=== PATIENT | female | born 1945 | race Caucasian/White ===

== ENCOUNTER 2017-09-22 10:27 | Emergency (ER) | payer OTHER, MEDICARE, SELFPAY ==
[2017-09-22 10:28] VITALS: BP 179/78; PULSE 103; RESP 15; TEMP 36.6; O2SAT 98; BMI 23.6
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
[2017-09-22 12:14] VITALS: PULSE 82; RESP 15; O2SAT 98
== END 2017-09-22 12:14 | disposition home or self-care (01) ==
PROVIDERS: Emergency Provider Emergency Medicine
DX: S00.83XA Contusion of other part of head, initial encounter (principal); S60.812A Abrasion of left wrist, initial encounter; S60.811A Abrasion of right wrist, initial encounter; R07.89 Other chest pain; Z72.0 Tobacco use; V47.0XXA Car driver injured in collision with fixed or stationary object in nontraffic accident, initial encounter; W22.11XA Striking against or struck by driver side automobile airbag, initial encounter; Y93.I9 Activity, other involving external motion; Y92.410 Unspecified street and highway as the place of occurrence of the external cause; Y99.8 Other external cause status
CPT/HCPCS: 70450; 71046; 99284

== ENCOUNTER 2019-12-03 12:56 | Emergency (ER) | payer MEDICARE, OTHER, SELFPAY ==
[2019-12-03 12:56] VITALS: BP 143/76; PULSE 114; RESP 18; TEMP 36.4; O2SAT 98; BMI 22.2
--- NOTE | 2019-12-03 14:10 | RAD_ITS ---
STUDY: X-RAY CHEST REASON FOR EXAM: Female, 73 years old. Cough/sob TECHNIQUE: AP COMPARISON: 09/22/2017 FINDINGS: The lungs are clear and expanded. There is no demonstrated pleural abnormality. Normal size heart. Normal mediastinum and leslie. Normal visualized pulmonary arteries. There is atherosclerotic tortuosity of the aortic arch and descending thoracic aorta. There is demineralization of the osseous structures. Normal visualized ribs, clavicles, and shoulders. There is no demonstrated abnormality of the visualized soft tissue structures of the upper abdomen. RAD/Chest 1 View (Portable) IMPRESSION: Stable, nonacute portable x-ray examination of the chest. Electronically Signed: Jose Miguel Alcantara MD ([place]) at 14:27 EDT , Service support ,
--- NOTE | 2019-12-03 15:01 | ED.DCSUM_ITS ---
History of Present Illness Chief Complaint: Cough Informant: Patient Onset: Days Context: Gradual Onset Timing: Intermittent Associated Symptoms: Nasal Congestion, Headache, Sinus Pressure, Productive Cough Narrative: Patient is a 73-year-old female with history of tobacco use and seasonal allergies presenting with sinus headache, sinus drainage and cough. Her symptoms been present for the past 2 days. She has no change in her taste or smell, myalgias, chest pain or shortness of breath. She states her cough is been productive of clear sputum and her nasal drainage has been clear as well. Patient denies any sick contacts. Her family was concerned she might have coronavirus and insisted she come to the ER to be tested however patient states she does not think she does. She denies any sick contacts. She has no other complaints at this time. Past Medical History - Allergies and Home Meds Allergies/Adverse Reactions: Allergies Sulfa (Sulfonamide Antibiotics) Allergy (Verified 12/03/19 12:59) Hives Past Medical History: - - Seasonal allergies, COPD Surgical History: noncontributory Smoking Status: Current every day smoker Review of Systems General: Denies: Chills, Fever, Sweats Eyes: Denies: Visual changes - bilaterally, Diplopia ENT: Reports: Rhinorrhea, - - Sinus congestion. Denies: Sore throat Cardiovascular: Denies: Chest pain, Palpitations Respiratory: Reports: Cough, Sputum. Denies: Dyspnea, Dyspnea on exertion Gastrointestinal: Denies: Abdominal pain, Nausea, Vomiting, Diarrhea Genitourinary: Denies: Dysuria, Hematuria, Frequency Musculoskeletal: Denies: Back pain, Extremity Pain Skin: Denies: Rash, Wounds Neurological: Reports: Headache. Denies: Weakness, Numbness Physical Exam Vital Signs/Narrative: Vital Signs Temp Pulse Resp BP Pulse Ox 12/03/19 12:56 97.6 F L 114 H 18 143/76 H 98 Inital Vital Signs reviewed: Yes General: Well nourished, Well developed Head: Normocephalic, Atraumatic Eyes: Perrl, EOMI Ears: Normal external canal, TM's clear Nose: Normal Inspection, No Rhinorrhea. Negative for: Swollen Turbinates Mouth/Throat: Normal Inspection, No Posterior Erythema Neck: Supple, Nontender Cardiovascular: Regular rate, Regular rhythm, No murmurs Respiratory: No distress, CTA bilaterally, Chest nontender. Negative for: Wheezing, Diminished, Decreased Air Movement Abdomen: Soft, Nontender, Nondistended, Normal bowel sounds Back: Nontender, Normal Inspection Extremities: Nontender, No edema Skin: Normal color, No rash Neurological: Alert, Oriented x3, Cranial nerves II-XII grossly intact, Normal Strength, Normal Sensation Psychological: Normal affect Diagnostic/Tx/Re-eval Clinical Impression(s) from Imaging Studies Chest X-Ray 12/03/19 14:10 IMPRESSION: Stable, nonacute portable x-ray examination of the chest. Electronically Signed: Jose Miguel Alcantara MD ([place]) at 14:27 EDT , Service support , - Medical Decision Making Patient is evaluated for cough and allergy-like symptoms. Friend/no member at the bedside is concerned patient might have coronavirus however patient thinks she just has her seasonal allergies. Patient denies any contacts that have been sick. She does continue to smoke cigarettes. She states she is not interested in quitting. Given she has had a cough with sputum production as well as sinus congestion I did obtain a Covid test as well as a chest x-ray. Chest x-ray does not show any acute process. Covid test is pending. Patient is tachycardic however she states that she is anxious about being in the ER and also is often tachycardic. She does not want to be evaluated further at this time. States she feels well. Patient is counseled on return precautions as well as to quarantine until her results return or she is resolution of her symptoms. Patient is counseled on signs and symptoms requiring return to the emergency room. Patient verbalizes agreement and understand this plan. Patient discharged home in stable and improved condition. ED Disposition - Plan for ED Patient: Disposition: Home or Assisted Living Diagnosis: Cough, URI (upper respiratory infection), Person under investigation for COVID- 19 Instructions: ED PNEUMONITIS Adult, ED URI Viral Additional Instructions: Your chest x-ray does not show any acute pneumonia. The exact cause of your symptoms is not clear. It could be viral such as from coronavirus versus allergies. Please quarantine at home until your symptoms resolved or your coronavirus test has come back negative. Please follow-up with your primary care doctor as needed. Return the emergency room if you develop signs of dehydration or you start to have difficulty breathing.
[2019-12-03 15:17] VITALS: BP 169/86; PULSE 105; RESP 16; O2SAT 95
== END 2019-12-03 15:18 | disposition home or self-care (01) ==
PROVIDERS: Emergency Provider Emergency Medicine
DX: R05 Cough (principal); J06.9 Acute upper respiratory infection, unspecified; F17.200 Nicotine dependence, unspecified, uncomplicated
CPT/HCPCS: 71045; 87635; 99282; U0003

== ENCOUNTER 2020-05-12 15:13 | Emergency (ER) | payer MEDICARE, OTHER, SELFPAY ==
[2020-05-12 15:15] VITALS: BP 152/64; PULSE 110; RESP 20; TEMP 36.7; O2SAT 98; BMI 22.6
--- NOTE | 2020-05-12 15:50 | ED.VIS.GEN ---
History of Present Illness Chief Complaint: Lower Extremity Injury Informant: Patient Narrative: Patient is a 74-year-old female with a past medical history of CAD currently being worked up for potential bypass who presents to the emergency department for acute onset left leg pain, difficulty moving and loss of sensation. Her foot has been feeling cold. She is never had this happen before. She is complaining of some left buttock cheek pain that she relates to starting at the same time. This is nontraumatic. She has never had this happen before. She is not on any blood thinning medications. She denies any abdominal pain. No chest pain or shortness of breath. No fevers or chills. Past Medical History - Allergies and Home Meds Allergies/Adverse Reactions: Allergies Sulfa (Sulfonamide Antibiotics) Allergy (Verified 05/12/20 15:14) Hives Primary Care Physician: Care Physician,No Primary [NON-STAFF] - Prior records reviewed: Yes Surgical History: noncontributory Smoking Status: Current every day smoker Review of Systems All systems negative except as indicated General: Denies: Chills, Fever, Sweats Eyes: Denies: Visual changes - bilaterally, Diplopia ENT: Denies: Rhinorrhea, Sore throat Cardiovascular: Denies: Chest pain, Palpitations Respiratory: Denies: Dyspnea, Cough, Dyspnea on exertion Gastrointestinal: Denies: Abdominal pain, Nausea, Vomiting, Diarrhea Genitourinary: Denies: Dysuria, Hematuria, Frequency Musculoskeletal: Denies: Back pain, Extremity Pain Skin: Reports: - - Left leg is pale and mottled. Denies: Rash, Wounds Neurological: Reports: Weakness, Numbness. Denies: Headache Physical Exam Vital Signs/Narrative: Vital Signs Temp Pulse Resp BP Pulse Ox 05/12/20 15:15 98.1 F 110 H 20 H 152/64 H 98 Inital Vital Signs reviewed: Yes General: Well nourished, Well developed, No Acute Distress Head: Normocephalic, Atraumatic Eyes: Perrl, EOMI ENT: Moist mucous membranes, No rhinorrhea Neck: Supple, Nontender Cardiovascular: Regular rate, Regular rhythm, Murmur Respiratory: No distress, CTA bilaterally, Chest nontender Abdomen: Soft, Nontender, Nondistended, Normal bowel sounds Back: Nontender, Normal Inspection Extremities: Nontender, No edema, - - Patient has minimal range of motion and significant weakness of the left leg. Skin: Normal color, No rash, - - Skin is pale on the foot. It is partially mottled. Her DP and PT pulses are not able to be palpated or heard by Doppler. Neurological: Alert, Oriented x3, Cranial nerves II-XII grossly intact, Normal Strength, Normal Sensation Psychological: Normal affect, Normal Mood Diagnostic/Tx/Re-eval - Medical Decision Making Patient presents to the ED for cold pale left leg. I was unable to appreciate pulses on physical exam. She is able to appreciate mild sensation but has a significant decrease in sensation as well as muscle strength. Unfortunately did not have vascular surgery present to assist with care of the patient. She would like to go to [facility]. I did contact the vascular surgeon immediately and start to arrange transfer. Lab work is currently pending. Patient is accepted by the ED doc and vascular surgeon, Dr. Cee and Dr. Rivera. While awaiting for transfer basic lab work and CT imaging was able to be obtained without delaying transfer. She was started on a heparin drip. The CT scan did show an acute occlusion of the iliac artery. The rest of her lab work did not reveal any significant acute abnormality. Patient will be transferred at this time. She is agreeable with this plan. - Critical Care Time Critical care time (excluding procedures): 30-74 minutes, Discussing w/Patient &/or Family/Clutch Mechanic, Discussing w/Consultants, Arranging Admission or Transfer, Performing Direct Patient Care at Bedside ED Disposition - Plan for ED Patient: Disposition: [facility] Diagnosis: Arterial occlusion, lower extremity Referrals: Care Physician,No Primary [NON-STAFF] -
[2020-05-12 16:14] LABS: Absolute Lymphocyte Count 1.44 X10^3/uL (0.83-4.51); Absolute Neutrophil Count 7.2 X10^3/uL (2.0-7.7); Basophil# 0.06 X10^3/uL; Basophil% 0.6 % (0-1); Eosinophil# 0.05 X10^3/uL; Eosinophils% 0.5 % (0-5); Hematocrit 38.5 % (37-47); Hemoglobin 12.4 g/dL (12.0-15.0); Lymphocyte # 1.44 X10^3/ul (4.0); Lymphocyte % 15.4 % (19-41); Mean Corp Hgb Conc 32.2 g/dL (32-36); Mean Corpuscular Hgb 30.2 pg (27.0-32.0); Mean Corpuscular Volume 93.7 fL (81-99); Mean Platelet Vol. 9.3 fl (6.2-12.0); Monocyte# 0.59 X10^3/uL; Monocyte% 6.3 % (0-10); NRBC Flagged by Analyzer 0 % (0-5); Neutrophil % 76.8 % (47-70); Platelet Count 336 K/mm3 (150-450); RBC Distribution Width CV 12.9 % (11.6-14.6); RBC Distribution Width SD 43.9 fl (35.1-43.9); Red Blood Count 4.11 M/mm3 (4.2-5.4); White Blood Count 9.4 K/mm3 (4.4-11.0)
[2020-05-12 16:20] LABS: International Normalized Ratio 1.1; Partial Thromboplast Time 28.6 Seconds (24.1-36.2); Prothrombin Time (Protime)PT. 13.3 SECONDS (11.7-14.9)
[2020-05-12 16:28] LABS: AST(SGOT) 14 U/L (15-37); Alanine Aminotransfer ALT/SGPT 20 U/L (13-56); Alkaline Phosphatase 90 U/L (45-117); Anion Gap 6 (5-15); BUN 10 mg/dL (7-18); BUN/Creat Ratio 12.8 RATIO (10-20); Bilirubin, Direct 0.09 mg/dL (0.00-0.30); Calcium,Total 9.2 mg/dL (8.5-10.1); Chloride 104 mmol/L (98-107); Creatinine, Serum 0.78 mg/dL (0.55-1.02); EST Glomerular Filtration Rate 76 mL/min (>60); Est Glom Filt Rate - Afr Amer 92 mL/min (>60); Estimated Creatinine Clearance 38.53 ml/min; Globulin 3.4 g/dL (2.2-4.2); Glucose 197 mg/dL (74-106); Potassium 3.7 mmol/L (3.5-5.1); Protein, Total 7.4 g/dL (6.4-8.2); Sodium Level 139 mmol/L (136-145)
[2020-05-12] MEDS: Heparin Injection (Vial) 5,000 UNIT/ML VIAL 4000 UNIT IV (16:29)
--- NOTE | 2020-05-12 16:29 | CT_ITS ---
STUDY: CTA OF THE ABDOMINAL AORTA AND BILATERAL LOWER EXTREMITIES REASON FOR EXAM: Female, 74 years old. Acute arterial occlusion left leg RADIATION DOSAGE (If Supplied By Facility): CTDIvol = ( 4.99 ) mGy, DLP = ( 660.29 ) mGycm TECHNIQUE: Axial CT angiography multi-detector data acquisition was obtained from the diaphragm to the left foot following intravenous administration of IV 100ML ISOVUE 370. Axial images and MIP images were reconstructed from the axial data set. Post-processing of the angiographic images was performed, with multiplanar reformation and 3D reconstruction. Individualized dose optimization techniques were used for this CT. TECHNICAL QUALITY: Good COMPARISON: None. Descriptors of Narrowing: None (0%) Mild (< 50%) Moderate (50-70%) Severe (70-90%) Subtotal/Total Occlusion (90-100%) Non-Evaluable (technically non-diagnostic FINDINGS: Abdominal aorta: Moderate atherosclerotic plaque of the abdominal aorta without aneurysm or dissection. Celiac and superior mesenteric arteries: No narrowing of the superior mesenteric artery. High-grade stenosis of the celiac artery. Inferior mesenteric artery: No demonstrated narrowing. Right renal artery(arteries): No demonstrated narrowing. Left renal artery(arteries): No demonstrated narrowing. Right common iliac artery: Moderate diffuse plaque of the right common iliac artery without occlusion or high-grade stenosis. Right external iliac artery: Moderate plaque without occlusion. Right internal iliac artery: Moderate plaque without occlusion. Left common iliac artery: The distal left common iliac artery is occluded. Left external iliac artery: Occlusion of the proximal left external iliac artery with distal reconstitution which is sporadic. Left internal iliac artery: Trickle flow into the left external carotid artery with filling beyond the origin with moderate plaque without other occlusion. RIGHT LOWER EXTREMITY Right common femoral artery: Moderate plaque without occlusion. Right profundus femoris: No demonstrated narrowing. Right superficial femoral: Moderate proximal plaque without occlusion. Right popliteal artery: No demonstrated narrowing. Right tibioperoneal trunk: No demonstrated narrowing. Right anterior tibial artery: No demonstrated narrowing. Right posterior tibial artery: No demonstrated narrowing. Right peroneal artery: No demonstrated narrowing. LEFT LOWER EXTREMITY Left common femoral artery: Reconstitution with moderate plaque, less than 50% narrowing. Left profundus femoris: No demonstrated narrowing. Left superficial femoral: Mild sporadic plaque without occlusion. Left popliteal artery: No demonstrated narrowing. Left tibioperoneal trunk: No demonstrated narrowing. Anterior tibial, posterior tibial and peroneal arteries are faintly visualized to calf level. Generalized hypertrophy of the adrenal glands. Diverticulosis of the colon. Right groin hernia containing colon. Small fatty left groin hernia. Status post hysterectomy.. 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 There is calcified plaque at the level of the occlusion but the occlusion appears to be primarily an intraluminal soft tissue filling defect/thrombus. There is trickle flow into the left internal iliac artery which is otherwise patent with moderate atheromatous plaque. Despite reduced flow there is patency of the profunda artery, superficial femoral artery, popliteal artery and three-vessel runoff to the mid calf with no peripheral plaque. 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 Other nonocclusive atherosclerotic changes as described above. Incidental findings include generalized hypertrophy of the adrenal glands, diverticulosis and a colon-containing right groin hernia. Small fatty left groin hernia. Status post hysterectomy. Electronically Signed: Lynette Garcia MD at 18:05 EDT , Service support ,
[2020-05-12] MEDS: HEPARIN/D5w 25,000 UNITS 25,000 UNITS/250 ML IV.SOLN. 8 UNITS IV (16:30)
[2020-05-12 16:36] LABS: CPK Total, Creatine Kinase 65 U/L (26-192)
[2020-05-12 16:42] VITALS: BP 141/55; PULSE 101; RESP 14
[2020-05-12 17:19] VITALS: PULSE 107; O2SAT 96
[2020-05-12 18:21] VITALS: BP 141/60; PULSE 106; RESP 14; O2SAT 96
--- NOTE | 2020-05-12 20:05 | ED.RN ---
CHART OPENED TO PRINT A REPORT FOR [facility] TO GIVE THEM MISSING LAB RESULTS.
== END 2020-05-12 18:38 | disposition short-term general hospital (02) ==
LOC: ED 16:04
PROVIDERS: Emergency Provider Emergency Medicine
DX: I77.1 Stricture of artery (principal); I25.10 Atherosclerotic heart disease of native coronary artery without angina pectoris; F17.200 Nicotine dependence, unspecified, uncomplicated
CPT/HCPCS: 73706; 80048; 80076; 82550; 85025; 85610; 85730; 96374; 99285; Q9967; A4216

== ENCOUNTER → 2020-07-05 12:50 | Outpatient (CLI) | payer MEDICARE, OTHER, SELFPAY ==
[2020-07-02 09:38] VITALS: BMI 21.8
--- NOTE | 2020-07-05 13:00 | RAD_ITS ---
EXAM: XR BONE SURVEY, COMPLETE CLINICAL INDICATION: abnormal immunological findings, elevated serum immunoglobulin findings in serum TECHNIQUE: Multiple views of the bones of the axial and appendicular skeleton. This report was created using [employer] report generation technology. COMPARISON: None. FINDINGS: BONES/JOINTS: Degenerative changes of the cervical, thoracic and lumbar spine. Diffuse osteopenia. Degenerative retrolisthesis of T12-L1 and L1-L2. Multilevel facet arthropathy. Severe degenerative changes of the right hip with subchondral sclerosis and cyst formation with remodeling of the femoral head. SOFT TISSUES: Unremarkable. VASCULATURE: Atherosclerosis of the abdominal aorta and thoracic aortic arch. Atherosclerosis of the bilateral femoral arteries. OTHER FINDINGS: Mitral valve calcifications. RAD/Bone Survey Comp(Axial&Append) IMPRESSION: No lytic or sclerotic bone lesions. Electronically Signed: Jose Miguel Alcantara MD ([place]) at 18:05 EDT , Service support ,
== END ==
PROVIDERS: PCP Nurse Practitioner Family; Referring Provider Internal Medicine Medical Oncology; Visit Provider Internal Medicine Medical Oncology
DX: R76.8 Other specified abnormal immunological findings in serum (principal)
CPT/HCPCS: 77075

== ENCOUNTER 2023-06-28 19:54 | Inpatient (IN) | payer MEDICARE, OTHER, SELFPAY ==
[2023-06-28] VITALS (35 sets, daily range): BP systolic 86–152; BP diastolic 56–121; PULSE 78–178; RESP 18–38; TEMP 36.5; O2SAT 95–100; BMI 26.0
--- NOTE | 2023-06-28 20:10 | EX.ED.DYSGE1 ---
HPI History of Present Illness Chief Complaint: Shortness of Breath Informant: patient and family Onset/Context/Timing Onset: Days Narrative Narrative: Patient presents secondary to shortness of breath with weakness and inability to walk. Patient states symptoms been ongoing for a week or more. She does admit to intermittent palpitations. She is prescribed Xarelto but admits that she has been out of it for a while. She is also been out of her metoprolol. She is a history of atrial fibrillation. [facility] Medical History Amyloidosis Aortic stenosis Atrial fibrillation Cardiomyopathy Edema Heart murmur Hyperlipidemia Hypertension Iliac artery occlusion Mitral annular calcification Sinus tachycardia Smoking history Ventricular hypertrophy Vitamin D deficiency Home Medications cholecalciferol (vitamin D3) 50 mcg (2,000 unit) chewable tablet 50 mcg PO DAILY 06/28/20 [History Last Taken Unknown] metoprolol succinate 25 mg tablet,extended release 24 hr 25 mg PO DAILY 06/28/20 [History Last Taken Unknown] multivitamin 1 tab PO DAILY 06/28/20 [History Last Taken Unknown] rivaroxaban 15 mg tablet 15 mg PO DAILY 06/28/20 [History Last Taken Unknown] atorvastatin 10 mg tablet (Lipitor) 10 mg PO DAILY 07/11/20 [History Last Taken Unknown] cholecalciferol (vitamin D3) 1,250 mcg (50,000 unit) capsule 1,250 mcg PO QMONTH 07/11/20 [History Last Taken Unknown] polysaccharide iron complex 150 mg iron capsule (Ferrex) 150 mg PO BID #60 caps 07/12/20 [Rx Last Taken Unknown] Allergy/AdvReac Type Severity Reaction Status Date / Time Sulfa (Sulfonamide Allergy Hives Verified 06/28/23 19:55 Antibiotics) Family History Sister Aortic valve replaced Status post aortic valve replacement and aortoplasty Brother Hx of CABG CHF (congestive heart failure) Sister Cancer Sister Heart failure Sister CVA (cerebral vascular accident) Father Hepatitis CHF (congestive heart failure) Mother CHF (congestive heart failure) Sudden Surgical History History of hysterectomy Social History Smoking Status: Current every day smoker tobacco type: cigarettes second hand exposure: No quit status: considering quitting alcohol intake: current alcohol intake frequency: a few times a month Alcohol type: beer substance use type: does not use jair/yazdanism: Jain ROS ROS ED Constitutional Constitutional ED: Denies chills or fever(s) Eyes Eyes: Denies discharge from eye(s) ENT ENT ED: Denies discharge from eye(s), rhinorrhea or sore throat Cardiovascular Cardiovascular: Reports palpitations and racing heartbeat; Denies chest pain Respiratory/Chest Respiratory/Chest: Reports dyspnea; Denies cough Gastrointestinal Gastrointestinal: Denies abdominal pain, nausea or vomiting Genitourinary Genitourinary ED: Denies dysuria Musculoskeletal Musculoskeletal: Denies back pain or extremity pain Integumentary Denies Abrasions or rash Neurologic Neurologic: Reports weakness; Denies headache(s) Allergic/Immunologic Allergic/Immunologic ED: Denies lip swelling or urticaria EXAM Physical Exam Const Vital Signs: 06/28/23 19:55 06/28/23 20:23 06/28/23 21:51 Temperature 97.7 F L Temperature Source Temporal Pulse Rate 78 178 H Respiratory Rate 18 32 H Respiratory Effort Normal Short of Breath Respiratory Depth Normal Respiratory Pattern Normal Blood Pressure 152/74 H 105/86 H Blood Pressure Mean 100 92 Pulse Ox 95 99 Oxygen Delivery Method Room Air Room Air 06/28/23 20:33 06/28/23 20:35 06/28/23 20:40 Temperature Temperature Source Pulse Rate 125 H 133 H 113 H Respiratory Rate 38 H 33 H 31 H Respiratory Effort Respiratory Depth Respiratory Pattern Blood Pressure 100/60 117/64 Blood Pressure Mean 72 81 Pulse Ox 99 100 99 Oxygen Delivery Method 06/28/23 20:45 06/28/23 20:50 06/28/23 20:55 Temperature Temperature Source Pulse Rate 113 H 110 H 105 H Respiratory Rate 34 H 27 H 30 H Respiratory Effort Respiratory Depth Respiratory Pattern Blood Pressure 101/59 L 119/91 H 105/56 L Blood Pressure Mean 73 102 71 Pulse Ox 100 100 100 Oxygen Delivery Method 06/28/23 21:00 06/28/23 21:05 06/28/23 21:10 Temperature Temperature Source Pulse Rate 114 H 116 H 111 H Respiratory Rate 20 H 26 H 31 H Respiratory Effort Respiratory Depth Respiratory Pattern Blood Pressure 98/71 111/76 108/59 L Blood Pressure Mean 81 88 74 Pulse Ox 100 99 99 Oxygen Delivery Method 06/28/23 21:15 06/28/23 21:20 06/28/23 21:25 Temperature Temperature Source Pulse Rate 112 H 119 H 115 H Respiratory Rate 32 H 23 H 30 H Respiratory Effort Respiratory Depth Respiratory Pattern Blood Pressure 111/74 134/121 H 107/69 Blood Pressure Mean 85 126 81 Pulse Ox 100 100 99 Oxygen Delivery Method 06/28/23 21:30 06/28/23 21:35 06/28/23 21:45 Temperature Temperature Source Pulse Rate 121 H 120 H Respiratory Rate 29 H 27 H Respiratory Effort Respiratory Depth Respiratory Pattern Blood Pressure 101/69 86/61 L 102/76 Blood Pressure Mean 81 68 85 Pulse Ox 100 99 100 Oxygen Delivery Method 06/28/23 21:50 06/28/23 21:55 06/28/23 22:15 Temperature Temperature Source Pulse Rate 111 H 122 H 121 H Respiratory Rate 27 H 29 H 26 H Respiratory Effort Respiratory Depth Respiratory Pattern Blood Pressure 93/59 L 91/62 Blood Pressure Mean 70 73 Pulse Ox 100 99 99 Oxygen Delivery Method 06/28/23 22:30 06/28/23 22:45 06/28/23 23:00 Temperature Temperature Source Pulse Rate 123 H 112 H 118 H Respiratory Rate 28 H 31 H 22 H Respiratory Effort Respiratory Depth Respiratory Pattern Blood Pressure Blood Pressure Mean Pulse Ox 99 100 99 Oxygen Delivery Method 06/28/23 23:01 06/28/23 23:05 06/28/23 23:15 Temperature Temperature Source Pulse Rate 115 H 123 H 115 H Respiratory Rate 27 H 27 H 29 H Respiratory Effort Respiratory Depth Respiratory Pattern Blood Pressure 106/83 H 116/83 H 124/85 H Blood Pressure Mean 92 94 96 Pulse Ox 100 100 99 Oxygen Delivery Method Positive cachectic General Appearance ED: cachectic Nutritional Appearance: cachectic HEENT Reports moist mucous membranes Eyes EOMs intact bilaterally Chest Wall inspection of chest normal and palpation of chest normal Resp normal respiratory effort Resp Narrative: Diminished breath sounds bilateral bases. Cardio Rate: tachycardic Rhythm: abnormal rhythm irregularly irregular GI non-tender Palpation: soft Extremity Extremity Narrative: 3-4+ bilateral lower extremity edema, symmetric. Neuro oriented x3 Psych mental status grossly normal Skin no rashes or lesions noted MDM MDM MDM Narrative Medical decision making narrative: Patient placed on monitor by myself. Heart rate is between 150s and 180s. IV line initiated. Patient ordered 10 mg of IV Cardizem for rate control. Labwork obtained to evaluate for leukocytosis, anemia, and electrolyte derangement. EKG obtained to evaluate for cardiac arrhythmia/ischemia. Chest x-ray obtained to evaluate for acute lung pathology, cardiac size, or mediastinal abnormality. History & Record Review Discussion w/independent historian: Patient and Family Additional record(s) reviewed:: Prior labs Lab Data Attestation: I reviewed the patient's lab results. Labs: Laboratory Results - last 24 hr 06/28/23 06/28/23 20:18 22:38 WBC 17.5 H RBC 3.89 L Hgb 11.2 L Hct 35.6 L MCV 91.5 MCH 28.8 MCHC 31.5 L RDW Std Deviation 46.5 H RDW Coeff of Lobo 14.0 Plt Count 155 MPV 11.0 Immature Gran % (Auto) 1.100 H Neut % (Auto) 81.3 H Lymph % (Auto) 6.2 L Overton % (Auto) 11.2 H Eos % (Auto) 0.0 Baso % (Auto) 0.2 Absolute Neuts (auto) 14.3 H Absolute Lymphs (auto) 1.08 Nucleated RBC % 1.0 Differential Comment SCANNED Diff Path Review May foll Sodium 121 L Potassium 5.6 H Chloride 88 L Carbon Dioxide 18.0 L Anion Gap 15 BUN 79 H Creatinine 2.28 H Est GFR (MDRD) Af Amer 27 L Est GFR (MDRD) Non-Af 22 L BUN/Creatinine Ratio 34.6 H Glucose 202 H Calcium 8.5 Total Bilirubin 2.70 H Direct Bilirubin 2.04 H AST 832 H ALT 869 H Alkaline Phosphatase 398 H Troponin I High Sens 214 H* 198 H* B-Natriuretic Peptide 1126.8 H Total Protein 6.3 L Albumin 3.3 Globulin 3.0 Radiography Chest X-Ray - ED: 1 View, Read by ED Physician, Chronic Changes and Left Effusion Diagnostic Testing: Clinical Impression(s) from Imaging Studies Chest X-Ray 06/28/23 20:25 IMPRESSION: Left pleural effusion. Cardiac enlargement. Electronically Signed: Lorenzo Agustin MD at 21:07 EDT , Abdomen Ultrasound 06/28/23 21:37 IMPRESSION: Gallbladder wall thickening and pericholecystic fluid. No gallstones or biliary dilatation. Small pleural effusion. Electronically Signed: Lorenzo Agustin MD at 23:07 EDT , EKG Initial EKG: Attestation: I personally reviewed and interpreted this EKG as follows: Interpretation: Atrial Fibrillation (A-fib RVR with ventricular rate of 182. ST depression noted in V3, V4, V5, and high lateral leads.) Follow-up EKG: Attestation: I personally reviewed and interpreted this EKG as follows: Interpretation: Atrial Fibrillation (A-fib with ventricular rate of 126. Patient does have continued [address] depression in V3 through V6 as well as high lateral leads, but is improved when compared to prior study.) Treatment and Re-Evaluation :: CBC was a white count of 17.5 with 81% neutrophils. Hemoglobin is 11.2. Chemistry studies significant for a sodium of 121 a potassium of 5.6. Chloride is 88. Bicarb is low at 18. BUN is 79 and creatinine is 2.28. Last labs I have to compare to are from 2020 and she had normal renal function at that time. LFTs significant for total bili of 2.7, direct bili 2.04, AST of 832, ALT of 869, alk phos of 398. Initial troponin is elevated at 214 with a 2-hour repeat troponin of 198. BNP is 1126. On repeat evaluation, after initial 10 mg of IV Cardizem, patient's heart rate is gone from the 180s to 120s. Repeat EKG shows some continued ST depression. Patient continues to deny any chest or abdominal pain. Given her abnormal LFTs a right upper quadrant ultrasound is obtained. This reveals a gallbladder wall 4 mm with pericholecystic fluid but no sonographic Hairston sign. There are no gallstones. Biliary duct is normal. Liver and pancreas echogenicity are normal. No obvious masses or cysts. I spoke with Dr. Villafana as well as . Eulalio. Acute hepatitis panel will be sent. They will both follow along and consult. At this time patient's heart rate is between 115 and 130. I will start her on a Cardizem drip for rate control. I will speak with hospitalist regarding admission. Discharge Plan Triage Chief Complaint: Shortness of Breath ED Provider: Guadalupe Barrios Dx/Rx/DC Orders Clinical Impression: Acute kidney injury, Abnormal LFTs, CHF (congestive heart failure), Hyponatremia, Elevated troponin, Atrial fibrillation with rapid ventricular response, Hyperkalemia Prescriptions: No Action cholecalciferol (vitamin D3) 50 mcg (2,000 unit) tablet,chewable 50 mcg PO DAILY metoprolol succinate 25 mg tablet extended release 24 hr 25 mg PO DAILY multivitamin Tablet 1 tab PO DAILY rivaroxaban 15 mg tablet 15 mg PO DAILY Rx Instructions: must administer with evening meal cholecalciferol (vitamin D3) 1,250 mcg (50,000 unit) capsule 1,250 mcg PO QMONTH atorvastatin [Lipitor] 10 mg tablet 10 mg PO DAILY polysaccharide iron complex [Ferrex 150] 150 mg iron capsule 150 mg PO BID Qty: 60 3RF Primary Care Provider: Care Physician,No Primary Referrals: Eben Nieto PROFESSIONAL ORGANIZER, PROFESSIONAL ORGANIZER-C [Non-Staff] - Disposition Disposition: Acute Care Hospital [facility]
[2023-06-28] MEDS: dilTIAZem 25 MG/5 ML Vial 10 MG IV BOLUS (20:22)
--- NOTE | 2023-06-28 20:25 | RAD_ITS ---
STUDY: X-RAY CHEST REASON FOR EXAM: Female, 77 years old. SOB TECHNIQUE: Single AP portable view of the chest. COMPARISON: None. FINDINGS: The lungs are clear and expanded. There is small left pleural effusion. There is moderate cardiac enlargement. There are mitral annular calcifications Normal mediastinum and leslie. Normal visualized pulmonary arteries. There is atherosclerotic calcification of the aortic arch with tortuosity. There is demineralization of the osseous structures. Scoliosis and degenerative change of the spine. Normal visualized ribs, clavicles, and shoulders. There is no demonstrated abnormality of the visualized soft tissue structures of the upper abdomen. RAD/Chest 1 View (Portable) IMPRESSION: Left pleural effusion. Cardiac enlargement. Electronically Signed: Lorenzo Agustin MD at 21:07 EDT ,
[2023-06-28 20:42] LABS: Absolute Lymphocyte Count 1.08 X10^3/uL (0.83-4.51); Absolute Neutrophil Count 14.3 X10^3/uL (2.0-7.7); Basophil# 0.03 X10^3/uL; Basophil% 0.2 % (0-1); Hematocrit 35.6 % (37-47); Hemoglobin 11.2 g/dL (12.0-15.0); Lymphocyte # 1.08 X10^3/ul (0.83-4.51); Lymphocyte % 6.2 % (19-41); Mean Corp Hgb Conc 31.5 g/dL (32-36); Mean Corpuscular Hgb 28.8 pg (27.0-32.0); Mean Corpuscular Volume 91.5 fL (81-99); Monocyte# 1.97 X10^3/uL; Monocyte% 11.2 % (0-10); Neutrophil # 14.26 X10^3/uL (2.7-7.7); Neutrophil % 81.3 % (47-70); POSITIVE DIFFERENTIAL YES; Platelet Count 155 K/mm3 (150-450); RBC Distribution Width SD 46.5 fl (35.1-43.9); Red Blood Count 3.89 M/mm3 (4.2-5.4); White Blood Count 17.5 K/mm3 (4.4-11.0)
[2023-06-28 20:46] LABS: Differential Indicated SCAN CRITERIA MET
[2023-06-28 21:04] LABS: Differential Comment SCANNED
[2023-06-28 21:10] LABS: BNP,B-Type NATRIURETIC PEPTIDE 1126.8 pg/mL (0-100)
[2023-06-28 21:34] LABS: AST(SGOT) 832 U/L (15-37); Alanine Aminotransfer ALT/SGPT 869 U/L (13-56); Albumin, Serum 3.3 g/dL (3.2-5.0); Alkaline Phosphatase 398 U/L (45-117); Anion Gap 15 (5-15); BUN 79 mg/dL (7-18); BUN/Creat Ratio 34.6 RATIO (10-20); Bilirubin, Direct 2.04 mg/dL (0.00-0.30); Calcium,Total 8.5 mg/dL (8.5-10.1); Chloride 88 mmol/L (98-107); Creatinine, Serum 2.28 mg/dL (0.55-1.02); EST Glomerular Filtration Rate 22 mL/min (>60); Est Glom Filt Rate - Afr Amer 27 mL/min (>60); Glucose 202 mg/dL (74-106); Potassium 5.6 mmol/L (3.5-5.1); Protein, Total 6.3 g/dL (6.4-8.2); Sodium Level 121 mmol/L (136-145); Troponin-I HS (w/2H Reflex) 214 pg/mL (3.0-54.0)
--- NOTE | 2023-06-28 21:37 | US_ITS ---
STUDY: ABDOMINAL ULTRASOUND - RIGHT UPPER QUADRANT REASON FOR VISIT: Female, 77 years old Abn labs, jaundice TECHNIQUE: Ultrasound evaluation of the right upper quadrant was performed with real-time and static bergman-scale imaging. TECHNICAL QUALITY: Adequate. COMPARISON: None. FINDINGS: Liver: The liver measures 15.8 cm. There is normal echogenicity of the liver. The bile ducts are within normal limits. There is hepatic color flow. The direction of portal flow is hepatopetal. There is no demonstrated mass lesion. There is small pleural effusion. Gallbladder: Normal distended gallbladder. The gallbladder wall measures 4 mm. There is a negative sonographic Hairston''s sign. There is pericholecystic fluid. There are no gallstones. Common Bile Duct (C.B.D.): The common bile duct measures 4 mm. Pancreas: Normal size of the head, body and tail of the pancreas. There is normal echogenicity of the pancreas. There is no demonstrated pancreatic mass or cyst. Right Kidney: Normal size of the right kidney. The right kidney measures 10.9 cm. Normal renal cortex. The right cortex measures 1.5 cm. There is no demonstrated renal mass or cyst. There is no right hydronephrosis. US/Abdomen Limited IMPRESSION: Gallbladder wall thickening and pericholecystic fluid. No gallstones or biliary dilatation. Small pleural effusion. Electronically Signed: Lorenzo Agustin MD at 23:07 EDT ,
[2023-06-28] MEDS: dilTIAZem 25 MG/5 ML Vial 5 MG IV BOLUS (21:45)
[2023-06-28 22:29] LABS: Reflex Troponin-HS? (from REC) Y
[2023-06-28 23:13] LABS: Troponin-I HS 198 pg/mL (3.0-54.0)
[2023-06-28] MEDS: 0.9% Normal Saline (1000mL) 1,000 ML 100 ML IV (23:33)
[2023-06-29] VITALS (62 sets, daily range): BP systolic 83–133; BP diastolic 42–95; PULSE 31–145; RESP 16–35; TEMP 36.1–37; O2SAT 97–100; BMI 20.2
[2023-06-29] MEDS: Diltiazem 125 MG in Dextrose 5%-Water (100mL Bag) 100 ML CONT INF (00:12)
--- NOTE | 2023-06-29 01:04 | PCM.HP.STD ---
[facility] - General General Date of Admission: 06/29/23 Date of Service: 06/29/23 Chief Complaint: Dyspnea on Exertion, Heart Racing, Bilateral Lower Extremity Edema and Jaundice. HPI Narrative ELYSE RUANO, is a 77 F with a past medical history of essential hypertension, hyperlipidemia, tobacco abuse, overweight; BMI 26 this admission, chronic atrial fibrillation; previously on rivaroxaban, history of aortic stenosis, history of ventricular hypertrophy, history of cardiomyopathy, amyloidosis, PAD; status post iliac artery occlusion, history of hysterectomy, osteoarthritis, medical noncompliance; with patient not taking any of her medications for the past few weeks who presents and DNR-CC CODE STATUS to [facility] ER complaining of dyspnea on exertion, heart racing, lower extremity edema and jaundice. Ms. Ruano reports her symptoms began more than 1 week prior to admission with a gradual onset of dyspnea on exertion that progressed to shortness of breath at rest. She also admits to weakness so severe she is now unable to walk along with intermittent palpitations. She informed the ER physician that she is prescribed Xarelto but she has been out of it for a while with her family indicating that it has been likely weeks since she has taken. She also admits to being out of her metoprolol. She does admit to drinking excessive amounts of water daily with significant bilateral lower extremity pitting edema but denies associated fever, chills, nausea, vomiting, chest pain, back pain or headache. In the ER the patient was initially noted to be in atrial fibrillation with rapid ventricular response requiring several doses of IV Cardizem followed by a Cardizem drip along with obvious jaundice appearance with total bilirubin of 2.7 mg/dL (direct bilirubin 2.04 mg/dL) AST of 832 units/L, ALT of 869 units/L and alkaline phosphatase of 398 units/L and leukocytosis of 17.5 K present on admission worrisome for acute hepatitis with Right upper quadrant ultrasound done in the ER showing gallbladder wall thickening and pericholecystic fluid but no gallstones or biliary dilatation with concern for possible viral hepatitis. She also had a chest x-ray that revealed a left pleural effusion with cardiomegaly and an elevated BNP of 1,126.8 pg/mL present on admission consistent with acute exacerbation of CHF compounded by GREGORY; with elevated serum creatinine of 2.28 mg/dL with a BUN of 79 mg/dL and hyperkalemia of 5.6 mmol/L present on admission worrisome for possible obstruction and/or GI bleed with CT of the abdomen and pelvis now ordered STAT to further assess her anatomy and ascertain why she is in multiorgan failure. In addition to all this the patient was also noted to be hyponatremic at 121 mmol/L suspected to be due to water intoxication. I spoke with the ER physician about consideration regarding transferring this patient to a tertiary care center due to this patient's medical complexity and advanced age. She was then admitted to the ICU for ongoing care for a stay that is expected to be greater than 2 midnights. [facility] Medical History Amyloidosis Aortic stenosis Atrial fibrillation Cardiomyopathy Edema Heart murmur Hyperlipidemia Hypertension Iliac artery occlusion Mitral annular calcification Sinus tachycardia Smoking history Ventricular hypertrophy Vitamin D deficiency Home Medications cholecalciferol (vitamin D3) 50 mcg (2,000 unit) chewable tablet 50 mcg PO DAILY 06/28/20 [History Last Taken Unknown] metoprolol succinate 25 mg tablet,extended release 24 hr 25 mg PO DAILY 06/28/20 [History Last Taken Unknown] multivitamin 1 tab PO DAILY 06/28/20 [History Last Taken Unknown] rivaroxaban 15 mg tablet 15 mg PO DAILY 06/28/20 [History Last Taken Unknown] atorvastatin 10 mg tablet (Lipitor) 10 mg PO DAILY 07/11/20 [History Last Taken Unknown] cholecalciferol (vitamin D3) 1,250 mcg (50,000 unit) capsule 1,250 mcg PO QMONTH 07/11/20 [History Last Taken Unknown] polysaccharide iron complex 150 mg iron capsule (Ferrex) 150 mg PO BID #60 caps 07/12/20 [Rx Last Taken Unknown] Allergy/AdvReac Type Severity Reaction Status Date / Time Sulfa (Sulfonamide Allergy Hives Verified 06/28/23 19:55 Antibiotics) Family History Sister Aortic valve replaced Status post aortic valve replacement and aortoplasty Brother Hx of CABG CHF (congestive heart failure) Sister Cancer Sister Heart failure Sister CVA (cerebral vascular accident) Father Hepatitis CHF (congestive heart failure) Mother CHF (congestive heart failure) Sudden Surgical History History of hysterectomy Social History Smoking Status: Current every day smoker tobacco type: cigarettes second hand exposure: No quit status: considering quitting alcohol intake: current alcohol intake frequency: a few times a month Alcohol type: beer substance use type: does not use jair/voodoo: Hindu ROS ROS Narrative Review of systems: General: Patient denies fever or chills. HENT: Denies headache, denies stuffy nose, denies sore throat EYES: Denies changes in vision or discharge from eyes. Resp: Patient admits to dyspnea on exertion that progressed to shortness of breath at rest as per HPI. Cardiac: Patient admits to palpitations and heart racing but denies chest pain. GI: Patient admits to jaundice but she denies abdominal pain, denies changes in bowel, denies nausea or vomiting. : Denies changes in urination Extremity: Patient admits to 3-4+ bilateral lower extremity edema. Musculoskeletal: Feels somewhat generally weak and unwell but denies arthralgias or myalgias. Neuro: Patient denies headache, paresthesias or focal neurologic weakness. Heme: Denies any bleeding or bruising Skin: Denies rashes Psychiatric: No complaints voiced related to uncontrolled depression or anxiety. Endocrine: Patient admits to excessive free water intake but denies polyphagia or history of diabetes or SIADH. The rest of the 14 point ROS was negative except for positives in HPI. Vital Signs Vital Signs Vital Signs: 06/28/23 19:55 06/28/23 20:23 06/28/23 21:51 Temperature 97.7 F L Temperature Source Temporal Pulse Rate 78 178 H Respiratory Rate 18 32 H Respiratory Effort Normal Short of Breath Respiratory Depth Normal Respiratory Pattern Normal Blood Pressure 152/74 H 105/86 H Blood Pressure Mean 100 92 Blood Pressure Source Blood Pressure Position Blood Pressure Location Pulse Ox 95 99 Oxygen Delivery Method Room Air Room Air 06/28/23 20:33 06/28/23 20:35 06/28/23 20:40 Temperature Temperature Source Pulse Rate 125 H 133 H 113 H Respiratory Rate 38 H 33 H 31 H Respiratory Effort Respiratory Depth Respiratory Pattern Blood Pressure 100/60 117/64 Blood Pressure Mean 72 81 Blood Pressure Source Blood Pressure Position Blood Pressure Location Pulse Ox 99 100 99 Oxygen Delivery Method 06/28/23 20:45 06/28/23 20:50 06/28/23 20:55 Temperature Temperature Source Pulse Rate 113 H 110 H 105 H Respiratory Rate 34 H 27 H 30 H Respiratory Effort Respiratory Depth Respiratory Pattern Blood Pressure 101/59 L 119/91 H 105/56 L Blood Pressure Mean 73 102 71 Blood Pressure Source Blood Pressure Position Blood Pressure Location Pulse Ox 100 100 100 Oxygen Delivery Method 06/28/23 21:00 06/28/23 21:05 06/28/23 21:10 Temperature Temperature Source Pulse Rate 114 H 116 H 111 H Respiratory Rate 20 H 26 H 31 H Respiratory Effort Respiratory Depth Respiratory Pattern Blood Pressure 98/71 111/76 108/59 L Blood Pressure Mean 81 88 74 Blood Pressure Source Blood Pressure Position Blood Pressure Location Pulse Ox 100 99 99 Oxygen Delivery Method 06/28/23 21:15 06/28/23 21:20 06/28/23 21:25 Temperature Temperature Source Pulse Rate 112 H 119 H 115 H Respiratory Rate 32 H 23 H 30 H Respiratory Effort Respiratory Depth Respiratory Pattern Blood Pressure 111/74 134/121 H 107/69 Blood Pressure Mean 85 126 81 Blood Pressure Source Blood Pressure Position Blood Pressure Location Pulse Ox 100 100 99 Oxygen Delivery Method 06/28/23 21:30 06/28/23 21:35 06/28/23 21:45 Temperature Temperature Source Pulse Rate 121 H 120 H Respiratory Rate 29 H 27 H Respiratory Effort Respiratory Depth Respiratory Pattern Blood Pressure 101/69 86/61 L 102/76 Blood Pressure Mean 81 68 85 Blood Pressure Source Blood Pressure Position Blood Pressure Location Pulse Ox 100 99 100 Oxygen Delivery Method 06/28/23 21:50 06/28/23 21:55 06/28/23 22:15 Temperature Temperature Source Pulse Rate 111 H 122 H 121 H Respiratory Rate 27 H 29 H 26 H Respiratory Effort Respiratory Depth Respiratory Pattern Blood Pressure 93/59 L 91/62 Blood Pressure Mean 70 73 Blood Pressure Source Blood Pressure Position Blood Pressure Location Pulse Ox 100 99 99 Oxygen Delivery Method 06/28/23 22:30 06/28/23 22:45 06/28/23 23:00 Temperature Temperature Source Pulse Rate 123 H 112 H 118 H Respiratory Rate 28 H 31 H 22 H Respiratory Effort Respiratory Depth Respiratory Pattern Blood Pressure Blood Pressure Mean Blood Pressure Source Blood Pressure Position Blood Pressure Location Pulse Ox 99 100 99 Oxygen Delivery Method 06/28/23 23:01 06/28/23 23:05 06/28/23 23:15 Temperature Temperature Source Pulse Rate 115 H 123 H 115 H Respiratory Rate 27 H 27 H 29 H Respiratory Effort Respiratory Depth Respiratory Pattern Blood Pressure 106/83 H 116/83 H 124/85 H Blood Pressure Mean 92 94 96 Blood Pressure Source Blood Pressure Position Blood Pressure Location Pulse Ox 100 100 99 Oxygen Delivery Method 06/29/23 00:00 06/29/23 00:12 06/29/23 00:14 Temperature 97.4 F L Temperature Source Pulse Rate 130 H 130 H 130 H Respiratory Rate 24 H 24 H 25 H Respiratory Effort Respiratory Depth Respiratory Pattern Blood Pressure 113/72 133/65 H 115/72 Blood Pressure Mean 85 87 86 Blood Pressure Source Monitor Blood Pressure Position Semi-Fowlers Blood Pressure Location Right Arm Pulse Ox 100 100 100 Oxygen Delivery Method Room Air Room Air 06/29/23 00:42 06/28/23 23:20 06/28/23 23:25 Temperature Temperature Source Pulse Rate 134 H 114 H 128 H Respiratory Rate 22 H 26 H 32 H Respiratory Effort Respiratory Depth Respiratory Pattern Blood Pressure 98/59 L 118/65 96/72 Blood Pressure Mean 72 81 78 Blood Pressure Source Monitor Blood Pressure Position Semi-Fowlers Blood Pressure Location Right Arm Pulse Ox 100 100 99 Oxygen Delivery Method Room Air 06/28/23 23:30 06/28/23 23:35 06/28/23 23:40 Temperature Temperature Source Pulse Rate 119 H 116 H 113 H Respiratory Rate 29 H 26 H 24 H Respiratory Effort Respiratory Depth Respiratory Pattern Blood Pressure 103/56 L 120/99 H 113/80 Blood Pressure Mean 67 107 91 Blood Pressure Source Blood Pressure Position Blood Pressure Location Pulse Ox 100 100 100 Oxygen Delivery Method 06/28/23 23:45 06/28/23 23:50 06/28/23 23:55 Temperature Temperature Source Pulse Rate 132 H 130 H Respiratory Rate 26 H 33 H Respiratory Effort Respiratory Depth Respiratory Pattern Blood Pressure 117/68 116/73 119/75 Blood Pressure Mean 83 85 90 Blood Pressure Source Blood Pressure Position Blood Pressure Location Pulse Ox 100 99 Oxygen Delivery Method 06/29/23 00:00 06/29/23 00:05 06/29/23 00:11 Temperature Temperature Source Pulse Rate 120 H 115 H 132 H Respiratory Rate 31 H 25 H 24 H Respiratory Effort Respiratory Depth Respiratory Pattern Blood Pressure 123/81 H 113/72 133/65 H Blood Pressure Mean 93 85 79 Blood Pressure Source Blood Pressure Position Blood Pressure Location Pulse Ox 100 100 100 Oxygen Delivery Method 06/29/23 00:15 06/29/23 00:20 06/29/23 00:25 Temperature Temperature Source Pulse Rate 130 H 140 H 121 H Respiratory Rate 28 H 32 H 27 H Respiratory Effort Respiratory Depth Respiratory Pattern Blood Pressure 115/72 125/80 H 120/63 Blood Pressure Mean 86 94 81 Blood Pressure Source Blood Pressure Position Blood Pressure Location Pulse Ox 100 100 100 Oxygen Delivery Method 06/29/23 00:30 06/29/23 00:31 06/29/23 00:35 Temperature Temperature Source Pulse Rate 129 H 129 H 136 H Respiratory Rate 31 H 35 H 31 H Respiratory Effort Respiratory Depth Respiratory Pattern Blood Pressure 99/76 122/86 H Blood Pressure Mean 85 97 Blood Pressure Source Blood Pressure Position Blood Pressure Location Pulse Ox 100 100 Oxygen Delivery Method 06/29/23 00:40 06/29/23 00:45 06/29/23 00:46 Temperature Temperature Source Pulse Rate 121 H 145 H 135 H Respiratory Rate 25 H 29 H 28 H Respiratory Effort Respiratory Depth Respiratory Pattern Blood Pressure 98/59 L 117/71 Blood Pressure Mean 71 86 Blood Pressure Source Blood Pressure Position Blood Pressure Location Pulse Ox 99 100 100 Oxygen Delivery Method Weight Weight: 104 lb 0.931 oz Body Mass Index (BMI) 26.0 Physical Exam Const alert, oriented x3 and average body habitus Constitutional Narrative: Mild distress noted. General Appearance: cooperative HEENT normocephalic, head/scalp atraumatic, hearing grossly normal bilaterally and moist oral mucous membranes Eyes PERRL and EOMs intact bilaterally Neck no lymphadenopathy and supple Resp Resp Narrative: Diminished breath sounds at left base greater than right. Cardio Cardio Narrative: Irregularly irregular at approximately 120 bpm on Cardizem drip. GI normal to inspection, nondistended, normoactive bowel sounds, soft to palpation, non-tender and non-distended Extremity Extremity Narrative: 3-4+ bilateral lower extremity pitting edema. Skin Skin Narrative: Patient has evidence of severe jaundice. Neuro oriented x3, CN's II-XII intact bilaterally, moves all extremities and no focal motor deficits Sensorium / Orientation: awake, alert, oriented to person, oriented to place and oriented to time Speech: speech normal Psych affect normal Results Medical Records Data Attestation: I reviewed the patient's medical records Lab / Micro Data Attestation: I reviewed the patient's lab results. 06/29/23 02:47 06/29/23 02:47 Labs: Laboratory Results - last 24 hr 06/28/23 20:18: WBC 17.5 H, RBC 3.89 L, Hgb 11.2 L, Hct 35.6 L, MCV 91.5, MCH 28.8, MCHC 31.5 L, RDW Std Deviation 46.5 H, RDW Coeff of Lobo 14.0, Plt Count 155, MPV 11.0, Immature Gran % (Auto) 1.100 H, Neut % (Auto) 81.3 H, Lymph % (Auto) 6.2 L, [place] % (Auto) 11.2 H, Eos % (Auto) 0.0, Baso % (Auto) 0.2, Absolute Neuts (auto) 14.3 H, Absolute Lymphs (auto) 1.08, Nucleated RBC % 1.0, Differential Comment SCANNED, Diff Path Review June, Sodium 121 L, Potassium 5.6 H, Chloride 88 L, Carbon Dioxide 18.0 L, Anion Gap 15, BUN 79 H, Creatinine 2.28 H, Est GFR (MDRD) Af Amer 27 L, Est GFR (MDRD) Non-Af 22 L, BUN/Creatinine Ratio 34.6 H, Glucose 202 H, Calcium 8.5, Total Bilirubin 2.70 H, Direct Bilirubin 2.04 H, AST 832 H, ALT 869 H, Alkaline Phosphatase 398 H, Troponin I High Sens 214 H*, B-Natriuretic Peptide 1126.8 H, Total Protein 6.3 L, Albumin 3.3, Globulin 3.0 06/28/23 22:38: Troponin I High Sens 198 H* Imaging Radiology Impression Chest X-Ray 06/28/23 20:25 IMPRESSION: Left pleural effusion. Cardiac enlargement. Electronically Signed: Lorenzo Agustin MD at 21:07 EDT , Abdomen Ultrasound 06/28/23 21:37 IMPRESSION: Gallbladder wall thickening and pericholecystic fluid. No gallstones or biliary dilatation. Small pleural effusion. Electronically Signed: Lorenzo Agustin MD at 23:07 EDT , Assessment & Plan Assessment/Plan (1) Acute liver failure due to hepatitis virus: (2) Abnormal LFTs: (3) Atrial fibrillation with rapid ventricular response: (4) Acute kidney injury: (5) Hyponatremia: (6) CHF (congestive heart failure): QUALIFIERS: Heart failure chronicity: unspecified Heart failure type: unspecified Qualified Code(s): I50.9 - Heart failure, unspecified (7) Amyloidosis: QUALIFIERS: Amyloidosis type: unspecified amyloidosis Qualified Code(s): E85.9 - Amyloidosis, unspecified PLAN: Plan 1. Acute liver failure with obvious jaundice appearance with total bilirubin of 2.7 mg/dL (direct bilirubin 2.04 mg/dL) AST of 832 units/L, ALT of 869 units/L and alkaline phosphatase of 398 units/L and leukocytosis of 17.5 K present on admission worrisome for acute hepatitis with Right upper quadrant ultrasound done in the ER showing gallbladder wall thickening and pericholecystic fluid but no gallstones or biliary dilatation with concern for possible viral hepatitis with DNR-CC CODE STATUS - Admit to ICU. Keep NPO and start IV Protonix BID. Give Zofran IV prn. Finally, we will consult GI and general surgery to see this patient on-rounds in the AM for further recommendations with help appreciated in advance. 2. Atrial fibrillation with rapid ventricular response requiring several doses of IV Cardizem followed by a Cardizem drip complicating #1 - Wean Cardizem drip as tolerated. 3. GREGORY; with elevated serum creatinine of 2.28 mg/dL with a BUN of 79 mg/dL and hyperkalemia of 5.6 mmol/L present on admission worrisome for possible obstruction and/or GI bleed with CT of the abdomen and pelvis now ordered STAT to further assess her anatomy and ascertain why she is in multiorgan failure compounding #1 & #2 - CT pending to evaluate for evidence of possible mass or obstruction. 4. AE CHF; evidenced by chest x-ray that revealed a left pleural effusion with cardiomegaly and an elevated BNP of 1,126.8 pg/mL present on admission adding to the pathology of #1 - #3 - Give Lasix 40 mg IV daily plus supplemental magnesium. Check echocardiogram to evaluate LVEF. 5. Severe hyponatremia of 121 mmol/L present on admission likely due to water intoxication - Give NS IVF and then recheck BMP q. 6 hours to ensure correction of no more than 8-10 mmol/L per 24 hours. Check serum and urine osmolality. 6. Chronic atrial fibrillation medical noncompliance with antihypertensives and anticoagulants further complicating #1 - #5 - Patient was encouraged to take her medications as prescribed. 7. Tobacco abuse - Tobacco cessation will be strongly encouraged with nicotine patch offered to control cravings. 8. Essential hypertension - Restart home regimen plus give IV hydralazine as needed for systolic blood pressure greater than 160 mmHg. 9. History aortic stenosis, ventricular hypertrophy and cardiomyopathy - Echocardioram pending this admission. 10. Hyperlipidemia - No statin with transaminitis but we will check Lipid Profile. 11. Overweight; BMI 26 this admission - Weight loss will be recommended. 12. Amyloidosis - Noted. Awaiting CT results. 13. PAD; status post iliac artery occlusion - Stable. 14. History of hysterectomy - Noted. 15. Osteoarthritis - Stable. 16. DVT prophylaxis - SCD's only for now until bleeding as cause of elevated BUN of 79 mg/dL present on admission ruled out. Total time: Approximately 75 minutes. Charges/Coding Visit Charges Inpatient E&M: 91164 Init Hosp L3
--- NOTE | 2023-06-29 01:19 | CT_ITS ---
STUDY: CT CHEST, ABDOMEN T PELVIS WITHOUT CONTRAST REASON FOR EXAM: Female, 77 years old. ACUTE LIVER FAILURE RADIATION DOSAGE (If Supplied By Facility): CTDIvol = ( 6.58 ) mGy, DLP = ( 509.79 ) mGycm TECHNIQUE: Transaxial imaging was performed without the administration of intravenous contrast material. Multiplanar coronal and sagittal images were reformatted. Individualized dose optimization techniques were used for this CT. COMPARISON: Prior study dated: Radiograph and ultrasound from 06/28/2023. FINDINGS: CHEST The central airways are patent. Moderate left and small right pleural effusions with dependent atelectasis. No separate consolidation. No pneumothorax. Prominent heart. No pericardial effusion. Coronary artery calcifications are present. Mitral annular calcification. There is an enlarged precarinal mediastinal lymph node measuring 1.8 cm. No additional lymphadenopathy. Normal hilar regions. Normal unenhanced pulmonary arteries. Normal caliber aorta arch and descending thoracic aorta. Moderate atherosclerotic calcifications are noted. Thoracic kyphosis. DISH. Multilevel degenerative changes of the spine. No acute rib abnormality. ABDOMEN Normal liver. Normal gallbladder and extrahepatic biliary system. Normal spleen. Normal pancreas. Normal bilateral adrenal glands. Normal right kidney. Normal left kidney. Small hiatal hernia. The stomach is otherwise decompressed. Normal small intestine. Colonic diverticulosis without diverticulitis. No focal wall thickening. The appendix is visualized and appears normal. Normal caliber aorta with moderate to severe atherosclerotic calcification. Normal inferior vena cava. Normal retroperitoneum. Normal abdominal wall. PELVIS Normal urinary bladder. Small volume of free fluid in the pelvis. There is no pelvic lymphadenopathy or mass lesion. Normal caliber vasculature with moderate atherosclerotic calcification. Inflammatory stranding overlies the left hip and upper thigh. No acute osseous abnormality. Moderate degenerative changes of the lumbar spine with disc space narrowing and vacuum disc phenomenon. Multilevel facet arthropathy. Severe degenerative changes at the right hip with flattening of the femoral head and superior joint space narrowing. CT/CT Chest, Abd, Pelvis WO Cont IMPRESSION: Small volume ascites. Moderate left and small right pleural effusions with associated atelectasis. Enlarged precarinal mediastinal lymph node of uncertain etiology. Electronically Signed: Max Castillo MD at 2:14 EDT ,
--- NOTE | 2023-06-29 02:05 | ECHOD_ITS ---
Reason For Study: CHF Procedure This was a 2D Doppler, Color Flow transthoracic echocardiogram. The study was technically difficult. Due to AFIB Unable to utilize pedoff probe due to body habitus.. Exam performed portable in ICU/CCU. Left Ventricle Moderate assymetric septal hypertrophy. Small LV cavity. Left ventricular systolic function is hyperdynamic. LVEF more than 70%. At least stage 2 diastolic dysfunction. Right Ventricle Normal RV size. Normal systolic function. Atria The left atrium is severely enlarged. The right atrium is moderately enlarged. Mitral Valve Severe mitral annular calcification. The mitral valve chordae are thickened and/or calcified. Moderately severe mitral stenosis. Mean transmitral valve gradient 10.5 mmHg. Mild-Moderate (1-2+) mitral valve insufficiency. Tricuspid Valve Normal tricuspid valve. Moderately severe (3+) tricuspid valve insufficiency. Pulmonary artery systolic pressure is 50 mmHg. Aortic Valve Trisinus/trileaflet aortic valve. Moderate to severe aortic stenosis. Peak aortic valve gradient 64 mmHg. Mean aortic valve gradient 38 mmHg. Mild (1+) aortic valve insufficiency. Pulmonic Valve Normal pulmonic valve. Trivial pulmonic valve insufficiency. Great Vessels Not well visualized. Pericardium/Pleural No pericardial effusion. Large left pleural effusion. MMode/2D Measurements & Calculations LVIDd: 3.3 cm IVSd: 1.5 cm LVOT diam: 1.7 cm LVIDs: 2.5 cm LVPWd: 1.0 cm LVOT area: 2.2 cm2 RVDd: 2.6 cm FS: 23.0 % LAV(MOD-bp): 157.1 ml LVAd ap4: 15.5 cm2 SV(MOD-sp4): 14.2 ml LAV(MOD-bp) Indexed: 122.1 ml/m2 LVLd ap4: 6.3 cm LAV(MOD-sp2): 148.1 ml EDV(MOD-sp4): 31.4 ml LAV(MOD-sp4): 149.4 ml EDV(sp4-el): 32.7 ml LVAs ap4: 10.4 cm2 LVLs ap4: 5.8 cm ESV(MOD-sp4): 17.2 ml ESV(sp4-el): 16.0 ml EF(MOD-sp4): 45.2 % EF(sp4-el): 51.1 % SV(sp4-el): 16.7 ml TAPSE: 1.3 cm Doppler Measurements & Calculations MV E max oh: 213.3 cm/sec Lat Peak E' Oh: 5.8 cm/sec Med Peak E' Oh: 3.2 cm/sec E/E' lat: 36.8 E/E' med: 66.5 MV V2 max: 232.9 cm/sec Ao V2 max: 400.0 cm/sec AI max oh: 421.5 cm/sec MV max P.8 mmHg Ao max P.2 mmHg AI max P.1 mmHg MV V2 mean: 149.1 cm/sec Ao V2 mean: 292.0 cm/sec AI dec slope: 438.5 cm/sec2 MV mean P.5 mmHg Ao mean P.5 mmHg AI P1/2t: 281.6 msec MV V2 VTI: 35.3 cm Ao V2 VTI: 82.1 cm MVA(VTI): 0.69 cm2 AV (velocity ratio): 0.13 SONIA(I,D): 0.30 cm2 SONIA(V,D): 0.35 cm2 LV V1 max: 63.5 cm/sec MR max oh: 563.2 cm/sec SV(LVOT): 24.5 ml LV V1 max P.6 mmHg MR max P.0 mmHg LV V1 mean P.89 mmHg MR mean oh: 438.3 cm/sec LV V1 mean: 44.8 cm/sec MR mean P.3 mmHg LV V1 VTI: 11.0 cm MR VTI: 142.9 cm PA V2 max: 80.0 cm/sec TR max oh: 323.2 cm/sec PA V2 mean: 57.1 cm/sec TR max P.8 mmHg ECHO/Echo Complete Interpretation Summary The estimated ejection fraction is more than 70 %. Moderate assymetric septal h ypertrophy. Small LV cavity. The left atrium is severely enlarged. The right atrium is moderately enlarged. Moderately severe mitral stenosis. Mild-Moderate (1-2+) mitral valve insufficiency. Moderate to severe aortic stenosis. Moderately severe tricuspid valve regurgitation. Pulmonary artery systolic pres sure estimated at 50 mmHg. Ordering Physician: Ludwin James Referring Physician: SULEIMAN PCP Performed By: Ewa Pastrana, HERMANN, RVT
[2023-06-29] MEDS: 0.9% Normal Saline (1000mL) 1,000 ML 60 ML IV ×2 (02:23→18:37)
[2023-06-29 05:18] LABS: Lactic Acid 2.2 mmol/L (0.4-1.9)
[2023-06-29 05:21] LABS: Absolute Lymphocyte Count 1.46 X10^3/uL (0.83-4.51); Absolute Neutrophil Count 12.6 X10^3/uL (2.0-7.7); Basophil# 0.02 X10^3/uL; Basophil% 0.1 % (0-1); Eosinophil# 0.01 X10^3/uL; Eosinophils% 0.1 % (0-5); Hematocrit 31.3 % (37-47); Hemoglobin 10.3 g/dL (12.0-15.0); Lymphocyte # 1.46 X10^3/ul (0.83-4.51); Lymphocyte % 8.9 % (19-41); Mean Corp Hgb Conc 32.9 g/dL (32-36); Mean Corpuscular Hgb 29.5 pg (27.0-32.0); Mean Corpuscular Volume 89.7 fL (81-99); Mean Platelet Vol. 10.8 fl (6.2-12.0); Monocyte# 2.06 X10^3/uL; Monocyte% 12.6 % (0-10); NRBC Flagged by Analyzer 0.7 % (0-5); Neutrophil # 12.63 X10^3/uL (2.7-7.7); Neutrophil % 77.4 % (47-70); POSITIVE DIFFERENTIAL YES; Platelet Count 122 K/mm3 (150-450); RBC Distribution Width CV 13.9 % (11.6-14.6); Red Blood Count 3.49 M/mm3 (4.2-5.4); White Blood Count 16.3 K/mm3 (4.4-11.0)
[2023-06-29 05:22] LABS: ALB/GLOB Ratio 1.1 RATIO (0.9-2.4); AST(SGOT) 791 U/L (15-37); Alanine Aminotransfer ALT/SGPT 892 U/L (13-56); Albumin, Serum 3.2 g/dL (3.2-5.0); Alkaline Phosphatase 366 U/L (45-117); Anion Gap 13 (5-15); BUN 74 mg/dL (7-18); BUN/Creat Ratio 43.5 RATIO (10-20); Calcium,Total 8.3 mg/dL (8.5-10.1); Chloride 90 mmol/L (98-107); EST Glomerular Filtration Rate 31 mL/min (>60); Est Glom Filt Rate - Afr Amer 37 mL/min (>60); Estimated Creatinine Clearance 19.27 ml/min; Globulin 2.8 g/dL (2.2-4.2); Glucose 103 mg/dL (74-106); Magnesium 2.7 mg/dL (1.6-2.6); Potassium 5.3 mmol/L (3.5-5.1); Sodium Level 122 mmol/L (136-145); Thyroid Stim Hormone (TSH) 1.52 uIU/mL (0.358-3.74)
[2023-06-29 05:23] LABS: Differential Indicated SCAN CRITERIA MET
[2023-06-29 05:31] LABS: Osmolality, Serum 284 mOsm/KG (280-301)
[2023-06-29 05:35] LABS: Prothrombin Time (Protime)PT. 22.9 SECONDS (11.7-14.9)
[2023-06-29 05:57] LABS: BNP,B-Type NATRIURETIC PEPTIDE 793.7 pg/mL (0-100)
[2023-06-29] MEDS: 0.9% Saline Lock 10 ML Syringe IV (06:45)
[2023-06-29] MEDS: Digoxin 250 MCG/ML Ampul 125 MCG IV (06:45)
--- NOTE | 2023-06-29 08:11 | PCM.PN.HOSP ---
Reason for Visit Reason for Visit: Diagnoses Unspecified viral hepatitis without hepatic coma (06/29/23) Amyloidosis, unspecified (06/29/23) Hypo-osmolality and hyponatremia (06/29/23) Unspecified atrial fibrillation (06/29/23) Heart failure, unspecified (06/29/23) Acute and subacute hepatic failure without coma (06/29/23) Acute kidney failure, unspecified (06/29/23) Other specified abnormal findings of blood chemistry (06/29/23) Objective Data Objective Data Vital Signs: Vital Signs Temp Pulse Resp BP Pulse Ox O2 Del Method 97.0 F L 111 H 21 H 105/89 H 99 Room Air 06/29/23 02:30 06/29/23 07:00 06/29/23 07:00 06/29/23 07:00 06/29/23 07:00 06/29/23 07:00 Oxygen Delivery Method Room Air Weight: 103 lb 9.876 oz Body Mass Index (BMI) 20.2 Intake & Output: Intake and Output for Last 24 Hours 06/27/23 06/28/23 06/29/23 23:59 23:59 23:59 Intake Total 370.50 / 370.50 Output Total 0 / 0 Balance 370.50 / 370.50 Lab / Micro Data 06/29/23 02:47 06/29/23 02:47 Labs: Laboratory Results - last 24 hr 06/28/23 20:18: WBC 17.5 H, RBC 3.89 L, Hgb 11.2 L, Hct 35.6 L, MCV 91.5, MCH 28.8, MCHC 31.5 L, RDW Std Deviation 46.5 H, RDW Coeff of Lobo 14.0, Plt Count 155, MPV 11.0, Immature Gran % (Auto) 1.100 H, Neut % (Auto) 81.3 H, Lymph % (Auto) 6.2 L, [place] % (Auto) 11.2 H, Eos % (Auto) 0.0, Baso % (Auto) 0.2, Absolute Neuts (auto) 14.3 H, Absolute Lymphs (auto) 1.08, Nucleated RBC % 1.0, Differential Comment SCANNED, Diff Path Review June, Sodium 121 L, Potassium 5.6 H, Chloride 88 L, Carbon Dioxide 18.0 L, Anion Gap 15, BUN 79 H, Creatinine 2.28 H, Est GFR (MDRD) Af Amer 27 L, Est GFR (MDRD) Non-Af 22 L, BUN/Creatinine Ratio 34.6 H, Glucose 202 H, Calcium 8.5, Total Bilirubin 2.70 H, Direct Bilirubin 2.04 H, AST 832 H, ALT 869 H, Alkaline Phosphatase 398 H, Troponin I High Sens 214 H*, B-Natriuretic Peptide 1126.8 H, Total Protein 6.3 L, Albumin 3.3, Globulin 3.0 06/28/23 22:38: Troponin I High Sens 198 H* 06/29/23 02:47: WBC 16.3 H, RBC 3.49 L, Hgb 10.3 L, Hct 31.3 L, MCV 89.7, MCH 29.5, MCHC 32.9, RDW Std Deviation 45.0 H, RDW Coeff of Lobo 13.9, Plt Count 122 L, MPV 10.8, Immature Gran % (Auto) 0.900, Neut % (Auto) 77.4 H, Lymph % (Auto) 8.9 L, [place] % (Auto) 12.6 H, Eos % (Auto) 0.1, Baso % (Auto) 0.1, Absolute Neuts (auto) 12.6 H, Absolute Lymphs (auto) 1.46, Nucleated RBC % 0.7, Diff Path Review June, PT 22.9 H, INR 2.0, Sodium 122 L, Potassium 5.3 H, Chloride 90 L, Carbon Dioxide 19.0 L, Anion Gap 13, BUN 74 H, Creatinine 1.70 H, Estim Creat Clear Calc 19.27, Est GFR (MDRD) Af Amer 37 L, Est GFR (MDRD) Non-Af 31 L, BUN/Creatinine Ratio 43.5 H, Glucose 103, Serum Osmolality 284, Lactic Acid 2.2 H*, Calcium 8.3 L, Phosphorus 4.0, Magnesium 2.7 H, Total Bilirubin 2.20 H, AST 791 H, ALT 892 H, Alkaline Phosphatase 366 H, B-Natriuretic Peptide 793.7 H, Total Protein 6.0 L, Albumin 3.2, Globulin 2.8, Albumin/Globulin Ratio 1.1, TSH 1.52 Radiography Diagnostic Testing: Radiology Impression Chest X-Ray 06/28/23 20:25 IMPRESSION: Left pleural effusion. Cardiac enlargement. Electronically Signed: Lorenzo Agustin MD at 21:07 EDT , Abdomen Ultrasound 06/28/23 21:37 IMPRESSION: Gallbladder wall thickening and pericholecystic fluid. No gallstones or biliary dilatation. Small pleural effusion. Electronically Signed: Lorenzo Agustin MD at 23:07 EDT , Chest/Abdomen/Pelvis CT 06/29/23 01:19 IMPRESSION: Small volume ascites. Moderate left and small right pleural effusions with associated atelectasis. Enlarged precarinal mediastinal lymph node of uncertain etiology. Electronically Signed: Max Castillo MD at 2:14 EDT , Physical Exam Narrative Seen and examined. Patient admitted with generalized weakness. Does not have abdominal pain. No chest pain. Not taking metoprolol and Xarelto for more than 1 week. Was found to have jaundice noticed in ED. No nausea vomiting. Physical exam General: Alert, Oriented x3, Cooperative HEENT: Icterus present atraumatic, PERRLA, EOMI, Normocephalic Oral: No Gingival or Mucosal Lesions/ Ulcerations Neck: Supple, No JVD, Negative Carotid Bruits Chest wall/Lungs: Air entry diminished in bilateral lung bases. No crepitation/rhonchi Cardiovascular: Irregular, A-fib with RVR. Holosystolic murmur cardiac apex and LLSB. Abdomen: Bowel Sounds Present, Soft, Non Tender, Non-Distended : No dysuria. No renal angle tenderness. No suprapubic tenderness. Extremities: bilateral below-knee 3+ edema, Capillary Refill Less than 3 Seconds Skin: No rashes, No breakdown Musculoskeletal: No Tenderness to Palpation of Joints or Extremities Neurological: Cranial nerves II-XII grossly intact, DTR 2+/4. No acute focal neurological deficit. Psych/Mental Status: Normal Affect, Appropriate. Assessment & Plan Assessment/Plan (1) Acute liver failure due to hepatitis virus: (2) Abnormal LFTs: (3) Atrial fibrillation with rapid ventricular response: (4) Acute kidney injury: (5) Hyponatremia: (6) CHF (congestive heart failure): QUALIFIERS: Heart failure chronicity: unspecified Heart failure type: unspecified Qualified Code(s): I50.9 - Heart failure, unspecified (7) Amyloidosis: QUALIFIERS: Amyloidosis type: unspecified amyloidosis Qualified Code(s): E85.9 - Amyloidosis, unspecified PLAN: Plan 77-year-old female came to ED with shortness of breath, weakness and inability to walk, symptom complex ongoing for more than 1 week. He was noticed jaundiced, variable heart rate with intermittent palpitation. Patient was prescribed Xarelto but has been out for a while. History of A-fib 1. Acute liver injury, exact etiology unclear: Patient is admitted in ICU. Labs shows total bilirubin of 2.7 mg/dL (direct bilirubin 2.04 mg/dL) AST of 832 units/L, ALT of 869 units/L and alkaline phosphatase of 398 units/L and leukocytosis of 17.5 K with right upper quadrant sonogram showing GB wall thickening with pericholecystic fluid but no abdominal pain or gallstones therefore possible acalculous cholecystitis. INR high 2.0 but patient was on Xarelto more than a week ago therefore probably from acute liver injury. Blood cultures x 2 ordered. Empirically started on IV Zosyn after blood cultures. Discussed with ICU nursing staff. Give Zofran IV prn. Patient evaluated by surgeon and GI consulted. 2. Atrial fibrillation with RVR, nonadherent to metoprolol and Xarelto: Tachycardia did not respond to multiple doses of Cardizem bolus therefore started on Cardizem drip currently at 15 mg/h. Also added digoxin 125 mg IV. Metoprolol succinate changed to metoprolol tartrate 25 mg every 8 hourly. 2D echo is ordered. Sustainability Consultant is consulted 3. Possible GREGORY unclear about CKD: Patient had normal creatinine back in June 2020 after that unclear about his renal status. Admitted with creatinine 2.28 currently 1.7.Hyperkalemia, hyponatremia with high anion gap metabolic acidosis. CT reported normal right and left kidney and normal urinary bladder. Nephrology is consulted. 4. AE CHF; evidenced by chest x-ray that revealed a left pleural effusion with cardiomegaly and an elevated BNP of 1,126.8 pg/mL present on admission- Give Lasix 40 mg IV daily plus supplemental magnesium. Check echocardiogram to evaluate LVEF. 5. Severe hyponatremia of 121 mmol/L present on admission likely due to water intoxication - Give NS IVF and then recheck BMP q. 6 hours to ensure correction of no more than 8-10 mmol/L per 24 hours. Check serum and urine osmolality. 6 tobacco abuse - Tobacco cessation will be strongly encouraged with nicotine patch offered to control cravings. 8. Essential hypertension - Restart home regimen plus give IV hydralazine as needed for systolic blood pressure greater than 160 mmHg. 9. History aortic stenosis, ventricular hypertrophy and cardiomyopathy - Echocardioram pending this admission. 10. Hyperlipidemia - No statin with transaminitis but we will check Lipid Profile. 11. Overweight; BMI 26 this admission - Weight loss will be recommended. 12. Amyloidosis - Noted. Awaiting CT results. 13. PAD; status post iliac artery occlusion - Stable. 14. History of hysterectomy - Noted. 15. Osteoarthritis - Stable. 16. DVT prophylaxis - SCD's only for now until bleeding as cause of elevated BUN of 79 mg/dL present on admission ruled out. Total time of the visit including total time spent in counseling or coordination of care, (more than 50% of the total time, spent in obtaining medical information from nurses and other ancillary care providers,explaining to the patient about labs, imaging, diagnosis and management of active complex medical conditions), multiple organ dysfunction, review of labs and imaging is 40 minutes. Charges/Coding Visit Charges Inpatient E&M: 32981 Subs Hosp L3
--- NOTE | 2023-06-29 08:29 | EX.PCM.CON.S ---
Assessment & Plan Assessment/Plan (1) Acute liver failure due to hepatitis virus: PLAN: I was consulted for elevated liver enzymes. The patient's gallbladder ultrasound shows some thickening of the gallbladder wall but no stones. Her white count is slightly elevated and she does have hyponatremia and hyperkalemia. She is not having any abdominal pain but does have jaundice. GI is consulted as well. If cholecystectomy will be necessary then I will be available but I think this is unlikely. I do not think she has acute cholecystitis. Kyle Villafana MD Pager: [facility] [address] [place] [address], [address] [place] [address] Office: HPI Consult Data Date of Consult: 06/29/23 HPI Narrative HPI Narrative: ELYSE RUANO, is a 77 F who is admitted to the ICU with several issues. The patient is not having any abdominal pain but was found to have jaundice. Patient reports no nausea or vomiting. Her biggest complaint was the earache that she had last week. [facility] Medical History Amyloidosis Aortic stenosis Atrial fibrillation Cardiomyopathy Edema Heart murmur Hyperlipidemia Hypertension Iliac artery occlusion Mitral annular calcification Sinus tachycardia Smoking history Ventricular hypertrophy Vitamin D deficiency Home Medications ?Medication ?Instructions ?Recorded ?Last Taken ?Type cholecalciferol (vitamin D3) 50 50 mcg PO DAILY 06/28/20 Unknown History mcg (2,000 unit) chewable tablet metoprolol succinate 25 mg 25 mg PO DAILY 06/28/20 Unknown History tablet,extended release 24 hr multivitamin 1 tab PO DAILY 06/28/20 Unknown History rivaroxaban 15 mg tablet 15 mg PO DAILY 06/28/20 Unknown History atorvastatin 10 mg tablet (Lipitor) 10 mg PO DAILY 07/11/20 Unknown History cholecalciferol (vitamin D3) 1,250 1,250 mcg PO QMONTH 07/11/20 Unknown History mcg (50,000 unit) capsule polysaccharide iron complex 150 mg 150 mg PO BID #60 caps 07/12/20 Unknown Rx iron capsule (Ferrex) Allergy/AdvReac Type Severity Reaction Status Date / Time Sulfa (Sulfonamide Allergy Hives Verified 06/28/23 19:55 Antibiotics) Family History Sister Aortic valve replaced Status post aortic valve replacement and aortoplasty Brother Hx of CABG CHF (congestive heart failure) Sister Cancer Sister Heart failure Sister CVA (cerebral vascular accident) Father Hepatitis CHF (congestive heart failure) Mother CHF (congestive heart failure) Sudden Surgical History History of hysterectomy Social History Smoking Status: Current every day smoker tobacco type: cigarettes second hand exposure: No quit status: considering quitting alcohol intake: current alcohol intake frequency: a few times a month Alcohol type: beer substance use type: does not use jair/pentecostal: Spiritism ROS Constitutional Constitutional: Denies anorexia, chills or fatigue ENT HEENT: Denies abnormal hearing Cardiovascular Cardiovascular: Denies chest pain Respiratory/Chest Respiratory/Chest: Denies dyspnea Gastrointestinal Gastrointestinal: Denies abdominal pain, nausea or vomiting Integumentary Integumentary: Reports jaundice; Denies new lesions Neurologic Neurologic: Denies abnormal gait Psychiatric Psychiatric: Denies anxiety Physical Exam Const alert and oriented x3 HEENT normocephalic Eyes PERRL Resp normal respiratory effort Cardio Rate: regular rate Rhythm: regular rhythm GI soft to palpation and non-tender Lab / Micro Data 06/29/23 02:47 06/29/23 02:47 Labs: Laboratory Results - last 24 hr 06/28/23 20:18: WBC 17.5 H, RBC 3.89 L, Hgb 11.2 L, Hct 35.6 L, MCV 91.5, MCH 28.8, MCHC 31.5 L, RDW Std Deviation 46.5 H, RDW Coeff of Lobo 14.0, Plt Count 155, MPV 11.0, Immature Gran % (Auto) 1.100 H, Neut % (Auto) 81.3 H, Lymph % (Auto) 6.2 L, [place] % (Auto) 11.2 H, Eos % (Auto) 0.0, Baso % (Auto) 0.2, Absolute Neuts (auto) 14.3 H, Absolute Lymphs (auto) 1.08, Nucleated RBC % 1.0, Differential Comment SCANNED, Diff Path Review June foll, Sodium 121 L, Potassium 5.6 H, Chloride 88 L, Carbon Dioxide 18.0 L, Anion Gap 15, BUN 79 H, Creatinine 2.28 H, Est GFR (MDRD) Af Amer 27 L, Est GFR (MDRD) Non-Af 22 L, BUN/Creatinine Ratio 34.6 H, Glucose 202 H, Calcium 8.5, Total Bilirubin 2.70 H, Direct Bilirubin 2.04 H, AST 832 H, ALT 869 H, Alkaline Phosphatase 398 H, Troponin I High Sens 214 H*, B-Natriuretic Peptide 1126.8 H, Total Protein 6.3 L, Albumin 3.3, Globulin 3.0 06/28/23 22:38: Troponin I High Sens 198 H* 06/29/23 02:47: WBC 16.3 H, RBC 3.49 L, Hgb 10.3 L, Hct 31.3 L, MCV 89.7, MCH 29.5, MCHC 32.9, RDW Std Deviation 45.0 H, RDW Coeff of Lobo 13.9, Plt Count 122 L, MPV 10.8, Immature Gran % (Auto) 0.900, Neut % (Auto) 77.4 H, Lymph % (Auto) 8.9 L, [place] % (Auto) 12.6 H, Eos % (Auto) 0.1, Baso % (Auto) 0.1, Absolute Neuts (auto) 12.6 H, Absolute Lymphs (auto) 1.46, Nucleated RBC % 0.7, Diff Path Review June, PT 22.9 H, INR 2.0, Sodium 122 L, Potassium 5.3 H, Chloride 90 L, Carbon Dioxide 19.0 L, Anion Gap 13, BUN 74 H, Creatinine 1.70 H, Estim Creat Clear Calc 19.27, Est GFR (MDRD) Af Amer 37 L, Est GFR (MDRD) Non-Af 31 L, BUN/Creatinine Ratio 43.5 H, Glucose 103, Serum Osmolality 284, Lactic Acid 2.2 H*, Calcium 8.3 L, Phosphorus 4.0, Magnesium 2.7 H, Total Bilirubin 2.20 H, AST 791 H, ALT 892 H, Alkaline Phosphatase 366 H, B-Natriuretic Peptide 793.7 H, Total Protein 6.0 L, Albumin 3.2, Globulin 2.8, Albumin/Globulin Ratio 1.1, TSH 1.52 Imaging Radiology Impression Chest X-Ray 06/28/23 20:25 IMPRESSION: Left pleural effusion. Cardiac enlargement. Electronically Signed: Lorenzo Agustin MD at 21:07 EDT , Abdomen Ultrasound 06/28/23 21:37 IMPRESSION: Gallbladder wall thickening and pericholecystic fluid. No gallstones or biliary dilatation. Small pleural effusion. Electronically Signed: Lorenzo Agustin MD at 23:07 EDT , Chest/Abdomen/Pelvis CT 06/29/23 01:19 IMPRESSION: Small volume ascites. Moderate left and small right pleural effusions with associated atelectasis. Enlarged precarinal mediastinal lymph node of uncertain etiology. Electronically Signed: Max Castillo MD at 2:14 EDT ,
[2023-06-29 09:05] LABS: Osmolality, Urine 609 mOsm/KG
[2023-06-29 09:16] LABS: Reflex Lactate? Y
[2023-06-29] MEDS: Magnesium Chloride 64 MG Delay Rel.Tablet 128 MG PO (09:19)
[2023-06-29] MEDS: Iron Polysaccharide Complex 150 MG CAPSULE PO ×2 (09:20→20:54)
[2023-06-29] MEDS: Multivitamins,Therapeutic Tablet 1 TABLET PO (09:20)
[2023-06-29] MEDS: Metoprolol Tartrate 25 MG Tablet PO ×2 (09:20→20:53)
[2023-06-29] MEDS: Diltiazem 125 MG in Dextrose 5%-Water (100mL Bag) 100 ML 15 MG CONT INF (09:40)
[2023-06-29 09:43] LABS: Bilirubin, Direct 1.24 mg/dL (0.00-0.30); GGTP 569 U/L (5-55)
--- NOTE | 2023-06-29 10:18 | CASEMGMT ---
BILL SMITH Assessment Face to Face with patient for initial transition planning/care coordination assessment. BILL SMITH introduced self and role at [facility], pt voices understanding. Pt is A&Ox4 and is resting comfortably in bed and is calm. Care providers, pharmacy, and demographics verified. Admitting dx: Acute Liver Failure with Jaundice, A-FIB with RVR LACE Strata: 1 PCP: No PCP. Provider list given Specialists: Pt states that she used to see a audit manager but does not anymore. Pt provided with information regarding [facility]. [facility]: [facility] Insurance: [facility] A/B, [facility] Prescription Benefit: Yes LNOK: Brooklynn Love (JUAN JOSE), Ananya Anderson (GD) Living Arrangements: Pt lives alone in a split level home with 1 step to enter and a lift chair inside the home ADLs/IADLs: States independent until recently Transportation: Pt states that her GS drives her DME: Lift chair. Cane, FWW, Walk in shower with GB and chair. HHC/SNF: Denies history Pt?s goal: Home with HHC Plan: PT eval is pending. Pt denies SNF at this time. Pt states that she would be interested in HHC for a short time. Pt states that she would like to talk to her daughter first before moving forward with this. CM to follow, provide list, and make referral once appropriate. Bruno Rivera RN, CM
[2023-06-29] MEDS: Digoxin 250 MCG/ML Ampul IV (10:20)
[2023-06-29] MEDS: Piperacil/Tazobactam 3.375 GM in 0.9% Normal Saline (50mL MB+) 50 ML IV ×2 (10:20→20:54)
--- NOTE | 2023-06-29 10:27 | PCM.CONS.R ---
Assessment & Plan Assessment/Plan (1) Acute kidney injury: (2) Hyperkalemia: (3) Hyponatremia: PLAN: Plan This is a 77-year-old female with past medical history significant for hypertension, hyperlipidemia, chronic A-fib, history of aortic stenosis, history of amyloidosis, history of elevated serum immunoglobulin free light chains, followed by Dr. High (skeletal survey no lytic or sclerotic bone lesions May 2020), cardiomyopathy, peripheral artery disease status post iliac artery occlusion who presented to emergency room yesterday with complaints of feeling unwell, poor oral intake, dyspnea on exertion, jaundice appearing. Admitted due to elevated LFTs, GREGORY. Nephrology consulted in view of elevated serum creatinine, elevated potassium and hyponatremia. Patient reports she has not been seen by [facility] in past. On admission serum creatinine 2.28, patient was started on gentle IV fluids, today her creatinine is 1.70. Also to note potassium was 5.6 on admission and today potassium is 5.3. Possibly mild hyperkalemia from GREGORY and dietary indiscretion (patient reports when she was able to drink she was drinking orange juice and Powerade and eating tomato sauce). Patient has normal baseline creatinine and potassium per labs from 2020. Gap in lab work from 2020 to present. GREGORY likely in setting of poor oral intake and hypotension, with volume expansion and improvement of hemodynamics serum creatinine has also improved. Patient is nonoliguric. Reviewing patient's medication list, she is not on any ILENE, ARB's or diuretics. No recent NSAIDs. Noncontrast CT showed normal right and left kidney. Will obtain UA. Patient has normal baseline sodium. On admission sodium was 121, this morning sodium is 122. Patient is asymptomatic from hyponatremia. She is on NS at 60ml/hr. Urine Osmo 609, serum Osmo 284. TSH normal. Patient is not on any antidepressants nor diuretics. Can continue with gentle IVF, patient is currently NPO and surgery consulted. Sodium ordered for this afternoon and labs ordered for the morning. Further orders will be forthcoming as hospitalization evolves, thank you for allowing us to participate in the care of Ms. Ruano. HPI Consult Data Date of Consult: 06/29/23 HPI Narrative HPI Narrative: ELYSE RUANO, is a 77 F who presented to the emergency room last evening with complaints of feeling unwell, dyspnea on exertion, and jaundice appearing. Workup in the emergency room showed elevated LFTs, creatinine 2.28, potassium 5.6, noncontrast CT of abdomen and pelvis normal liver, normal gallbladder, normal right and left kidney, moderate left and small right pleural effusion. Chest x-ray left pleural effusion. Abdominal ultrasound gallbladder wall thickening, no gallstones or biliary dilatation. Patient was admitted for further evaluation and treatment. Nephrology consulted in view of elevated serum creatinine and potassium. Patient reports for about a week she had been feeling unwell with decreased appetite. She denies any nausea or vomiting. No diarrhea. No fevers. No new medications. No NSAIDs. FORMERLY [facility], [facility] Medical History Amyloidosis Aortic stenosis Atrial fibrillation Cardiomyopathy Edema Heart murmur Hyperlipidemia Hypertension Iliac artery occlusion Mitral annular calcification Sinus tachycardia Smoking history Ventricular hypertrophy Vitamin D deficiency Home Medications ?Medication ?Instructions ?Recorded ?Last Taken ?Type cholecalciferol (vitamin D3) 50 50 mcg PO DAILY 06/28/20 Unknown History mcg (2,000 unit) chewable tablet metoprolol succinate 25 mg 25 mg PO DAILY 06/28/20 Unknown History tablet,extended release 24 hr multivitamin 1 tab PO DAILY 06/28/20 Unknown History rivaroxaban 15 mg tablet 15 mg PO DAILY 06/28/20 Unknown History atorvastatin 10 mg tablet (Lipitor) 10 mg PO DAILY 07/11/20 Unknown History cholecalciferol (vitamin D3) 1,250 1,250 mcg PO QMONTH 07/11/20 Unknown History mcg (50,000 unit) capsule polysaccharide iron complex 150 mg 150 mg PO BID #60 caps 07/12/20 Unknown Rx iron capsule (Ferrex) Allergy/AdvReac Type Severity Reaction Status Date / Time Sulfa (Sulfonamide Allergy Hives Verified 06/28/23 19:55 Antibiotics) Family History Sister Aortic valve replaced Status post aortic valve replacement and aortoplasty Brother Hx of CABG CHF (congestive heart failure) Sister Cancer Sister Heart failure Sister CVA (cerebral vascular accident) Father Hepatitis CHF (congestive heart failure) Mother CHF (congestive heart failure) Sudden Surgical History History of hysterectomy Social History Smoking Status: Current every day smoker tobacco type: cigarettes second hand exposure: No quit status: considering quitting alcohol intake: current alcohol intake frequency: a few times a month Alcohol type: beer substance use type: does not use jair/muslim: Hinduism ROS ROS Narrative As per HPI and past medical history Physical Exam Narrative Alert and oriented x 3, no apparent distress. Hard of hearing S1, S2, rate controlled Lung sounds diminished posterior bases. No rales Abdomen soft Trace edema right lower leg Lab / Micro Data 06/29/23 02:47 06/29/23 02:47 Labs: Laboratory Results - last 24 hr 06/28/23 20:18: WBC 17.5 H, RBC 3.89 L, Hgb 11.2 L, Hct 35.6 L, MCV 91.5, MCH 28.8, MCHC 31.5 L, RDW Std Deviation 46.5 H, RDW Coeff of Lobo 14.0, Plt Count 155, MPV 11.0, Immature Gran % (Auto) 1.100 H, Neut % (Auto) 81.3 H, Lymph % (Auto) 6.2 L, Cowley % (Auto) 11.2 H, Eos % (Auto) 0.0, Baso % (Auto) 0.2, Absolute Neuts (auto) 14.3 H, Absolute Lymphs (auto) 1.08, Nucleated RBC % 1.0, Differential Comment SCANNED, Diff Path Review June, Sodium 121 L, Potassium 5.6 H, Chloride 88 L, Carbon Dioxide 18.0 L, Anion Gap 15, BUN 79 H, Creatinine 2.28 H, Est GFR (MDRD) Af Amer 27 L, Est GFR (MDRD) Non-Af 22 L, BUN/Creatinine Ratio 34.6 H, Glucose 202 H, Calcium 8.5, Total Bilirubin 2.70 H, Direct Bilirubin 2.04 H, AST 832 H, ALT 869 H, Alkaline Phosphatase 398 H, Troponin I High Sens 214 H*, B-Natriuretic Peptide 1126.8 H, Total Protein 6.3 L, Albumin 3.3, Globulin 3.0 06/28/23 22:38: Troponin I High Sens 198 H* 06/29/23 02:47: WBC 16.3 H, RBC 3.49 L, Hgb 10.3 L, Hct 31.3 L, MCV 89.7, MCH 29.5, MCHC 32.9, RDW Std Deviation 45.0 H, RDW Coeff of Lobo 13.9, Plt Count 122 L, MPV 10.8, Immature Gran % (Auto) 0.900, Neut % (Auto) 77.4 H, Lymph % (Auto) 8.9 L, Cowley % (Auto) 12.6 H, Eos % (Auto) 0.1, Baso % (Auto) 0.1, Absolute Neuts (auto) 12.6 H, Absolute Lymphs (auto) 1.46, Nucleated RBC % 0.7, Diff Path Review June, PT 22.9 H, INR 2.0, Sodium 122 L, Potassium 5.3 H, Chloride 90 L, Carbon Dioxide 19.0 L, Anion Gap 13, BUN 74 H, Creatinine 1.70 H, Estim Creat Clear Calc 19.27, Est GFR (MDRD) Af Amer 37 L, Est GFR (MDRD) Non-Af 31 L, BUN/Creatinine Ratio 43.5 H, Glucose 103, Serum Osmolality 284, Lactic Acid 2.2 H*, Calcium 8.3 L, Phosphorus 4.0, Magnesium 2.7 H, Total Bilirubin 2.20 H, AST 791 H, ALT 892 H, Alkaline Phosphatase 366 H, B-Natriuretic Peptide 793.7 H, Total Protein 6.0 L, Albumin 3.2, Globulin 2.8, Albumin/Globulin Ratio 1.1, TSH 1.52 06/29/23 08:20: Urine Osmolality 609 06/29/23 09:15: Direct Bilirubin 1.24 H, GGT 569 H Imaging Radiology Impression Chest X-Ray 06/28/23 20:25 IMPRESSION: Left pleural effusion. Cardiac enlargement. Electronically Signed: Lorenzo Agustin MD at 21:07 EDT , Abdomen Ultrasound 06/28/23 21:37 IMPRESSION: Gallbladder wall thickening and pericholecystic fluid. No gallstones or biliary dilatation. Small pleural effusion. Electronically Signed: Lorenzo Agustin MD at 23:07 EDT , Chest/Abdomen/Pelvis CT 06/29/23 01:19 IMPRESSION: Small volume ascites. Moderate left and small right pleural effusions with associated atelectasis. Enlarged precarinal mediastinal lymph node of uncertain etiology. Electronically Signed: Max Castillo MD at 2:14 EDT ,
[2023-06-29 10:42] LABS: Lactic Acid 1.4 mmol/L (0.4-1.9)
[2023-06-29 11:00] LABS: Mucous, Urine 0 SEEN /hpf (<or=2+); Red Blood Cells-Urine 0 SEEN /hpf (0-5)
[2023-06-29 11:05] LABS: Color, Urine Yellow (Yellow); Glucose, Dipstick 50 mg/dl (Normal); Ketone-Dipstick Negative (Negative); Leukocyte Esterase-Dipstick 100 /ul (Negative); Nitrite-Dipstick Negative (Negative); Occult Blood-Urine Negative /ul (Negative); Protein-Dipstick 30 mg/dl (Negative); Urine Bilirubin Dipstick Negative (Negative); Urine Clarity Cloudy (Clear); Urine Urobilinogen Normal (Normal)
[2023-06-29 11:14] LABS: Amorphous Sediment 2+; Bacteria 2+ /hpf (None Seen); Squamous Epithelial Cells - UA 0-5 SEEN /hpf (5-10); White Blood Cells 0-5 SEEN /hpf (0-5)
[2023-06-29 13:21] LABS: Pathologist Review Reviewed
[2023-06-29 13:23] LABS: Pathologist Review Reviewed
--- NOTE | 2023-06-29 16:14 | EKG12_ITS ---
Test Reason : Blood Pressure : / mmHG Vent. Rate : 048 BPM Atrial Rate : 048 BPM P-R Int : 136 ms QRS Dur : 088 ms QT Int : 450 ms P-R-T Axes : 042 011 187 degrees QTc Int : [address] & T wave abnormality, consider inferior ischemia ST & T wave abnormality, consider anterolateral ischemia Abnormal ECG When compared with ECG of 28-JUN-2023 21:40, MANUAL COMPARISON REQUIRED, DATA IS UNCONFIRMED Confirmed by João Ray ([id number]), communications editor CEDRICK ARMENTA ([id number]) on 07/05/2023 1:01:27 PM Referred By: Oneal Confirmed By:João Ray
--- NOTE | 2023-06-29 18:08 | CON.PCM.GI_ITS ---
HPI Consult Data Date of Consult: 06/29/23 HPI Narrative HPI Narrative: ELYSE RUANO, is a 77 F who presents with shortness of breath and jaundice. She has a past medical history of essential hypertension, hyperlipidemia, tobacco abuse, overweight; BMI 26 this admission, chronic atrial fibrillation; she also has a history of aortic stenosis, history of ventricular hypertrophy, history of cardiomyopathy, amyloidosis, PAD; status post iliac artery occlusion, history of hysterectomy, osteoarthritis, medical noncompliance; with patient not taking any of her medications for the past few weeks. Ms. Ruano reports her symptoms began more than 1 week prior to admission with a gradual onset of dyspnea on exertion that progressed to shortness of breath at rest. She also admits to weakness so severe she is now unable to walk along with intermittent palpitations. She informed the ER physician that she is prescribed Xarelto but she has been out of it for a while with her family indicating that it has been likely weeks since she has taken. She also admits to being out of her metoprolol. She does admit to drinking excessive amounts of water daily with significant bilateral lower extremity pitting edema but denies associated fever, chills, nausea, vomiting, chest pain, back pain or headache. In the ER the patient was initially noted to be in atrial fibrillation with rapid ventricular response requiring several doses of IV Cardizem followed by a Cardizem drip along with obvious jaundice appearance with total bilirubin of 2.7 mg/dL (direct bilirubin 2.04 mg/dL) AST of 832 units/L, ALT of 869 units/L and alkaline phosphatase of 398 units/L and leukocytosis of 17.5 K present on admission worrisome for acute hepatitis with Right upper quadrant ultrasound done in the ER showing gallbladder wall thickening and pericholecystic fluid but no gallstones or biliary dilatation with concern for possible viral hepatitis. She also had a chest x-ray that revealed a left pleural effusion with cardiomegaly and an elevated BNP of 1,126.8 pg/mL present on admission consistent with acute exacerbation of CHF compounded by GREGORY; with elevated serum creatinine of 2.28 mg/dL with a BUN of 79 mg/dL and hyperkalemia of 5.6 mmol/L present on admission worrisome for possible obstruction and/or GI bleed with CT of the abdomen and pelvis. In addition to all this the patient was also noted to be hyponatremic at 121 mmol/L, it was suspected to be due to water intoxication. It was brought up to the patient to transfer to a tertiary care center. However the patient said that she was not getting transferred. She had a transthoracic echocardiogram today: The estimated ejection fraction is more than 70 %. Moderate assymetric septal hypertrophy. Small LV cavity. The left atrium is severely enlarged. The right atrium is moderately enlarged. Moderately severe mitral stenosis. Mild-Moderate (1-2+) mitral valve insufficiency. Moderate to severe aortic stenosis. Moderately severe tricuspid valve regurgitation. Pulmonary artery systolic pressure estimated at 50 mmHg. [facility] Medical History Amyloidosis Aortic stenosis Atrial fibrillation Cardiomyopathy Edema Heart murmur Hyperlipidemia Hypertension Iliac artery occlusion Mitral annular calcification Sinus tachycardia Smoking history Ventricular hypertrophy Vitamin D deficiency Home Medications ?Medication ?Instructions ?Recorded ?Last Taken ?Type cholecalciferol (vitamin D3) 50 50 mcg PO DAILY 06/28/20 Unknown History mcg (2,000 unit) chewable tablet metoprolol succinate 25 mg 25 mg PO DAILY 06/28/20 Unknown History tablet,extended release 24 hr multivitamin 1 tab PO DAILY 06/28/20 Unknown History rivaroxaban 15 mg tablet 15 mg PO DAILY 06/28/20 Unknown History atorvastatin 10 mg tablet (Lipitor) 10 mg PO DAILY 07/11/20 Unknown History cholecalciferol (vitamin D3) 1,250 1,250 mcg PO QMONTH 07/11/20 Unknown History mcg (50,000 unit) capsule polysaccharide iron complex 150 mg 150 mg PO BID #60 caps 07/12/20 Unknown Rx iron capsule (Ferrex) Allergy/AdvReac Type Severity Reaction Status Date / Time Sulfa (Sulfonamide Allergy Hives Verified 06/28/23 19:55 Antibiotics) Family History Sister Aortic valve replaced Status post aortic valve replacement and aortoplasty Brother Hx of CABG CHF (congestive heart failure) Sister Cancer Sister Heart failure Sister CVA (cerebral vascular accident) Father Hepatitis CHF (congestive heart failure) Mother CHF (congestive heart failure) Sudden Surgical History History of hysterectomy Social History Smoking Status: Current every day smoker tobacco type: cigarettes second hand exposure: No quit status: considering quitting alcohol intake: current alcohol intake frequency: a few times a month Alcohol type: beer substance use type: does not use jair/hindu: Restoration ROS ROS Narrative Review of systems: General: Patient denies fever or chills. HENT: Denies headache, denies stuffy nose, denies sore throat EYES: Denies changes in vision or discharge from eyes. Resp: Patient admits to dyspnea on exertion that progressed to shortness of breath at rest as per HPI. Cardiac: Patient admits to palpitations and heart racing but denies chest pain. GI: Patient admits to jaundice but she denies abdominal pain, denies changes in bowel, denies nausea or vomiting. : Denies changes in urination Extremity: Patient admits to 3-4+ bilateral lower extremity edema. Musculoskeletal: Feels somewhat generally weak and unwell but denies arthralgias or myalgias. Neuro: Patient denies headache, paresthesias or focal neurologic weakness. Heme: Denies any bleeding or bruising Skin: Denies rashes Psychiatric: No complaints voiced related to uncontrolled depression or anxiety. Endocrine: Patient admits to excessive free water intake but denies polyphagia or history of diabetes or SIADH. The rest of the 14 point ROS was negative except for positives in HPI. Physical Exam Narrative Alert and oriented x 3, no apparent distress. Hard of hearing S1, S2, rate controlled Lung sounds diminished posterior bases. No rales Abdomen soft Trace edema right lower leg Medical Records Data Medical Nutrition Assessment Dietitian: Malnutrition Criteria Met Start: 06/29/23 11:35 Freq: Status: Active Protocol: Document 06/29/23 11:35 (Rec: 06/29/23 11:35 [id number]) Nutrition Malnutrition Evidence of Malnutrition Exists Yes Malnutrition (severe): Acute Illness/Injury Evidenced By Suboptimal Energy Intake ( Severe),Weight Loss (Severe) Clinical Problem Acute Disease or Injury Related Malnutrition Etiology severe acute malnutrition related to inadequate energy intake Signs/Symptoms as evidenced by unintentional 4% wt loss, estimated PO intake meeting <50% of estimated energy needs > 1 week Status Active Problem Recommendation Dietitian Recommendations/Changes recommend regular/no added salt diet as tolerated; Ensure w/ medpass when PO diet is advanced. Consider RADAR SIGNAL PROCESSING ENGINEER eval if issues chewing/swallowing. Lab / Micro Data 06/29/23 02:47 06/29/23 02:47 Labs: Laboratory Results - last 24 hr 06/28/23 20:18: WBC 17.5 H, RBC 3.89 L, Hgb 11.2 L, Hct 35.6 L, MCV 91.5, MCH 28.8, MCHC 31.5 L, RDW Std Deviation 46.5 H, RDW Coeff of Lobo 14.0, Plt Count 155, MPV 11.0, Immature Gran % (Auto) 1.100 H, Neut % (Auto) 81.3 H, Lymph % (Auto) 6.2 L, [place] % (Auto) 11.2 H, Eos % (Auto) 0.0, Baso % (Auto) 0.2, A bsolute Neuts (auto) 14.3 H, Absolute Lymphs (auto) 1.08, Nucleated RBC % 1.0, Differential Comment SCANNED, Diff Path Review Reviewed, Sodium 121 L, Potassium 5.6 H, Chloride 88 L, Carbon Dioxide 18.0 L, Anion Gap 15, BUN 79 H, Creatinine 2.28 H, Est GFR (MDRD) Af Amer 27 L, Est GFR (MDRD) Non-Af 22 L, BUN/Creatinine Ratio 34.6 H, Glucose 202 H, Calcium 8.5, Total Bilirubin 2.70 H, Direct Bilirubin 2.04 H, AST 832 H, ALT 869 H, Alkaline Phosphatase 398 H, Troponin I High Sens 214 H*, B-Natriuretic Peptide 1126.8 H, Total Protein 6.3 L, Albumin 3.3, Globulin 3.0 06/28/23 22:38: Troponin I High Sens 198 H* 06/29/23 02:47: WBC 16.3 H, RBC 3.49 L, Hgb 10.3 L, Hct 31.3 L, MCV 89.7, MCH 29.5, MCHC 32.9, RDW Std Deviation 45.0 H, RDW Coeff of Lobo 13.9, Plt Count 122 L, MPV 10.8, Immature Gran % (Auto) 0.900, Neut % (Auto) 77.4 H, Lymph % (Auto) 8.9 L, [place] % (Auto) 12.6 H, Eos % (Auto) 0.1, Baso % (Auto) 0.1, Absolute Neuts (auto) 12.6 H, Absolute Lymphs (auto) 1.46, Nucleated RBC % 0.7, Diff Path Review Reviewed, PT 22.9 H, INR 2.0, Sodium 122 L, Potassium 5.3 H, Chloride 90 L, Carbon Dioxide 19.0 L, Anion Gap 13, BUN 74 H, Creatinine 1.70 H, Estim Creat Clear Calc 19.27, Est GFR (MDRD) Af Amer 37 L, Est GFR (MDRD) Non-Af 31 L, B UN/Creatinine Ratio 43.5 H, Glucose 103, Serum Osmolality 284, Lactic Acid 2.2 H*, Calcium 8.3 L, Phosphorus 4.0, Magnesium 2.7 H, Total Bilirubin 2.20 H, AST 791 H, ALT 892 H, Alkaline Phosphatase 366 H, B-Natriuretic Peptide 793.7 H, T otal Protein 6.0 L, Albumin 3.2, Globulin 2.8, Albumin/Globulin Ratio 1.1, TSH 1.52 06/29/23 08:20: Urine Osmolality 609 06/29/23 09:15: Direct Bilirubin 1.24 H, GGT 569 H 06/29/23 10:00: Lactic Acid 1.4 06/29/23 10:45: Urine Color Yellow, Urine Clarity Cloudy, Urine pH 5.0, Ur Specific [place] 1.020, Urine Protein 30 H, Urine Glucose (UA) 50 H, Urine Ketones Negative, Urine Occult Blood Negative, Urine Nitrite Negative, Urine Bilirubin Negative, Urine Urobilinogen Normal, Ur Leukocyte Esterase 100 H, Urine RBC 0 SEEN, Urine WBC 0-5 SEEN, Ur Squamous Epith Cells 0-5 SEEN, Amorphous Sediment 2+, Urine Bacteria 2+, Urine Mucus 0 SEEN Imaging Radiology Impression Chest X-Ray 06/28/23 20:25 IMPRESSION: Left pleural effusion. Cardiac enlargement. Electronically Signed: Lorenzo Agustin MD at 21:07 EDT , Abdomen Ultrasound 06/28/23 21:37 IMPRESSION: Gallbladder wall thickening and pericholecystic fluid. No gallstones or biliary dilatation. Small pleural effusion. Electronically Signed: Lorenzo Agustin MD at 23:07 EDT , Chest/Abdomen/Pelvis CT 06/29/23 01:19 IMPRESSION: Small volume ascites. Moderate left and small right pleural effusions with associated atelectasis. Enlarged precarinal mediastinal lymph node of uncertain etiology. Electronically Signed: Max Castillo MD at 2:14 EDT , Echocardiogram 06/29/23 02:05 Interpretation Summary The estimated ejection fraction is more than 70 %. Moderate assymetric septal hypertrophy. Small LV cavity. The left atrium is severely enlarged. The right atrium is moderately enlarged. Moderately severe mitral stenosis. Mild-Moderate (1-2+) mitral valve insufficiency. Moderate to severe aortic stenosis. Moderately severe tricuspid valve regurgitation. Pulmonary artery systolic pressure estimated at 50 mmHg. Ordering Physician: Ludwin James Referring Physician: NO PCP Performed By: Ewa Pastrana, HERMANN, RVT Assessment & Plan Assessment/Plan (1) Abnormal LFTs: PLAN: CHEST The central airways are patent. Moderate left and small right pleural effusions with dependent atelectasis. No separate consolidation. No pneumothorax. Prominent heart. No pericardial effusion. Coronary artery calcifications are present. Mitral annular calcification. There is an enlarged precarinal mediastinal lymph node measuring 1.8 cm. No additional lymphadenopathy. Normal hilar regions. Normal unenhanced pulmonary arteries. Normal caliber aorta arch and descending thoracic aorta. Moderate atherosclerotic calcifications are noted. Thoracic kyphosis. DISH. Multilevel degenerative changes of the spine. No acute rib abnormality. ABDOMEN Normal liver. Normal gallbladder and extrahepatic biliary system. Normal spleen. Normal pancreas. Normal bilateral adrenal glands. Normal right kidney. Normal left kidney. Small hiatal hernia. The stomach is otherwise decompressed. Normal small intestine. Colonic diverticulosis without diverticulitis. No focal wall thickening. The appendix is visualized and appears normal. Normal caliber aorta with moderate to severe atherosclerotic calcification. Normal inferior vena cava. Normal retroperitoneum. Normal abdominal wall. PELVIS Normal urinary bladder. Small volume of free fluid in the pelvis. There is no pelvic lymphadenopathy or mass lesion. Normal caliber vasculature with moderate atherosclerotic calcification. Inflammatory stranding overlies the left hip and upper thigh. No acute osseous abnormality. Moderate degenerative changes of the lumbar spine with disc space narrowing and vacuum disc phenomenon. Multilevel facet arthropathy. Severe degenerative changes at the right hip with flattening of the femoral head and superior joint space narrowing. CT/CT Chest, Abd, Pelvis WO Cont IMPRESSION: Small volume ascites. Moderate left and small right pleural effusions with associated atelectasis. Enlarged precarinal mediastinal lymph node of uncertain etiology. (2) Acute liver failure due to hepatitis virus: (3) Atrial fibrillation with rapid ventricular response: (4) Acute kidney injury: (5) Hyponatremia: (6) CHF (congestive heart failure): QUALIFIERS: Heart failure type: unspecified Heart failure chronicity: unspecified Qualified Code(s): I50.9 - Heart failure, unspecified (7) Amyloidosis: QUALIFIERS: Amyloidosis type: unspecified amyloidosis Qualified Code(s): E85.9 - Amyloidosis, unspecified PLAN: Plan Frequent causes for elevated liver function tests in the intensive care unit (ICU) are?acute hepatic dysfunction due to acute hepatitis, acute liver failure (DIPTI), and drug-induced liver injury . ?Furthermore, exacerbations of pre- existing liver diseases (acute on chronic) and secondary liver injury during critical diseases such as sepsis, right heart failure, or cardiogenic shock, resulting in ischemic or hypoxic hepatitis, need to be considered. Elevated liver enzymes may also reflect a complication of ICU treatment measures like drug-related hepatotoxicity, secondary sclerosing cholangitis in critically ill patients. Acute liver failure with obvious jaundice appearance with total bilirubin of 2.7 mg/dL (direct bilirubin 2.04 mg/dL) AST of 832 units/L, ALT of 869 units/L and alkaline phosphatase of 398 units/L and leukocytosis of 17.5 K present on admission worrisome for acute hepatitis with Right upper quadrant ultrasound done in the ER showing gallbladder wall thickening and pericholecystic fluid but no gallstones or biliary dilatation with concern for possible viral hepatitis. Her INR is at 200 makes it very difficult to determine if her synthetic function is okay. I think top etiology on her differential diagnosis will be right heart failure due to the fact that she has bilateral pleural effusions, critical aortic stenosis and small volume ascites. She also has risk factors of infiltrative diseases affecting the liver including amyloidosis, secondary hemochromatosis secondary to amyloidosis, shock liver or drug-related toxicity. ICU and is associated with poor short term outcome. Elderly patients, patients with, dyspnea, altered mentation and need for inotropes or mechanical ventilation have higher short term mortality. Simple laboratory parameters like AST, ALT, INR and MELD score on admission can predict outcome in the short term. Recommend to start Mucomyst, check ANUEL comprehensive, anti-smooth muscle antibodies, antimitochondrial antibodies, protein electrophoresis, celiac profile, ammonia level. Depending on course she may need a liver biopsy as I explained to the family at the bedside. I would like to get an MRI to look for signs of secondary sclerosing cholangitis. However in the setting of ascites and with her renal failure it is not the best study. Patient may need to keep his systolic blood pressure greater than 100 with the use of midodrine 5 mg p.o. 3 times daily as to not cause worsening liver enzymes and liver function test. Charges/Coding Visit Charges Inpatient E&M: 18020 Init Hosp L3
[2023-06-29] MEDS: ACETYLCYSTEINE IV ×2 (19:01→20:08)
[2023-06-29] MEDS: DEXTROSE 5% IV ×2 (19:01→20:08)
[2023-06-29] MEDS: WATER IV ×2 (19:01→20:08)
[2023-06-30] VITALS (18 sets, daily range): BP systolic 98–130; BP diastolic 49–81; PULSE 53–98; RESP 15–23; TEMP 36.1–37; O2SAT 93–100; BMI 21.4
[2023-06-30 03:57] LABS: AST(SGOT) 367 U/L (15-37); Alanine Aminotransfer ALT/SGPT 678 U/L (13-56); Albumin, Serum 2.5 g/dL (3.2-5.0); Alkaline Phosphatase 358 U/L (45-117); Anion Gap 9 (5-15); BUN 47 mg/dL (7-18); BUN/Creat Ratio 48.2 RATIO (10-20); Calcium,Total 7.3 mg/dL (8.5-10.1); Chloride 95 mmol/L (98-107); Creatinine, Serum 0.98 mg/dL (0.55-1.02); EST Glomerular Filtration Rate 58 mL/min (>60); Est Glom Filt Rate - Afr Amer 71 mL/min (>60); Estimated Creatinine Clearance 33.44 ml/min; Globulin 2.6 g/dL (2.2-4.2); Glucose 105 mg/dL (74-106); Potassium 3.8 mmol/L (3.5-5.1); Protein, Total 5.1 g/dL (6.4-8.2); Sodium Level 127 mmol/L (136-145)
[2023-06-30 05:08] LABS: HEPATITIS B SURFACE AG Negative (Negative); Hep C Antibodies Non Reactive (Non Reactive); Hepatitis A IgM Antibody Negative (Negative); Hepatitis B Core AB IgM Negative (Negative)
[2023-06-30] MEDS: Metoprolol Tartrate 25 MG Tablet PO ×2 (05:09→21:11)
[2023-06-30] MEDS: 0.9% Saline Lock 10 ML Syringe IV (05:09)
[2023-06-30] MEDS: Piperacil/Tazobactam 3.375 GM in 0.9% Normal Saline (50mL MB+) 50 ML IV ×3 (08:33→21:12)
--- NOTE | 2023-06-30 09:30 | PCM.PN.HOSP ---
Reason for Visit Reason for Visit: Diagnoses Unspecified viral hepatitis without hepatic coma (06/29/23) Amyloidosis, unspecified (06/29/23) Hypo-osmolality and hyponatremia (06/29/23) Unspecified atrial fibrillation (06/29/23) Heart failure, unspecified (06/29/23) Acute and subacute hepatic failure without coma (06/29/23) Acute kidney failure, unspecified (06/29/23) Other specified abnormal findings of blood chemistry (06/29/23) Objective Data Objective Data Vital Signs: Vital Signs Temp Pulse Resp BP Pulse Ox O2 Del Method 98.5 F 64 15 128/51 H 96 Room Air 06/30/23 04:00 06/30/23 07:00 06/30/23 07:00 06/30/23 07:00 06/30/23 07:00 06/30/23 07:00 Oxygen Delivery Method Room Air Weight: 109 lb 2.061 oz Body Mass Index (BMI) 21.4 Intake & Output: Intake and Output for Last 24 Hours 06/28/23 06/29/23 06/30/23 23:59 23:59 23:59 Intake Total 2082.17 / 2082.17 50 / 50 Output Total 700 / 700 300 / 300 Balance 1382.17 / 1382.17 -250 / -250 Medical Nutrition Assessment Dietitian: Malnutrition Criteria Met Start: 06/29/23 11:35 Freq: Status: Active Protocol: Document 06/29/23 11:35 AG (Rec: 06/29/23 11:35 AG [id number]) Nutrition Malnutrition Evidence of Malnutrition Exists Yes Malnutrition (severe): Acute Illness/Injury Evidenced By Suboptimal Energy Intake ( Severe),Weight Loss (Severe) Clinical Problem Acute Disease or Injury Related Malnutrition Etiology severe acute malnutrition related to inadequate energy intake Signs/Symptoms as evidenced by unintentional 4% wt loss, estimated PO intake meeting <50% of estimated energy needs > 1 week Status Active Problem Recommendation Dietitian Recommendations/Changes recommend regular/no added salt diet as tolerated; Ensure w/ medpass when PO diet is advanced. Consider VEHICLE TECHNICIAN eval if issues chewing/swallowing. Lab / Micro Data 06/29/23 02:47 06/30/23 03:10 Labs: Laboratory Results - last 24 hr 06/28/23 20:18: Diff Path Review Reviewed 06/29/23 00:14: Hepatitis A IgM Ab Negative, Hep Bs Antigen Negative, Hep B Core IgM Ab Negative, Hepatitis C Ab (EIA) Non Reactive, Hep C Ab Comment Comment 06/29/23 02:47: Diff Path Review Reviewed 06/29/23 09:15: Direct Bilirubin 1.24 H, GGT 569 H 06/29/23 10:00: Lactic Acid 1.4 06/29/23 10:45: Urine Color Yellow, Urine Clarity Cloudy, Urine pH 5.0, Ur Specific [place] 1.020, Urine Protein 30 H, Urine Glucose (UA) 50 H, Urine Ketones Negative, Urine Occult Blood Negative, Urine Nitrite Negative, Urine Bilirubin Negative, Urine Urobilinogen Normal, Ur Leukocyte Esterase 100 H, Urine RBC 0 SEEN, Urine WBC 0-5 SEEN, Ur Squamous Epith Cells 0-5 SEEN, Amorphous Sediment 2+, Urine Bacteria 2+, Urine Mucus 0 SEEN 06/30/23 03:10: Sodium 127 L, Potassium 3.8, Chloride 95 L, Carbon Dioxide 23.0, Anion Gap 9, BUN 47 H, Creatinine 0.98, Estim Creat Clear Calc 33.44, Est GFR (MDRD) Af Amer 71, Est GFR (MDRD) Non-Af 58 L, BUN/Creatinine Ratio 48.2 H, Glucose 105, Calcium 7.3 L, Total Bilirubin 1.00, AST 367 H, ALT 678 H, Alkaline Phosphatase 358 H, Total Protein 5.1 L, Albumin 2.5 L, Globulin 2.6, Albumin/Globulin Ratio 1.0 Radiography Diagnostic Testing: Radiology Impression Echocardiogram 06/29/23 02:05 Interpretation Summary The estimated ejection fraction is more than 70 %. Moderate assymetric septal hypertrophy. Small LV cavity. The left atrium is severely enlarged. The right atrium is moderately enlarged. Moderately severe mitral stenosis. Mild-Moderate (1-2+) mitral valve insufficiency. Moderate to severe aortic stenosis. Moderately severe tricuspid valve regurgitation. Pulmonary artery systolic pressure estimated at 50 mmHg. Ordering Physician: Ludwin James Referring Physician: NO PCP Performed By: Ewa Pastrana, RDCS, RVT Physical Exam Narrative Seen and examined. Jaundice and liver chemistry improving. Had bowel movement. Patient admitted with generalized weakness. Does not have abdominal pain. No chest pain. Not taking metoprolol and Xarelto for more than 1 week. Physical exam General: Alert, Oriented x3, Cooperative HEENT: Icterus present atraumatic, PERRLA, EOMI, Normocephalic Oral: No Gingival or Mucosal Lesions/ Ulcerations Neck: Supple, No JVD, Negative Carotid Bruits Chest wall/Lungs: Air entry diminished in bilateral lung bases. No crepitation/rhonchi Cardiovascular: Irregular, A-fib heart rate controlled 64 /min. holosystolic murmur cardiac apex and LLSB. Abdomen: Bowel Sounds Present, Soft, Non Tender, Non-Distended : No dysuria. No renal angle tenderness. No suprapubic tenderness. Extremities: bilateral below-knee 3+ edema, Capillary Refill Less than 3 Seconds Skin: No rashes, No breakdown Musculoskeletal: No Tenderness to Palpation of Joints or Extremities Neurological: Cranial nerves II-XII grossly intact, DTR 2+/4. No acute focal neurological deficit. Psych/Mental Status: Normal Affect, Appropriate. Assessment & Plan Assessment/Plan (1) Acute liver failure due to hepatitis virus: (2) Abnormal LFTs: (3) Atrial fibrillation with rapid ventricular response: (4) Acute kidney injury: (5) Hyponatremia: (6) CHF (congestive heart failure): QUALIFIERS: Heart failure type: unspecified Heart failure chronicity: unspecified Qualified Code(s): I50.9 - Heart failure, unspecified (7) Amyloidosis: QUALIFIERS: Amyloidosis type: unspecified amyloidosis Qualified Code(s): E85.9 - Amyloidosis, unspecified PLAN: Plan 77-year-old female came to ED with shortness of breath, weakness and inability to walk, symptom complex ongoing for more than 1 week. He was noticed jaundiced, variable heart rate with intermittent palpitation. Patient was prescribed Xarelto but has been out for a while. History of A-fib 1. Acute liver injury, exact etiology unclear: Patient is admitted in ICU. Labs shows total bilirubin of 2.7 mg/dL (direct bilirubin 2.04 mg/dL) AST of 832 units/L, ALT of 869 units/L and alkaline phosphatase of 398 units/L and leukocytosis of 17.5 K with right upper quadrant sonogram showing GB wall thickening with pericholecystic fluid but no abdominal pain or gallstones therefore possible acalculous cholecystitis. INR high 2.0 but patient was on Xarelto more than a week ago therefore probably from acute liver injury. Blood cultures x 2 ordered. Empirically started on IV Zosyn after blood cultures. Discussed with ICU nursing staff. Give Zofran IV prn. Patient evaluated by surgeon and GI consulted. 06/29:Improvement in liver chemistry. Total bilirubin normal. It was mainly obstructive. Transaminases also improving. Alkaline phosphatase similar. GGT elevated. Autoimmune markers ordered. Patient stated she never had any liver, biliary or pancreatic disease in the life. Patient was started on acetylcysteine drip. 2. Atrial fibrillation with RVR, nonadherent to metoprolol and Xarelto: Tachycardia did not respond to multiple doses of Cardizem bolus therefore started on Cardizem drip currently at 15 mg/h. Also added digoxin 125 mg IV. Metoprolol succinate changed to metoprolol tartrate 25 mg every 8 hourly. 2D echo is ordered. Medical Lab Assistant is consulted 06/29: Heart rate is controlled. Echo on 06/28 shows EF 70% moderate asymmetric septal hypertrophy, small LV cavity. LA severely enlarged. 1-2+ MR, moderate to severe aortic stenosis. Moderately severe TR, PASP 50 mmHg 3. GREGORY: Patient had normal creatinine back in June 2020 after that unclear about his renal status. Admitted with creatinine 2.28 currently 1.7.Hyperkalemia, hyponatremia with high anion gap metabolic acidosis. CT reported normal right and left kidney and normal urinary bladder. Nephrology is consulted. 06/29: BUNs/creatinine 47/0.98. GREGORY resolved. Hyponatremia 4. AE CHF; evidenced by chest x-ray that revealed a left pleural effusion with cardiomegaly and an elevated BNP of 1,126.8 pg/mL present on admission- Give Lasix 40 mg IV daily plus supplemental magnesium. 5. Severe hyponatremia of 121 mmol/L present on admission likely due to water intoxication - Give NS IVF and then recheck BMP q. 6 hours to ensure correction of no more than 8-10 mmol/L per 24 hours. Check serum and urine osmolality. 06/29: Sodium improved from 121-127 in over 2 days. 6 tobacco abuse - Tobacco cessation will be strongly encouraged with nicotine patch offered to control cravings. 8. Essential hypertension - Restart home regimen plus give IV hydralazine as needed for systolic blood pressure greater than 160 mmHg. 9. History aortic stenosis, ventricular hypertrophy and cardiomyopathy - Echocardioram pending this admission. 10. Hyperlipidemia - No statin with transaminitis but we will check Lipid Profile. 11. Overweight; BMI 26 this admission - Weight loss will be recommended. 12. Amyloidosis - Noted. Awaiting CT results. 13. PAD; status post iliac artery occlusion - Stable. 14. History of hysterectomy - Noted. 15. Osteoarthritis - Stable. 16. DVT prophylaxis - SCD's only for now until bleeding as cause of elevated BUN of 79 mg/dL present on admission ruled out. Total time of the visit including total time spent in counseling or coordination of care, (more than 50% of the total time, spent in obtaining medical information from nurses and other ancillary care providers,explaining to the patient about labs, imaging, diagnosis and management of active complex medical conditions), multiple organ dysfunction, review of labs and imaging is 40 minutes. 2D echo 06/29/2023 The estimated ejection fraction is more than 70 %. Moderate assymetric septal hypertrophy. Small LV cavity. The left atrium is severely enlarged. The right atrium is moderately enlarged. Moderately severe mitral stenosis. Mild-Moderate (1-2+) mitral valve insufficiency. Moderate to severe aortic stenosis. Moderately severe tricuspid valve regurgitation. Pulmonary artery systolic pressure estimated at 50 mmHg. Charges/Coding Visit Charges Inpatient E&M: 71964 Subs Hosp L3
[2023-06-30] MEDS: Iron Polysaccharide Complex 150 MG CAPSULE PO (10:09)
[2023-06-30] MEDS: Magnesium Chloride 64 MG Delay Rel.Tablet 128 MG PO (10:09)
[2023-06-30] MEDS: Multivitamins,Therapeutic Tablet 1 TABLET PO (10:10)
[2023-06-30] MEDS: Furosemide 40 MG/4 ML Vial IV (10:12)
[2023-06-30] MEDS: 0.9% Normal Saline (1000mL) 1,000 ML 60 ML IV (10:21)
--- NOTE | 2023-06-30 10:27 | CASEMGMT ---
BILL CM to pt room regarding pt DC needs. Pt states that she is still unsure if she would like [facility] or not at this time. PT juaquin is also pending still. Pt also states that she may be interested in Drier Operator Helper services. Pt states that she would like to talk to her daughter about this first. CM to follow.
[2023-06-30 11:10] LABS: Absolute Lymphocyte Count 0.79 X10^3/uL (0.83-4.51); Absolute Neutrophil Count 11.7 X10^3/uL (2.0-7.7); Basophil# 0.01 X10^3/uL; Basophil% 0.1 % (0-1); Eosinophil# 0.02 X10^3/uL; Eosinophils% 0.1 % (0-5); Hematocrit 33.3 % (37-47); Hemoglobin 10.9 g/dL (12.0-15.0); Lymphocyte # 0.79 X10^3/ul (0.83-4.51); Lymphocyte % 5.6 % (19-41); Mean Corp Hgb Conc 32.7 g/dL (32-36); Mean Corpuscular Hgb 29.4 pg (27.0-32.0); Mean Corpuscular Volume 89.8 fL (81-99); Mean Platelet Vol. 10.7 fl (6.2-12.0); Monocyte# 1.54 X10^3/uL; Monocyte% 10.9 % (0-10); NRBC Flagged by Analyzer 0.4 % (0-5); Neutrophil # 11.69 X10^3/uL (2.7-7.7); Neutrophil % 82.7 % (47-70); POSITIVE DIFFERENTIAL YES; Platelet Count 161 K/mm3 (150-450); RBC Distribution Width CV 13.9 % (11.6-14.6); Red Blood Count 3.71 M/mm3 (4.2-5.4); White Blood Count 14.1 K/mm3 (4.4-11.0)
[2023-06-30 11:11] LABS: Differential Indicated SCAN CRITERIA MET
[2023-06-30 11:18] LABS: International Normalized Ratio 1.7; Prothrombin Time (Protime)PT. 19.8 SECONDS (11.7-14.9)
--- NOTE | 2023-06-30 12:51 | PCM.PN.SRG ---
Subjective Subjective Patient comfortable with no issues overnight Objective Data Objective Data Vital Signs: Vital Signs Temp Pulse Resp BP Pulse Ox O2 Del Method 97.2 F L 69 22 H 102/50 L 100 Room Air 06/30/23 11:00 06/30/23 11:00 06/30/23 11:00 06/30/23 11:00 06/30/23 11:00 06/30/23 11:00 Oxygen Delivery Method Room Air Weight: 109 lb 2.061 oz Body Mass Index (BMI) 21.4 Intake & Output: Intake and Output for Last 24 Hours 06/28/23 06/29/23 06/30/23 23:59 23:59 23:59 Intake Total 2082.17 / 2082.17 1044 / 1044 Output Total 700 / 700 1200 / 1200 Balance 1382.17 / 1382.17 -156 / -156 Medical Nutrition Assessment Dietitian: Malnutrition Criteria Met Start: 06/29/23 11:35 Freq: Status: Active Protocol: Document 06/29/23 11:35 AG (Rec: 06/29/23 11:35 [id number]) Nutrition Malnutrition Evidence of Malnutrition Exists Yes Malnutrition (severe): Acute Illness/Injury Evidenced By Suboptimal Energy Intake ( Severe),Weight Loss (Severe) Clinical Problem Acute Disease or Injury Related Malnutrition Etiology severe acute malnutrition related to inadequate energy intake Signs/Symptoms as evidenced by unintentional 4% wt loss, estimated PO intake meeting <50% of estimated energy needs > 1 week Status Active Problem Recommendation Dietitian Recommendations/Changes recommend regular/no added salt diet as tolerated; Ensure w/ medpass when PO diet is advanced. Consider SEWER LINE REPAIRER eval if issues chewing/swallowing. Lab / Micro Data 06/30/23 10:50 06/30/23 03:10 Labs: Laboratory Results - last 24 hr 06/28/23 20:18: Diff Path Review Reviewed 06/29/23 00:14: Hepatitis A IgM Ab Negative, Hep Bs Antigen Negative, Hep B Core IgM Ab Negative, Hepatitis C Ab (EIA) Non Reactive, Hep C Ab Comment Comment 06/29/23 02:47: Diff Path Review Reviewed 06/30/23 03:10: Sodium 127 L, Potassium 3.8, Chloride 95 L, Carbon Dioxide 23.0, Anion Gap 9, BUN 47 H, Creatinine 0.98, Estim Creat Clear Calc 33.44, Est GFR (MDRD) Af Amer 71, Est GFR (MDRD) Non-Af 58 L, BUN/Creatinine Ratio 48.2 H, Glucose 105, Calcium 7.3 L, Total Bilirubin 1.00, AST 367 H, ALT 678 H, Alkaline Phosphatase 358 H, Total Protein 5.1 L, Albumin 2.5 L, Globulin 2.6, Albumin/Globulin Ratio 1.0 06/30/23 10:50: WBC 14.1 H, RBC 3.71 L, Hgb 10.9 L, Hct 33.3 L, MCV 89.8, MCH 29.4, MCHC 32.7, RDW Std Deviation 45.0 H, RDW Coeff of [place] 13.9, Plt Count 161, MPV 10.7, Immature Gran % (Auto) 0.600, Neut % (Auto) 82.7 H, Lymph % (Auto) 5.6 L, [place] % (Auto) 10.9 H, Eos % (Auto) 0.1, Baso % (Auto) 0.1, Absolute Neuts (auto) 11.7 H, Absolute Lymphs (auto) 0.79 L, Nucleated RBC % 0.4, Differential Comment COMMENT, Diff Path Review June foll, PT 19.8 H, INR 1.7 Radiography Diagnostic Testing: Radiology Impression Echocardiogram 06/29/23 02:05 Interpretation Summary The estimated ejection fraction is more than 70 %. Moderate assymetric septal hypertrophy. Small LV cavity. The left atrium is severely enlarged. The right atrium is moderately enlarged. Moderately severe mitral stenosis. Mild-Moderate (1-2+) mitral valve insufficiency. Moderate to severe aortic stenosis. Moderately severe tricuspid valve regurgitation. Pulmonary artery systolic pressure estimated at 50 mmHg. Ordering Physician: Ludwin James Referring Physician: NO PCP Performed By: Ewa Pastrana, HERMANN, RVT Physical Exam Const oriented x3 and no apparent distress GI soft to palpation and non-tender Assessment & Plan Assessment/Plan (1) Abnormal LFTs: PLAN: The patient's not having any symptoms from her abdomen. Her LFTs are improving. Antibody tests are pending. No need for cholecystectomy at this time. Kyle Villafana MD Pager: [facility] [address] [place] [address] [address] [place] [address] Office:
--- NOTE | 2023-06-30 13:46 | PCM.PN.REN ---
Subjective Subjective No new events Objective Data Objective Data Vital Signs: Vital Signs Temp Pulse Resp BP Pulse Ox O2 Del Method 97.2 F L 69 22 H 102/50 L 100 Room Air 06/30/23 11:00 06/30/23 11:00 06/30/23 11:00 06/30/23 11:00 06/30/23 11:00 06/30/23 11:00 Oxygen Delivery Method Room Air Weight: 49.5 kg Body Mass Index (BMI) 21.4 Intake & Output: Intake and Output for Last 24 Hours 06/28/23 06/29/23 06/30/23 23:59 23:59 23:59 Intake Total 2082.17 / 2082.17 1044 / 1044 Output Total 700 / 700 1200 / 1200 Balance 1382.17 / 1382.17 -156 / -156 Medical Nutrition Assessment Dietitian: Malnutrition Criteria Met Start: 06/29/23 11:35 Freq: Status: Active Protocol: Document 06/29/23 11:35 AG (Rec: 06/29/23 11:35 [id number]) Nutrition Malnutrition Evidence of Malnutrition Exists Yes Malnutrition (severe): Acute Illness/Injury Evidenced By Suboptimal Energy Intake ( Severe),Weight Loss (Severe) Clinical Problem Acute Disease or Injury Related Malnutrition Etiology severe acute malnutrition related to inadequate energy intake Signs/Symptoms as evidenced by unintentional 4% wt loss, estimated PO intake meeting <50% of estimated energy needs > 1 week Status Active Problem Recommendation Dietitian Recommendations/Changes recommend regular/no added salt diet as tolerated; Ensure w/ medpass when PO diet is advanced. Consider OFFICE PROFESSIONAL eval if issues chewing/swallowing. Lab / Micro Data 06/30/23 10:50 06/30/23 03:10 Labs: Laboratory Results - last 24 hr 06/29/23 00:14: Hepatitis A IgM Ab Negative, Hep Bs Antigen Negative, Hep B Core IgM Ab Negative, Hepatitis C Ab (EIA) Non Reactive, Hep C Ab Comment Comment 06/30/23 03:10: Sodium 127 L, Potassium 3.8, Chloride 95 L, Carbon Dioxide 23.0, Anion Gap 9, BUN 47 H, Creatinine 0.98, Estim Creat Clear Calc 33.44, Est GFR (MDRD) Af Amer 71, Est GFR (MDRD) Non-Af 58 L, BUN/Creatinine Ratio 48.2 H, Glucose 105, Calcium 7.3 L, Total Bilirubin 1.00, AST 367 H, ALT 678 H, Alkaline Phosphatase 358 H, Total Protein 5.1 L, Albumin 2.5 L, Globulin 2.6, Albumin/Globulin Ratio 1.0 06/30/23 10:50: WBC 14.1 H, RBC 3.71 L, Hgb 10.9 L, Hct 33.3 L, MCV 89.8, MCH 29.4, MCHC 32.7, RDW Std Deviation 45.0 H, RDW Coeff of [place] 13.9, Plt Count 161, MPV 10.7, Immature Gran % (Auto) 0.600, Neut % (Auto) 82.7 H, Lymph % (Auto) 5.6 L, [place] % (Auto) 10.9 H, Eos % (Auto) 0.1, Baso % (Auto) 0.1, Absolute Neuts (auto) 11.7 H, Absolute Lymphs (auto) 0.79 L, Nucleated RBC % 0.4, Differential Comment COMMENT, Diff Path Review June, PT 19.8 H, INR 1.7 Micro: Microbiology 06/29/23 08:19 Blood Culture (Wb) - Anticubital Left Blood Culture - Preliminary Physical Exam Narrative Alert and oriented x 3, no apparent distress. Hard of hearing S1, S2, rate controlled Lung sounds diminished posterior bases. No rales Abdomen soft Trace edema right lower leg Assessment & Plan Assessment/Plan (1) Acute kidney injury: (2) Hyperkalemia: (3) Hyponatremia: PLAN: Plan This is a 77-year-old female with past medical history significant for hypertension, hyperlipidemia, chronic A-fib, history of aortic stenosis, history of amyloidosis, history of elevated serum immunoglobulin free light chains, followed by Dr. High (skeletal survey no lytic or sclerotic bone lesions May 2020), cardiomyopathy, peripheral artery disease status post iliac artery occlusion who presented to emergency room yesterday with complaints of feeling unwell, poor oral intake, dyspnea on exertion, jaundice appearing. Admitted due to elevated LFTs, GREGORY. Nephrology consulted in view of elevated serum creatinine, elevated potassium and hyponatremia. Acute kidney injury. On admission serum creatinine 2.28, patient was started on gentle IV fluids, today her creatinine is normal. GREGORY likely in setting of poor oral intake and hypotension, with volume expansion and improvement of hemodynamics serum creatinine has also improved. Patient is nonoliguric. Noncontrast CT showed normal right and left kidney. Will obtain UA. Patient has normal baseline sodium. Hyponatremia. Possibly hypovolemic. Better today.
--- NOTE | 2023-06-30 18:15 | EX.PCM.PN.GI ---
Subjective Subjective Patient states that she feels about the same. She denies any abdominal pain. Her blood pressure remains low throughout the day. Objective Data Objective Data Vital Signs: Vital Signs Temp Pulse Resp BP Pulse Ox O2 Del Method 97.9 F 83 23 H 98/81 H 100 Room Air 06/30/23 17:00 06/30/23 17:00 06/30/23 17:00 06/30/23 17:00 06/30/23 17:00 06/30/23 17:00 Oxygen Delivery Method Room Air Weight: 109 lb 2.061 oz Body Mass Index (BMI) 21.4 Intake & Output: Intake and Output for Last 24 Hours 06/28/23 06/29/23 06/30/23 23:59 23:59 23:59 Intake Total 2082.17 / 2082.17 1044 / 1044 Output Total 700 / 700 2049 / 2049 Balance 1382.17 / 1382.17 -1006 / -1006 Medical Nutrition Assessment Dietitian: Malnutrition Criteria Met Start: 06/29/23 11:35 Freq: Status: Active Protocol: Document 06/29/23 11:35 AG (Rec: 06/29/23 11:35 [id number]) Nutrition Malnutrition Evidence of Malnutrition Exists Yes Malnutrition (severe): Acute Illness/Injury Evidenced By Suboptimal Energy Intake ( Severe),Weight Loss (Severe) Clinical Problem Acute Disease or Injury Related Malnutrition Etiology severe acute malnutrition related to inadequate energy intake Signs/Symptoms as evidenced by unintentional 4% wt loss, estimated PO intake meeting <50% of estimated energy needs > 1 week Status Active Problem Recommendation Dietitian Recommendations/Changes recommend regular/no added salt diet as tolerated; Ensure w/ medpass when PO diet is advanced. Consider TESTING MACHINE OPERATOR eval if issues chewing/swallowing. Lab / Micro Data 06/30/23 10:50 06/30/23 03:10 Labs: Laboratory Results - last 24 hr 06/29/23 00:14: Hepatitis A IgM Ab Negative, Hep Bs Antigen Negative, Hep B Core IgM Ab Negative, Hepatitis C Ab (EIA) Non Reactive, Hep C Ab Comment Comment 06/30/23 03:10: Sodium 127 L, Potassium 3.8, Chloride 95 L, Carbon Dioxide 23.0, Anion Gap 9, BUN 47 H, Creatinine 0.98, Estim Creat Clear Calc 33.44, Est GFR (MDRD) Af Amer 71, Est GFR (MDRD) Non-Af 58 L, BUN/Creatinine Ratio 48.2 H, Glucose 105, Calcium 7.3 L, Total Bilirubin 1.00, AST 367 H, ALT 678 H, Alkaline Phosphatase 358 H, Total Protein 5.1 L, Albumin 2.5 L, Globulin 2.6, Albumin/Globulin Ratio 1.0 06/30/23 10:50: WBC 14.1 H, RBC 3.71 L, Hgb 10.9 L, Hct 33.3 L, MCV 89.8, MCH 29.4, MCHC 32.7, RDW Std Deviation 45.0 H, RDW Coeff of Lobo 13.9, Plt Count 161, MPV 10.7, Immature Gran % (Auto) 0.600, Neut % (Auto) 82.7 H, Lymph % (Auto) 5.6 L, [place] % (Auto) 10.9 H, Eos % (Auto) 0.1, Baso % (Auto) 0.1, Absolute Neuts (auto) 11.7 H, Absolute Lymphs (auto) 0.79 L, Nucleated RBC % 0.4, Differential Comment COMMENT, Diff Path Review June foll, PT 19.8 H, INR 1.7 Micro: Microbiology 06/29/23 08:19 Blood Culture (Wb) - Anticubital Left Blood Culture - Preliminary Physical Exam Narrative Seen and examined. Jaundice and liver chemistry improving. Had bowel movement. Patient admitted with generalized weakness. Physical exam General: Alert, Oriented x3, Cooperative HEENT: Icterus present atraumatic, PERRLA, EOMI, Normocephalic Oral: No Gingival or Mucosal Lesions/ Ulcerations Neck: Supple, No JVD, Negative Carotid Bruits Chest wall/Lungs: Air entry diminished in bilateral lung bases. No crepitation/rhonchi Cardiovascular: Irregular, A-fib heart rate controlled 64 /min. holosystolic murmur cardiac apex and LLSB. Abdomen: Bowel Sounds Present, Soft, Non Tender, Non-Distended : No dysuria. No renal angle tenderness. No suprapubic tenderness. Extremities: bilateral below-knee 3+ edema, Capillary Refill Less than 3 Seconds Skin: No rashes, No breakdown Musculoskeletal: No Tenderness to Palpation of Joints or Extremities Neurological: Cranial nerves II-XII grossly intact, DTR 2+/4. No acute focal neurological deficit. Psych/Mental Status: Normal Affect, Appropriate. Assessment & Plan Assessment/Plan (1) Abnormal LFTs: PLAN: CHEST The central airways are patent. Moderate left and small right pleural effusions with dependent atelectasis. No separate consolidation. No pneumothorax. Prominent heart. No pericardial effusion. Coronary artery calcifications are present. Mitral annular calcification. There is an enlarged precarinal mediastinal lymph node measuring 1.8 cm. No additional lymphadenopathy. Normal hilar regions. Normal unenhanced pulmonary arteries. Normal caliber aorta arch and descending thoracic aorta. Moderate atherosclerotic calcifications are noted. Thoracic kyphosis. DISH. Multilevel degenerative changes of the spine. No acute rib abnormality. ABDOMEN Normal liver. Normal gallbladder and extrahepatic biliary system. Normal spleen. Normal pancreas. Normal bilateral adrenal glands. Normal right kidney. Normal left kidney. Small hiatal hernia. The stomach is otherwise decompressed. Normal small intestine. Colonic diverticulosis without diverticulitis. No focal wall thickening. The appendix is visualized and appears normal. Normal caliber aorta with moderate to severe atherosclerotic calcification. Normal inferior vena cava. Normal retroperitoneum. Normal abdominal wall. PELVIS Normal urinary bladder. Small volume of free fluid in the pelvis. There is no pelvic lymphadenopathy or mass lesion. Normal caliber vasculature with moderate atherosclerotic calcification. Inflammatory stranding overlies the left hip and upper thigh. No acute osseous abnormality. Moderate degenerative changes of the lumbar spine with disc space narrowing and vacuum disc phenomenon. Multilevel facet arthropathy. Severe degenerative changes at the right hip with flattening of the femoral head and superior joint space narrowing. CT/CT Chest, Abd, Pelvis WO Cont IMPRESSION: Small volume ascites. Moderate left and small right pleural effusions with associated atelectasis. Enlarged precarinal mediastinal lymph node of uncertain etiology. (2) Acute liver failure due to hepatitis virus: (3) Atrial fibrillation with rapid ventricular response: (4) Acute kidney injury: (5) Hyponatremia: (6) CHF (congestive heart failure): QUALIFIERS: Heart failure type: unspecified Heart failure chronicity: unspecified Qualified Code(s): I50.9 - Heart failure, unspecified (7) Amyloidosis: QUALIFIERS: Amyloidosis type: unspecified amyloidosis Qualified Code(s): E85.9 - Amyloidosis, unspecified PLAN: Plan Frequent causes for elevated liver function tests in the intensive care unit (ICU) are?acute hepatic dysfunction due to acute hepatitis, acute liver failure (RESIDENTIAL), and drug-induced liver injury . ?Furthermore, exacerbations of pre-existing liver diseases (acute on chronic) and secondary liver injury during critical diseases such as sepsis, right heart failure, or cardiogenic shock, resulting in ischemic or hypoxic hepatitis, need to be considered. Elevated liver enzymes may also reflect a complication of ICU treatment measures like drug-related hepatotoxicity, secondary sclerosing cholangitis in critically ill patients. Acute liver failure with obvious jaundice appearance with total bilirubin of 2.7 mg/dL (direct bilirubin 2.04 mg/dL) AST of 832 units/L, ALT of 869 units/L and alkaline phosphatase of 398 units/L and leukocytosis of 17.5 K present on admission worrisome for acute hepatitis with Right upper quadrant ultrasound done in the ER showing gallbladder wall thickening and pericholecystic fluid but no gallstones or biliary dilatation with concern for possible viral hepatitis. Her INR is at 200 makes it very difficult to determine if her synthetic function is okay. I think top etiology on her differential diagnosis will be right heart failure due to the fact that she has bilateral pleural effusions, critical aortic stenosis and small volume ascites. She also has risk factors of infiltrative diseases affecting the liver including amyloidosis, secondary hemochromatosis secondary to amyloidosis, shock liver or drug-related toxicity. ICU and is associated with poor short term outcome. Elderly patients, patients with, dyspnea, altered mentation and need for inotropes or mechanical ventilation have higher short term mortality. Simple laboratory parameters like AST, ALT, INR and MELD score on admission can predict outcome in the short term. Recommend to start Mucomyst, check ANUEL comprehensive, anti-smooth muscle antibodies, antimitochondrial antibodies, protein electrophoresis, celiac profile, ammonia level. Depending on course she may need a liver biopsy as I explained to the family at the bedside. I would like to get an MRI to look for signs of secondary sclerosing cholangitis. However in the setting of ascites and with her renal failure it is not the best study. Patient may need to keep his systolic blood pressure greater than 100 with the use of midodrine 5 mg p.o. 3 times daily as to not cause worsening liver enzymes and liver function test. 06/30/23- Jaundice with cholestatic hepatitis-patient received loading dose and maintenance Mucomyst for non-acetaminophen induced liver failure. Her INR was 2.0 along with cholestatic jaundice with hepatitis. Labs are improving. INR is down to 1.7. Infiltrative diseases still in the differential diagnosis but passive congestion secondary to cardiac injuries to the liver is primary on the differential diagnosis. Also could be mild ischemic hepatitis however with ischemic hepatitis you typically see increase in AST and ALT in the thousands or high 100s and within 72 hours you will see a increase in the bilirubin where hers is decreased. She was responding very well to increase glutathione from Mucomyst. Continue to wait autoimmune labs and other labs for acute on chronic liver disease. Patient is doing better from a liver standpoint. Charges/Coding Visit Charges Inpatient E&M: 17467 Subs Hosp L3
[2023-07-01] VITALS (11 sets, daily range): BP systolic 86–104; BP diastolic 56–70; PULSE 78–778; RESP 16–20; TEMP 35.8–37.7; O2SAT 94–100; BMI 22.0
[2023-07-01] MEDS: 0.9% Normal Saline (1000mL) 1,000 ML 60 ML IV (03:20)
[2023-07-01] MEDS: Digoxin 250 MCG Tablet PO (05:27)
[2023-07-01] MEDS: Piperacil/Tazobactam 3.375 GM in 0.9% Normal Saline (50mL MB+) 50 ML IV ×2 (05:30→15:38)
[2023-07-01 06:47] LABS: Absolute Lymphocyte Count 1.01 X10^3/uL (0.83-4.51); Absolute Neutrophil Count 13.8 X10^3/uL (2.0-7.7); Basophil# 0.03 X10^3/uL; Basophil% 0.2 % (0-1); Eosinophil# 0.07 X10^3/uL; Eosinophils% 0.4 % (0-5); Hematocrit 32.7 % (37-47); Hemoglobin 10.5 g/dL (12.0-15.0); Lymphocyte # 1.01 X10^3/ul (0.83-4.51); Lymphocyte % 5.9 % (19-41); Mean Corp Hgb Conc 32.1 g/dL (32-36); Mean Corpuscular Volume 90.3 fL (81-99); Mean Platelet Vol. 10.1 fl (6.2-12.0); Monocyte% 12.2 % (0-10); NRBC Flagged by Analyzer 0.7 % (0-5); Neutrophil # 13.75 X10^3/uL (2.7-7.7); Neutrophil % 80.2 % (47-70); POSITIVE DIFFERENTIAL YES; Platelet Count 192 K/mm3 (150-450); RBC Distribution Width CV 13.8 % (11.6-14.6); RBC Distribution Width SD 45.1 fl (35.1-43.9); Red Blood Count 3.62 M/mm3 (4.2-5.4); White Blood Count 17.2 K/mm3 (4.4-11.0)
[2023-07-01 06:54] LABS: Differential Indicated SCAN CRITERIA MET
[2023-07-01 06:56] LABS: International Normalized Ratio 1.4; Prothrombin Time (Protime)PT. 17.2 SECONDS (11.7-14.9)
[2023-07-01 07:14] LABS: Anion Gap 8 (5-15); BUN 27 mg/dL (7-18); BUN/Creat Ratio 31.6 RATIO (10-20); Calcium,Total 7.3 mg/dL (8.5-10.1); Chloride 96 mmol/L (98-107); Creatinine, Serum 0.86 mg/dL (0.55-1.02); EST Glomerular Filtration Rate 68 mL/min (>60); Est Glom Filt Rate - Afr Amer 82 mL/min (>60); Glucose 102 mg/dL (74-106); Sodium Level 129 mmol/L (136-145)
--- NOTE | 2023-07-01 09:08 | CASEMGMT ---
SW was informed patient's family would like patient to go somewhere for rehab. Family also does not like patient's Healthcare POA and they want to change it. SW reviewed therapy notes and noted patient was a min assist of 1 and lives alone. Therapy is recommending patient go somewhere for rehab. SW met with patient. Introduced self and role at [facility]. SW spoke with patient about d/c plan. Patient is agreeable to go somewhere short term for rehab. SW told patient FLORIAN will bring her a list of facilities that take her insurance. SW asked patient to choose her top 5 preferences and SW will take care of contacting the facilities. SW then asked patient if she has a Healthcare Power of Remote Sensing Advisor and she does not. SW asked patient who she would want as her Healthcare Power of Remote Sensing Advisor (HCPOA). Patient stated she would like her granddaughter Ananya. SW asked patient how many children she has. Patient has a daughter who had an aneurism, a son who just had brain surgery, and another daughter who is an airhead. FLORIAN told patient FLORIAN will try and do POA papers for her so her granddaughter Ananya will be the decision maker should she not be able to make medical decisions. Pam Killian PROGRAM MANAGER ENVIRONMENTAL PLANNING [employer]VON
--- NOTE | 2023-07-01 09:24 | CASEMGMT ---
Discharge Planning A list of SNF providers including quality and resource use data and consistent with the patient's preferred geographic region, medical needs, and insurance network was created in [facility] Guide.? This list was provided to the SW. Belen Medrano Discharge Planning Asst.
--- NOTE | 2023-07-01 09:45 | PN.HOSP_ITS ---
Reason for Visit Reason for Visit: Diagnoses Unspecified viral hepatitis without hepatic coma (06/29/23) Amyloidosis, unspecified (06/29/23) Hypo-osmolality and hyponatremia (06/29/23) Hyperkalemia (06/29/23) Unspecified atrial fibrillation (06/29/23) Heart failure, unspecified (06/29/23) Acute and subacute hepatic failure without coma (06/29/23) Acute kidney failure, unspecified (06/29/23) Other specified abnormal findings of blood chemistry (06/29/23) Objective Data Objective Data Vital Signs: Vital Signs Temp Pulse Resp BP Pulse Ox O2 Del Method 98.1 F 95 18 92/60 100 Room Air 07/01/23 03:22 07/01/23 03:22 07/01/23 03:22 07/01/23 03:22 07/01/23 03:22 07/01/23 03:30 Oxygen Delivery Method Room Air Weight: 112 lb 3.445 oz Body Mass Index (BMI) 22.0 Intake & Output: Intake and Output for Last 24 Hours 06/29/23 06/30/23 07/01/23 23:59 23:59 23:59 Intake Total 2082.17 / 2082.17 1606 / 1606 1050 / 1050 Output Total 700 / 700 2900 / 2900 150 / 150 Balance 1382.17 / 1382.17 -1294 / -1294 900 / 900 Medical Nutrition Assessment Dietitian: Malnutrition Criteria Met Start: 06/29/23 11:35 Freq: Status: Active Protocol: Document 06/29/23 11:35 AG (Rec: 06/29/23 11:35 [id number]) Nutrition Malnutrition Evidence of Malnutrition Exists Yes Malnutrition (severe): Acute Illness/Injury Evidenced By Suboptimal Energy Intake ( Severe),Weight Loss (Severe) Clinical Problem Acute Disease or Injury Related Malnutrition Etiology severe acute malnutrition related to inadequate energy intake Signs/Symptoms as evidenced by unintentional 4% wt loss, estimated PO intake meeting <50% of estimated energy needs > 1 week Status Active Problem Recommendation Dietitian Recommendations/Changes recommend regular/no added salt diet as tolerated; Ensure w/ medpass when PO diet is advanced. Consider ITALIAN TUTOR eval if issues chewing/swallowing. Lab / Micro Data 07/01/23 06:10 07/01/23 06:10 Labs: Laboratory Results - last 24 hr 06/30/23 10:50: WBC 14.1 H, RBC 3.71 L, Hgb 10.9 L, Hct 33.3 L, MCV 89.8, MCH 29.4, MCHC 32.7, RDW Std Deviation 45.0 H, RDW Coeff of Lobo 13.9, Plt Count 161, MPV 10.7, Immature Gran % (Auto) 0.600, Neut % (Auto) 82.7 H, Lymph % (Auto) 5.6 L, [place] % (Auto) 10.9 H, Eos % (Auto) 0.1, Baso % (Auto) 0.1, Absolute Neuts (auto) 11.7 H, Absolute Lymphs (auto) 0.79 L, Nucleated RBC % 0.4, Differential Comment COMMENT, Diff Path Review June brenna, PT 19.8 H, INR 1.7 07/01/23 06:10: WBC 17.2 H, RBC 3.62 L, Hgb 10.5 L, Hct 32.7 L, MCV 90.3, MCH 29.0, MCHC 32.1, RDW Std Deviation 45.1 H, RDW Coeff of Lobo 13.8, Plt Count 192, MPV 10.1, Immature Gran % (Auto) 1.100 H, Neut % (Auto) 80.2 H, Lymph % (Auto) 5.9 L, [place] % (Auto) 12.2 H, Eos % (Auto) 0.4, Baso % (Auto) 0.2, Absolute Neuts (auto) 13.8 H, Absolute Lymphs (auto) 1.01, Nucleated RBC % 0.7, Differential Comment COMMENT, Diff Path Review June brenna, PT 17.2 H, INR 1.4, Sodium 129 L, P otassium 3.0 L, Chloride 96 L, Carbon Dioxide 25.0, Anion Gap 8, BUN 27 H, Creatinine 0.86, Estim Creat Clear Calc 38.10, Est GFR (MDRD) Af Amer 82, Est GFR (MDRD) Non-Af 68, BUN/Creatinine Ratio 31.6 H, Glucose 102, Calcium 7.3 L Micro: Microbiology 06/29/23 08:19 Blood Culture (Wb) - Anticubital Left Bacteria Detection (PCR) - Final Staphylococcus epidermidis 06/29/23 08:19 Blood Culture (Wb) - Anticubital Left Blood Culture - Preliminary Coag Negative Staph Physical Exam Narrative Seen and examined. Jaundice and liver chemistry improving. Had bowel movement. Heart rate is still up although it was controlled yesterday. If you 120/m Patient admitted with generalized weakness. Does not have abdominal pain. No chest pain. Not taking metoprolol and Xarelto for more than 1 week. Physical exam General: Alert, Oriented x3, Cooperative HEENT: Icterus present atraumatic, PERRLA, EOMI, Normocephalic Oral: No Gingival or Mucosal Lesions/ Ulcerations Neck: Supple, No JVD, Negative Carotid Bruits Chest wall/Lungs: Air entry diminished in bilateral lung bases. No crepitation/rhonchi Cardiovascular: Irregular, A-fib heart rate with RVR. holosystolic murmur cardiac apex and LLSB. Abdomen: Bowel Sounds Present, Soft, Non Tender, Non-Distended : No dysuria. No renal angle tenderness. No suprapubic tenderness. Extremities: bilateral below-knee 3+ edema, Capillary Refill Less than 3 Seconds Skin: No rashes, No breakdown Musculoskeletal: No Tenderness to Palpation of Joints or Extremities Neurological: Cranial nerves II-XII grossly intact, DTR 2+/4. No acute focal neurological deficit. Psych/Mental Status: Normal Affect, Appropriate. Assessment & Plan Assessment/Plan (1) Acute liver failure due to hepatitis virus: (2) Abnormal LFTs: (3) Atrial fibrillation with rapid ventricular response: (4) Acute kidney injury: (5) Hyponatremia: (6) CHF (congestive heart failure): QUALIFIERS: Heart failure chronicity: unspecified Heart failure type: unspecified Qualified Code(s): I50.9 - Heart failure, unspecified (7) Amyloidosis: QUALIFIERS: Amyloidosis type: unspecified amyloidosis Qualified Code(s): E85.9 - Amyloidosis, unspecified PLAN: Plan 77-year-old female came to ED with shortness of breath, weakness and inability to walk, symptom complex ongoing for more than 1 week. He was noticed jaundiced, variable heart rate with intermittent palpitation. Patient was prescribed Xarelto but has been out for a while. History of A-fib 1. Acute liver injury, exact etiology unclear: Patient is admitted in ICU. Labs shows total bilirubin of 2.7 mg/dL (direct bilirubin 2.04 mg/dL) AST of 832 units/L, ALT of 869 units/L and alkaline phosphatase of 398 units/L and leukocytosis of 17.5 K with right upper quadrant sonogram showing GB wall thickening with pericholecystic fluid but no abdominal pain or gallstones therefore possible acalculous cholecystitis. INR high 2.0 but patient was on Xarelto more than a week ago therefore probably from acute liver injury. Blood cultures x 2 ordered. Empirically started on IV Zosyn after blood cultures. Discussed with ICU nursing staff. Give Zofran IV prn. Patient evaluated by surgeon and GI consulted. 06/29:Improvement in liver chemistry. Total bilirubin normal. It was mainly obstructive. Transaminases also improving. Alkaline phosphatase similar. GGT elevated. Autoimmune markers ordered. Patient stated she never had any liver, biliary or pancreatic disease in the life. Patient was started on acetylcysteine drip. 06/30: Liver chemistry shows elevated AST ALT GGT improving trend, total bili and direct normal. Blood culture shows coagulase-negative staph, Staph epidermidis skin contaminated therefore no indication for treatment. 2. Atrial fibrillation with RVR, nonadherent to metoprolol and Xarelto: Tachycardia did not respond to multiple doses of Cardizem bolus therefore started on Cardizem drip currently at 15 mg/h. Also added digoxin 125 mg IV. Metoprolol succinate changed to metoprolol tartrate 25 mg every 8 hourly. 2D echo is ordered. Licensed Social Worker is consulted 06/29: Heart rate is controlled. Echo on 06/28 shows EF 70% moderate asymmetric septal hypertrophy, small LV cavity. LA severely enlarged. 1-2+ MR, moderate to severe aortic stenosis. Moderately severe TR, PASP 50 mmHg 06/30: Patient is still A-fib RVR 120 permanent. core feeder he got Biaxin 250 mg IV. Patient has hypocalcemia 7.3, corrected calcium 8.6 therefore low normal. IV calcium gluconate 2 g ordered. Keep potassium more than 4.0, magnesium 2.0 and calcium around 9.0 to avoid arrhythmia from digoxin . 3. GREGORY: Patient had normal creatinine back in June 2020 after that unclear about his renal status. Admitted with creatinine 2.28 currently 1.7.Hyperkalemia, hyponatremia with high anion gap metabolic acidosis. CT reported normal right and left kidney and normal urinary bladder. Nephrology is consulted. 06/29: BUNs/creatinine 47/0.98. GREGORY resolved. Hyponatremia 4. AE CHF; evidenced by chest x-ray that revealed a left pleural effusion with cardiomegaly and an elevated BNP of 1,126.8 pg/mL present on admission- Give Lasix 40 mg IV daily plus supplemental magnesium. 5. Severe hyponatremia of 121 mmol/L present on admission likely due to water intoxication - Give NS IVF and then recheck BMP q. 6 hours to ensure correction of no more than 8-10 mmol/L per 24 hours. Check serum and urine osmolality. 06/29: Sodium improved from 121-127 in over 2 days. 06/30: Serum sodium 129. 6 tobacco abuse - Tobacco cessation will be strongly encouraged with nicotine patch offered to control cravings. 8. Essential hypertension - Restart home regimen plus give IV hydralazine as needed for systolic blood pressure greater than 160 mmHg. 9. History aortic stenosis, ventricular hypertrophy and cardiomyopathy - Echocardioram pending this admission. 10. Hyperlipidemia - No statin with transaminitis but we will check Lipid Profile. 11. Overweight; BMI 26 this admission - Weight loss will be recommended. 12. Amyloidosis - Noted. Awaiting CT results. 13. PAD; status post iliac artery occlusion - Stable. 14. History of hysterectomy - Noted. 15. Osteoarthritis - Stable. 16. DVT prophylaxis - SCD's only for now until bleeding as cause of elevated BUN of 79 mg/dL present on admission ruled out. Total time of the visit including total time spent in counseling or coordination of care, (more than 50% of the total time, spent in obtaining medical information from nurses and other ancillary care providers,explaining to the patient about labs, imaging, diagnosis and management of active complex medical conditions), multiple organ dysfunction, review of labs and imaging is 40 minutes. 2D echo 06/29/2023 The estimated ejection fraction is more than 70 %. Moderate assymetric septal hypertrophy. Small LV cavity. The left atrium is severely enlarged. The right atrium is moderately enlarged. Moderately severe mitral stenosis. Mild-Moderate (1-2+) mitral valve insufficiency. Moderate to severe aortic stenosis. Moderately severe tricuspid valve regurgitation. Pulmonary artery systolic pressure estimated at 50 mmHg. 06/29/23 08:19 Blood Culture (Wb) - Anticubital Left Bacteria Detection (PCR) - Final Staphylococcus epidermidis 06/29/23 08:19 Blood Culture (Wb) - Anticubital Left Blood Culture - Preliminary Coag Negative Staph Laboratory Results 06/30/23 10:50: Differential Comment COMMENT, Diff Path Review June brenna 07/01/23 06:10: WBC 17.2 H, RBC 3.62 L, Hgb 10.5 L, Hct 32.7 L, MCV 90.3, MCH 29.0, MCHC 32.1, RDW Std Deviation 45.1 H, RDW Coeff of Lobo 13.8, Plt Count 192, MPV 10.1, Immature Gran % (Auto) 1.100 H, Neut % (Auto) 80.2 H, Lymph % (Auto) 5.9 L, [place] % (Auto) 12.2 H, Eos % (Auto) 0.4, Baso % (Auto) 0.2, Absolute Neuts (auto) 13.8 H, Absolute Lymphs (auto) 1.01, Nucleated RBC % 0.7, Differential Comment COMMENT, Diff Path Review June, PT 17.2 H, INR 1.4, Sodium 129 L, P otassium 3.0 L, Chloride 96 L, Carbon Dioxide 25.0, Anion Gap 8, BUN 27 H, Creatinine 0.86, Estim Creat Clear Calc 38.10, Est GFR (MDRD) Af Amer 82, Est GFR (MDRD) Non-Af 68, BUN/Creatinine Ratio 31.6 H, Glucose 102, Calcium 7.3 L, Total Bilirubin 0.90, Direct Bilirubin 0.51 H, GGT 427 H, AST 195 H, ALT 501 H, Alkaline Phosphatase 285 H, Total Protein 4.9 L, Albumin 2.4 L, Globulin 2.5 Charges/Coding Visit Charges Inpatient E&M: 16813 Subs Hosp L2
[2023-07-01] MEDS: Digoxin 125 MCG Tablet PO ×2 (10:13→14:21)
[2023-07-01] MEDS: Metoprolol Tartrate 50 MG Tablet PO (10:13)
[2023-07-01] MEDS: Multivitamins,Therapeutic Tablet 1 TABLET PO (10:13)
[2023-07-01] MEDS: Polyethylene Glycol 3350 17 GM PACKET PO ×2 (10:13→22:26)
[2023-07-01] MEDS: Senna/Docusate Sodium 1 Tablet 2 TABLET PO ×2 (10:13→22:26)
[2023-07-01] MEDS: Magnesium Chloride 64 MG Delay Rel.Tablet 128 MG PO ×2 (10:13→22:26)
[2023-07-01] MEDS: Furosemide 40 MG/4 ML Vial IV (10:14)
[2023-07-01 10:19] LABS: AST(SGOT) 195 U/L (15-37); Alanine Aminotransfer ALT/SGPT 501 U/L (13-56); Albumin, Serum 2.4 g/dL (3.2-5.0); Alkaline Phosphatase 285 U/L (45-117); Bilirubin, Direct 0.51 mg/dL (0.00-0.30); GGTP 427 U/L (5-55); Globulin 2.5 g/dL (2.2-4.2); Protein, Total 4.9 g/dL (6.4-8.2)
[2023-07-01 11:44] LABS: Magnesium 1.8 mg/dL (1.6-2.6); Phosphorus 1.9 mg/dL (2.5-4.9)
[2023-07-01] MEDS: Iron Polysaccharide Complex 150 MG CAPSULE PO (12:42)
[2023-07-01] MEDS: Calcium Gluconate IV 2 GM in 0.9% Normal Saline (100mL Bag) 100 ML IV (12:42)
--- NOTE | 2023-07-01 14:01 | PCM.CONS.C ---
Assessment & Plan Assessment/Plan (1) Atrial fibrillation with rapid ventricular response: PLAN: Recent echo revealed preserved EF, moderate to severe aortic stenosis. Recommendations: Discontinue metoprolol. Will try Cardizem cautiously at a low dose due to liver failure. Will start it at 30 mg p.o. every 6 hours. Digoxin can also be considered if patient is not able to tolerate Cardizem. Atenolol is another option as well. HPI Consult Data Date of Consult: 07/01/23 HPI Narrative Reason for Consultation: Atrial fibrillation HPI Narrative: ELYSE RUANO, is a 77 F who presents with shortness of breath, lower extremity edema, palpitations, jaundice. Patient is being treated for acute liver failure. She has history of atrial fibrillation but has been noncompliant with her medications. Patient is currently in A-fib with RVR. [facility] Medical History Amyloidosis Aortic stenosis Atrial fibrillation Cardiomyopathy Edema Heart murmur Hyperlipidemia Hypertension Iliac artery occlusion Mitral annular calcification Sinus tachycardia Smoking history Ventricular hypertrophy Vitamin D deficiency Home Medications ?Medication ?Instructions ?Recorded ?Last Taken ?Type cholecalciferol (vitamin D3) 50 50 mcg PO DAILY 06/28/20 Unknown History mcg (2,000 unit) chewable tablet metoprolol succinate 25 mg 25 mg PO DAILY 06/28/20 Unknown History tablet,extended release 24 hr multivitamin 1 tab PO DAILY 06/28/20 Unknown History rivaroxaban 15 mg tablet 15 mg PO DAILY 06/28/20 Unknown History atorvastatin 10 mg tablet (Lipitor) 10 mg PO DAILY 07/11/20 Unknown History cholecalciferol (vitamin D3) 1,250 1,250 mcg PO QMONTH 07/11/20 Unknown History mcg (50,000 unit) capsule polysaccharide iron complex 150 mg 150 mg PO BID #60 caps 07/12/20 Unknown Rx iron capsule (Ferrex) Allergy/AdvReac Type Severity Reaction Status Date / Time Sulfa (Sulfonamide Allergy Hives Verified 06/28/23 19:55 Antibiotics) Family History Sister Aortic valve replaced Status post aortic valve replacement and aortoplasty Brother Hx of CABG CHF (congestive heart failure) Sister Cancer Sister Heart failure Sister CVA (cerebral vascular accident) Father Hepatitis CHF (congestive heart failure) Mother CHF (congestive heart failure) Sudden Surgical History History of hysterectomy Social History Smoking Status: Current every day smoker tobacco type: cigarettes second hand exposure: No quit status: considering quitting alcohol intake: current alcohol intake frequency: a few times a month Alcohol type: beer substance use type: does not use jair/scientologist: Yarsanism Physical Exam Const alert and oriented x3 HEENT normocephalic Resp normal respiratory effort Cardio Cardio Narrative: Irregular rhythm Psych mental status grossly normal Risk Stratification Risk Stratification Applicable: No Charges/Coding Visit Charges Inpatient E&M: 31014 Init Hosp L2 Objective Data Vital Signs: Vital Signs Temp Pulse Resp BP Pulse Ox O2 Del Method 97.2 F L 122 H 18 86/66 L 94 Room Air 07/01/23 12:49 07/01/23 12:49 07/01/23 12:49 07/01/23 12:49 07/01/23 13:01 07/01/23 12:49 Oxygen Delivery Method Room Air Weight: 112 lb 3.445 oz Body Mass Index (BMI) 22.0 Intake & Output: Intake and Output for Last 24 Hours 06/29/23 06/30/23 07/01/23 23:59 23:59 23:59 Intake Total 2082.17 / 2082.17 1606 / 1606 1100 / 1100 Output Total 700 / 700 2900 / 2900 350 / 350 Balance 1382.17 / 1382.17 -1294 / -1294 750 / 750 Lab / Micro Data 07/01/23 06:10 07/01/23 06:10 Labs: Laboratory Results - last 24 hr 07/01/23 06:10: WBC 17.2 H, RBC 3.62 L, Hgb 10.5 L, Hct 32.7 L, MCV 90.3, MCH 29.0, MCHC 32.1, RDW Std Deviation 45.1 H, RDW Coeff of Lobo 13.8, Plt Count 192, MPV 10.1, Immature Gran % (Auto) 1.100 H, Neut % (Auto) 80.2 H, Lymph % (Auto) 5.9 L, [place] % (Auto) 12.2 H, Eos % (Auto) 0.4, Baso % (Auto) 0.2, Absolute Neuts (auto) 13.8 H, Absolute Lymphs (auto) 1.01, Nucleated RBC % 0.7, Differential Comment COMMENT, Diff Path Review June, PT 17.2 H, INR 1.4, Sodium 129 L, Potassium 3.0 L, Chloride 96 L, Carbon Dioxide 25.0, Anion Gap 8, BUN 27 H, Creatinine 0.86, Estim Creat Clear Calc 38.10, Est GFR (MDRD) Af Amer 82, Est GFR (MDRD) Non-Af 68, BUN/Creatinine Ratio 31.6 H, Glucose 102, Calcium 7.3 L, Phosphorus 1.9 L, Magnesium 1.8, Total Bilirubin 0.90, Direct Bilirubin 0.51 H, GGT 427 H, AST 195 H, ALT 501 H, Alkaline Phosphatase 285 H, Total Protein 4.9 L, Albumin 2.4 L, Globulin 2.5 Micro: Microbiology 06/29/23 10:00 Blood Culture (Wb) - Left Forearm Blood Culture - Preliminary No growth in 48 hours. 06/29/23 08:19 Blood Culture (Wb) - Anticubital Left Bacteria Detection (PCR) - Final Staphylococcus epidermidis 06/29/23 08:19 Blood Culture (Wb) - Anticubital Left Blood Culture - Preliminary Coag Negative Staph Cardiology Labs/Tests 07/01/23 06:10: WBC 17.2 H, RBC 3.62 L, Hgb 10.5 L, Hct 32.7 L, MCV 90.3, MCH 29.0, MCHC 32.1, Plt Count 192, MPV 10.1, Immature Gran % (Auto) 1.100 H, Neut % (Auto) 80.2 H, Lymph % (Auto) 5.9 L, [place] % (Auto) 12.2 H, Eos % (Auto) 0.4, Baso % (Auto) 0.2, Absolute Neuts (auto) 13.8 H, Nucleated RBC % 0.7, PT 17.2 H, INR 1.4, Sodium 129 L, Potassium 3.0 L, Chloride 96 L, Carbon Dioxide 25.0, Anion Gap 8, BUN 27 H, Creatinine 0.86, Est GFR (MDRD) Af Amer 82, Est GFR (MDRD) Non-Af 68, BUN/Creatinine Ratio 31.6 H, Glucose 102, Calcium 7.3 L, Phosphorus 1.9 L, Magnesium 1.8, Total Bilirubin 0.90, Direct Bilirubin 0.51 H Rhythm: EKG: ECHO: Stress Test: Cardiac Cath: PCI: CT Surgery: Holter monitor: EPS: PPM: CXR: Chest CT Scan:
[2023-07-01] MEDS: Na Biphos/Potassium Phosphate PACKET 1 PACKET PO ×2 (14:21→22:26)
--- NOTE | 2023-07-01 14:40 | CASEMGMT ---
FLORIAN checked back with patient. She is waiting on her granddaughters to help her pick a facility. Pam COOL
--- NOTE | 2023-07-01 16:03 | NURSING ---
2grams calcium gluconate ordered, however only 1/3 of the bag (about 40ml) infused. The IV tubing was disconnected and 2/3 of bag dripped on the floor. Dr. No notified and another 1 gram calcium gluconate was ordered.
[2023-07-01 16:10] LABS: ANTINUCLEAR ANTIBODIES DIRECT Negative (Negative); Alpha-1-Globulins 0.3 g/dL (0.0-0.4); Alpha-2-Globulins 0.6 g/dL (0.4-1.0); Anti-Mitochondrial AB <20.0 Units (0.0-20.0); Anti-Smooth Muscle ABS 3 Units (0-19); Gamma Globulin 0.4 g/dL (0.4-1.8); Immunoglobulin A 308 mg/dL (64-422); Immunoglobulin G 501 mg/dL (586-1602); Immunoglobulin M 21 mg/dL (26-217); PROEL- TOTAL PROTEIN 5.1 g/dL (6.0-8.5)
--- NOTE | 2023-07-01 16:56 | PN.GI_ITS ---
Subjective Subjective Patient denies any abdominal pain. She was seen by cardiology today. She says her urine is back to normal color. Objective Data Objective Data Vital Signs: Vital Signs Temp Pulse Resp BP Pulse Ox O2 Del Method 97.0 F L 146 H 16 86/64 L 97 Room Air 07/01/23 14:13 07/01/23 14:21 07/01/23 14:13 07/01/23 14:13 07/01/23 14:13 07/01/23 14:13 Oxygen Delivery Method Room Air Weight: 112 lb 3.445 oz Body Mass Index (BMI) 22.0 Intake & Output: Intake and Output for Last 24 Hours 06/29/23 06/30/23 07/01/23 23:59 23:59 23:59 Intake Total 2082.17 / 2082.17 1606 / 1606 1140 / 1140 Output Total 700 / 700 2900 / 2900 350 / 350 Balance 1382.17 / 1382.17 -1294 / -1294 790 / 790 Medical Nutrition Assessment Dietitian: Malnutrition Criteria Met Start: 06/29/23 11:35 Freq: Status: Active Protocol: Document 06/29/23 11:35 AG (Rec: 06/29/23 11:35 [id number]) Nutrition Malnutrition Evidence of Malnutrition Exists Yes Malnutrition (severe): Acute Illness/Injury Evidenced By Suboptimal Energy Intake ( Severe),Weight Loss (Severe) Clinical Problem Acute Disease or Injury Related Malnutrition Etiology severe acute malnutrition related to inadequate energy intake Signs/Symptoms as evidenced by unintentional 4% wt loss, estimated PO intake meeting <50% of estimated energy needs > 1 week Status Active Problem Recommendation Dietitian Recommendations/Changes recommend regular/no added salt diet as tolerated; Ensure w/ medpass when PO diet is advanced. Consider COMPUGRAPH OPERATOR eval if issues chewing/swallowing. Lab / Micro Data 07/01/23 06:10 07/01/23 06:10 Labs: Laboratory Results - last 24 hr 06/30/23 10:50: Total Protein (PEP) 5.1 L, Globulin 2.1 L, IgG 501 L, IgA 308, I gM 21 L, Immunofixation Screen Comment, Albumin (EMANUEL) 3.0, Albumin/Globulin (EMANUEL) 1.5, [id number] EMANUEL 0.3, Dvmio-6-Kielbrefc EMANUEL 0.6, Beta-Globulins (EMANUEL) 0.8, Gamma Globulins (EMANUEL) 0.4, EMANUEL M-Álvaro Not Observed, EMANUEL Comments Comment, ANUEL Screen Negative, Anti-Mitochondrial Ab <20.0, Anti-Smooth Muscle Ab 3 07/01/23 06:10: WBC 17.2 H, RBC 3.62 L, Hgb 10.5 L, Hct 32.7 L, MCV 90.3, MCH 29.0, MCHC 32.1, RDW Std Deviation 45.1 H, RDW Coeff of Lobo 13.8, Plt Count 192, MPV 10.1, Immature Gran % (Auto) 1.100 H, Neut % (Auto) 80.2 H, Lymph % (Auto) 5.9 L, [place] % (Auto) 12.2 H, Eos % (Auto) 0.4, Baso % (Auto) 0.2, Absolute Neuts (auto) 13.8 H, Absolute Lymphs (auto) 1.01, Nucleated RBC % 0.7, Differential Comment COMMENT, Diff Path Review June, PT 17.2 H, INR 1.4, Sodium 129 L, P otassium 3.0 L, Chloride 96 L, Carbon Dioxide 25.0, Anion Gap 8, BUN 27 H, Creatinine 0.86, Estim Creat Clear Calc 38.10, Est GFR (MDRD) Af Amer 82, Est GFR (MDRD) Non-Af 68, BUN/Creatinine Ratio 31.6 H, Glucose 102, Calcium 7.3 L, P hosphorus 1.9 L, Magnesium 1.8, Total Bilirubin 0.90, Direct Bilirubin 0.51 H, G GT 427 H, AST 195 H, ALT 501 H, Alkaline Phosphatase 285 H, Total Protein 4.9 L, Albumin 2.4 L, Globulin 2.5 Micro: Microbiology 06/29/23 10:00 Blood Culture (Wb) - Left Forearm Blood Culture - Preliminary No growth in 48 hours. 06/29/23 08:19 Blood Culture (Wb) - Anticubital Left Bacteria Detection (PCR) - Final Staphylococcus epidermidis 06/29/23 08:19 Blood Culture (Wb) - Anticubital Left Blood Culture - Preliminary Coag Negative Staph Physical Exam Const alert and oriented x3 HEENT normocephalic Resp normal respiratory effort Cardio Cardio Narrative: Irregular rhythm Psych mental status grossly normal Assessment & Plan Assessment/Plan (1) Abnormal LFTs: PLAN: CHEST The central airways are patent. Moderate left and small right pleural effusions with dependent atelectasis. No separate consolidation. No pneumothorax. Prominent heart. No pericardial effusion. Coronary artery calcifications are present. Mitral annular calcification. There is an enlarged precarinal mediastinal lymph node measuring 1.8 cm. No additional lymphadenopathy. Normal hilar regions. Normal unenhanced pulmonary arteries. Normal caliber aorta arch and descending thoracic aorta. Moderate atherosclerotic calcifications are noted. Thoracic kyphosis. DISH. Multilevel degenerative changes of the spine. No acute rib abnormality. ABDOMEN Normal liver. Normal gallbladder and extrahepatic biliary system. Normal spleen. Normal pancreas. Normal bilateral adrenal glands. Normal right kidney. Normal left kidney. Small hiatal hernia. The stomach is otherwise decompressed. Normal small intestine. Colonic diverticulosis without diverticulitis. No focal wall thickening. The appendix is visualized and appears normal. Normal caliber aorta with moderate to severe atherosclerotic calcification. Normal inferior vena cava. Normal retroperitoneum. Normal abdominal wall. PELVIS Normal urinary bladder. Small volume of free fluid in the pelvis. There is no pelvic lymphadenopathy or mass lesion. Normal caliber vasculature with moderate atherosclerotic calcification. Inflammatory stranding overlies the left hip and upper thigh. No acute osseous abnormality. Moderate degenerative changes of the lumbar spine with disc space narrowing and vacuum disc phenomenon. Multilevel facet arthropathy. Severe degenerative changes at the right hip with flattening of the femoral head and superior joint space narrowing. CT/CT Chest, Abd, Pelvis WO Cont IMPRESSION: Small volume ascites. Moderate left and small right pleural effusions with associated atelectasis. Enlarged precarinal mediastinal lymph node of uncertain etiology. (2) Acute liver failure due to hepatitis virus: (3) Atrial fibrillation with rapid ventricular response: (4) Acute kidney injury: (5) Hyponatremia: (6) CHF (congestive heart failure): QUALIFIERS: Heart failure type: unspecified Heart failure chronicity: unspecified Qualified Code(s): I50.9 - Heart failure, unspecified (7) Amyloidosis: QUALIFIERS: Amyloidosis type: unspecified amyloidosis Qualified Code(s): E85.9 - Amyloidosis, unspecified PLAN: Plan Frequent causes for elevated liver function tests in the intensive care unit (ICU) are?acute hepatic dysfunction due to acute hepatitis, acute liver failure (DETENTION), and drug-induced liver injury . ?Furthermore, exacerbations of pre- existing liver diseases (acute on chronic) and secondary liver injury during critical diseases such as sepsis, right heart failure, or cardiogenic shock, resulting in ischemic or hypoxic hepatitis, need to be considered. Elevated liver enzymes may also reflect a complication of ICU treatment measures like drug-related hepatotoxicity, secondary sclerosing cholangitis in critically ill patients. Acute liver failure with obvious jaundice appearance with total bilirubin of 2.7 mg/dL (direct bilirubin 2.04 mg/dL) AST of 832 units/L, ALT of 869 units/L and alkaline phosphatase of 398 units/L and leukocytosis of 17.5 K present on admission worrisome for acute hepatitis with Right upper quadrant ultrasound done in the ER showing gallbladder wall thickening and pericholecystic fluid but no gallstones or biliary dilatation with concern for possible viral hepatitis. Her INR is at 200 makes it very difficult to determine if her synthetic function is okay. I think top etiology on her differential diagnosis will be right heart failure due to the fact that she has bilateral pleural effusions, critical aortic stenosis and small volume ascites. She also has risk factors of infiltrative diseases affecting the liver including amyloidosis, secondary hemochromatosis secondary to amyloidosis, shock liver or drug-related toxicity. ICU and is associated with poor short term outcome. Elderly patients, patients with, dyspnea, altered mentation and need for inotropes or mechanical ventilation have higher short term mortality. Simple laboratory parameters like AST, ALT, INR and MELD score on admission can predict outcome in the short term. Recommend to start Mucomyst, check ANUEL comprehensive, anti-smooth muscle antibodies, antimitochondrial antibodies, protein electrophoresis, celiac profile, ammonia level. Depending on course she may need a liver biopsy as I explained to the family at the bedside. I would like to get an MRI to look for signs of secondary sclerosing cholangitis. However in the setting of ascites and with her renal failure it is not the best study. Patient may need to keep his systolic blood pressure greater than 100 with the use of midodrine 5 mg p.o. 3 times daily as to not cause worsening liver enzymes and liver function test. 06/30/23- Jaundice with cholestatic hepatitis-patient received loading dose and maintenance Mucomyst for non-acetaminophen induced liver failure. Her INR was 2.0 along with cholestatic jaundice with hepatitis. Labs are improving. INR is down to 1.7. Infiltrative diseases still in the differential diagnosis but passive congestion secondary to cardiac injuries to the liver is primary on the differential diagnosis. Also could be mild ischemic hepatitis however with ischemic hepatitis you typically see increase in AST and ALT in the thousands or high 100s and within 72 hours you will see a increase in the bilirubin where hers is decreased. She was responding very well to increase glutathione from Mucomyst. Continue to wait autoimmune labs and other labs for acute on chronic liver disease. Patient is doing better from a liver standpoint. 07/01/23-severe aortic stenosis as per cardiology. They started her on low-dose calcium channel blockers. She denies any dizziness or weakness. Her LFTs and liver enzymes continue to improve. I still suspect this is more cardiac induced injury versus ischemic hepatopathy and not secondary to cholestasis. Also her anti-smooth muscle antibody is normal as is her antimitochondrial antibody. There was no abnormal proteins seen which is abnormal in a patient that has amyloidosis. Therefore I do not suspect that this is amyloidosis induced liver injury because that is more of a infiltrative disease rather than acute disease that causes decompensated liver disease in the form of acute liver failure. She would benefit from MRCP to make sure there is no signs of primary sclerosing cholangitis and this was a decompensation of that that improved with medical therapy. I will order an MRI. I am not sure patient can lay flat for an MRI for long period of time if she cannot tolerate it then we may have to do it as an outpatient. Charges/Coding Visit Charges Inpatient E&M: 67498 Subs Hosp L3
--- NOTE | 2023-07-01 17:00 | MRI_ITS ---
Abdominal MRI and MRCP without contrast 07/01/2023 6:02 PM COMPARISON: CT 06/29/2023 CLINICAL HISTORY: cholestatic jaundice, elevated LFt''s, compare to CT TECHNIQUE: Multiplanar and multisequence MR images of the abdomen were obtained with MRCP sequence. Three-dimensional post-processing reconstructions were performed. FINDINGS: Liver: Unremarkable Gallbladder: Unremarkable Bile Ducts: Small amount of T2 dark debris within the common bile duct. No obvious stone or stricture. No intra or extrahepatic biliary ductal dilatation. Pancreas: Unremarkable Spleen: Unremarkable Adrenal Glands: Unremarkable Kidneys: Simple bilateral renal cysts. GI Tract: Unremarkable Lymphadenopathy: Absent Ascites: Absent Bones: No suspicious lesions MRI/MRCP Abdomen without Contrast IMPRESSION: Small amount of T2 dark debris within a nondilated CBD. No obvious stones. No intra or extra-hepatic ductal dilatation. Electronically Signed: Pineda Rosa MD at 20:18 EDT ,
--- NOTE | 2023-07-01 17:47 | NURSING ---
Patient off unit for MRI
[2023-07-01] MEDS: dilTIAZem 30 MG Tablet PO (18:51)
[2023-07-01] MEDS: Calcium Gluconate IV 1 GM in 0.9% Normal Saline (100mL Bag) 100 ML IV (18:51)
[2023-07-02] VITALS (16 sets, daily range): BP systolic 73–119; BP diastolic 58–81; PULSE 44–155; RESP 16–22; TEMP 36.1–36.7; O2SAT 93–99; BMI 21.9
[2023-07-02] MEDS: 0.9% Normal Saline (1000mL) 1,000 ML 60 ML IV (00:09)
[2023-07-02] MEDS: Piperacil/Tazobactam 3.375 GM in 0.9% Normal Saline (50mL MB+) 50 ML IV ×4 (00:18→21:24)
[2023-07-02] MEDS: dilTIAZem 30 MG Tablet PO ×2 (01:11→12:51)
[2023-07-02] MEDS: Na Biphos/Potassium Phosphate PACKET 1 PACKET PO (05:51)
[2023-07-02 06:33] LABS: Absolute Lymphocyte Count 1.14 X10^3/uL (0.83-4.51); Absolute Neutrophil Count 12.7 X10^3/uL (2.0-7.7); Basophil# 0.01 X10^3/uL; Basophil% 0.1 % (0-1); Eosinophils% 0.6 % (0-5); Hemoglobin 10.5 g/dL (12.0-15.0); Lymphocyte # 1.14 X10^3/ul (0.83-4.51); Lymphocyte % 7.1 % (19-41); Mean Corp Hgb Conc 31.8 g/dL (32-36); Mean Corpuscular Hgb 28.6 pg (27.0-32.0); Mean Corpuscular Volume 89.9 fL (81-99); Mean Platelet Vol. 9.6 fl (6.2-12.0); Monocyte# 2.07 X10^3/uL; Monocyte% 12.8 % (0-10); NRBC Flagged by Analyzer 0.2 % (0-5); Neutrophil # 12.67 X10^3/uL (2.7-7.7); Neutrophil % 78.3 % (47-70); POSITIVE DIFFERENTIAL YES; Platelet Count 230 K/mm3 (150-450); RBC Distribution Width SD 45.8 fl (35.1-43.9); Red Blood Count 3.67 M/mm3 (4.2-5.4); White Blood Count 16.2 K/mm3 (4.4-11.0)
[2023-07-02 06:47] LABS: International Normalized Ratio 1.1; Prothrombin Time (Protime)PT. 14.1 SECONDS (11.7-14.9)
[2023-07-02 07:06] LABS: Differential Indicated SCAN CRITERIA MET
[2023-07-02 07:15] LABS: AST(SGOT) 115 U/L (15-37); Alanine Aminotransfer ALT/SGPT 378 U/L (13-56); Albumin, Serum 2.3 g/dL (3.2-5.0); Alkaline Phosphatase 224 U/L (45-117); Anion Gap 9 (5-15); BUN 18 mg/dL (7-18); BUN/Creat Ratio 25.4 RATIO (10-20); Bilirubin, Direct 0.46 mg/dL (0.00-0.30); Calcium,Total 7.7 mg/dL (8.5-10.1); Chloride 97 mmol/L (98-107); Creatinine, Serum 0.71 mg/dL (0.55-1.02); EST Glomerular Filtration Rate 85 mL/min (>60); Est Glom Filt Rate - Afr Amer 102 mL/min (>60); Estimated Creatinine Clearance 40.96 ml/min; Globulin 2.7 g/dL (2.2-4.2); Glucose 113 mg/dL (74-106); Potassium 2.5 mmol/L (3.5-5.1); Sodium Level 132 mmol/L (136-145)
--- NOTE | 2023-07-02 07:37 | PN.HOSP_ITS ---
Reason for Visit Reason for Visit: Diagnoses Unspecified viral hepatitis without hepatic coma (06/29/23) Amyloidosis, unspecified (06/29/23) Hypo-osmolality and hyponatremia (06/29/23) Hyperkalemia (06/29/23) Unspecified atrial fibrillation (06/29/23) Heart failure, unspecified (06/29/23) Acute and subacute hepatic failure without coma (06/29/23) Acute kidney failure, unspecified (06/29/23) Other specified abnormal findings of blood chemistry (06/29/23) Objective Data Objective Data Vital Signs: Vital Signs Temp Pulse Resp BP Pulse Ox O2 Del Method 97.3 F L 150 H 18 74/60 L 96 Room Air 07/02/23 03:16 07/02/23 04:48 07/02/23 03:16 07/02/23 04:48 07/02/23 03:16 07/02/23 03:16 Oxygen Delivery Method Room Air Weight: 111 lb 15.917 oz Body Mass Index (BMI) 21.9 Intake & Output: Intake and Output for Last 24 Hours 06/30/23 07/01/23 07/02/23 23:59 23:59 23:59 Intake Total 1606 / 1606 2190 / 2250 280 / 280 Output Total 2900 / 2900 350 / 350 0 / 0 Balance -1294 / -1294 1840 / 1900 280 / 280 Medical Nutrition Assessment Dietitian: Malnutrition Criteria Met Start: 06/29/23 11:35 Freq: Status: Active Protocol: Document 06/29/23 11:35 AG (Rec: 06/29/23 11:35 [id number]) Nutrition Malnutrition Evidence of Malnutrition Exists Yes Malnutrition (severe): Acute Illness/Injury Evidenced By Suboptimal Energy Intake ( Severe),Weight Loss (Severe) Clinical Problem Acute Disease or Injury Related Malnutrition Etiology severe acute malnutrition related to inadequate energy intake Signs/Symptoms as evidenced by unintentional 4% wt loss, estimated PO intake meeting <50% of estimated energy needs > 1 week Status Active Problem Recommendation Dietitian Recommendations/Changes recommend regular/no added salt diet as tolerated; Ensure w/ medpass when PO diet is advanced. Consider VACUUM SPINDLE SANDER eval if issues chewing/swallowing. Lab / Micro Data 07/02/23 05:47 07/02/23 05:47 Labs: Laboratory Results - last 24 hr 06/30/23 10:50: Total Protein (PEP) 5.1 L, Globulin 2.1 L, IgG 501 L, IgA 308, I gM 21 L, Immunofixation Screen Comment, Albumin (EMANUEL) 3.0, Albumin/Globulin (EMANUEL) 1.5, Ofvqh-6-Tykiscvdj EMANUEL 0.3, Ahesk-4-Smomgrvjg EMANUEL 0.6, Beta-Globulins (EMANUEL) 0.8, Gamma Globulins (EMANUEL) 0.4, EMANUEL M-Álvaro Not Observed, EMANUEL Comments Comment, ANUEL Screen Negative, OUSMANE-1 Antibody Not Reportable, SS-A/Ro IgG Antibody Not Reportable, SS-B/La IgG Antibody Not Reportable, Sm (Slade) Antibody Not Reportable, LOG TRUCK DRIVER Antibody Not Reportable, Scl-70 Scleroderma Ab Not Reportable, Double Strand DNA Ab Not Reportable, Centromere B Antibody Not Reportable, Anti- Mitochondrial Ab <20.0, Anti-Smooth Muscle Ab 3 07/01/23 06:10: Phosphorus 1.9 L, Magnesium 1.8, Total Bilirubin 0.90, Direct Bilirubin 0.51 H, GGT 427 H, AST 195 H, ALT 501 H, Alkaline Phosphatase 285 H, T otal Protein 4.9 L, Albumin 2.4 L, Globulin 2.5 07/02/23 05:47: WBC 16.2 H, RBC 3.67 L, Hgb 10.5 L, Hct 33.0 L, MCV 89.9, MCH 28.6, MCHC 31.8 L, RDW Std Deviation 45.8 H, RDW Coeff of Lobo 14.0, Plt Count 230, MPV 9.6, Immature Gran % (Auto) 1.100 H, Neut % (Auto) 78.3 H, Lymph % (Auto) 7.1 L, Bent % (Auto) 12.8 H, Eos % (Auto) 0.6, Baso % (Auto) 0.1, A bsolute Neuts (auto) 12.7 H, Absolute Lymphs (auto) 1.14, Nucleated RBC % 0.2, PT 14.1, INR 1.1, Sodium 132 L, Potassium 2.5 L*, Chloride 97 L, Carbon Dioxide 26.0, Anion Gap 9, BUN 18, Creatinine 0.71, Estim Creat Clear Calc 40.96, Est GFR (MDRD) Af Amer 102, Est GFR (MDRD) Non-Af 85, BUN/Creatinine Ratio 25.4 H, G lucose 113 H, Calcium 7.7 L, Total Bilirubin 0.80, Direct Bilirubin 0.46 H, AST 115 H, ALT 378 H, Alkaline Phosphatase 224 H, Total Protein 5.0 L, Albumin 2.3 L , Globulin 2.7 Micro: Microbiology 06/29/23 10:00 Blood Culture (Wb) - Left Forearm Blood Culture - Preliminary No growth in 48 hours. 06/29/23 08:19 Blood Culture (Wb) - Anticubital Left Bacteria Detection (PCR) - Final Staphylococcus epidermidis 06/29/23 08:19 Blood Culture (Wb) - Anticubital Left Blood Culture - Preliminary Coag Negative Staph Radiography Diagnostic Testing: Radiology Impression MRCP 07/01/23 17:00 IMPRESSION: Small amount of T2 dark debris within a nondilated CBD. No obvious stones. No intra or extra-hepatic ductal dilatation. Electronically Signed: Pineda Rosa MD at 20:18 EDT , Physical Exam Narrative Seen and examined. In the morning about 4:48 AM blood pressure charted low 74/60 heart rate 150/min. On the monitor heart rate is A-fib RVR 122 140.9. Patient not feeling dizzy lightheaded chest pain or shortness of breath. Normal baseline. Patient admitted with generalized weakness. Does not have abdominal pain. Physical exam General: Alert, Oriented x3, Cooperative HEENT: Icterus present atraumatic, PERRLA, EOMI, Normocephalic Oral: No Gingival or Mucosal Lesions/ Ulcerations Neck: Supple, No JVD, Negative Carotid Bruits Chest wall/Lungs: Air entry diminished in bilateral lung bases. No crepitation/rhonchi Cardiovascular: Irregular, A-fib heart rate with RVR. holosystolic murmur cardiac apex and LLSB. Abdomen: Bowel Sounds Present, Soft, Non Tender, Non-Distended : No dysuria. No renal angle tenderness. No suprapubic tenderness. Extremities: bilateral below-knee 3+ edema, Capillary Refill Less than 3 Seconds Skin: No rashes, No breakdown Musculoskeletal: No Tenderness to Palpation of Joints or Extremities Neurological: Cranial nerves II-XII grossly intact, DTR 2+/4. No acute focal neurological deficit. Psych/Mental Status: Normal Affect, Appropriate. Assessment & Plan Assessment/Plan (1) Acute liver failure due to hepatitis virus: (2) Abnormal LFTs: (3) Atrial fibrillation with rapid ventricular response: (4) Acute kidney injury: (5) Hyponatremia: (6) CHF (congestive heart failure): QUALIFIERS: Heart failure chronicity: unspecified Heart failure type: unspecified Qualified Code(s): I50.9 - Heart failure, unspecified (7) Amyloidosis: QUALIFIERS: Amyloidosis type: unspecified amyloidosis Qualified Code(s): E85.9 - Amyloidosis, unspecified PLAN: Plan 77-year-old female came to ED with shortness of breath, weakness and inability to walk, symptom complex ongoing for more than 1 week. He was noticed jaundiced, variable heart rate with intermittent palpitation. Patient was prescribed Xarelto but has been out for a while. History of A-fib 1. Acute liver injury, exact etiology unclear: Patient is admitted in ICU. Labs shows total bilirubin of 2.7 mg/dL (direct bilirubin 2.04 mg/dL) AST of 832 units/L, ALT of 869 units/L and alkaline phosphatase of 398 units/L and leukocytosis of 17.5 K with right upper quadrant sonogram showing GB wall thickening with pericholecystic fluid but no abdominal pain or gallstones therefore possible acalculous cholecystitis. INR high 2.0 but patient was on Xarelto more than a week ago therefore probably from acute liver injury. Blood cultures x 2 ordered. Empirically started on IV Zosyn after blood cultures. Discussed with ICU nursing staff. Give Zofran IV prn. Patient evaluated by surgeon and GI consulted. 06/29:Improvement in liver chemistry. Total bilirubin normal. It was mainly obstructive. Transaminases also improving. Alkaline phosphatase similar. GGT elevated. Autoimmune markers ordered. Patient stated she never had any liver, biliary or pancreatic disease in the life. Patient was started on acetylcysteine drip. 06/30: Liver chemistry shows elevated AST ALT GGT improving trend, total bili and direct normal. Blood culture shows coagulase-negative staph, Staph epidermidis skin contaminated therefore no indication for treatment. 07/01:Liver chemistry ALT AST alkaline phosphatase improving. Total bilirubin normal. 2. Atrial fibrillation with RVR, nonadherent to metoprolol and Xarelto: Tachycardia did not respond to multiple doses of Cardizem bolus therefore started on Cardizem drip currently at 15 mg/h. Also added digoxin 125 mg IV. Metoprolol succinate changed to metoprolol tartrate 25 mg every 8 hourly. 2D echo is ordered. Receiving Teller is consulted 06/29: Heart rate is controlled. Echo on 06/28 shows EF 70% moderate asymmetric septal hypertrophy, small LV cavity. LA severely enlarged. 1-2+ MR, moderate to severe aortic stenosis. Moderately severe TR, PASP 50 mmHg 06/30: Patient is still A-fib RVR 120 permanent. sugar laboratory assistant he got Biaxin 250 mg IV. Patient has hypocalcemia 7.3, corrected calcium 8.6 therefore low normal. IV calcium gluconate 2 g ordered. Keep potassium more than 4.0, magnesium 2.0 and calcium around 9.0 to avoid arrhythmia from digoxin 07/01: A-fib with RVR with hypotension: Patient on Lasix, discontinued. IV fluid normal saline 1 L bolus ordered. Patient also has critically low hypokalemia, 2.5 therefore oral KDUR and IV potassium r potassium phosphate ordered. Recheck BMP in 4 hours. When potassium is optimized, we can resume digoxin to 50 mg IV. Discussed with the hemodialysis technician Around 11:00 her blood pressure in systolic 80s heart rate 120. Had 80 mEq of potassium supplement and IV potassium phosphate infusion. After the replacement, IV digoxin 500 mcg 1 dose ordered. Patient is DNR CC and will send about the hospice care but want her granddaughter to be also in agreement. I called granddaAnanya saucedo left voice message to call back discussed with the hemodialysis technician also. Metoprolol changed to atenolol as it Laun has renal clearance and is not metabolized by the liver. 3. GREGORY: Patient had normal creatinine back in June 2020 after that unclear about his renal status. Admitted with creatinine 2.28 currently 1.7.Hyperkalemia, hyponatremia with high anion gap metabolic acidosis. CT reported normal right and left kidney and normal urinary bladder. Nephrology is consulted. 06/29: BUNs/creatinine 47/0.98. GREGORY resolved. Hyponatremia 4. AE CHF; evidenced by chest x-ray that revealed a left pleural effusion with cardiomegaly and an elevated BNP of 1,126.8 pg/mL present on admission- Give Lasix 40 mg IV daily plus supplemental magnesium. 07/01: Lungs air entry diminished but no crepitation. Lasix discontinued because of hypotension. 5. Severe hyponatremia of 121 mmol/L present on admission likely due to water intoxication - Give NS IVF and then recheck BMP q. 6 hours to ensure correction of no more than 8-10 mmol/L per 24 hours. Check serum and urine osmolality. 06/29: Sodium improved from 121-127 in over 2 days. 06/30: Serum sodium 129. 07/01: Sodium 132. 6 tobacco abuse - Tobacco cessation will be strongly encouraged with nicotine patch offered to control cravings. 8. Essential hypertension - Restart home regimen plus give IV hydralazine as needed for systolic blood pressure greater than 160 mmHg. 9. History aortic stenosis, ventricular hypertrophy and cardiomyopathy - Echocardioram pending this admission. 10. Hyperlipidemia - No statin with transaminitis but we will check Lipid Profile. 11. Overweight; BMI 26 this admission - Weight loss will be recommended. 12. Amyloidosis - Noted. Awaiting CT results. 13. PAD; status post iliac artery occlusion - Stable. 14. History of hysterectomy - Noted. 15. Osteoarthritis - Stable. 16. DVT prophylaxis - SCD's only for now until bleeding as cause of elevated BUN of 79 mg/dL present on admission ruled out. Total time of the visit including total time spent in counseling or coordination of care, (more than 50% of the total time, spent in obtaining medical information from nurses and other ancillary care providers,explaining to the patient about labs, imaging, diagnosis and management of active complex medical conditions), multiple organ dysfunction, review of labs and imaging is 40 minutes. 2D echo 06/29/2023 The estimated ejection fraction is more than 70 %. Moderate assymetric septal hypertrophy. Small LV cavity. The left atrium is severely enlarged. The right atrium is moderately enlarged. Moderately severe mitral stenosis. Mild-Moderate (1-2+) mitral valve insufficiency. Moderate to severe aortic stenosis. Moderately severe tricuspid valve regurgitation. Pulmonary artery systolic pressure estimated at 50 mmHg. 06/29/23 08:19 Blood Culture (Wb) - Anticubital Left Bacteria Detection (PCR) - Final Staphylococcus epidermidis 06/29/23 08:19 Blood Culture (Wb) - Anticubital Left Blood Culture - Preliminary Coag Negative Staph Clinical Impression(s) from Imaging Studies Chest X-Ray 06/28/23 20:25 IMPRESSION: Left pleural effusion. Cardiac enlargement. Abdomen Ultrasound 06/28/23 21:37 IMPRESSION: Gallbladder wall thickening and pericholecystic fluid. No gallstones or biliary dilatation. Small pleural effusion. Chest/Abdomen/Pelvis CT 06/29/23 01:19 IMPRESSION: Small volume ascites. Moderate left and small right pleural effusions with associated atelectasis. Enlarged precarinal mediastinal lymph node of uncertain etiology. Echocardiogram 06/29/23 02:05 Interpretation Summary The estimated ejection fraction is more than 70 %. Moderate assymetric septal hypertrophy. Small LV cavity. The left atrium is severely enlarged. The right atrium is moderately enlarged. Moderately severe mitral stenosis. Mild-Moderate (1-2+) mitral valve insufficiency. Moderate to severe aortic stenosis. Moderately severe tricuspid valve regurgitation. Pulmonary artery systolic pressure estimated at 50 mmHg. MRCP 07/01/23 17:00 IMPRESSION: Small amount of T2 dark debris within a nondilated CBD. No obvious stones. No intra or extra-hepatic ductal dilatation. Electronically Signed: Pineda Rosa MD at 20:18 EDT , Charges/Coding Addendum Addendum: Total time of the visit including total time spent in counseling or coordination of care, (more than 50% of the total time, spent in obtaining medical information from nurses and other ancillary care providers,explaining to the patient about labs, imaging, diagnosis and management of active complex medical conditions), discussion with hemodialysis technician, patient regarding palliative/hospice care and her granddaughter, review of labs and imaging is 40 minutes. Visit Charges Inpatient E&M: 03732 [facility] L3
[2023-07-02] MEDS: 0.9% Normal Saline (1000mL) 1,000 ML 999 ML IV ×2 (07:46→09:07)
--- NOTE | 2023-07-02 07:50 | RAD_ITS ---
STUDY: X-RAY CHEST REASON FOR EXAM: Female, 77 years old. HYPOTENSION TECHNIQUE: Single AP portable view of the chest. COMPARISON: Comparison is made with prior study dated June 28, 2023. FINDINGS: EKG electrodes are seen. Persistent small left pleural effusion with left basilar infiltrate and/or atelectasis. There is borderline cardiomegaly. Normal mediastinum and leslie. Normal visualized pulmonary arteries. There is atherosclerotic calcification of the aortic arch with tortuosity. There are diffuse degenerative changes of the visualized thoracic spine. Normal visualized ribs, clavicles, and shoulders. There is no demonstrated abnormality of the visualized soft tissue structures of the upper abdomen. RAD/Chest 1 View (Portable) IMPRESSION: Stable small left pleural effusion with left basilar infiltration and/or atelectasis. Electronically Signed: Johnny Escalona MD at 13:57 EDT ,
[2023-07-02] MEDS: Potassium Chloride Oral Tablet 20 MEQ 40 MEQ PO ×3 (08:05→12:50)
[2023-07-02] MEDS: Iron Polysaccharide Complex 150 MG CAPSULE PO (08:06)
[2023-07-02] MEDS: Magnesium Chloride 64 MG Delay Rel.Tablet 128 MG PO ×2 (08:06→21:24)
[2023-07-02] MEDS: Metoprolol Tartrate 25 MG Tablet PO (08:07)
[2023-07-02] MEDS: Potassium Phosphate 21 MM in 0.9% Normal Saline (250mL Bag) 250 ML 84 MM IV (08:07)
[2023-07-02] MEDS: Multivitamins,Therapeutic Tablet 1 TABLET PO (08:08)
--- NOTE | 2023-07-02 08:45 | CASEMGMT ---
FLORIAN met with patient to see if she picked her preferences for SNF. Patient stated she would like to stay at [facility]. SW asked patient if she meant she wants [facility] TCU. Patient confirmed that is where she wants to go at discharge. FLORIAN told patient SW will make a referral and let her know. FLORIAN asked [facility] to review referral. [facility] won't have a bed until Wednesday or Wednesday. FLORIAN asked Dr No if patient is medically ready and patient is not. Patient will likely be ready Wednesday. Await response from TCU. Pam COOL
[2023-07-02 09:25] LABS: Differential Comment SCANNED
--- NOTE | 2023-07-02 09:39 | PN_ITS ---
Progress Note Patient had MRCP does not show any gallstones. I do believe there is indication for cholecystectomy. I will plan to sign off please reconsult if needed. Kyle Villafana MD Pager: [facility] [address] [place] [address], [address] [place] [address] Office:
--- NOTE | 2023-07-02 09:39 | PCM.PN.BLA ---
Progress Note Patient had MRCP does not show any gallstones. I do believe there is indication for cholecystectomy. I will plan to sign off please reconsult if needed. Kyle Villafana MD Pager: [facility] [address] [place] [address], [address] [place] [address] Office:
--- NOTE | 2023-07-02 10:40 | PN.RENAL_ITS ---
Subjective Subjective Sitting up in bed eating breakfast. Receiving fluid bolus due to hypotension. Patient is alert and oriented. She denies any complaints. Objective Data Objective Data Vital Signs: Vital Signs Temp Pulse Resp BP Pulse Ox O2 Del Method 97.5 F L 44 L 22 H 73/61 L 93 Room Air 07/02/23 10:34 07/02/23 10:34 07/02/23 10:34 07/02/23 10:34 07/02/23 10:34 07/02/23 10:34 Oxygen Delivery Method Room Air Weight: 50.8 kg Body Mass Index (BMI) 21.9 Intake & Output: Intake and Output for Last 24 Hours 06/30/23 07/01/23 07/02/23 23:59 23:59 23:59 Intake Total 1606 / 1606 2190 / 2250 2924 / 2924 Output Total 2900 / 2900 350 / 350 0 / 0 Balance -1294 / -1294 1840 / 1900 2924 / 2924 Medical Nutrition Assessment Dietitian: Malnutrition Criteria Met Start: 06/29/23 11:35 Freq: Status: Active Protocol: Document 06/29/23 11:35 AG (Rec: 06/29/23 11:35 AG [id number]) Nutrition Malnutrition Evidence of Malnutrition Exists Yes Malnutrition (severe): Acute Illness/Injury Evidenced By Suboptimal Energy Intake ( Severe),Weight Loss (Severe) Clinical Problem Acute Disease or Injury Related Malnutrition Etiology severe acute malnutrition related to inadequate energy intake Signs/Symptoms as evidenced by unintentional 4% wt loss, estimated PO intake meeting <50% of estimated energy needs > 1 week Status Active Problem Recommendation Dietitian Recommendations/Changes recommend regular/no added salt diet as tolerated; Ensure w/ medpass when PO diet is advanced. Consider CONSULTING SERVICES PROJECT MANAGER eval if issues chewing/swallowing. Lab / Micro Data 07/02/23 05:47 07/02/23 05:47 Labs: Laboratory Results - last 24 hr 06/30/23 10:50: Total Protein (PEP) 5.1 L, Globulin 2.1 L, IgG 501 L, IgA 308, I gM 21 L, Immunofixation Screen Comment, Albumin (EMANUEL) 3.0, Albumin/Globulin (EMANUEL) 1.5, Tlvpd-6-Gvsdayxhi EMANUEL 0.3, Qtmfi-9-Gbkmqnmfj EMANUEL 0.6, Beta-Globulins (EMANUEL) 0.8, Gamma Globulins (EMANUEL) 0.4, EMANUEL M-Álvaro Not Observed, EMANUEL Comments Comment, ANUEL Screen Negative, OUSMANE-1 Antibody Not Reportable, SS-A/Ro IgG Antibody Not Reportable, SS-B/La IgG Antibody Not Reportable, Sm (Slade) Antibody Not Reportable, IMPLEMENTATION ENGINEER Antibody Not Reportable, Scl-70 Scleroderma Ab Not Reportable, Double Strand DNA Ab Not Reportable, Centromere B Antibody Not Reportable, Anti- Mitochondrial Ab <20.0, Anti-Smooth Muscle Ab 3 07/01/23 06:10: Phosphorus 1.9 L, Magnesium 1.8 07/02/23 05:47: WBC 16.2 H, RBC 3.67 L, Hgb 10.5 L, Hct 33.0 L, MCV 89.9, MCH 28.6, MCHC 31.8 L, RDW Std Deviation 45.8 H, RDW Coeff of Lobo 14.0, Plt Count 230, MPV 9.6, Immature Gran % (Auto) 1.100 H, Neut % (Auto) 78.3 H, Lymph % (Auto) 7.1 L, [place] % (Auto) 12.8 H, Eos % (Auto) 0.6, Baso % (Auto) 0.1, A bsolute Neuts (auto) 12.7 H, Absolute Lymphs (auto) 1.14, Nucleated RBC % 0.2, Differential Comment SCANNED, Diff Path Review June foll, PT 14.1, INR 1.1, S odium 132 L, Potassium 2.5 L*, Chloride 97 L, Carbon Dioxide 26.0, Anion Gap 9, BUN 18, Creatinine 0.71, Estim Creat Clear Calc 40.96, Est GFR (MDRD) Af Amer 102, Est GFR (MDRD) Non-Af 85, BUN/Creatinine Ratio 25.4 H, Glucose 113 H, C alcium 7.7 L, Total Bilirubin 0.80, Direct Bilirubin 0.46 H, AST 115 H, ALT 378 H, Alkaline Phosphatase 224 H, Total Protein 5.0 L, Albumin 2.3 L, Globulin 2.7 Micro: Microbiology 06/29/23 10:00 Blood Culture (Wb) - Left Forearm Blood Culture - Preliminary No growth in 48 hours. 06/29/23 08:19 Blood Culture (Wb) - Anticubital Left Bacteria Detection (PCR) - Final Staphylococcus epidermidis 06/29/23 08:19 Blood Culture (Wb) - Anticubital Left Blood Culture - Preliminary Coag Negative Staph Radiography Diagnostic Testing: Radiology Impression MRCP 07/01/23 17:00 IMPRESSION: Small amount of T2 dark debris within a nondilated CBD. No obvious stones. No intra or extra-hepatic ductal dilatation. Electronically Signed: Pineda Rosa MD at 20:18 EDT , Physical Exam Narrative Alert and oriented x 3, no apparent distress. Hard of hearing S1, S2, rate controlled Lung sounds diminished, no wheezes, rhonchi or rales noted Abdomen soft, nontender Trace edema b/l LE Assessment & Plan Assessment/Plan (1) Acute kidney injury: (2) Hyperkalemia: (3) Hyponatremia: PLAN: Plan This is a 77-year-old female with past medical history significant for hypertension, hyperlipidemia, chronic A-fib, history of aortic stenosis, history of amyloidosis, history of elevated serum immunoglobulin free light chains, followed by Dr. High (skeletal survey no lytic or sclerotic bone lesions May 2020), cardiomyopathy, peripheral artery disease status post iliac artery occlusion who presented to emergency room yesterday with complaints of feeling unwell, poor oral intake, dyspnea on exertion, jaundice appearing. Admitted due to elevated LFTs, GREGORY. Nephrology consulted in view of elevated serum creatinine, elevated potassium and hyponatremia. - Acute kidney injury. On admission serum creatinine 2.28, patient was started on gentle IV fluids, today her creatinine is 0.71. GREGORY likely in setting of poor oral intake and hypotension, with volume expansion and improvement of hemodynamics serum creatinine has improved and GREGORY resolved. Patient is nonoliguric. Noncontrast CT showed normal right and left kidney. UA negative for blood, 30 protein. Patient has normal baseline creatinine -Hypokalemia; K+ 2.5 today, receiving K+ and phos replacement. On regular diet. -Hyponatremia. Possibly hypovolemic. Patient has normal baseline sodium levels. Sodium was 121 on admission. Today her sodium is 132. She is receiving IV fluids and fluid bolus. Patient is also tolerating oral intake.
[2023-07-02] MEDS: 0.9% Normal Saline (1000mL) 1,000 ML 150 ML IV (11:18)
[2023-07-02] MEDS: Digoxin 250 MCG/ML Ampul 500 MCG IV (11:18)
[2023-07-02 11:56] LABS: Pathologist Review Reviewed
[2023-07-02 12:05] LABS: Pathologist Review Reviewed
[2023-07-02 12:50] LABS: Anion Gap 7 (5-15); BUN 15 mg/dL (7-18); Calcium,Total 7.3 mg/dL (8.5-10.1); Chloride 104 mmol/L (98-107); Creatinine, Serum 0.62 mg/dL (0.55-1.02); EST Glomerular Filtration Rate 98 mL/min (>60); Est Glom Filt Rate - Afr Amer 118 mL/min (>60); Estimated Creatinine Clearance 40.96 ml/min; Glucose 102 mg/dL (74-106); Phosphorus 3.8 mg/dL (2.5-4.9); Potassium 3.8 mmol/L (3.5-5.1); Sodium Level 129 mmol/L (136-145)
[2023-07-02] MEDS: Menthol/Lanolin/Calamine/Znox 113 GM Tube 1 APPLIC TOPICAL ×2 (12:51→21:25)
[2023-07-02] MEDS: Ensure Plus High Protein 120 ML LIQUID PO ×2 (12:52→17:41)
--- NOTE | 2023-07-02 12:55 | CASEMGMT ---
Physician spoke with patient about Hospice and patient was agreeable to talking with Hospice. Physician has left a message for patient's granddaughter Ananya per the patient's request. SW met with patient and she confirmed she is agreeable to talking with Hospice, but she wants Ananya involved. SW did explain to patient that she would either go Hospice or go somewhere for rehab, but she could not do both. Patient verbalized understanding. SW told patient that once physician is able to talk with Ananya SW will contact Ananya and Hospice. SW had also been working on Healthcare POA papers with patient. RN Was in the room so SW had patient sign document. SW still needs to obtain patient's agent's addresses. SW will then copy document and provide patient with original and copies. TCU is unable to take patient. Pam Killian SONG WRITER TRAVON
[2023-07-02 14:39] LABS: Pathologist Review Reviewed
--- NOTE | 2023-07-02 16:48 | CASEMGMT ---
SW called patient's granddaughter Brooklynn. Brooklynn confirmed they would like patient to get therapy. SW explained that patient mentioned [facility], however they are unable to take patient. SW explained that patient is sleeping and SW does not want to wake her up. SW explained there is a list in patient's room of facilities. SW asked that they pick their top 5 preferences. SW also mentioned that Patient wanted to complete Healthcare Power of Weight Reduction Specialist (HCPOA) papers so SW completed them with patient. However, SW needs Brooklynn's address and Ananya's address. Brooklynn got Ananya on the call as well. SW obtained their addresses and added them to the HCPOA paper. SW explained patient made Ananya the primary POA and Brooklynn is the first alternate. SW told them SW will leave papers in patient's room. They asked when patient is going to be discharged. SW explained she is not medically ready yet. Also, we do not have an accepting facility yet so she will have to be here through the weekend. Plan: SNF pending patient and family choices and accepting facility. Pam Killian MICROFILM MOUNTER TRAVON
[2023-07-02] MEDS: Digoxin 250 MCG/ML Ampul IV (18:27)
[2023-07-02] MEDS: Atenolol 25 MG Tablet PO (18:27)
[2023-07-02] MEDS: 0.9% Saline Lock 10 ML Syringe IV (18:28)
[2023-07-02] MEDS: Senna/Docusate Sodium 1 Tablet 2 TABLET PO (21:24)
[2023-07-03] MEDS: dilTIAZem 30 MG Tablet PO ×4 (01:01→17:42)
[2023-07-03 03:00] VITALS: BP 120/52; PULSE 97; RESP 18; TEMP 36.3; O2SAT 95
[2023-07-03 03:58] VITALS: BMI 22.6
[2023-07-03] MEDS: Piperacil/Tazobactam 3.375 GM in 0.9% Normal Saline (50mL MB+) 50 ML IV ×3 (05:53→21:45)
[2023-07-03 08:03] LABS: AST(SGOT) 92 U/L (15-37); Alanine Aminotransfer ALT/SGPT 327 U/L (13-56); Albumin, Serum 2.5 g/dL (3.2-5.0); Alkaline Phosphatase 204 U/L (45-117); Anion Gap 6 (5-15); BUN 12 mg/dL (7-18); BUN/Creat Ratio 22.1 RATIO (10-20); Bilirubin, Direct 0.41 mg/dL (0.00-0.30); Chloride 107 mmol/L (98-107); Creatinine, Serum 0.54 mg/dL (0.55-1.02); EST Glomerular Filtration Rate 115 mL/min (>60); Est Glom Filt Rate - Afr Amer 139 mL/min (>60); Estimated Creatinine Clearance 40.96 ml/min; Glucose 102 mg/dL (74-106); Potassium 4.7 mmol/L (3.5-5.1); Protein, Total 5.5 g/dL (6.4-8.2); Sodium Level 136 mmol/L (136-145)
[2023-07-03 08:22] VITALS: BP 113/62; PULSE 87; RESP 12; TEMP 36.4; O2SAT 98
[2023-07-03] MEDS: Multivitamins,Therapeutic Tablet 1 TABLET PO (08:27)
[2023-07-03] MEDS: Magnesium Chloride 64 MG Delay Rel.Tablet 128 MG PO ×2 (08:27→21:44)
[2023-07-03] MEDS: Ensure Plus High Protein 120 ML LIQUID PO (08:27)
[2023-07-03 08:28] LABS: International Normalized Ratio 1.2; Prothrombin Time (Protime)PT. 15.3 SECONDS (11.7-14.9)
[2023-07-03] MEDS: Senna/Docusate Sodium 1 Tablet 2 TABLET PO (08:28)
[2023-07-03] MEDS: Atenolol 25 MG Tablet PO (08:28)
[2023-07-03] MEDS: Iron Polysaccharide Complex 150 MG CAPSULE PO (08:29)
--- NOTE | 2023-07-03 09:13 | CASEMGMT ---
Addendum entered by Glo Del Cid 07/03/23 13:18: Social Work SW called granddaughter Ananya, message left regarding SNF choices. SW will continue to follow. GIOVANNY Lange Original Note: Social Work SW spoke w/pt to ask if her granddaughters had been in yet, as they were to review the long term lists left by SW yesterday for choices. They have not been in yet. SW asked pt to have them ask for the SW if they come in, so we can discuss [facility] facility options. SW will continue to follow. GIOVANNY Lange
--- NOTE | 2023-07-03 09:48 | CASEMGMT ---
BILL SMITH NOTE: Order received from Dr No for Palliative referral. Referral sent to [facility] via e-mail. Gui ADAMS RN CM
[2023-07-03 10:33] LABS: Absolute Lymphocyte Count 1.09 X10^3/uL (0.83-4.51); Absolute Neutrophil Count 14.7 X10^3/uL (2.0-7.7); Basophil# 0.02 X10^3/uL; Basophil% 0.1 % (0-1); Eosinophil# 0.03 X10^3/uL; Eosinophils% 0.2 % (0-5); Hematocrit 36.6 % (37-47); Hemoglobin 11.3 g/dL (12.0-15.0); Lymphocyte # 1.09 X10^3/ul (0.83-4.51); Lymphocyte % 6.1 % (19-41); Mean Corp Hgb Conc 30.9 g/dL (32-36); Mean Corpuscular Hgb 28.7 pg (27.0-32.0); Mean Corpuscular Volume 92.9 fL (81-99); Mean Platelet Vol. 9.3 fl (6.2-12.0); Monocyte# 1.88 X10^3/uL; Monocyte% 10.5 % (0-10); NRBC Flagged by Analyzer 0 % (0-5); Neutrophil # 14.66 X10^3/uL (2.7-7.7); POSITIVE DIFFERENTIAL YES; Platelet Count 273 K/mm3 (150-450); RBC Distribution Width CV 14.6 % (11.6-14.6); Red Blood Count 3.94 M/mm3 (4.2-5.4); White Blood Count 17.9 K/mm3 (4.4-11.0)
[2023-07-03 10:38] LABS: Differential Indicated SCAN CRITERIA MET
[2023-07-03 10:40] VITALS: BP 134/64; PULSE 81
[2023-07-03] MEDS: Digoxin 250 MCG Tablet PO (10:46)
[2023-07-03 14:22] VITALS: BP 92/46; PULSE 72; RESP 12; TEMP 36.5; O2SAT 96
--- NOTE | 2023-07-03 14:58 | PCM.PN.HOSP ---
Reason for Visit Reason for Visit: Diagnoses Unspecified viral hepatitis without hepatic coma (06/29/23) Amyloidosis, unspecified (06/29/23) Hypo-osmolality and hyponatremia (06/29/23) Hyperkalemia (06/29/23) Unspecified atrial fibrillation (06/29/23) Heart failure, unspecified (06/29/23) Acute and subacute hepatic failure without coma (06/29/23) Acute kidney failure, unspecified (06/29/23) Other specified abnormal findings of blood chemistry (06/29/23) Objective Data Objective Data Vital Signs: Vital Signs Temp Pulse Resp BP Pulse Ox O2 Del Method 97.7 F L 72 12 92/46 L 96 Room Air 07/03/23 14:22 07/03/23 14:22 07/03/23 14:22 07/03/23 14:22 07/03/23 14:22 07/03/23 14:22 Oxygen Delivery Method Room Air Weight: 115 lb 11.883 oz Body Mass Index (BMI) 22.6 Intake & Output: Intake and Output for Last 24 Hours 07/01/23 07/02/23 07/03/23 23:59 23:59 23:59 Intake Total 2190 / 2250 4375.17 / 4495.17 460 / 460 Output Total 350 / 350 125 / 425 300 / 300 Balance 1840 / 1900 4250.17 / 4070.17 160 / 160 Medical Nutrition Assessment Dietitian: Malnutrition Criteria Met Start: 06/29/23 11:35 Freq: Status: Active Protocol: Document 06/29/23 11:35 (Rec: 06/29/23 11:35 [id number]) Nutrition Malnutrition Evidence of Malnutrition Exists Yes Malnutrition (severe): Acute Illness/Injury Evidenced By Suboptimal Energy Intake ( Severe),Weight Loss (Severe) Clinical Problem Acute Disease or Injury Related Malnutrition Etiology severe acute malnutrition related to inadequate energy intake Signs/Symptoms as evidenced by unintentional 4% wt loss, estimated PO intake meeting <50% of estimated energy needs > 1 week Status Active Problem Recommendation Dietitian Recommendations/Changes recommend regular/no added salt diet as tolerated; Ensure w/ medpass when PO diet is advanced. Consider SLD EDUCATIONAL AIDE eval if issues chewing/swallowing. Lab / Micro Data 07/03/23 10:00 07/03/23 07:00 Labs: Laboratory Results - last 24 hr 07/03/23 07:00: PT 15.3 H, INR 1.2, Sodium 136, Potassium 4.7, Chloride 107, Carbon Dioxide 23.0, Anion Gap 6, BUN 12, Creatinine 0.54 L, Estim Creat Clear Calc 40.96, Est GFR (MDRD) Af Amer 139, Est GFR (MDRD) Non-Af 115, BUN/Creatinine Ratio 22.1 H, Glucose 102, Calcium 8.0 L, Total Bilirubin 0.90, Direct Bilirubin 0.41 H, AST 92 H, ALT 327 H, Alkaline Phosphatase 204 H, Total Protein 5.5 L, Albumin 2.5 L, Globulin 3.0 07/03/23 10:00: WBC 17.9 H, RBC 3.94 L, Hgb 11.3 L, Hct 36.6 L, MCV 92.9, MCH 28.7, MCHC 30.9 L, RDW Std Deviation 49.0 H, RDW Coeff of Lobo 14.6, Plt Count 273, MPV 9.3, Immature Gran % (Auto) 1.100 H, Neut % (Auto) 82.0 H, Lymph % (Auto) 6.1 L, [place] % (Auto) 10.5 H, Eos % (Auto) 0.2, Baso % (Auto) 0.1, Absolute Neuts (auto) 14.7 H, Absolute Lymphs (auto) 1.09, Nucleated RBC % 0 Micro: Microbiology 06/29/23 10:00 Blood Culture (Wb) - Left Forearm Blood Culture - Preliminary No growth in 48 hours. 06/29/23 08:19 Blood Culture (Wb) - Anticubital Left Bacteria Detection (PCR) - Final Staphylococcus epidermidis 06/29/23 08:19 Blood Culture (Wb) - Anticubital Left Blood Culture - Preliminary Coag Negative Staph Physical Exam Narrative Seen and examined. Patient blood pressure and heart rate was in acceptable limit yesterday. Currently heart rate 72/min. A-fib but blood pressure 92/46. Patient denies feeling dizzy lightheaded chest pain or shortness of breath. Normal baseline. Patient admitted with generalized weakness. Does not have abdominal pain. Physical exam General: Alert, Oriented x3, Cooperative HEENT: Icterus present atraumatic, PERRLA, EOMI, Normocephalic Oral: No Gingival or Mucosal Lesions/ Ulcerations Neck: Supple, No JVD, Negative Carotid Bruits Chest wall/Lungs: Air entry diminished in bilateral lung bases. No crepitation/rhonchi Cardiovascular: Irregular, A-fib heart rate with RVR. holosystolic murmur cardiac apex and LLSB. Abdomen: Bowel Sounds Present, Soft, Non Tender, Non-Distended : No dysuria. No renal angle tenderness. No suprapubic tenderness. Extremities: bilateral below-knee 3+ edema, Capillary Refill Less than 3 Seconds Skin: No rashes, No breakdown Musculoskeletal: No Tenderness to Palpation of Joints or Extremities Neurological: Cranial nerves II-XII grossly intact, DTR 2+/4. No acute focal neurological deficit. Psych/Mental Status: Normal Affect, Appropriate. Assessment & Plan Assessment/Plan (1) Acute liver failure due to hepatitis virus: (2) Abnormal LFTs: (3) Atrial fibrillation with rapid ventricular response: (4) Acute kidney injury: (5) Hyponatremia: (6) CHF (congestive heart failure): QUALIFIERS: Heart failure type: unspecified Heart failure chronicity: unspecified Qualified Code(s): I50.9 - Heart failure, unspecified (7) Amyloidosis: QUALIFIERS: Amyloidosis type: unspecified amyloidosis Qualified Code(s): E85.9 - Amyloidosis, unspecified PLAN: Plan 77-year-old female came to ED with shortness of breath, weakness and inability to walk, symptom complex ongoing for more than 1 week. He was noticed jaundiced, variable heart rate with intermittent palpitation. Patient was prescribed Xarelto but has been out for a while. History of A-fib 1. Acute liver injury, exact etiology unclear: Patient is admitted in ICU. Labs shows total bilirubin of 2.7 mg/dL (direct bilirubin 2.04 mg/dL) AST of 832 units/L, ALT of 869 units/L and alkaline phosphatase of 398 units/L and leukocytosis of 17.5 K with right upper quadrant sonogram showing GB wall thickening with pericholecystic fluid but no abdominal pain or gallstones therefore possible acalculous cholecystitis. INR high 2.0 but patient was on Xarelto more than a week ago therefore probably from acute liver injury. Blood cultures x 2 ordered. Empirically started on IV Zosyn after blood cultures. Discussed with ICU nursing staff. Give Zofran IV prn. Patient evaluated by surgeon and GI consulted. 06/29:Improvement in liver chemistry. Total bilirubin normal. It was mainly obstructive. Transaminases also improving. Alkaline phosphatase similar. GGT elevated. Autoimmune markers ordered. Patient stated she never had any liver, biliary or pancreatic disease in the life. Patient was started on acetylcysteine drip. 06/30: Liver chemistry shows elevated AST ALT GGT improving trend, total bili and direct normal. Blood culture shows coagulase-negative staph, Staph epidermidis skin contaminated therefore no indication for treatment. 07/01:Liver chemistry ALT AST alkaline phosphatase improving. Total bilirubin normal. 07/02: ALT AST and total bilirubin improving. Total bilirubin normal for last 3 days. 2. Atrial fibrillation with RVR, nonadherent to metoprolol and Xarelto: Tachycardia did not respond to multiple doses of Cardizem bolus therefore started on Cardizem drip currently at 15 mg/h. Also added digoxin 125 mg IV. Metoprolol succinate changed to metoprolol tartrate 25 mg every 8 hourly. 2D echo is ordered. Machine Presser is consulted 06/29: Heart rate is controlled. Echo on 06/28 shows EF 70% moderate asymmetric septal hypertrophy, small LV cavity. LA severely enlarged. 1-2+ MR, moderate to severe aortic stenosis. Moderately severe TR, PASP 50 mmHg 06/30: Patient is still A-fib RVR 120 permanent. ophthalmic photographer he got Biaxin 250 mg IV. Patient has hypocalcemia 7.3, corrected calcium 8.6 therefore low normal. IV calcium gluconate 2 g ordered. Keep potassium more than 4.0, magnesium 2.0 and calcium around 9.0 to avoid arrhythmia from digoxin 07/01: A-fib with RVR with hypotension: Patient on Lasix, discontinued. IV fluid normal saline 1 L bolus ordered. Patient also has critically low hypokalemia, 2.5 therefore oral KDUR and IV potassium r potassium phosphate ordered. Recheck BMP in 4 hours. When potassium is optimized, we can resume digoxin to 50 mg IV. Discussed with the offset printing operator Around 11:00 her blood pressure in systolic 80s heart rate 120. Had 80 mEq of potassium supplement and IV potassium phosphate infusion. After the replacement, IV digoxin 500 mcg 1 dose ordered. Patient is DNR CC and will send about the hospice care but want her granddaughter to be also in agreement. I called granddaughter, Ananya left voice message to call back discussed with the offset printing operator also. Metoprolol changed to atenolol as it Laun has renal clearance and is not metabolized by the liver. 07/02: Heart rate controlled in 70s, A-fib. Blood pressure yesterday was 110 but today upper 90s probably due to rate control medications. On atenolol 25 mg daily, Cardizem 30 mg every 6 hourly, and digoxin 250 mcg daily. Electrolytes in normal range. Serum potassium phosphorus magnesium in normal range. 3. GREGORY: Patient had normal creatinine back in June 2020 after that unclear about his renal status. Admitted with creatinine 2.28 currently 1.7.Hyperkalemia, hyponatremia with high anion gap metabolic acidosis. CT reported normal right and left kidney and normal urinary bladder. Nephrology is consulted. 06/29: BUNs/creatinine 47/0.98. GREGORY resolved. Hyponatremia 4. AE CHF; evidenced by chest x-ray that revealed a left pleural effusion with cardiomegaly and an elevated BNP of 1,126.8 pg/mL present on admission- Give Lasix 40 mg IV daily plus supplemental magnesium. 07/01: Lungs air entry diminished but no crepitation. Lasix discontinued because of hypotension. 5. Severe hyponatremia of 121 mmol/L present on admission likely due to water intoxication - Give NS IVF and then recheck BMP q. 6 hours to ensure correction of no more than 8-10 mmol/L per 24 hours. Check serum and urine osmolality. 06/29: Sodium improved from 121-127 in over 2 days. 06/30: Serum sodium 129. 07/01: Sodium 132. 07/02: Serum sodium corrected, 136. 6 tobacco abuse - Tobacco cessation will be strongly encouraged with nicotine patch offered to control cravings. 8. Essential hypertension - Restart home regimen plus give IV hydralazine as needed for systolic blood pressure greater than 160 mmHg. 9. History aortic stenosis, ventricular hypertrophy and cardiomyopathy - Echocardioram pending this admission. 10. Hyperlipidemia - No statin with transaminitis but we will check Lipid Profile. 11. Overweight; BMI 26 this admission - Weight loss will be recommended. 12. Amyloidosis - Noted. Awaiting CT results. 13. PAD; status post iliac artery occlusion - Stable. 14. History of hysterectomy - Noted. 15. Osteoarthritis - Stable. 16. DVT prophylaxis - SCD's only for now until bleeding as cause of elevated BUN of 79 mg/dL present on admission ruled out. Total time of the visit including total time spent in counseling or coordination of care, (more than 50% of the total time, spent in obtaining medical information from nurses and other ancillary care providers,explaining to the patient about labs, imaging, diagnosis and management of active complex medical conditions), multiple organ dysfunction, review of labs and imaging is 40 minutes. 2D echo 06/29/2023 The estimated ejection fraction is more than 70 %. Moderate assymetric septal hypertrophy. Small LV cavity. The left atrium is severely enlarged. The right atrium is moderately enlarged. Moderately severe mitral stenosis. Mild-Moderate (1-2+) mitral valve insufficiency. Moderate to severe aortic stenosis. Moderately severe tricuspid valve regurgitation. Pulmonary artery systolic pressure estimated at 50 mmHg. 06/29/23 08:19 Blood Culture (Wb) - Anticubital Left Bacteria Detection (PCR) - Final Staphylococcus epidermidis 06/29/23 08:19 Blood Culture (Wb) - Anticubital Left Blood Culture - Preliminary Coag Negative Staph Clinical Impression(s) from Imaging Studies Chest X-Ray 06/28/23 20:25 IMPRESSION: Left pleural effusion. Cardiac enlargement. Abdomen Ultrasound 06/28/23 21:37 IMPRESSION: Gallbladder wall thickening and pericholecystic fluid. No gallstones or biliary dilatation. Small pleural effusion. Chest/Abdomen/Pelvis CT 06/29/23 01:19 IMPRESSION: Small volume ascites. Moderate left and small right pleural effusions with associated atelectasis. Enlarged precarinal mediastinal lymph node of uncertain etiology. Echocardiogram 06/29/23 02:05 Interpretation Summary The estimated ejection fraction is more than 70 %. Moderate assymetric septal hypertrophy. Small LV cavity. The left atrium is severely enlarged. The right atrium is moderately enlarged. Moderately severe mitral stenosis. Mild-Moderate (1-2+) mitral valve insufficiency. Moderate to severe aortic stenosis. Moderately severe tricuspid valve regurgitation. Pulmonary artery systolic pressure estimated at 50 mmHg. MRCP 07/01/23 17:00 IMPRESSION: Small amount of T2 dark debris within a nondilated CBD. No obvious stones. No intra or extra-hepatic ductal dilatation. Electronically Signed: Pineda Rosa MD at 20:18 EDT , Charges/Coding Visit Charges Inpatient E&M: 71075 Subs Hosp L2
[2023-07-03 17:43] VITALS: BP 129/54; PULSE 72
[2023-07-03 21:40] VITALS: BP 103/58; PULSE 72; RESP 18; TEMP 36.8; O2SAT 95
[2023-07-03] MEDS: Menthol/Lanolin/Calamine/Znox 113 GM Tube 1 APPLIC TOPICAL (21:44)
[2023-07-04] MEDS: dilTIAZem 30 MG Tablet PO ×5 (00:47→21:00)
[2023-07-04 03:20] VITALS: BP 128/86; PULSE 109; RESP 18; TEMP 36.5; O2SAT 94
[2023-07-04 03:46] VITALS: BMI 22.5
[2023-07-04] MEDS: Piperacil/Tazobactam 3.375 GM in 0.9% Normal Saline (50mL MB+) 50 ML IV (05:29)
[2023-07-04 07:18] LABS: Absolute Lymphocyte Count 1.25 X10^3/uL (0.83-4.51); Absolute Neutrophil Count 15.3 X10^3/uL (2.0-7.7); Basophil# 0.03 X10^3/uL; Basophil% 0.2 % (0-1); Eosinophil# 0.08 X10^3/uL; Eosinophils% 0.4 % (0-5); Hematocrit 34.9 % (37-47); Hemoglobin 11.1 g/dL (12.0-15.0); Lymphocyte # 1.25 X10^3/ul (0.83-4.51); Lymphocyte % 6.6 % (19-41); Mean Corp Hgb Conc 31.8 g/dL (32-36); Mean Corpuscular Hgb 28.9 pg (27.0-32.0); Mean Corpuscular Volume 90.9 fL (81-99); Mean Platelet Vol. 9.1 fl (6.2-12.0); Monocyte# 1.99 X10^3/uL; Monocyte% 10.5 % (0-10); NRBC Flagged by Analyzer 0.1 % (0-5); Neutrophil # 15.31 X10^3/uL (2.7-7.7); POSITIVE DIFFERENTIAL YES; Platelet Count 315 K/mm3 (150-450); RBC Distribution Width CV 14.6 % (11.6-14.6); RBC Distribution Width SD 48.8 fl (35.1-43.9); Red Blood Count 3.84 M/mm3 (4.2-5.4); White Blood Count 18.9 K/mm3 (4.4-11.0)
[2023-07-04 07:23] LABS: Differential Indicated SCAN CRITERIA MET
[2023-07-04 07:48] LABS: AST(SGOT) 56 U/L (15-37); Alanine Aminotransfer ALT/SGPT 245 U/L (13-56); Albumin, Serum 2.4 g/dL (3.2-5.0); Alkaline Phosphatase 169 U/L (45-117); Anion Gap 4 (5-15); BUN 12 mg/dL (7-18); BUN/Creat Ratio 20.7 RATIO (10-20); Calcium,Total 7.9 mg/dL (8.5-10.1); Chloride 104 mmol/L (98-107); Creatinine, Serum 0.58 mg/dL (0.55-1.02); EST Glomerular Filtration Rate 107 mL/min (>60); Est Glom Filt Rate - Afr Amer 129 mL/min (>60); Estimated Creatinine Clearance 40.96 ml/min; Globulin 2.8 g/dL (2.2-4.2); Glucose 119 mg/dL (74-106); Magnesium 1.6 mg/dL (1.6-2.6); Potassium 4.5 mmol/L (3.5-5.1); Protein, Total 5.2 g/dL (6.4-8.2); Sodium Level 132 mmol/L (136-145)
[2023-07-04 07:53] LABS: Phosphorus 2.3 mg/dL (2.5-4.9)
[2023-07-04 08:20] VITALS: BP 89/66; PULSE 71; RESP 16; TEMP 36.4; O2SAT 96
[2023-07-04] MEDS: Digoxin 250 MCG Tablet PO (08:25)
[2023-07-04] MEDS: Iron Polysaccharide Complex 150 MG CAPSULE PO (08:25)
[2023-07-04] MEDS: Magnesium Chloride 64 MG Delay Rel.Tablet 128 MG PO ×2 (08:26→21:00)
[2023-07-04] MEDS: Senna/Docusate Sodium 1 Tablet 2 TABLET PO (08:26)
[2023-07-04 09:59] VITALS: BP 100/81; PULSE 82; RESP 12; TEMP 36.4; O2SAT 97
[2023-07-04] MEDS: Furosemide 20 MG/2 ML VIAL IV (10:48)
[2023-07-04] MEDS: Menthol/Lanolin/Calamine/Znox 113 GM Tube 1 APPLIC TOPICAL ×2 (11:06→21:01)
[2023-07-04 12:08] VITALS: BP 119/70; PULSE 84
[2023-07-04] MEDS: Na Biphos/Potassium Phosphate PACKET 1 PACKET PO ×2 (12:11→21:00)
--- NOTE | 2023-07-04 12:38 | PCM.PN.HOSP ---
Reason for Visit Reason for Visit: Diagnoses Unspecified viral hepatitis without hepatic coma (06/29/23) Amyloidosis, unspecified (06/29/23) Hypo-osmolality and hyponatremia (06/29/23) Hyperkalemia (06/29/23) Unspecified atrial fibrillation (06/29/23) Heart failure, unspecified (06/29/23) Acute and subacute hepatic failure without coma (06/29/23) Acute kidney failure, unspecified (06/29/23) Other specified abnormal findings of blood chemistry (06/29/23) Objective Data Objective Data Vital Signs: Vital Signs Temp Pulse Resp BP Pulse Ox O2 Del Method 97.6 F L 84 12 119/70 97 Room Air 07/04/23 09:59 07/04/23 12:08 07/04/23 09:59 07/04/23 12:08 07/04/23 09:59 07/04/23 09:59 Oxygen Delivery Method Room Air Weight: 115 lb 4.828 oz Body Mass Index (BMI) 22.5 Intake & Output: Intake and Output for Last 24 Hours 07/02/23 07/03/23 07/04/23 23:59 23:59 23:59 Intake Total 4375.17 / 4495.17 1110 / 1110 217.29 / 217.29 Output Total 125 / 425 2000 / 2000 200 / 200 Balance 4250.17 / 4070.17 -890 / -890 17.29 / 17.29 Medical Nutrition Assessment Dietitian: Malnutrition Criteria Met Start: 06/29/23 11:35 Freq: Status: Active Protocol: Document 06/29/23 11:35 AG (Rec: 06/29/23 11:35 [id number]) Nutrition Malnutrition Evidence of Malnutrition Exists Yes Malnutrition (severe): Acute Illness/Injury Evidenced By Suboptimal Energy Intake ( Severe),Weight Loss (Severe) Clinical Problem Acute Disease or Injury Related Malnutrition Etiology severe acute malnutrition related to inadequate energy intake Signs/Symptoms as evidenced by unintentional 4% wt loss, estimated PO intake meeting <50% of estimated energy needs > 1 week Status Active Problem Recommendation Dietitian Recommendations/Changes recommend regular/no added salt diet as tolerated; Ensure w/ medpass when PO diet is advanced. Consider CRYSTAL CALIBRATOR eval if issues chewing/swallowing. Lab / Micro Data 07/04/23 06:15 07/04/23 06:15 Labs: Laboratory Results - last 24 hr 07/04/23 06:15: WBC 18.9 H, RBC 3.84 L, Hgb 11.1 L, Hct 34.9 L, MCV 90.9, MCH 28.9, MCHC 31.8 L, RDW Std Deviation 48.8 H, RDW Coeff of Lobo 14.6, Plt Count 315, MPV 9.1, Immature Gran % (Auto) 1.300 H, Neut % (Auto) 81.0 H, Lymph % (Auto) 6.6 L, [place] % (Auto) 10.5 H, Eos % (Auto) 0.4, Baso % (Auto) 0.2, Absolute Neuts (auto) 15.3 H, Absolute Lymphs (auto) 1.25, Nucleated RBC % 0.1, Diff Path Review May foll, Sodium 132 L, Potassium 4.5, Chloride 104, Carbon Dioxide 24.0, Anion Gap 4 L, BUN 12, Creatinine 0.58, Estim Creat Clear Calc 40.96, Est GFR (MDRD) Af Amer 129, Est GFR (MDRD) Non-Af 107, BUN/Creatinine Ratio 20.7 H, Glucose 119 H, Calcium 7.9 L, Phosphorus 2.3 L, Magnesium 1.6, Total Bilirubin 0.70, Direct Bilirubin 0.30, AST 56 H, ALT 245 H, Alkaline Phosphatase 169 H, Total Protein 5.2 L, Albumin 2.4 L, Globulin 2.8 Micro: Microbiology 06/29/23 10:00 Blood Culture (Wb) - Left Forearm Blood Culture - Preliminary No growth in 48 hours. 06/29/23 08:19 Blood Culture (Wb) - Anticubital Left Bacteria Detection (PCR) - Final Staphylococcus epidermidis 06/29/23 08:19 Blood Culture (Wb) - Anticubital Left Blood Culture - Preliminary Coag Negative Staph Physical Exam Narrative Seen and examined. Patient BP was 89/60 6 in the morning but got better 100/81. Patient also has generalized swelling of lower and upper extremities therefore Lasix resumed. Heart rate and blood pressure are controlled. Patient admitted with generalized weakness. Does not have abdominal pain. Physical exam General: Alert, Oriented x3, Cooperative HEENT: Icterus present atraumatic, PERRLA, EOMI, Normocephalic Oral: No Gingival or Mucosal Lesions/ Ulcerations Neck: Supple, No JVD, Negative Carotid Bruits Chest wall/Lungs: Air entry diminished in bilateral lung bases. No crepitation/rhonchi Cardiovascular: Irregular, A-fib heart rate with RVR. holosystolic murmur cardiac apex and LLSB. Abdomen: Bowel Sounds Present, Soft, Non Tender, Non-Distended : No dysuria. No renal angle tenderness. No suprapubic tenderness. Extremities: bilateral below-knee 3+ edema and upper extremity edema, Capillary Refill Less than 3 Seconds Skin: No rashes, No breakdown Musculoskeletal: No Tenderness to Palpation of Joints or Extremities Neurological: Cranial nerves II-XII grossly intact, DTR 2+/4. No acute focal neurological deficit. Psych/Mental Status: Normal Affect, Appropriate. Assessment & Plan Assessment/Plan (1) Acute liver failure due to hepatitis virus: (2) Abnormal LFTs: (3) Atrial fibrillation with rapid ventricular response: (4) Acute kidney injury: (5) Hyponatremia: (6) CHF (congestive heart failure): QUALIFIERS: Heart failure type: unspecified Heart failure chronicity: unspecified Qualified Code(s): I50.9 - Heart failure, unspecified (7) Amyloidosis: QUALIFIERS: Amyloidosis type: unspecified amyloidosis Qualified Code(s): E85.9 - Amyloidosis, unspecified PLAN: Plan 77-year-old female came to ED with shortness of breath, weakness and inability to walk, symptom complex ongoing for more than 1 week. He was noticed jaundiced, variable heart rate with intermittent palpitation. Patient was prescribed Xarelto but has been out for a while. History of A-fib 1. Acute liver injury, exact etiology unclear: Patient is admitted in ICU. Labs shows total bilirubin of 2.7 mg/dL (direct bilirubin 2.04 mg/dL) AST of 832 units/L, ALT of 869 units/L and alkaline phosphatase of 398 units/L and leukocytosis of 17.5 K with right upper quadrant sonogram showing GB wall thickening with pericholecystic fluid but no abdominal pain or gallstones therefore possible acalculous cholecystitis. INR high 2.0 but patient was on Xarelto more than a week ago therefore probably from acute liver injury. Blood cultures x 2 ordered. Empirically started on IV Zosyn after blood cultures. Discussed with ICU nursing staff. Give Zofran IV prn. Patient evaluated by surgeon and GI consulted. 06/29:Improvement in liver chemistry. Total bilirubin normal. It was mainly obstructive. Transaminases also improving. Alkaline phosphatase similar. GGT elevated. Autoimmune markers ordered. Patient stated she never had any liver, biliary or pancreatic disease in the life. Patient was started on acetylcysteine drip. 06/30: Liver chemistry shows elevated AST ALT GGT improving trend, total bili and direct normal. Blood culture shows coagulase-negative staph, Staph epidermidis skin contaminated therefore no indication for treatment. 07/01:Liver chemistry ALT AST alkaline phosphatase improving. Total bilirubin normal. 07/02: ALT AST and total bilirubin improving. Total bilirubin normal for last 3 days. 07/03: Liver chemistry improving. Total bilirubin normal. Patient has leukocytosis after the trend showed improvement to 16,000 on 07/01. Clinically patient does not have fever or seems infectious. Probably inflammatory 2. Atrial fibrillation with RVR, nonadherent to metoprolol and Xarelto: Tachycardia did not respond to multiple doses of Cardizem bolus therefore started on Cardizem drip currently at 15 mg/h. Also added digoxin 125 mg IV. Metoprolol succinate changed to metoprolol tartrate 25 mg every 8 hourly. 2D echo is ordered. Executive Secretary is consulted 06/29: Heart rate is controlled. Echo on 06/28 shows EF 70% moderate asymmetric septal hypertrophy, small LV cavity. LA severely enlarged. 1-2+ MR, moderate to severe aortic stenosis. Moderately severe TR, PASP 50 mmHg 06/30: Patient is still A-fib RVR 120 permanent. whipped topping mixer he got Biaxin 250 mg IV. Patient has hypocalcemia 7.3, corrected calcium 8.6 therefore low normal. IV calcium gluconate 2 g ordered. Keep potassium more than 4.0, magnesium 2.0 and calcium around 9.0 to avoid arrhythmia from digoxin 07/01: A-fib with RVR with hypotension: Patient on Lasix, discontinued. IV fluid normal saline 1 L bolus ordered. Patient also has critically low hypokalemia, 2.5 therefore oral KDUR and IV potassium r potassium phosphate ordered. Recheck BMP in 4 hours. When potassium is optimized, we can resume digoxin to 50 mg IV. Discussed with the commission sales associate Around 11:00 her blood pressure in systolic 80s heart rate 120. Had 80 mEq of potassium supplement and IV potassium phosphate infusion. After the replacement, IV digoxin 500 mcg 1 dose ordered. Patient is DNR CC and will send about the hospice care but want her granddaughter to be also in agreement. I called granddaAnanya saucedo left voice message to call back discussed with the commission sales associate also. Metoprolol changed to atenolol as it Laun has renal clearance and is not metabolized by the liver. 07/02: Heart rate controlled in 70s, A-fib. Blood pressure yesterday was 110 but today upper 90s probably due to rate control medications. On atenolol 25 mg daily, Cardizem 30 mg every 6 hourly, and digoxin 250 mcg daily. Electrolytes in normal range. Serum potassium phosphorus magnesium in normal range. 07/03: Heart rate and blood pressure are controlled. Lasix 20 mg IV ordered for generalized swelling. Magnesium 1.6 low normal continue magnesium supplement. Phosphorus low 2.3, Neutra-Phos ordered. 3. GREGORY: Patient had normal creatinine back in June 2020 after that unclear about his renal status. Admitted with creatinine 2.28 currently 1.7.Hyperkalemia, hyponatremia with high anion gap metabolic acidosis. CT reported normal right and left kidney and normal urinary bladder. Nephrology is consulted. 06/29: BUNs/creatinine 47/0.98. GREGORY resolved. Hyponatremia 4. AE CHF; evidenced by chest x-ray that revealed a left pleural effusion with cardiomegaly and an elevated BNP of 1,126.8 pg/mL present on admission- Give Lasix 40 mg IV daily plus supplemental magnesium. 07/01: Lungs air entry diminished but no crepitation. Lasix discontinued because of hypotension. 5. Severe hyponatremia of 121 mmol/L present on admission likely due to water intoxication - Give NS IVF and then recheck BMP q. 6 hours to ensure correction of no more than 8-10 mmol/L per 24 hours. Check serum and urine osmolality. 06/29: Sodium improved from 121-127 in over 2 days. 06/30: Serum sodium 129. 07/01: Sodium 132. 07/02: Serum sodium corrected, 136. 6 tobacco abuse - Tobacco cessation will be strongly encouraged with nicotine patch offered to control cravings. 8. Essential hypertension - Restart home regimen plus give IV hydralazine as needed for systolic blood pressure greater than 160 mmHg. 9. History aortic stenosis, ventricular hypertrophy and cardiomyopathy - Echocardioram pending this admission. 10. Hyperlipidemia - No statin with transaminitis but we will check Lipid Profile. 11. Overweight; BMI 26 this admission - Weight loss will be recommended. 12. Amyloidosis - Noted. Awaiting CT results. 13. PAD; status post iliac artery occlusion - Stable. 14. History of hysterectomy - Noted. 15. Osteoarthritis - Stable. 16. DVT prophylaxis - SCD's only for now until bleeding as cause of elevated BUN of 79 mg/dL present on admission ruled out. Discharge plan: Patient will need accepting facility but does not need pre-CERT. DNR CC. Family member agreed for palliative care but not hospice. Total time of the visit including total time spent in counseling or coordination of care, (more than 50% of the total time, spent in obtaining medical information from nurses and other ancillary care providers,explaining to the patient about labs, imaging, diagnosis and management of active complex medical conditions), multiple organ dysfunction, review of labs and imaging is 40 minutes. 2D echo 06/29/2023 The estimated ejection fraction is more than 70 %. Moderate assymetric septal hypertrophy. Small LV cavity. The left atrium is severely enlarged. The right atrium is moderately enlarged. Moderately severe mitral stenosis. Mild-Moderate (1-2+) mitral valve insufficiency. Moderate to severe aortic stenosis. Moderately severe tricuspid valve regurgitation. Pulmonary artery systolic pressure estimated at 50 mmHg. 06/29/23 08:19 Blood Culture (Wb) - Anticubital Left Bacteria Detection (PCR) - Final Staphylococcus epidermidis 06/29/23 08:19 Blood Culture (Wb) - Anticubital Left Blood Culture - Preliminary Coag Negative Staph Clinical Impression(s) from Imaging Studies Chest X-Ray 06/28/23 20:25 IMPRESSION: Left pleural effusion. Cardiac enlargement. Abdomen Ultrasound 06/28/23 21:37 IMPRESSION: Gallbladder wall thickening and pericholecystic fluid. No gallstones or biliary dilatation. Small pleural effusion. Chest/Abdomen/Pelvis CT 06/29/23 01:19 IMPRESSION: Small volume ascites. Moderate left and small right pleural effusions with associated atelectasis. Enlarged precarinal mediastinal lymph node of uncertain etiology. Echocardiogram 06/29/23 02:05 Interpretation Summary The estimated ejection fraction is more than 70 %. Moderate assymetric septal hypertrophy. Small LV cavity. The left atrium is severely enlarged. The right atrium is moderately enlarged. Moderately severe mitral stenosis. Mild-Moderate (1-2+) mitral valve insufficiency. Moderate to severe aortic stenosis. Moderately severe tricuspid valve regurgitation. Pulmonary artery systolic pressure estimated at 50 mmHg. MRCP 07/01/23 17:00 IMPRESSION: Small amount of T2 dark debris within a nondilated CBD. No obvious stones. No intra or extra-hepatic ductal dilatation. Electronically Signed: Pineda Rosa MD at 20:18 EDT , Charges/Coding Visit Charges Inpatient E&M: 04822 Subs Hosp L2
[2023-07-04] MEDS: Ensure Plus High Protein 120 ML LIQUID PO (13:17)
[2023-07-04] MEDS: Amox/Clavulanate 500 MG Tablet PO (17:11)
[2023-07-04 17:50] VITALS: BP 118/60; PULSE 107; RESP 14; TEMP 36.2; O2SAT 96
[2023-07-04 21:06] VITALS: BP 101/67; PULSE 88; RESP 17; TEMP 36.6; O2SAT 97
[2023-07-05 03:12] VITALS: BP 137/72; PULSE 96; RESP 18; TEMP 36.6; O2SAT 94
[2023-07-05 03:43] VITALS: BMI 22.8
[2023-07-05] MEDS: dilTIAZem 30 MG Tablet PO ×3 (04:32→17:25)
[2023-07-05 06:20] LABS: Absolute Lymphocyte Count 1.26 X10^3/uL (0.83-4.51); Absolute Neutrophil Count 16.1 X10^3/uL (2.0-7.7); Basophil# 0.03 X10^3/uL; Basophil% 0.2 % (0-1); Eosinophil# 0.09 X10^3/uL; Eosinophils% 0.5 % (0-5); Hematocrit 36.1 % (37-47); Hemoglobin 11.5 g/dL (12.0-15.0); Lymphocyte # 1.26 X10^3/ul (0.83-4.51); Lymphocyte % 6.4 % (19-41); Mean Corp Hgb Conc 31.9 g/dL (32-36); Mean Corpuscular Hgb 28.8 pg (27.0-32.0); Mean Corpuscular Volume 90.3 fL (81-99); Mean Platelet Vol. 8.7 fl (6.2-12.0); Monocyte# 1.96 X10^3/uL; NRBC Flagged by Analyzer 0 % (0-5); Neutrophil # 16.06 X10^3/uL (2.7-7.7); Neutrophil % 81.7 % (47-70); POSITIVE DIFFERENTIAL YES; Platelet Count 338 K/mm3 (150-450); RBC Distribution Width CV 14.5 % (11.6-14.6); RBC Distribution Width SD 47.5 fl (35.1-43.9); White Blood Count 19.6 K/mm3 (4.4-11.0)
[2023-07-05 06:32] LABS: Differential Indicated SCAN CRITERIA MET
[2023-07-05 06:58] LABS: Anion Gap 8 (5-15); BUN 12 mg/dL (7-18); BUN/Creat Ratio 30.5 RATIO (10-20); Calcium,Total 8.3 mg/dL (8.5-10.1); Chloride 99 mmol/L (98-107); Creatinine, Serum 0.39 mg/dL (0.55-1.02); EST Glomerular Filtration Rate 167 mL/min (>60); Est Glom Filt Rate - Afr Amer 202 mL/min (>60); Estimated Creatinine Clearance 40.96 ml/min; Glucose 112 mg/dL (74-106); Potassium 4.3 mmol/L (3.5-5.1); Sodium Level 130 mmol/L (136-145)
[2023-07-05 09:10] VITALS: BP 91/63; PULSE 118; RESP 18; TEMP 36.3; O2SAT 97
[2023-07-05] MEDS: Magnesium Chloride 64 MG Delay Rel.Tablet 128 MG PO ×2 (09:40→20:45)
[2023-07-05] MEDS: Multivitamins,Therapeutic Tablet 1 TABLET PO (09:40)
[2023-07-05] MEDS: Iron Polysaccharide Complex 150 MG CAPSULE PO (09:41)
[2023-07-05] MEDS: Digoxin 250 MCG Tablet PO (09:41)
[2023-07-05] MEDS: Amox/Clavulanate 500 MG Tablet PO ×2 (09:41→17:25)
[2023-07-05] MEDS: Menthol/Lanolin/Calamine/Znox 113 GM Tube 1 APPLIC TOPICAL ×2 (09:42→20:46)
[2023-07-05] MEDS: Na Biphos/Potassium Phosphate PACKET 1 PACKET PO ×2 (09:43→20:46)
--- NOTE | 2023-07-05 09:48 | PN.HOSP_ITS ---
Subjective Subjective No issues overnight, she does have intermittent lower blood pressures some medications are held on occasion Objective Data Objective Data Vital Signs: Vital Signs Temp Pulse Resp BP Pulse Ox O2 Del Method 97.0 F L 115 H 18 119/89 H 96 Room Air 07/06/23 03:30 07/06/23 05:42 07/06/23 03:30 07/06/23 05:42 07/06/23 03:30 07/06/23 03:31 Oxygen Delivery Method Room Air Weight: 128 lb 8.472 oz Body Mass Index (BMI) 25.1 Intake & Output: Intake and Output for Last 24 Hours 07/05/23 07/06/23 07/07/23 03:59 03:59 03:59 Intake Total 647.29 / 647.29 480 / 480 Output Total 2049 / 2049 2149 / 2149 Balance -1402.71 / -1402.71 -1670 / -1670 Medical Nutrition Assessment Dietitian: Malnutrition Criteria Met Start: 06/29/23 11:35 Freq: Status: Active Protocol: Document 06/29/23 11:35 (Rec: 06/29/23 11:35 [id number]) Nutrition Malnutrition Evidence of Malnutrition Exists Yes Malnutrition (severe): Acute Illness/Injury Evidenced By Suboptimal Energy Intake ( Severe),Weight Loss (Severe) Clinical Problem Acute Disease or Injury Related Malnutrition Etiology severe acute malnutrition related to inadequate energy intake Signs/Symptoms as evidenced by unintentional 4% wt loss, estimated PO intake meeting <50% of estimated energy needs > 1 week Status Active Problem Recommendation Dietitian Recommendations/Changes recommend regular/no added salt diet as tolerated; Ensure w/ medpass when PO diet is advanced. Consider DIRECTOR OF BUSINESS DEVELOPMENT eval if issues chewing/swallowing. Lab / Micro Data 07/06/23 06:05 07/06/23 06:05 Labs: Laboratory Results - last 24 hr 07/04/23 06:15: Diff Path Review Reviewed 07/06/23 06:05: WBC 18.9 H, RBC 4.41, Hgb 12.7, Hct 40.5, MCV 91.8, MCH 28.8, M CHC 31.4 L, RDW Std Deviation 49.3 H, RDW Coeff of Lobo 14.7 H, Plt Count 380, MPV 9.0, Immature Gran % (Auto) 1.400 H, Neut % (Auto) 77.9 H, Lymph % (Auto) 10.1 L, [place] % (Auto) 9.8, Eos % (Auto) 0.5, Baso % (Auto) 0.3, Absolute Neuts (auto) 14.7 H, Absolute Lymphs (auto) 1.90, Nucleated RBC % 0, Sodium 130 L, Potassium 4.2, Chloride 95 L, Carbon Dioxide 27.0, Anion Gap 8, BUN 11, Creatinine 0.63, Estim Creat Clear Calc 45.57, Est GFR (MDRD) Af Amer 117, Est GFR (MDRD) Non-Af 97, BUN/Creatinine Ratio 17.5, Glucose 97, Calcium 8.6 Micro: Microbiology 06/29/23 10:00 Blood Culture (Wb) - Left Forearm Blood Culture - Final No growth in 5 days. 06/29/23 08:19 Blood Culture (Wb) - Anticubital Left Bacteria Detection (PCR) - Final Staphylococcus epidermidis 06/29/23 08:19 Blood Culture (Wb) - Anticubital Left Blood Culture - Final Coag Negative Staph Rhythm Strip Rhythm Strip: A-fib Rate: 120 Physical Exam Narrative General: Alert, Oriented x3, Cooperative, No apparent distress HEENT: Atraumatic, PERRLA, EOMI, Normocephalic Oral: Moist Mucosa Neck: Supple, No JVD Lungs: Diminished left greater than right, Normal air movement, No rhonchi, No wheeze, No rales Cardiovascular: Irregular rate and rhythm, Normal S1, Normal S2, No murmurs Abdomen: Soft, Non Tender, Non-Distended, No Hepato-splenomegaly Extremities: Edema, Capillary Refill Less than 3 Seconds Skin: No rashes, No breakdown Musculoskeletal: No Tenderness to Palpation of Joints or Extremities Neurological: No focal neurological deficits, Motor Exam 5/5 strength throughout, Sensory exam intact to light touch and pain Psych/Mental Status: Normal Affect, Appropriate Assessment & Plan Assessment/Plan (1) Acute liver failure due to hepatitis virus: (2) Abnormal LFTs: (3) Atrial fibrillation with rapid ventricular response: (4) Acute kidney injury: (5) Hyponatremia: (6) CHF (congestive heart failure): QUALIFIERS: Heart failure type: unspecified Heart failure chronicity: unspecified Qualified Code(s): I50.9 - Heart failure, unspecified (7) Amyloidosis: QUALIFIERS: Amyloidosis type: unspecified amyloidosis Qualified Code(s): E85.9 - Amyloidosis, unspecified PLAN: Plan 1. Acute liver injury, exact etiology unclear: Patient is admitted in ICU. Labs shows total bilirubin of 2.7 mg/dL (direct bilirubin 2.04 mg/dL) AST of 832 units/L, ALT of 869 units/L and alkaline phosphatase of 398 units/L and leukocytosis of 17.5 K with right upper quadrant sonogram showing GB wall thickening with pericholecystic fluid but no abdominal pain or gallstones therefore possible acalculous cholecystitis. INR high 2.0 but patient was on Xarelto more than a week ago therefore probably from acute liver injury. Blood cultures x 2 ordered. Empirically started on IV Zosyn after blood cultures. Discussed with ICU nursing staff. Give Zofran IV prn. Patient evaluated by surgeon and GI consulted. 06/29:Improvement in liver chemistry. Total bilirubin normal. It was mainly obstructive. Transaminases also improving. Alkaline phosphatase similar. GGT elevated. Autoimmune markers ordered. Patient stated she never had any liver, biliary or pancreatic disease in the life. Patient was started on acetylcysteine drip. 06/30: Liver chemistry shows elevated AST ALT GGT improving trend, total bili and direct normal. Blood culture shows coagulase-negative staph, Staph epidermidis skin contaminated therefore no indication for treatment. 07/01:Liver chemistry ALT AST alkaline phosphatase improving. Total bilirubin normal. 07/02: ALT AST and total bilirubin improving. Total bilirubin normal for last 3 days. 07/03: Liver chemistry improving. Total bilirubin normal. Patient has leukocytosis after the trend showed improvement to 16,000 on 07/01. Clinically patient does not have fever or seems infectious. Probably inflammatory 07/05/2023: LFTs are improving however her leukocytosis remains elevated initial thoughts were this is likely inflammatory however she was continued on antibiotics will discontinue antibiotics and see what her leukocytosis does 2. Atrial fibrillation with RVR, nonadherent to metoprolol and Xarelto: Tachycardia did not respond to multiple doses of Cardizem bolus therefore started on Cardizem drip currently at 15 mg/h. Also added digoxin 125 mg IV. Metoprolol succinate changed to metoprolol tartrate 25 mg every 8 hourly. 2D echo is ordered. Panel Gluer is consulted 06/29: Heart rate is controlled. Echo on 06/28 shows EF 70% moderate asymmetric septal hypertrophy, small LV cavity. LA severely enlarged. 1-2+ MR, moderate to severe aortic stenosis. Moderately severe TR, PASP 50 mmHg 06/30: Patient is still A-fib RVR 120 permanent. safety and occupational health manager he got Biaxin 250 mg IV. Patient has hypocalcemia 7.3, corrected calcium 8.6 therefore low normal. IV calcium gluconate 2 g ordered. Keep potassium more than 4.0, magnesium 2.0 and calcium around 9.0 to avoid arrhythmia from digoxin 07/01: A-fib with RVR with hypotension: Patient on Lasix, discontinued. IV fluid normal saline 1 L bolus ordered. Patient also has critically low hypokalemia, 2.5 therefore oral KDUR and IV potassium r potassium phosphate ordered. Recheck BMP in 4 hours. When potassium is optimized, we can resume digoxin to 50 mg IV. Discussed with the mophead sewer Around 11:00 her blood pressure in systolic 80s heart rate 120. Had 80 mEq of potassium supplement and IV potassium phosphate infusion. After the replacement, IV digoxin 500 mcg 1 dose ordered. Patient is DNR CC and will send about the hospice care but want her granddaughter to be also in agreement. I called Ananya de la fuente left voice message to call back discussed with the mophead sewer also. Metoprolol changed to atenolol as it Laun has renal clearance and is not metabolized by the liver. 07/02: Heart rate controlled in 70s, A-fib. Blood pressure yesterday was 110 but today upper 90s probably due to rate control medications. On atenolol 25 mg daily, Cardizem 30 mg every 6 hourly, and digoxin 250 mcg daily. Electrolytes in normal range. Serum potassium phosphorus magnesium in normal range. 07/03: Heart rate and blood pressure are controlled. Lasix 20 mg IV ordered for generalized swelling. Magnesium 1.6 low normal continue magnesium supplement. Phosphorus low 2.3, Neutra-Phos ordered. 07/05/2023: Appreciate cardiology's assistance she has intermittent hypotensive episodes and so medications are held periodically will continue to monitor and adjust 3. GREGORY: Patient had normal creatinine back in June 2020 after that unclear about his renal status. Admitted with creatinine 2.28 currently 1.7.Hyperkalemia, hyponatremia with high anion gap metabolic acidosis. CT reported normal right and left kidney and normal urinary bladder. Nephrology is consulted. 06/29: BUNs/creatinine 47/0.98. GREGORY resolved. 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 AE CHF; evidenced by chest x-ray that revealed a left pleural effusion with cardiomegaly and an elevated BNP of 1,126.8 pg/mL present on admission- Give Lasix 40 mg IV daily plus supplemental magnesium. 07/01: Lungs air entry diminished but no crepitation. Lasix discontinued because of hypotension. 5. Severe hyponatremia of 121 mmol/L present on admission likely due to water intoxication - Give NS IVF and then recheck BMP q. 6 hours to ensure correction of no more than 8-10 mmol/L per 24 hours. Check serum and urine osmolality. 06/29: Sodium improved from 121-127 in over 2 days. 06/30: Serum sodium 129. 07/01: Sodium 132. 07/02: Serum sodium corrected, 136. 6 tobacco abuse - Tobacco cessation will be strongly encouraged with nicotine patch offered to control cravings. 8. Essential hypertension - Restart home regimen plus give IV hydralazine as needed for systolic blood pressure greater than 160 mmHg. 9. History aortic stenosis, ventricular hypertrophy and cardiomyopathy - Echocardioram pending this admission. 10. Hyperlipidemia - No statin with transaminitis but we will check Lipid Profile. 11. Overweight; BMI 26 this admission - Weight loss will be recommended. 12. Amyloidosis - Noted. Awaiting CT results. 13. PAD; status post iliac artery occlusion - Stable. DVT: SCDs Noting throughout the chart that there are indications of having hospice discussed we will try to follow-up with family tomorrow Charges/Coding Visit Charges Inpatient E&M: 43936 Subs Hosp L2
--- NOTE | 2023-07-05 09:58 | CASEMGMT ---
Addendum entered by Jayde Velazquez 07/05/23 11:21: Social Work Pt has been accepted at [facility]. SW met with pt and updated as to acceptance. Physician updated. Plan: [facility], when medically ready CESAR Talley Original Note: Social Work SW met with pt and also placed call to pt's granddaughters. Message to Ananya and spoke with Brooklynn. Pt reporting she would like to go to [facility] and granddgt Brooklynn is agreeable to this. DC yard assistant updated and referral to be sent to [facility]. CESAR Talley
--- NOTE | 2023-07-05 10:09 | CASEMGMT ---
Addendum entered by Belen Medrano 07/05/23 11:48: [facility] has accepted patient. SW updated. Belen Medrano DC Planning Asst. Original Note: Discharge Planning Referral sent to [facility]. Belen Medrano DC Planning Asst.
[2023-07-05 10:28] VITALS: BP 113/67
[2023-07-05] MEDS: Furosemide 20 MG/2 ML VIAL IV (10:31)
[2023-07-05] MEDS: 0.9% Saline Lock 10 ML Syringe IV ×2 (10:31→20:50)
--- NOTE | 2023-07-05 12:08 | PN.RENAL_ITS ---
Subjective Subjective Sitting up in bed, no complaints. No overnight events. Objective Data Objective Data Vital Signs: Vital Signs Temp Pulse Resp BP Pulse Ox O2 Del Method 97.3 F L 118 H 18 113/67 97 Room Air 07/05/23 09:10 07/05/23 09:10 07/05/23 09:10 07/05/23 10:28 07/05/23 09:10 07/05/23 09:10 Oxygen Delivery Method Room Air Weight: 53.1 kg Body Mass Index (BMI) 22.8 Intake & Output: Intake and Output for Last 24 Hours 07/03/23 07/04/23 07/05/23 23:59 23:59 23:59 Intake Total 1110 / 1110 577.29 / 697.29 120 / 120 Output Total 1999 / 2049 550 / 550 Balance -890 / -890 -1272.71 / -1352.71 -430 / -430 Medical Nutrition Assessment Dietitian: Malnutrition Criteria Met Start: 06/29/23 11:35 Freq: Status: Active Protocol: Document 06/29/23 11:35 (Rec: 06/29/23 11:35 [id number]) Nutrition Malnutrition Evidence of Malnutrition Exists Yes Malnutrition (severe): Acute Illness/Injury Evidenced By Suboptimal Energy Intake ( Severe),Weight Loss (Severe) Clinical Problem Acute Disease or Injury Related Malnutrition Etiology severe acute malnutrition related to inadequate energy intake Signs/Symptoms as evidenced by unintentional 4% wt loss, estimated PO intake meeting <50% of estimated energy needs > 1 week Status Active Problem Recommendation Dietitian Recommendations/Changes recommend regular/no added salt diet as tolerated; Ensure w/ medpass when PO diet is advanced. Consider HIGH SCHOOL FRENCH TEACHER eval if issues chewing/swallowing. Lab / Micro Data 07/05/23 05:30 07/05/23 05:30 Labs: Laboratory Results - last 24 hr 07/05/23 05:30: WBC 19.6 H, RBC 4.00 L, Hgb 11.5 L, Hct 36.1 L, MCV 90.3, MCH 28.8, MCHC 31.9 L, RDW Std Deviation 47.5 H, RDW Coeff of Lobo 14.5, Plt Count 338, MPV 8.7, Immature Gran % (Auto) 1.200 H, Neut % (Auto) 81.7 H, Lymph % (Auto) 6.4 L, [place] % (Auto) 10.0, Eos % (Auto) 0.5, Baso % (Auto) 0.2, Absolute Neuts (auto) 16.1 H, Absolute Lymphs (auto) 1.26, Nucleated RBC % 0, Diff Path Review June, Sodium 130 L, Potassium 4.3, Chloride 99, Carbon Dioxide 23.0, Anion Gap 8, BUN 12, Creatinine 0.39 L, Estim Creat Clear Calc 40.96, Est GFR (MDRD) Af Amer 202, Est GFR (MDRD) Non-Af 167, BUN/Creatinine Ratio 30.5 H, G lucose 112 H, Calcium 8.3 L Micro: Microbiology 06/29/23 10:00 Blood Culture (Wb) - Left Forearm Blood Culture - Final No growth in 5 days. 06/29/23 08:19 Blood Culture (Wb) - Anticubital Left Bacteria Detection (PCR) - Final Staphylococcus epidermidis 06/29/23 08:19 Blood Culture (Wb) - Anticubital Left Blood Culture - Final Coag Negative Staph Physical Exam Narrative Alert and oriented x 3, no apparent distress. Hard of hearing S1, S2, rate controlled Lung sounds diminished Abdomen soft, nontender Trace edema b/l LE Assessment & Plan Assessment/Plan (1) Acute kidney injury: (2) Hyperkalemia: (3) Hyponatremia: PLAN: Plan This is a 77-year-old female with past medical history significant for hypertension, hyperlipidemia, chronic A-fib, history of aortic stenosis, history of amyloidosis, history of elevated serum immunoglobulin free light chains, followed by Dr. High (skeletal survey no lytic or sclerotic bone lesions May 2020), cardiomyopathy, peripheral artery disease status post iliac artery occlusion who presented to emergency room yesterday with complaints of feeling unwell, poor oral intake, dyspnea on exertion, jaundice appearing. Admitted due to elevated LFTs, GREGORY. Nephrology consulted in view of elevated serum creatinine, elevated potassium and hyponatremia. - Acute kidney injury. On admission serum creatinine 2.28, patient was started on gentle IV fluids, today her creatinine is 0.39. GREGORY likely in setting of poor oral intake and hypotension, with volume expansion and improvement of hemodynamics serum creatinine has improved and GREGORY resolved. Patient is nonoliguric. Noncontrast CT showed normal right and left kidney. UA negative for blood, 30 protein. Patient has normal baseline creatinine -Hypokalemia; resolved. On regular diet. -Hyponatremia. Likely hypovolemic. Patient has normal baseline sodium levels. Sodium was 121 on admission. Today her sodium is 130. Patient was on IVF, now on lasix. Patient is tolerating oral intake. -Abnormal LFTs, MRCP did not show any stones, surgery team signed off.
[2023-07-05 12:20] VITALS: BP 125/94; PULSE 121; RESP 18; TEMP 36.3; O2SAT 97
[2023-07-05 13:29] LABS: Pathologist Review Reviewed
--- NOTE | 2023-07-05 15:46 | CASEMGMT ---
BILL SMITH note: E-mail received from Kurtis @ [facility]. She spoke w/Brooklynn (granddaughter) and she is agreeable to Palliative but that she informed them they had to go through Ananya for consent signing. They have a call out to Ananya and awaiting a call back. Jayde DU, made aware. Gui ADAMS RN CM
[2023-07-05 15:50] VITALS: BP 108/84; PULSE 112; RESP 18; TEMP 36.5; O2SAT 96
[2023-07-05 20:38] VITALS: BP 113/64; PULSE 96; RESP 18; TEMP 36.2; O2SAT 97
[2023-07-05] MEDS: Senna/Docusate Sodium 1 Tablet 2 TABLET PO (20:46)
[2023-07-06 00:03] VITALS: BP 122/91; PULSE 113
[2023-07-06] MEDS: dilTIAZem 30 MG Tablet PO ×2 (00:06→05:46)
[2023-07-06 03:30] VITALS: BP 116/96; PULSE 116; RESP 18; TEMP 36.1; O2SAT 96
[2023-07-06 05:42] VITALS: BP 119/89; PULSE 115; BMI 25.1
[2023-07-06 07:44] LABS: Absolute Neutrophil Count 14.7 X10^3/uL (2.0-7.7); Basophil# 0.05 X10^3/uL; Basophil% 0.3 % (0-1); Eosinophils% 0.5 % (0-5); Hematocrit 40.5 % (37-47); Hemoglobin 12.7 g/dL (12.0-15.0); Lymphocyte % 10.1 % (19-41); Mean Corp Hgb Conc 31.4 g/dL (32-36); Mean Corpuscular Hgb 28.8 pg (27.0-32.0); Mean Corpuscular Volume 91.8 fL (81-99); Monocyte# 1.85 X10^3/uL; Monocyte% 9.8 % (0-10); NRBC Flagged by Analyzer 0 % (0-5); Neutrophil # 14.68 X10^3/uL (2.7-7.7); Neutrophil % 77.9 % (47-70); POSITIVE DIFFERENTIAL YES; Platelet Count 380 K/mm3 (150-450); RBC Distribution Width CV 14.7 % (11.6-14.6); RBC Distribution Width SD 49.3 fl (35.1-43.9); Red Blood Count 4.41 M/mm3 (4.2-5.4); White Blood Count 18.9 K/mm3 (4.4-11.0)
--- NOTE | 2023-07-06 07:46 | PCM.PN.CARD ---
Subjective Subjective Patient reports no pain this morning. She is resting comfortably at 30 degrees in the bed. She denies any palpitations but her heart rate is in the 1 18-1 20 range on the monitor in atrial fibrillation. She did not receive her dose of Tenormin last evening we will blood pressure 91/60. The patient's blood pressure this morning was back up to where it has been in the 110-120 systolic range. She is due to get her Cardizem CD started today. Primary service is still working on determining her hospice status with her family member Ananya. Objective Data Vital Signs: Vital Signs Temp Pulse Resp BP Pulse Ox O2 Del Method 97.0 F L 115 H 18 119/89 H 96 Room Air 07/06/23 03:30 07/06/23 05:42 07/06/23 03:30 07/06/23 05:42 07/06/23 03:30 07/06/23 03:31 Oxygen Delivery Method Room Air Weight: 128 lb 8.472 oz Body Mass Index (BMI) 25.1 Intake & Output: Intake and Output for Last 24 Hours 07/04/23 07/05/23 07/06/23 23:59 23:59 23:59 Intake Total 577.29 / 697.29 600 / 600 Output Total 1850 / 2050 2350 / 2350 Balance -1272.71 / -1352.71 -1750 / -1750 Lab / Micro Data Attestation: I reviewed the patient's lab results. 07/05/23 05:30 07/05/23 05:30 Labs: Laboratory Results - last 24 hr 07/04/23 06:15: Diff Path Review Reviewed 07/05/23 05:30: Diff Path Review June Rhythm Strip Rhythm Strip: A-fib Rate: 120 Cardiology Labs/Tests Rhythm: EKG: ECHO: Stress Test: Cardiac Cath: PCI: CT Surgery: Holter monitor: EPS: PPM: CXR: Chest CT Scan: Physical Exam Const alert HEENT normocephalic Neck no JVD Chest Chest: pectus carninatum Resp normal respiratory effort Auscultation: crackles bilateral base Cardio Rate: tachycardic Rhythm: abnormal rhythm irregularly irregular Heart Sounds: S1 normal, S2 normal and murmur systolic III/ high-pitched left sternal border and right sternal border to the neck; Negative for gallop Extremity General Extremity: edema bilateral upper extremity mild and lower extremity Details: moderate Skin General Skin Exam: ecchymosis Psych cooperative Assessment & Plan Assessment/Plan (1) Atrial fibrillation with rapid ventricular response: PLAN: He had the Cardizem CD this morning. And start the Tenormin 25 mg every morning at 1000 hrs. Will have hold parameters for heart rate less than 55 or systolic less than 95. PLAN: Plan Await decision by the primary service and Ananya on disposition. Charges/Coding Visit Charges Inpatient E&M: 08480 Subs Hosp L1
[2023-07-06 07:55] LABS: Anion Gap 8 (5-15); BUN 11 mg/dL (7-18); BUN/Creat Ratio 17.5 RATIO (10-20); Calcium,Total 8.6 mg/dL (8.5-10.1); Chloride 95 mmol/L (98-107); Creatinine, Serum 0.63 mg/dL (0.55-1.02); EST Glomerular Filtration Rate 97 mL/min (>60); Est Glom Filt Rate - Afr Amer 117 mL/min (>60); Estimated Creatinine Clearance 45.57 ml/min; Glucose 97 mg/dL (74-106); Potassium 4.2 mmol/L (3.5-5.1); Sodium Level 130 mmol/L (136-145)
[2023-07-06 08:05] LABS: Differential Indicated SCAN CRITERIA MET
[2023-07-06] MEDS: Multivitamins,Therapeutic Tablet 1 TABLET PO (08:18)
[2023-07-06] MEDS: dilTIAZem CD 120 MG Capsule PO (08:19)
[2023-07-06] MEDS: Digoxin 250 MCG Tablet PO (08:20)
[2023-07-06] MEDS: Iron Polysaccharide Complex 150 MG CAPSULE PO (08:20)
--- NOTE | 2023-07-06 09:47 | RAD_ITS ---
STUDY: X-RAY CHEST REASON FOR EXAM: Female, 77 years old. Left pleural effusion follow-up. TECHNIQUE: Single frontal view of the chest. COMPARISON: July 02, 2023 FINDINGS: Stable cardiomegaly, prominent central pulmonary arteries and marked aortic tortuosity with calcification. Stable marked calcification of the mitral annulus. Bilateral pleural effusions, left greater than right, relatively unchanged, allowing for technique, with compression atelectasis of both lower lobes, left greater than right. Marked osteopenia with mild dextroscoliosis and diffuse moderate thoracic spondylosis. No abnormality of the visualized soft tissue structures of the upper abdomen. RAD/Chest 1 View (Portable) IMPRESSION: Stable chest with pleural effusions, left greater than right. No acute finding. Electronically Signed: Maik Bro MD at 10:09 EDT ,
[2023-07-06 10:00] VITALS: BP 102/74; PULSE 80; RESP 16; TEMP 36.4; O2SAT 97
--- NOTE | 2023-07-06 10:02 | PCM.PN.HOSP ---
Subjective Subjective Doing well, remains tachycardic but blood pressures are little bit better today Objective Data Objective Data Vital Signs: Vital Signs Temp Pulse Resp BP Pulse Ox O2 Del Method 97.0 F L 115 H 18 119/89 H 96 Room Air 07/06/23 03:30 07/06/23 05:42 07/06/23 03:30 07/06/23 05:42 07/06/23 03:30 07/06/23 03:31 Oxygen Delivery Method Room Air Weight: 128 lb 8.472 oz Body Mass Index (BMI) 25.1 Intake & Output: Intake and Output for Last 24 Hours 07/05/23 07/06/23 07/07/23 03:59 03:59 03:59 Intake Total 647.29 / 647.29 480 / 480 Output Total 2049 / 2049 2149 / 2149 Balance -1402.71 / -1402.71 -1670 / -1670 Medical Nutrition Assessment Dietitian: Malnutrition Criteria Met Start: 06/29/23 11:35 Freq: Status: Active Protocol: Document 06/29/23 11:35 (Rec: 06/29/23 11:35 [id number]) Nutrition Malnutrition Evidence of Malnutrition Exists Yes Malnutrition (severe): Acute Illness/Injury Evidenced By Suboptimal Energy Intake ( Severe),Weight Loss (Severe) Clinical Problem Acute Disease or Injury Related Malnutrition Etiology severe acute malnutrition related to inadequate energy intake Signs/Symptoms as evidenced by unintentional 4% wt loss, estimated PO intake meeting <50% of estimated energy needs > 1 week Status Active Problem Recommendation Dietitian Recommendations/Changes recommend regular/no added salt diet as tolerated; Ensure w/ medpass when PO diet is advanced. Consider PASTING MACHINE OPERATOR eval if issues chewing/swallowing. Lab / Micro Data 07/06/23 06:05 07/06/23 06:05 Labs: Laboratory Results - last 24 hr 07/04/23 06:15: Diff Path Review Reviewed 07/06/23 06:05: WBC 18.9 H, RBC 4.41, Hgb 12.7, Hct 40.5, MCV 91.8, MCH 28.8, MCHC 31.4 L, RDW Std Deviation 49.3 H, RDW Coeff of Lobo 14.7 H, Plt Count 380, MPV 9.0, Immature Gran % (Auto) 1.400 H, Neut % (Auto) 77.9 H, Lymph % (Auto) 10.1 L, [place] % (Auto) 9.8, Eos % (Auto) 0.5, Baso % (Auto) 0.3, Absolute Neuts (auto) 14.7 H, Absolute Lymphs (auto) 1.90, Nucleated RBC % 0, Sodium 130 L, Potassium 4.2, Chloride 95 L, Carbon Dioxide 27.0, Anion Gap 8, BUN 11, Creatinine 0.63, Estim Creat Clear Calc 45.57, Est GFR (MDRD) Af Amer 117, Est GFR (MDRD) Non-Af 97, BUN/Creatinine Ratio 17.5, Glucose 97, Calcium 8.6 Micro: Microbiology 06/29/23 10:00 Blood Culture (Wb) - Left Forearm Blood Culture - Final No growth in 5 days. 06/29/23 08:19 Blood Culture (Wb) - Anticubital Left Bacteria Detection (PCR) - Final Staphylococcus epidermidis 06/29/23 08:19 Blood Culture (Wb) - Anticubital Left Blood Culture - Final Coag Negative Staph Rhythm Strip Rhythm Strip: A-fib Rate: 120 Physical Exam Narrative General: Alert, Oriented x3, Cooperative, No apparent distress HEENT: Atraumatic, PERRLA, EOMI, Normocephalic Oral: Moist Mucosa Neck: Supple, No JVD Lungs: Diminished left greater than right, Normal air movement, No rhonchi, No wheeze, No rales Cardiovascular: Irregular rate and rhythm, Normal S1, Normal S2, DMITRI Abdomen: Soft, Non Tender, Non-Distended, No Hepato-splenomegaly Extremities: Edema, Capillary Refill Less than 3 Seconds Skin: No rashes, No breakdown Musculoskeletal: No Tenderness to Palpation of Joints or Extremities Neurological: No focal neurological deficits, Motor Exam 5/5 strength throughout, Sensory exam intact to light touch and pain Psych/Mental Status: Normal Affect, Appropriate Assessment & Plan Assessment/Plan (1) Acute liver failure due to hepatitis virus: (2) Abnormal LFTs: (3) Atrial fibrillation with rapid ventricular response: (4) Acute kidney injury: (5) Hyponatremia: (6) CHF (congestive heart failure): QUALIFIERS: Heart failure type: unspecified Heart failure chronicity: unspecified Qualified Code(s): I50.9 - Heart failure, unspecified (7) Amyloidosis: QUALIFIERS: Amyloidosis type: unspecified amyloidosis Qualified Code(s): E85.9 - Amyloidosis, unspecified PLAN: Plan 1. Acute liver injury, exact etiology unclear: Patient is admitted in ICU. Labs shows total bilirubin of 2.7 mg/dL (direct bilirubin 2.04 mg/dL) AST of 832 units/L, ALT of 869 units/L and alkaline phosphatase of 398 units/L and leukocytosis of 17.5 K with right upper quadrant sonogram showing GB wall thickening with pericholecystic fluid but no abdominal pain or gallstones therefore possible acalculous cholecystitis. INR high 2.0 but patient was on Xarelto more than a week ago therefore probably from acute liver injury. Blood cultures x 2 ordered. Empirically started on IV Zosyn after blood cultures. Discussed with ICU nursing staff. Give Zofran IV prn. Patient evaluated by surgeon and GI consulted. 06/29:Improvement in liver chemistry. Total bilirubin normal. It was mainly obstructive. Transaminases also improving. Alkaline phosphatase similar. GGT elevated. Autoimmune markers ordered. Patient stated she never had any liver, biliary or pancreatic disease in the life. Patient was started on acetylcysteine drip. 06/30: Liver chemistry shows elevated AST ALT GGT improving trend, total bili and direct normal. Blood culture shows coagulase-negative staph, Staph epidermidis skin contaminated therefore no indication for treatment. 07/01:Liver chemistry ALT AST alkaline phosphatase improving. Total bilirubin normal. 07/02: ALT AST and total bilirubin improving. Total bilirubin normal for last 3 days. 07/03: Liver chemistry improving. Total bilirubin normal. Patient has leukocytosis after the trend showed improvement to 16,000 on 07/01. Clinically patient does not have fever or seems infectious. Probably inflammatory 07/05/2023: LFTs are improving however her leukocytosis remains elevated initial thoughts were this is likely inflammatory however she was continued on antibiotics will discontinue antibiotics and see what her leukocytosis does 07/06/2023: White blood cell count dropped a little bit today, will obtain a UA and a chest x-ray if these are normal then can proceed with discharge to the snf 2. Atrial fibrillation with RVR, nonadherent to metoprolol and Xarelto: Tachycardia did not respond to multiple doses of Cardizem bolus therefore started on Cardizem drip currently at 15 mg/h. Also added digoxin 125 mg IV. Metoprolol succinate changed to metoprolol tartrate 25 mg every 8 hourly. 2D echo is ordered. [employer] Founder is consulted 06/29: Heart rate is controlled. Echo on 06/28 shows EF 70% moderate asymmetric septal hypertrophy, small LV cavity. LA severely enlarged. 1-2+ MR, moderate to severe aortic stenosis. Moderately severe TR, PASP 50 mmHg 06/30: Patient is still A-fib RVR 120 permanent. physicist nuclear he got Biaxin 250 mg IV. Patient has hypocalcemia 7.3, corrected calcium 8.6 therefore low normal. IV calcium gluconate 2 g ordered. Keep potassium more than 4.0, magnesium 2.0 and calcium around 9.0 to avoid arrhythmia from digoxin 07/01: A-fib with RVR with hypotension: Patient on Lasix, discontinued. IV fluid normal saline 1 L bolus ordered. Patient also has critically low hypokalemia, 2.5 therefore oral KDUR and IV potassium r potassium phosphate ordered. Recheck BMP in 4 hours. When potassium is optimized, we can resume digoxin to 50 mg IV. Discussed with the banking management consulting manager Around 11:00 her blood pressure in systolic 80s heart rate 120. Had 80 mEq of potassium supplement and IV potassium phosphate infusion. After the replacement, IV digoxin 500 mcg 1 dose ordered. Patient is DNR CC and will send about the hospice care but want her granddaughter to be also in agreement. I called Ananya de la fuente left voice message to call back discussed with the banking management consulting manager also. Metoprolol changed to atenolol as it Laun has renal clearance and is not metabolized by the liver. 07/02: Heart rate controlled in 70s, A-fib. Blood pressure yesterday was 110 but today upper 90s probably due to rate control medications. On atenolol 25 mg daily, Cardizem 30 mg every 6 hourly, and digoxin 250 mcg daily. Electrolytes in normal range. Serum potassium phosphorus magnesium in normal range. 07/03: Heart rate and blood pressure are controlled. Lasix 20 mg IV ordered for generalized swelling. Magnesium 1.6 low normal continue magnesium supplement. Phosphorus low 2.3, Neutra-Phos ordered. 07/05/2023: Appreciate cardiology's assistance she has intermittent hypotensive episodes and so medications are held periodically will continue to monitor and adjust 07/06/2023: Will change her Cardizem from 30 every 6 hours to 120 mg daily 3. GREGORY: Patient had normal creatinine back in June 2020 after that unclear about his renal status. Admitted with creatinine 2.28 currently 1.7.Hyperkalemia, hyponatremia with high anion gap metabolic acidosis. CT reported normal right and left kidney and normal urinary bladder. Nephrology is consulted. 06/29: BUNs/creatinine 47/0.98. GREGORY resolved. 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 AE CHF; evidenced by chest x-ray that revealed a left pleural effusion with cardiomegaly and an elevated BNP of 1,126.8 pg/mL present on admission- Give Lasix 40 mg IV daily plus supplemental magnesium. 07/01: Lungs air entry diminished but no crepitation. Lasix discontinued because of hypotension. 5. Severe hyponatremia of 121 mmol/L present on admission likely due to water intoxication - Give NS IVF and then recheck BMP q. 6 hours to ensure correction of no more than 8-10 mmol/L per 24 hours. Check serum and urine osmolality. 06/29: Sodium improved from 121-127 in over 2 days. 06/30: Serum sodium 129. 07/01: Sodium 132. 07/02: Serum sodium corrected, 136. 2124: Serum sodium today is 130, appreciate nephrology's assistance 6 tobacco abuse - Tobacco cessation will be strongly encouraged with nicotine patch offered to control cravings. 8. Essential hypertension - Restart home regimen plus give IV hydralazine as needed for systolic blood pressure greater than 160 mmHg. 9. History aortic stenosis, ventricular hypertrophy and cardiomyopathy - Echocardioram pending this admission. 10. Hyperlipidemia - No statin with transaminitis but we will check Lipid Profile. 11. Overweight; BMI 26 this admission - Weight loss will be recommended. 12. Amyloidosis - Noted. Awaiting CT results. 13. PAD; status post iliac artery occlusion - Stable. DVT: SCDs
[2023-07-06 10:12] LABS: Differential Comment SCANNED
[2023-07-06] MEDS: Menthol/Lanolin/Calamine/Znox 113 GM Tube 1 APPLIC TOPICAL (10:12)
[2023-07-06] MEDS: Atenolol 25 MG Tablet PO (10:13)
[2023-07-06] MEDS: Senna/Docusate Sodium 1 Tablet 2 TABLET PO (10:13)
[2023-07-06] MEDS: Magnesium Chloride 64 MG Delay Rel.Tablet 128 MG PO (10:13)
[2023-07-06] MEDS: Na Biphos/Potassium Phosphate PACKET 1 PACKET PO (10:14)
[2023-07-06] MEDS: Furosemide 20 MG Tablet PO (10:17)
[2023-07-06 10:36] LABS: Pathologist Review Reviewed
[2023-07-06 12:56] LABS: Red Blood Cells-Urine 0 SEEN /hpf (0-5)
[2023-07-06 13:00] LABS: Color, Urine Yellow (Yellow); Glucose, Dipstick 250 mg/dl (Normal); Ketone-Dipstick Negative (Negative); Leukocyte Esterase-Dipstick 100 /ul (Negative); Nitrite-Dipstick Negative (Negative); Occult Blood-Urine Negative /ul (Negative); Protein-Dipstick 30 mg/dl (Negative); Urine Bilirubin Dipstick Negative (Negative); Urine Clarity Sl. Cloudy (Clear); Urine Urobilinogen Normal (Normal)
[2023-07-06 13:20] LABS: Squamous Epithelial Cells - UA 5-10 SEEN /hpf (5-10); White Blood Cells 10-25 SEEN /hpf (0-5)
[2023-07-06 13:21] LABS: Bacteria 1+ /hpf (None Seen); Mucous, Urine 1+ /hpf (<or=2+); Yeast-Urine 1+ /hpf (None Seen)
--- NOTE | 2023-07-06 14:55 | TREXTCAR_ITS ---
Diet Diet Order/Speech Therapy: 06/29/23 12:15 Diet: Cardiac - Heart Healthy Is pt able to select menu?: Yes Routine Orders/Code Status Routine Lab Work: CBC and BMP Code Status: DNRCC Therapies Occupational Therapy: Eval and Treat Speech Therapy: Eval and Treat Problem/Diagnosis (1) Acute liver failure due to hepatitis virus: Status: Acute Code(s): K72.00 - Acute and subacute hepatic failure without coma; B19.9 - Unspecified viral hepatitis without hepatic coma (2) Abnormal LFTs: Status: Acute Code(s): R79.89 - Other specified abnormal findings of blood chemistry (3) Atrial fibrillation with rapid ventricular response: Status: Acute Code(s): I48.91 - Unspecified atrial fibrillation (4) Acute kidney injury: Status: Acute Code(s): N17.9 - Acute kidney failure, unspecified (5) Hyponatremia: Status: Acute Code(s): E87.1 - Hypo-osmolality and hyponatremia (6) CHF (congestive heart failure): Status: Acute Code(s): I50.9 - Heart failure, unspecified (7) Amyloidosis: Status: Acute Code(s): E85.9 - Amyloidosis, unspecified Plan 1. Acute liver injury, exact etiology unclear: Patient is admitted in ICU. Labs shows total bilirubin of 2.7 mg/dL (direct bilirubin 2.04 mg/dL) AST of 832 units/L, ALT of 869 units/L and alkaline phosphatase of 398 units/L and leukocytosis of 17.5 K with right upper quadrant sonogram showing GB wall thickening with pericholecystic fluid but no abdominal pain or gallstones therefore possible acalculous cholecystitis. INR high 2.0 but patient was on Xarelto more than a week ago therefore probably from acute liver injury. Blood cultures x 2 ordered. Empirically started on IV Zosyn after blood cultures. Discussed with ICU nursing staff. Give Zofran IV prn. Patient evaluated by surgeon and GI consulted. 06/29:Improvement in liver chemistry. Total bilirubin normal. It was mainly obstructive. Transaminases also improving. Alkaline phosphatase similar. GGT elevated. Autoimmune markers ordered. Patient stated she never had any liver, biliary or pancreatic disease in the life. Patient was started on acetylcysteine drip. 06/30: Liver chemistry shows elevated AST ALT GGT improving trend, total bili and direct normal. Blood culture shows coagulase-negative staph, Staph epidermidis skin contaminated therefore no indication for treatment. 07/01:Liver chemistry ALT AST alkaline phosphatase improving. Total bilirubin normal. 07/02: ALT AST and total bilirubin improving. Total bilirubin normal for last 3 days. 07/03: Liver chemistry improving. Total bilirubin normal. Patient has leukocytosis after the trend showed improvement to 16,000 on 07/01. Clinically patient does not have fever or seems infectious. Probably inflammatory 07/05/2023: LFTs are improving however her leukocytosis remains elevated initial thoughts were this is likely inflammatory however she was continued on antibiotics will discontinue antibiotics and see what her leukocytosis does 07/06/2023: White blood cell count dropped a little bit today, will obtain a UA and a chest x-ray if these are normal then can proceed with discharge to the halfway 2. Atrial fibrillation with RVR, nonadherent to metoprolol and Xarelto: Tachycardia did not respond to multiple doses of Cardizem bolus therefore started on Cardizem drip currently at 15 mg/h. Also added digoxin 125 mg IV. Metoprolol succinate changed to metoprolol tartrate 25 mg every 8 hourly. 2D echo is ordered. Interior Design Director is consulted 06/29: Heart rate is controlled. Echo on 06/28 shows EF 70% moderate asymmetric septal hypertrophy, small LV cavity. LA severely enlarged. 1-2+ MR, moderate to severe aortic stenosis. Moderately severe TR, PASP 50 mmHg 06/30: Patient is still A-fib RVR 120 permanent. medical transport specialist he got Biaxin 250 mg IV. Patient has hypocalcemia 7.3, corrected calcium 8.6 therefore low normal. IV calcium gluconate 2 g ordered. Keep potassium more than 4.0, magnesium 2.0 and calcium around 9.0 to avoid arrhythmia from digoxin 07/01: A-fib with RVR with hypotension: Patient on Lasix, discontinued. IV fluid normal saline 1 L bolus ordered. Patient also has critically low hypokalemia, 2.5 therefore oral KDUR and IV potassium r potassium phosphate ordered. Recheck BMP in 4 hours. When potassium is optimized, we can resume digoxin to 50 mg IV. Discussed with the wood stock blank handler Around 11:00 her blood pressure in systolic 80s heart rate 120. Had 80 mEq of potassium supplement and IV potassium phosphate infusion. After the replacement, IV digoxin 500 mcg 1 dose ordered. Patient is DNR CC and will send about the hospice care but want her granddaughter to be also in agreement. I called granddaughterAnnaya left voice message to call back discussed with the wood stock blank handler also. Metoprolol changed to atenolol as it Laun has renal clearance and is not metabolized by the liver. 07/02: Heart rate controlled in 70s, A-fib. Blood pressure yesterday was 110 but today upper 90s probably due to rate control medications. On atenolol 25 mg daily, Cardizem 30 mg every 6 hourly, and digoxin 250 mcg daily. Electrolytes in normal range. Serum potassium phosphorus magnesium in normal range. 07/03: Heart rate and blood pressure are controlled. Lasix 20 mg IV ordered for generalized swelling. Magnesium 1.6 low normal continue magnesium supplement. Phosphorus low 2.3, Neutra-Phos ordered. 07/05/2023: Appreciate cardiology's assistance she has intermittent hypotensive episodes and so medications are held periodically will continue to monitor and adjust 07/06/2023: Will change her Cardizem from 30 every 6 hours to 120 mg daily 3. GREGORY: Patient had normal creatinine back in June 2020 after that unclear about his renal status. Admitted with creatinine 2.28 currently 1.7.Hyperkalemia, hyponatremia with high anion gap metabolic acidosis. CT reported normal right and left kidney and normal urinary bladder. Nephrology is consulted. 06/29: BUNs/creatinine 47/0.98. GREGORY resolved. 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 AE CHF; evidenced by chest x-ray that revealed a left pleural effusion with cardiomegaly and an elevated BNP of 1,126.8 pg/mL present on admission- Give Lasix 40 mg IV daily plus supplemental magnesium. 07/01: Lungs air entry diminished but no crepitation. Lasix discontinued because of hypotension. 5. Severe hyponatremia of 121 mmol/L present on admission likely due to water intoxication - Give NS IVF and then recheck BMP q. 6 hours to ensure correction of no more than 8-10 mmol/L per 24 hours. Check serum and urine osmolality. 06/29: Sodium improved from 121-127 in over 2 days. 06/30: Serum sodium 129. 5/17: Sodium 132. 5/18: Serum sodium corrected, 136. 2124: Serum sodium today is 130, appreciate nephrology's assistance 6 tobacco abuse - Tobacco cessation will be strongly encouraged with nicotine patch offered to control cravings. 8. Essential hypertension - Restart home regimen plus give IV hydralazine as needed for systolic blood pressure greater than 160 mmHg. 9. History aortic stenosis, ventricular hypertrophy and cardiomyopathy - Echocardioram pending this admission. 10. Hyperlipidemia - No statin with transaminitis but we will check Lipid Profile. 11. Overweight; BMI 26 this admission - Weight loss will be recommended. 12. Amyloidosis - Noted. Awaiting CT results. 13. PAD; status post iliac artery occlusion - Stable. DVT: SCDs Allergies/Procedures Done in Hospital Allergies Sulfa (Sulfonamide Antibiotics) Allergy (Verified 06/28/23 19:55) Hives Procedures: 2-D Echocardiogram Type of Care/Length of Stay Estimated LOS: Convalescent Care Less Than 30 days Type of Care Needed: Skilled Rehab Potential: Good Prognosis: Good Additional Orders/Day of Discharge Day of Discharge: 07/06/23 Dietary and Speech Recommendations Dietitian Recommendations/Changes: Continue with Cardiac - Heart Healthy diet. Will continue Ensure Plus High Protein 120mL TID w/ medpass, d/c as PO at meals improves. Discharge Plan Admission Admit Date/Time: 06/29/23 01:52 Attending Provider: Wicho Palacios Primary Care Provider: Care Physician,No Primary Consulting Providers: Ludwin James; Neil Hamlin; Kyle Villafana; Mick Ridley; Robb No Discharge Orders/Prescriptions Prescriptions: New atenolol 25 mg Tablet 25 mg PO DAILY Qty: 0 0RF digoxin 250 mcg (0.25 mg) Tablet 250 mcg PO DAILY@0800 Qty: 0 0RF diltiazem HCl 120 mg Capsule,Extended Release 24hr 120 mg PO DAILY Qty: 0 0RF furosemide 20 mg Tablet 20 mg PO DAILY Qty: 0 0RF Continued rivaroxaban 15 mg tablet 15 mg PO DAILY Rx Instructions: must administer with evening meal polysaccharide iron complex [Ferrex 150] 150 mg iron capsule 150 mg PO BID Qty: 60 3RF Discontinued cholecalciferol (vitamin D3) 50 mcg (2,000 unit) tablet,chewable 50 mcg PO DAILY metoprolol succinate 25 mg tablet extended release 24 hr 25 mg PO DAILY multivitamin Tablet 1 tab PO DAILY cholecalciferol (vitamin D3) 1,250 mcg (50,000 unit) capsule 1,250 mcg PO QMONTH atorvastatin [Lipitor] 10 mg tablet 10 mg PO DAILY Referrals / Follow Up: Care Physician,No Primary [Primary Care Provider] - Eben Nieto [employer] OPERATOR, [employer]ATOR-[employer] [Non-Staff] - Disposition Disposition (needs filled in before D/C Order can be placed): [facility] Facility (6) CHF (congestive heart failure) Qualifiers: Heart failure type: unspecified Heart failure chronicity: unspecified Qualified Code(s): I50.9 - Heart failure, unspecified (7) Amyloidosis Qualifiers: Amyloidosis type: unspecified amyloidosis Qualified Code(s): E85.9 - Amyloidosis, unspecified
--- NOTE | 2023-07-06 15:21 | PHA.DC.MR.R ---
Pharmacy [place] Med Reconciliation Pharmacy Service has performed discharge medication reconciliation for this patient. The patient's discharge medication list was reviewed for discrepancies and discrepancies were resolved. Medications at Discharge Home Medications rivaroxaban 15 mg tablet 15 mg PO DAILY 06/28/20 polysaccharide iron complex 150 mg iron capsule (Ferrex) 150 mg PO BID #60 caps 07/12/20 atenolol 25 mg tablet 25 mg PO DAILY #0 tabs 07/06/23 digoxin 250 mcg (0.25 mg) tablet 250 mcg PO DAILY@0800 #0 tabs 07/06/23 diltiazem HCl 120 mg capsule,extended release 24 hr 120 mg PO DAILY #0 caps 07/06/23 furosemide 20 mg tablet 20 mg PO DAILY #0 tabs 07/06/23
--- NOTE | 2023-07-06 15:35 | PCM.DC.SUM ---
Providers Date of Admission: 06/29/23 Primary Care Physician: Kimberley Primary Care Phys Consultations 06/29/23 02:05 Consult: Gastroenterology Routine Consulting Provider: Tree[facility] Reason for Consult: Acute liver failure suspicious for acute viral hepatitis EMERGENT Consult: No Notified: Yes Date Notified: 06/29/23 Time Notified: 17:09 Method of Notification: Verbal Consult: General Surgery Routine Consulting Provider: Kyle Villafana Reason for Consult: Abnormal right upper quadrant ultrasound EMERGENT Consult: No Notified: Yes Date Notified: 06/29/23 Time Notified: 01:59 Method of Notification: Answering Service 06/29/23 09:00 Consult: Cardiology Routine Consulting Provider: Neil Hamlin Reason for Consult: A-fib RVR on Cardizem drip. EMERGENT Consult: No Notified: Yes Date Notified: 06/29/23 Time Notified: 09:00 Method of Notification: Text 06/29/23 09:14 Consult: Nephrology Routine Consulting Provider: Mick Ridley Reason for Consult: Hyponatremia, hyperkalemia, GREGORY EMERGENT Consult: No Notified: Yes Date Notified: 06/29/23 Time Notified: 09:14 Method of Notification: Text Reason For Visit: ACUTE LIVER FAILURE WITH JAUNDICE, A-FIB WITH RVR, Diagnosis Discharge Diagnosis (1) Acute liver failure due to hepatitis virus: Status: Acute Code(s): K72.00 - Acute and subacute hepatic failure without coma; B19.9 - Unspecified viral hepatitis without hepatic coma (2) Abnormal LFTs: Status: Acute Code(s): R79.89 - Other specified abnormal findings of blood chemistry (3) Atrial fibrillation with rapid ventricular response: Status: Acute Code(s): I48.91 - Unspecified atrial fibrillation (4) Acute kidney injury: Status: Acute Code(s): N17.9 - Acute kidney failure, unspecified (5) Hyponatremia: Status: Acute Code(s): E87.1 - Hypo-osmolality and hyponatremia (6) CHF (congestive heart failure): Status: Acute Code(s): I50.9 - Heart failure, unspecified Qualifiers: Heart failure type: unspecified Heart failure chronicity: unspecified Qualified Code(s): I50.9 - Heart failure, unspecified (7) Amyloidosis: Status: Acute Code(s): E85.9 - Amyloidosis, unspecified Qualifiers: Amyloidosis type: unspecified amyloidosis Qualified Code(s): E85.9 - Amyloidosis, unspecified Medications at Discharge Home Medications rivaroxaban 15 mg tablet 15 mg PO DAILY 06/28/20 polysaccharide iron complex 150 mg iron capsule (Ferrex) 150 mg PO BID #60 caps 07/12/20 atenolol 25 mg tablet 25 mg PO DAILY #0 tabs 07/06/23 digoxin 250 mcg (0.25 mg) tablet 250 mcg PO DAILY@0800 #0 tabs 07/06/23 diltiazem HCl 120 mg capsule,extended release 24 hr 120 mg PO DAILY #0 caps 07/06/23 furosemide 20 mg tablet 20 mg PO DAILY #0 tabs 07/06/23 Hospital Course Operations None Procedures 2-D Echocardiogram Summary of Care Provided Minutes Spent on Discharge: 39 Hospital Course: Per HPI: ELYSE RUANO, is a 77 F with a past medical history of essential hypertension, hyperlipidemia, tobacco abuse, overweight; BMI 26 this admission, chronic atrial fibrillation; previously on rivaroxaban, history of aortic stenosis, history of ventricular hypertrophy, history of cardiomyopathy, amyloidosis, PAD; status post iliac artery occlusion, history of hysterectomy, osteoarthritis, medical noncompliance; with patient not taking any of her medications for the past few weeks who presents and DNR-CC CODE STATUS to [facility] ER complaining of dyspnea on exertion, heart racing, lower extremity edema and jaundice. Ms. Ruano reports her symptoms began more than 1 week prior to admission with a gradual onset of dyspnea on exertion that progressed to shortness of breath at rest. She also admits to weakness so severe she is now unable to walk along with intermittent palpitations. She informed the ER physician that she is prescribed Xarelto but she has been out of it for a while with her family indicating that it has been likely weeks since she has taken. She also admits to being out of her metoprolol. She does admit to drinking excessive amounts of water daily with significant bilateral lower extremity pitting edema but denies associated fever, chills, nausea, vomiting, chest pain, back pain or headache. In the ER the patient was initially noted to be in atrial fibrillation with rapid ventricular response requiring several doses of IV Cardizem followed by a Cardizem drip along with obvious jaundice appearance with total bilirubin of 2.7 mg/dL (direct bilirubin 2.04 mg/dL) AST of 832 units/L, ALT of 869 units/L and alkaline phosphatase of 398 units/L and leukocytosis of 17.5 K present on admission worrisome for acute hepatitis with Right upper quadrant ultrasound done in the ER showing gallbladder wall thickening and pericholecystic fluid but no gallstones or biliary dilatation with concern for possible viral hepatitis. She also had a chest x-ray that revealed a left pleural effusion with cardiomegaly and an elevated BNP of 1,126.8 pg/mL present on admission consistent with acute exacerbation of CHF compounded by GREGORY; with elevated serum creatinine of 2.28 mg/dL with a BUN of 79 mg/dL and hyperkalemia of 5.6 mmol/L present on admission worrisome for possible obstruction and/or GI bleed with CT of the abdomen and pelvis now ordered STAT to further assess her anatomy and ascertain why she is in multiorgan failure. In addition to all this the patient was also noted to be hyponatremic at 121 mmol/L suspected to be due to water intoxication. I spoke with the ER physician about consideration regarding transferring this patient to a tertiary care center due to this patient's medical complexity and advanced age. She was then admitted to the ICU for ongoing care for a stay that is expected to be greater than 2 midnights. Hospital Course: 1. Acute liver injury, exact etiology unclear: Patient is admitted in ICU. Labs shows total bilirubin of 2.7 mg/dL (direct bilirubin 2.04 mg/dL) AST of 832 units/L, ALT of 869 units/L and alkaline phosphatase of 398 units/L and leukocytosis of 17.5 K with right upper quadrant sonogram showing GB wall thickening with pericholecystic fluid but no abdominal pain or gallstones therefore possible acalculous cholecystitis. INR high 2.0 but patient was on Xarelto more than a week ago therefore probably from acute liver injury. Blood cultures x 2 ordered. Empirically started on IV Zosyn after blood cultures. Discussed with ICU nursing staff. Give Zofran IV prn. Patient evaluated by surgeon and GI consulted. 06/29:Improvement in liver chemistry. Total bilirubin normal. It was mainly obstructive. Transaminases also improving. Alkaline phosphatase similar. GGT elevated. Autoimmune markers ordered. Patient stated she never had any liver, biliary or pancreatic disease in the life. Patient was started on acetylcysteine drip. 06/30: Liver chemistry shows elevated AST ALT GGT improving trend, total bili and direct normal. Blood culture shows coagulase-negative staph, Staph epidermidis skin contaminated therefore no indication for treatment. 07/01:Liver chemistry ALT AST alkaline phosphatase improving. Total bilirubin normal. 07/02: ALT AST and total bilirubin improving. Total bilirubin normal for last 3 days. 07/03: Liver chemistry improving. Total bilirubin normal. Patient has leukocytosis after the trend showed improvement to 16,000 on 07/01. Clinically patient does not have fever or seems infectious. Probably inflammatory 07/05/2023: LFTs are improving however her leukocytosis remains elevated initial thoughts were this is likely inflammatory however she was continued on antibiotics will discontinue antibiotics and see what her leukocytosis does 07/06/2023: White blood cell count dropped a little bit today, UA was not significantly positive, does not explain the white count but will send for culture, chest x-ray is also unchanged. She is afebrile and is not producing any sputum. I discussed with her the plan for discharge and she expressed understanding the risk benefits of going to the [facility] and would like to go today to start on her rehab. Would recommend calling the hospital in 2 days to see if the urine culture has resulted. In the meantime she had been on Zosyn and Augmentin for 6 days so this could just be inflammation as was thought previously 2. Atrial fibrillation with RVR, nonadherent to metoprolol and Xarelto: Tachycardia did not respond to multiple doses of Cardizem bolus therefore started on Cardizem drip currently at 15 mg/h. Also added digoxin 125 mg IV. Metoprolol succinate changed to metoprolol tartrate 25 mg every 8 hourly. 2D echo is ordered. Sales And Service Associate is consulted 06/29: Heart rate is controlled. Echo on 06/28 shows EF 70% moderate asymmetric septal hypertrophy, small LV cavity. LA severely enlarged. 1-2+ MR, moderate to severe aortic stenosis. Moderately severe TR, PASP 50 mmHg 06/30: Patient is still A-fib RVR 120 permanent. bag maker he got Biaxin 250 mg IV. Patient has hypocalcemia 7.3, corrected calcium 8.6 therefore low normal. IV calcium gluconate 2 g ordered. Keep potassium more than 4.0, magnesium 2.0 and calcium around 9.0 to avoid arrhythmia from digoxin 07/01: A-fib with RVR with hypotension: Patient on Lasix, discontinued. IV fluid normal saline 1 L bolus ordered. Patient also has critically low hypokalemia, 2.5 therefore oral KDUR and IV potassium r potassium phosphate ordered. Recheck BMP in 4 hours. When potassium is optimized, we can resume digoxin to 50 mg IV. Discussed with the chief substation operator Around 11:00 her blood pressure in systolic 80s heart rate 120. Had 80 mEq of potassium supplement and IV potassium phosphate infusion. After the replacement, IV digoxin 500 mcg 1 dose ordered. Patient is DNR CC and will send about the hospice care but want her granddaughter to be also in agreement. I called granddaAnanya saucedo left voice message to call back discussed with the chief substation operator also. Metoprolol changed to atenolol as it Laun has renal clearance and is not metabolized by the liver. 07/02: Heart rate controlled in 70s, A-fib. Blood pressure yesterday was 110 but today upper 90s probably due to rate control medications. On atenolol 25 mg daily, Cardizem 30 mg every 6 hourly, and digoxin 250 mcg daily. Electrolytes in normal range. Serum potassium phosphorus magnesium in normal range. 07/03: Heart rate and blood pressure are controlled. Lasix 20 mg IV ordered for generalized swelling. Magnesium 1.6 low normal continue magnesium supplement. Phosphorus low 2.3, Neutra-Phos ordered. 07/05/2023: Appreciate cardiology's assistance she has intermittent hypotensive episodes and so medications are held periodically will continue to monitor and adjust 07/06/2023: She was given a dose of Cardizem 120 mg daily which she has tolerated, blood pressures are stable and her heart rate is back to normal. Will resume Xarelto as well as atenolol on discharge, will secondary with digoxin to 250 mcg daily with outpatient follow-up. 3. GREGORY: Patient had normal creatinine back in June 2020 after that unclear about his renal status. Admitted with creatinine 2.28 currently 1.7.Hyperkalemia, hyponatremia with high anion gap metabolic acidosis. CT reported normal right and left kidney and normal urinary bladder. Nephrology is consulted. 06/29: BUNs/creatinine 47/0.98. GREGORY resolved. 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 AE CHF; evidenced by chest x-ray that revealed a left pleural effusion with cardiomegaly and an elevated BNP of 1,126.8 pg/mL present on admission- Give Lasix 40 mg IV daily plus supplemental magnesium. 07/01: Lungs air entry diminished but no crepitation. Lasix discontinued because of hypotension. 5. Severe hyponatremia of 121 mmol/L present on admission likely due to water intoxication - Give NS IVF and then recheck BMP q. 6 hours to ensure correction of no more than 8-10 mmol/L per 24 hours. Check serum and urine osmolality. 06/29: Sodium improved from 121-127 in over 2 days. 06/30: Serum sodium 129. 07/01: Sodium 132. 07/02: Serum sodium corrected, 136. 07/05/2023: Serum sodium today is 130, appreciate nephrology's assistance 6 tobacco abuse - Tobacco cessation will be strongly encouraged with nicotine patch offered to control cravings. 8. Essential hypertension - Restart home regimen plus give IV hydralazine as needed for systolic blood pressure greater than 160 mmHg. 9. History aortic stenosis, ventricular hypertrophy and cardiomyopathy - Echocardioram pending this admission. 10. Hyperlipidemia - No statin with transaminitis but we will check Lipid Profile. 11. Overweight; BMI 26 this admission - Weight loss will be recommended. 12. Amyloidosis - Noted. Awaiting CT results. 13. PAD; status post iliac artery occlusion - Stable. DVT: SCDs Physical Exam Narrative General: Alert, Oriented x3, Cooperative, No apparent distress HEENT: Atraumatic, PERRLA, EOMI, Normocephalic Oral: Moist Mucosa Neck: Supple, No JVD Lungs: Diminished left greater than right, Normal air movement, No rhonchi, No wheeze, No rales Cardiovascular: Irregular rate and rhythm, Normal S1, Normal S2, DMITRI Abdomen: Soft, Non Tender, Non-Distended, No Hepato-splenomegaly Extremities: Edema, Capillary Refill Less than 3 Seconds Skin: No rashes, No breakdown Musculoskeletal: No Tenderness to Palpation of Joints or Extremities Neurological: No focal neurological deficits, Motor Exam 5/5 strength throughout, Sensory exam intact to light touch and pain Psych/Mental Status: Normal Affect, Appropriate Medical Records Data Medical Nutrition Assessment Dietitian: Malnutrition Criteria Met Start: 06/29/23 11:35 Freq: Status: Active Protocol: Document 06/29/23 11:35 AG (Rec: 06/29/23 11:35 [id number]) Nutrition Malnutrition Evidence of Malnutrition Exists Yes Malnutrition (severe): Acute Illness/Injury Evidenced By Suboptimal Energy Intake ( Severe),Weight Loss (Severe) Clinical Problem Acute Disease or Injury Related Malnutrition Etiology severe acute malnutrition related to inadequate energy intake Signs/Symptoms as evidenced by unintentional 4% wt loss, estimated PO intake meeting <50% of estimated energy needs > 1 week Status Active Problem Recommendation Dietitian Recommendations/Changes recommend regular/no added salt diet as tolerated; Ensure w/ medpass when PO diet is advanced. Consider POLITICAL ANTHROPOLOGIST eval if issues chewing/swallowing. Weight / BMI Weight Weight: 128 lb 8.472 oz Body Mass Index (BMI) 25.1 ABG / Lab / Microbiology Data 07/06/23 06:05 07/06/23 06:05 Laboratory: Laboratory Results - last 24 hr 07/05/23 05:30: Diff Path Review Reviewed 07/06/23 06:05: WBC 18.9 H, RBC 4.41, Hgb 12.7, Hct 40.5, MCV 91.8, MCH 28.8, MCHC 31.4 L, RDW Std Deviation 49.3 H, RDW Coeff of Lobo 14.7 H, Plt Count 380, MPV 9.0, Immature Gran % (Auto) 1.400 H, Neut % (Auto) 77.9 H, Lymph % (Auto) 10.1 L, [place] % (Auto) 9.8, Eos % (Auto) 0.5, Baso % (Auto) 0.3, Absolute Neuts (auto) 14.7 H, Absolute Lymphs (auto) 1.90, Nucleated RBC % 0, Differential Comment SCANNED, Diff Path Review May foll, Sodium 130 L, Potassium 4.2, Chloride 95 L, Carbon Dioxide 27.0, Anion Gap 8, BUN 11, Creatinine 0.63, Estim Creat Clear Calc 45.57, Est GFR (MDRD) Af Amer 117, Est GFR (MDRD) Non-Af 97, BUN/Creatinine Ratio 17.5, Glucose 97, Calcium 8.6 07/06/23 12:03: Urine Color Yellow, Urine Clarity Sl. Cloudy, Urine pH 6.0, Ur Specific Dwight 1.020, Urine Protein 30 H, Urine Glucose (UA) 250 H, Urine Ketones Negative, Urine Occult Blood Negative, Urine Nitrite Negative, Urine Bilirubin Negative, Urine Urobilinogen Normal, Ur Leukocyte Esterase 100 H, Urine RBC 0 SEEN, Urine WBC 10-25 SEEN, Ur Squamous Epith Cells 5-10 SEEN, Urine Bacteria 1+, Urine Mucus 1+, Urine Yeast 1+ Microbiology: Microbiology 07/06/23 14:50 Nasal Secretion SARS-CoV-2 Antigen (Rapid) - Final 06/29/23 10:00 Blood Culture (Wb) - Left Forearm Blood Culture - Final No growth in 5 days. 06/29/23 08:19 Blood Culture (Wb) - Anticubital Left Bacteria Detection (PCR) - Final Staphylococcus epidermidis 06/29/23 08:19 Blood Culture (Wb) - Anticubital Left Blood Culture - Final Coag Negative Staph Radiography Diagnostic Testing: Radiology Impression Chest X-Ray 07/06/23 09:47 IMPRESSION: Stable chest with pleural effusions, left greater than right. No acute finding. Electronically Signed: Maik Bro MD at 10:09 EDT Reading Location ID and State: [address] [place] [address] , Service support , Meaningful Use Info Meaningful Use Meaningful Use Diagnoses (Choose all that apply): None applicable Ischemic Stroke Statin Dosing Therapy Reference: STATIN DOSE THERAPY REFERENCE: * Patients > 75 years receive moderate or high dose statin therapy. * Patients 75 years or YOUNGER should receive HIGH intensity statin dose unless contraindicated. You will be required to document reason for non-treatment if statin daily dose does not meet guidelines. HIGH DOSE STATIN THERAPY DAILY Atorvastatin > than or = to 40 mg Rosuvastatin > than or = to 20 mg Amlodipine + Atorvastatin > than or = to 2.5/40 mg Ezetimibe + Simvastatin 10/80 mg Simvastatin 80mg Discharge Plan Admission Admit Date/Time: 06/29/23 01:52 Attending Provider: Wicho Palacios Primary Care Provider: Care Physician,No Primary Consulting Providers: Ludwin James; Neil Hamlin; Kyle Villafana; Mick Ridley; Robb No Discharge Orders/Prescriptions Prescriptions: New atenolol 25 mg Tablet 25 mg PO DAILY Qty: 0 0RF digoxin 250 mcg (0.25 mg) Tablet 250 mcg PO DAILY@0800 Qty: 0 0RF diltiazem HCl 120 mg Capsule,Extended Release 24hr 120 mg PO DAILY Qty: 0 0RF furosemide 20 mg Tablet 20 mg PO DAILY Qty: 0 0RF Continued rivaroxaban 15 mg tablet 15 mg PO DAILY Rx Instructions: must administer with evening meal polysaccharide iron complex [Ferrex 150] 150 mg iron capsule 150 mg PO BID Qty: 60 3RF Discontinued cholecalciferol (vitamin D3) 50 mcg (2,000 unit) tablet,chewable 50 mcg PO DAILY metoprolol succinate 25 mg tablet extended release 24 hr 25 mg PO DAILY multivitamin Tablet 1 tab PO DAILY cholecalciferol (vitamin D3) 1,250 mcg (50,000 unit) capsule 1,250 mcg PO QMONTH atorvastatin [Lipitor] 10 mg tablet 10 mg PO DAILY Referrals / Follow Up: Care Physician,No Primary [Primary Care Provider] - Eben Nieto MOVER, MOVER-C [Non-Staff] - Disposition Disposition (needs filled in before D/C Order can be placed): [facility] Charges/Coding Visit Charges Inpatient E&M: 13323 Disch Hosp >30min
--- NOTE | 2023-07-06 15:44 | CASEMGMT ---
Patient is ready for discharge to [place]. SW completed a 7000 in [employer] system. Plan: d/c to [place] under skilled level of care. Physicians will transport patient via wheelchair van. Pam COOL
--- NOTE | 2023-07-06 16:03 | CASEMGMT ---
Discharge Planning Discharge orders, signed med list, covid results, and transport time sent to [facility] via [facility]. Physicians will transport patient by wheelchair at 6p. Nursing, SW, patient, and her granddaughter (Brooklynn) updated. Belen Medrano DC Planning Asst.
[2023-07-06 17:00] VITALS: BP 105/59; PULSE 76; RESP 16; TEMP 36.3; O2SAT 97
[2023-07-07 15:40] LABS: Pathologist Review Reviewed
== END 2023-07-06 18:00 | disposition skilled nursing facility (03) | DRG 441 ==
LOC: ED 06-29 00:05 → ICU 06-29 02:12 → PCU 07-02 11:24 → ICU 07-05 07:41 → PCU 07-05 07:41
PROVIDERS: Internal Medicine; Nurse Practitioner Adult Health; Admitting Provider Internal Medicine; Emergency Provider Emergency Medicine; Visit Provider Family Medicine
DX: K72.00 Acute and subacute hepatic failure without coma (principal); E43 Unspecified severe protein-calorie malnutrition; I50.33 Acute on chronic diastolic (congestive) heart failure; E85.81 Light chain (AL) amyloidosis; I24.89 Other forms of acute ischemic heart disease; E87.1 Hypo-osmolality and hyponatremia; N17.9 Acute kidney failure, unspecified; I48.20 Chronic atrial fibrillation, unspecified; E83.51 Hypocalcemia; K75.89 Other specified inflammatory liver diseases; I11.0 Hypertensive heart disease with heart failure; I73.9 Peripheral vascular disease, unspecified; I08.3 Combined rheumatic disorders of mitral, aortic and tricuspid valves; E78.5 Hyperlipidemia, unspecified; E87.5 Hyperkalemia; I25.10 Atherosclerotic heart disease of native coronary artery without angina pectoris; E87.6 Hypokalemia; F17.210 Nicotine dependence, cigarettes, uncomplicated; E66.3 Overweight; Z66 Do not resuscitate; Z68.26 Body mass index [BMI] 26.0-26.9, adult; Z91.148 Patient's other noncompliance with medication regimen for other reason; Z79.01 Long term (current) use of anticoagulants; Z79.899 Other long term (current) drug therapy; Z83.1 Family history of other infectious and parasitic diseases
CPT/HCPCS: 36415; 71045; 71250; 74176; 74181; 76705; 80048; 80053; 80074; 80076; 81001; 82248; 82784; 82977; 83516; 83605; 83735; 83880; 83930; 83935; 84100; 84165; 84443; 84484; 85025; 85610; 86038; 86225; 86235; 86334; 87040; 87149; 87426; 93005; 93306; 94762; 97110; 97116; 97162; 97166; 97530; 97535; 97802; 97803; 99285; 99406; J7030; J7050; A4216; J0612; J1940

== ENCOUNTER 2023-07-08 22:02 | Inpatient (IN) | payer MEDICARE, OTHER, SELFPAY ==
[2023-07-08 22:04] VITALS: BP 90/32; PULSE 59; RESP 16; O2SAT 97
[2023-07-08 22:05] VITALS: BP 85/33; PULSE 58; RESP 30; TEMP 36.6; O2SAT 98; BMI 24.5
--- NOTE | 2023-07-08 22:41 | CT_ITS ---
STUDY: CTA CHEST AND CT ABDOMEN/PELVIS WITH CONTRAST REASON FOR EXAM: Female, 77 years old. gi bleed RADIATION DOSAGE (If Supplied By Facility): CTDIvol = ( 26.37 ) mGy, DLP = ( 1052.76 ) mGycm TECHNIQUE: The examination was performed with the intravenous administration of IV 75mL Isovue-370. Post-processing of the angiographic images was performed, with multiplanar reformation and 3D reconstruction. Individualized dose optimization techniques were used for this CT. COMPARISON: 06/29/2023 FINDINGS: CTA Chest Normal enhancement of the main pulmonary artery and right and left pulmonary arteries. Normal enhancement of the bilateral peripheral pulmonary arteries. There is no demonstrated pulmonary embolism. Normal thoracic aorta and visualized great vessels. There is no demonstrated aortic dissection. There is cardiomegaly. Large filling defect within the lead left atrial appendage worrisome for thrombus. Normal mediastinum. Normal hilar regions. Normal visualized trachea and bronchi. The lungs are well expanded. Normal pulmonary parenchyma. Large bilateral pleural effusions with bibasilar atelectasis. Normal chest wall structures. Mild levoscoliosis of the thoracic lumbar spine with degenerative disc disease. Normal visualized upper abdomen. CT Abdomen T Pelvis The visualized lung bases are unremarkable. The visualized portions of the heart are within normal limits. Normal liver. The gallbladder is contracted. Normal spleen. Normal pancreas. There is symmetric enlargement of the adrenal glands suggesting adrenal hyperplasia. Normal right kidney. Normal left kidney. Prominent curvilinear contrast enhancement of the posterior wall of the body the stomach consistent with vessels possibly from gastritis or ulcer. Normal small intestine. There are multiple colonic diverticula consistent with diverticulosis. The appendix is visualized and appears normal. Focal dilatation of the infrarenal abdominal aorta with maximal diameter of 2.0 cm. Some peripheral calcified plaque and some mural thrombus. Normal inferior vena cava. Normal retroperitoneum. Normal urinary bladder. Small right inguinal hernia with incarceration of a loop of small bowel but without bowel obstruction. Edema subcutaneous fat of the flanks suggestive of anasarca. Mild levoscoliosis of the thoracic lumbar spine with degenerative disc disease. Chronic impacted fracture of the right femoral neck. CT/CTA Chst, Abd, Pel W and/or WO IMPRESSION: 1. No CT evidence of pulmonary embolism. 2. Suspect thrombus in the left atrial appendage. 3. Cardiomegaly. 4. Volume overload with large bilateral pleural effusions with bibasilar atelectasis and anasarca. 5. Prominent enhancing vessels within the posterior wall of the body the stomach may represent a site of the bleeding may be from gastritis or an ulcer. 6. Sigmoid diverticulosis without diverticulitis. 7. Small right renal hernia with incarceration of a loop of small bowel bowel obstruction. 8. Focal dilatation of the infrarenal abdominal aorta with maximal diameter of 2.0 cm with some mural thrombus. N.B. : The above Results were Read Back by Eben Maldonado MD to Jose Ricardo DO, and understanding confirmed on 07/09/2023 00:24:09 (ET). Electronically Signed: Eben Maldonado MD at 0:26 EDT ,
[2023-07-08 23:00] LABS: Absolute Lymphocyte Count 2.02 X10^3/uL (0.83-4.51); Absolute Neutrophil Count 12.3 X10^3/uL (2.0-7.7); Basophil# 0.04 X10^3/uL; Basophil% 0.2 % (0-1); Eosinophil# 0.05 X10^3/uL; Eosinophils% 0.3 % (0-5); Hematocrit 26.2 % (37-47); Hemoglobin 8.3 g/dL (12.0-15.0); Lymphocyte # 2.02 X10^3/ul (0.83-4.51); Lymphocyte % 12.2 % (19-41); Mean Corp Hgb Conc 31.7 g/dL (32-36); Mean Corpuscular Hgb 29.2 pg (27.0-32.0); Mean Corpuscular Volume 92.3 fL (81-99); Mean Platelet Vol. 8.9 fl (6.2-12.0); Monocyte# 2.02 X10^3/uL; Monocyte% 12.2 % (0-10); NRBC Flagged by Analyzer 0 % (0-5); Neutrophil # 12.28 X10^3/uL (2.7-7.7); Neutrophil % 74.1 % (47-70); POSITIVE DIFFERENTIAL YES; Platelet Count 330 K/mm3 (150-450); RBC Distribution Width CV 14.7 % (11.6-14.6); Red Blood Count 2.84 M/mm3 (4.2-5.4); White Blood Count 16.6 K/mm3 (4.4-11.0)
[2023-07-08] MEDS: 0.9% Normal Saline (1000mL) 1,000 ML 999 ML IV (23:05)
[2023-07-08 23:10] LABS: Differential Indicated SCAN CRITERIA MET
[2023-07-08 23:14] LABS: AST(SGOT) 23 U/L (15-37); Alanine Aminotransfer ALT/SGPT 80 U/L (13-56); Albumin, Serum 2.2 g/dL (3.2-5.0); Alkaline Phosphatase 105 U/L (45-117); Anion Gap 7 (5-15); BUN 31 mg/dL (7-18); BUN/Creat Ratio 51.5 RATIO (10-20); Bilirubin, Direct 0.16 mg/dL (0.00-0.30); Calcium,Total 8.2 mg/dL (8.5-10.1); Chloride 100 mmol/L (98-107); EST Glomerular Filtration Rate 102 mL/min (>60); Est Glom Filt Rate - Afr Amer 123 mL/min (>60); Estimated Creatinine Clearance 44.45 ml/min; Globulin 2.7 g/dL (2.2-4.2); Glucose 116 mg/dL (74-106); Protein, Total 4.9 g/dL (6.4-8.2); Sodium Level 135 mmol/L (136-145)
[2023-07-08 23:17] LABS: International Normalized Ratio 2.8; Prothrombin Time (Protime)PT. 28.9 SECONDS (11.7-14.9)
[2023-07-08] MEDS: Pantoprazole Sodium 80 MG in 0.9% Normal Saline (50mL Bag) 15 ML 420 MG IV BOLUS (23:17)
[2023-07-08] MEDS: Pantoprazole Sodium 80 MG in 0.9% Normal Saline (100mL Bag) 80 ML 10 MG CONT INF (23:51)
[2023-07-09] VITALS (60 sets, daily range): BP systolic 79–132; BP diastolic 35–86; PULSE 66–122; RESP 13–36; TEMP 35.9–37.1; O2SAT 95–100; BMI 24.0
[2023-07-09 00:38] LABS: Digoxin Level 1.05 ng/mL (0.80-2.00)
[2023-07-09] MEDS: HUM PROTHROMBIN CPLX(PCC)-LANS 2,700 UNIT in Viaflex Bag 1 BAG 397 UNIT IV (01:11)
--- NOTE | 2023-07-09 01:12 | HP.PCM.HOS_ITS ---
[facility] - General General Date of Admission: 07/09/23 Date of Service: 07/09/23 Chief Complaint: Melanotic Stools, Generalized Weakness, Fatigue and Near Syncope. HPI Narrative ELYSE RUANO, is a 77 F with a past medical history of essential hypertension, hyperlipidemia, tobacco abuse, chronic atrial fibrillation; on rivaroxaban, history of aortic stenosis, history of ventricular hypertrophy, history of cardiomyopathy, amyloidosis, PAD; status post iliac artery occlusion, history of hysterectomy, osteoarthritis, history of medical noncompliance and recent admission here from June 29, 2023 to July 06, 2023 for treatment of obvious jaundice appearance with total bilirubin of 2.7 mg/dL (direct bilirubin 2.04 mg/dL) AST of 832 units/L, ALT of 869 units/L and alkaline phosphatase of 398 units/L and leukocytosis of 17.5 K present on admission worrisome for acute hepatitis with Right upper quadrant ultrasound done in the ER showing gallbladder wall thickening and pericholecystic fluid but no gallstones or biliary dilatation with concern for possible viral hepatitis complicated by atrial fibrillation with; RVR with a chest x-ray that revealed a Left pleural effusion with cardiomegaly and an elevated BNP of 1,126.8 pg/mL present on admission consistent with acute exacerbation of CHF with severe aortic stenosis compounded by GREGORY; with elevated serum creatinine of 2.28 mg/dL with a BUN of 79 mg/dL and hyperkalemia of 5.6 mmol/L present on admission worrisome for possible obstruction and/or GI bleed compounded by hyponatremia of 121 mmol/L present on admission suspected to be due to water intoxication with patient ultimately diagnosed with jaundice due to cholestatic hepatitis treated with Mucomyst for nausea and non acetaminophen-induced liver failure with and INR 2.0 and DNR-CC CODE STATUS to [facility] ER complaining of melanotic stools, generalized weakness, fatigue and near syncope. Ms. Ruano reports her symptoms began approximately one hour prior to arrival with the staff at her [facility] noting melanotic stools which caused them to activate EMS. She then had a second large red-maroon BM noted in her Depends by EMS followed by a third. She admits to associated weakness, dizziness and fatigue feeling like she is going to pass out but she denies loss of consciousness. She denies associated fever, chills, nausea, vomiting, constipation, shortness of breath or chest pain. In the ER she underwent a CTA of the chest, abdomen and pelvis which was negative for PE but did show suspected thrombus in the Left atrial appendage with additional evidence of volume overload with large bilateral pleural effusions, bibasilar atelectasis and anasarca consistent with an acute exacerbation of chronic CHF in the setting of known severe aortic stenosis and prominent enhancing vessels within the posterior wall of the body of the stomach which may represent the site of the bleeding from gastritis or an ulcer suspected to be due to be triggered by an adverse drug reaction to rivaroxaban; evidenced by INR of 2.8 present on admission further supported by laboratory evidence of upper GI bleed with significantly elevated BUN of 31 mg/dL with a creatinine of 0.6 mg/dL with a corresponding drop in her hemoglobin to 8.3 g/dL present on admission (which is down from 12.7 g/dL on July 06, 2023) compounded by evidence of hemorrhagic shock with a blood pressure of 87/41 mmHg present on admission. The ER physician contacted the telemarketing manager on-call who recommended patient be admitted to the hospitalist service to the ICU and he will consult formally in the a.m. for considerations regarding EGD with help appreciated in advance. She was then admitted to the ICU for ongoing care for stay and that is expected to be greater than 2 midnights. [facility] Medical History Hyperlipidemia Amyloidosis Edema Vitamin D deficiency Sinus tachycardia Heart murmur Smoking history Iliac artery occlusion Mitral annular calcification Cardiomyopathy Hypertension Atrial fibrillation Ventricular hypertrophy Aortic stenosis Home Medications ?Medication ?Instructions ?Recorded ?Last Taken ?Type rivaroxaban 15 mg tablet 15 mg PO DAILY 06/28/20 Unknown History polysaccharide iron complex 150 mg 150 mg PO BID #60 caps 07/12/20 Unknown Rx iron capsule (Ferrex) atenolol 25 mg tablet 25 mg PO DAILY #0 tabs 07/06/23 Unknown Rx digoxin 250 mcg (0.25 mg) tablet 250 mcg PO DAILY@0800 #0 tabs 07/06/23 Unknown Rx diltiazem HCl 120 mg 120 mg PO DAILY #0 caps 07/06/23 Unknown Rx capsule,extended release 24 hr furosemide 20 mg tablet 20 mg PO DAILY #0 tabs 07/06/23 Unknown Rx Allergy/AdvReac Type Severity Reaction Status Date / Time Sulfa (Sulfonamide Allergy Hives Verified 06/28/23 19:55 Antibiotics) Family History Sister Aortic valve replaced Status post aortic valve replacement and aortoplasty Brother Hx of CABG CHF (congestive heart failure) Sister Cancer Sister Heart failure Sister CVA (cerebral vascular accident) Father Hepatitis CHF (congestive heart failure) Mother CHF (congestive heart failure) Sudden Surgical History History of hysterectomy Social History Smoking Status: Current every day smoker tobacco type: cigarettes second hand exposure: No quit status: considering quitting alcohol intake: current alcohol intake frequency: a few times a month Alcohol type: beer substance use type: does not use 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 HENT: Denies headache, denies stuffy nose, denies sore throat EYES: Denies changes in vision or discharge from eyes. Resp: Denies cough, denies shortness of breath Cardiac: Denies chest pain, palpitations or heart racing. GI: Patient admits to multiple episodes of a large volume of melanotic stools as per HPI. : Denies changes in urination Extremity: Patient has chronic 3-4+ bilateral lower extremity edema slightly worse than baseline. Musculoskeletal: Feels somewhat generally weak and unwell but she denies arthralgias or myalgias. Neuro: Patient denies headache, paresthesias or focal neurologic weakness. Heme: Patient admits to massive melanotic bowel movements since being restarted on Xarelto as per HPI. Skin: Patient admits to pallor but she denies rashes Psychiatric: No complaints voiced related uncontrolled depression or anxiety. Endocrine: No polyuria, polydipsia or polyphagia. The rest of the 14 point ROS was negative except for positives in HPI. Vital Signs Vital Signs Vital Signs: 07/08/23 22:04 07/08/23 22:05 07/09/23 00:04 Temperature 98 F Temperature Source Oral Pulse Rate 59 L 58 L 66 Respiratory Rate 16 30 H 16 Blood Pressure 90/32 L 85/33 L 87/41 L Blood Pressure Mean 51 50 56 Pulse Ox 97 98 98 Oxygen Delivery Method Room Air Room Air Room Air 07/09/23 00:04 Temperature Temperature Source Pulse Rate 66 Respiratory Rate 24 H Blood Pressure 87/41 L Blood Pressure Mean 56 Pulse Ox 99 Oxygen Delivery Method Room Air Weight Weight: 121 lb 11.123 oz Body Mass Index (BMI) 24.5 Physical Exam Const alert, oriented x3, no apparent distress and average body habitus General Appearance: cooperative HEENT normocephalic, head/scalp atraumatic, hearing grossly normal bilaterally and moist oral mucous membranes Eyes PERRL and EOMs intact bilaterally Neck no lymphadenopathy and supple Resp no use of accessory muscles Resp Narrative: Diminished breath sounds throughout with bibasilar rales. Auscultation: rales Cardio Cardio Narrative: Irregularly irregular at approximately 68 bpm. GI normal to inspection, nondistended, normoactive bowel sounds, soft to palpation, non-tender and non-distended Extremity Extremity Narrative: 3-4+ bilateral lower extremity pitting edema. Skin Skin Narrative: Patient has no evidence of rash or jaundice. Neuro oriented x3, CN's II-XII intact bilaterally, moves all extremities and no focal motor deficits Sensorium / Orientation: awake, alert, oriented to person, oriented to place and oriented to time Speech: speech normal Psych affect normal Results Medical Records Data Attestation: I reviewed the patient's medical records Lab / Micro Data Attestation: I reviewed the patient's lab results. 07/08/23 22:29 07/08/23 22:29 Labs: Laboratory Results - last 24 hr 07/08/23 22:29: WBC 16.6 H, RBC 2.84 L, Hgb 8.3 L, Hct 26.2 L, MCV 92.3, MCH 29.2, MCHC 31.7 L, RDW Std Deviation 50.0 H, RDW Coeff of Lobo 14.7 H, Plt Count 330, MPV 8.9, Immature Gran % (Auto) 1.000 H, Neut % (Auto) 74.1 H, Lymph % (Auto) 12.2 L, [place] % (Auto) 12.2 H, Eos % (Auto) 0.3, Baso % (Auto) 0.2, A bsolute Neuts (auto) 12.3 H, Absolute Lymphs (auto) 2.02, Nucleated RBC % 0, Diff Path Review June foll, PT 28.9 H, INR 2.8, APTT 37.0 H, Sodium 135 L, Potassium 5.0, Chloride 100, Carbon Dioxide 28.0, Anion Gap 7, BUN 31 H, Creatinine 0.60, Estim Creat Clear Calc 44.45, Est GFR (MDRD) Af Amer 123, Est GFR (MDRD) Non-Af 102, BUN/Creatinine Ratio 51.5 H, Glucose 116 H, Calcium 8.2 L , Total Bilirubin 0.30, Direct Bilirubin 0.16, AST 23, ALT 80 H, Alkaline Phosphatase 105, Total Protein 4.9 L, Albumin 2.2 L, Globulin 2.7, Blood Type O POSITIVE, Antibody Screen NEGATIVE, Crossmatch See Detail 07/08/23 23:45: Digoxin 1.05 Micro: Microbiology 07/08/23 22:50 Stool Stool Occult Blood ([facility]) - Final Occult Blood Positive Imaging Radiology Impression Chest/Abdomen/Pelvis CTA 07/08/23 22:41 IMPRESSION: 1. No CT evidence of pulmonary embolism. 2. Suspect thrombus in the left atrial appendage. 3. Cardiomegaly. 4. Volume overload with large bilateral pleural effusions with bibasilar atelectasis and anasarca. 5. Prominent enhancing vessels within the posterior wall of the body the stomach may represent a site of the bleeding may be from gastritis or an ulcer. 6. Sigmoid diverticulosis without diverticulitis. 7. Small right renal hernia with incarceration of a loop of small bowel bowel obstruction. 8. Focal dilatation of the infrarenal abdominal aorta with maximal diameter of 2.0 cm with some mural thrombus. N.B. : The above Results were Read Back by Eben Maldonado MD to Jose Ricardo DO, and understanding confirmed on 07/09/2023 00:24:09 (ET). Electronically Signed: Eben Maldonado MD at 0:26 EDT , ADDENDUM: 07/09/23 0033 IMPRESSION: 1. No CT evidence of pulmonary embolism. 2. Suspect thrombus in the left atrial appendage. 3. Cardiomegaly. 4. Volume overload with large bilateral pleural effusions with bibasilar atelectasis and anasarca. 5. Prominent enhancing vessels within the posterior wall of the body the stomach may represent a site of the bleeding may be from gastritis or an ulcer. 6. Sigmoid diverticulosis without diverticulitis. 7. Small right renal hernia with incarceration of a loop of small bowel bowel obstruction. 8. Focal dilatation of the infrarenal abdominal aorta with maximal diameter of 2.0 cm with some mural thrombus. N.B. : The above Results were Read Back by Eben Maldonado MD to Jose Ricardo DO, and understanding confirmed on 07/09/2023 00:24:09 (ET). 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 Upper GI bleed with multiple numerous large-volume melanotic stools supported by laboratory evidence with elevated BUN of 31 mg/dL and normal serum creatinine of 0.6 mg/dL present on admission with a corresponding significant drop in her hemoglobin to 8.3 g/dL present on admission (which is down from 12.7 g/dL on July 06, 2023) and confirmed by hemorrhagic shock with blood pressure of 89/37 mmHg requiring emergent transfusion in ER in elderly patient with numerous complex medical conditions and DNR CC CODE STATUS; with no intubation - Admit to ICU. Continue IV Protonix and keep strict n.p.o. Patient was also treated with a dose of Kcentra. Recheck CBC two hours after this transfusion is completed. Finally, telemarketing manager on-call has already been contacted by the ER with plan for EGD in a.m. with help appreciated in advance. 2. Adverse drug reaction to rivaroxaban; evidenced by elevated INR of 2.8 present on admission and evidence of significant bleeding causing #1 with concern noted previously for possible upper GI bleed - Stop rivaroxaban indefinitely as any potential benefits are likely outweighed by the risks of recurrent bleeding in this elderly patient with numerous and complex medical issues. 3. Large bilateral pleural effusions, bibasilar atelectasis and anasarca consistent with an acute exacerbation of chronic systolic CHF in the setting of known severe aortic stenosis, LVH and cardiomyopathy complicating #1 & #2 - Check BNP. Give Lasix 40 mg IV daily and check daily chest x-ray to evaluate for improvement. 4. CTA of the chest, abdomen and pelvis which was negative for PE but did show suspected thrombus in the Left atrial appendage adding to the pathology of #1 - #3 - Noted. Patient is felt to be a poor candidate for anticoagulation. 5. Hypoalbuminemia of 2.2 g/dL present on admission suspicious for protein calorie malnutrition - Check prealbumin to confirm suspicion. When patient is able to tolerate p.o. intake consider adding Ensure to meals. 6. Recent admission here from June 29, 2023 to July 06, 2023 for treatment of obvious jaundice appearance with total bilirubin of 2.7 mg/dL (direct bilirubin 2.04 mg/dL) AST of 832 units/L, ALT of 869 units/L and alkaline phosphatase of 398 units/L and leukocytosis of 17.5 K present on admission worrisome for acute hepatitis with Right upper quadrant ultrasound done in the ER showing gallbladder wall thickening and pericholecystic fluid but no gallstones or biliary dilatation with concern for possible viral hepatitis complicated by atrial fibrillation with; RVR with a chest x-ray that revealed a Left pleural effusion with cardiomegaly and an elevated BNP of 1,126.8 pg/mL present on admission consistent with acute exacerbation of CHF with severe aortic stenosis compounded by GREGORY; with elevated serum creatinine of 2.28 mg/dL with a BUN of 79 mg/dL and hyperkalemia of 5.6 mmol/L present on admission worrisome for possible obstruction and/or GI bleed compounded by hyponatremia of 121 mmol/L present on admission suspected to be due to water intoxication with patient ultimately diagnosed with jaundice due to cholestatic hepatitis treated with Mucomyst for nausea and non acetaminophen-induced liver failure with and INR 2.0 - Noted. 7. Chronic atrial fibrillation; on rivaroxaban - Stable at this time with patient rate controlled with a therapeutic digoxin level of 1.05 ng/mL present on admission so we will continue Digoxin IV to prevent RVR. Rivaroxaban will be stopped due to #1. 8. Essential hypertension - Hold scheduled antihypertensives with hemorrhagic shock and evidence of ongoing bleeding outlined #1. 9. Hyperlipidemia - Restart statin after EGD when okay with GI. 10. History of tobacco abuse - Noted. 11. History of amyloidosis - Noted. 12. PAD; status post iliac artery occlusion - Noted. 13. History of hysterectomy - Noted. 14. Osteoarthritis - Stable. 15. History of medical noncompliance - Noted. Patient encouraged not to take rivaroxaban in the future as the actual ongoing risks outweigh any potential benefit. 16. DVT prophylaxis - SCD's only with active GI hemorrhaging outlined in #1. Total time: Approximately 75 minutes. Charges/Coding Visit Charges Inpatient E&M: 31800 Init Hosp L3
--- NOTE | 2023-07-09 01:21 | EX.ED.DYSGE1 ---
HPI History of Present Illness Chief Complaint: GI Bleed Informant: patient, EMS and SNF Narrative Narrative: Patient is a 77-year-old female with past medical history of atrial fibrillation currently on digoxin and Cardizem as well as Xarelto. She also has a past medical history of acute kidney injury and hepatic injury as well as CHF and was recently admitted to the hospital secondary to multiorgan failure. She did well at her last hospital stay and was discharged back to the alf and was restarted on her Xarelto. Patient states that this evening around 930 she had the urge to have a bowel movement and when she did so it was dark and bloody in nature. She denies any abdominal pain associated with this and she states that it is only occurring when she has a bowel movement. However because of symptoms correlating with a GI bleed and the fact she is on a blood thinner she was sent to the hospital for evaluation [facility] Medical History Hyperlipidemia Amyloidosis Edema Vitamin D deficiency Sinus tachycardia Heart murmur Smoking history Iliac artery occlusion Mitral annular calcification Cardiomyopathy Hypertension Atrial fibrillation Ventricular hypertrophy Aortic stenosis Home Medications ?Medication ?Instructions ?Recorded ?Last Taken ?Type rivaroxaban 15 mg tablet 15 mg PO DAILY 06/28/20 Unknown History polysaccharide iron complex 150 mg 150 mg PO BID #60 caps 07/12/20 Unknown Rx iron capsule (Ferrex) atenolol 25 mg tablet 25 mg PO DAILY #0 tabs 07/06/23 Unknown Rx digoxin 250 mcg (0.25 mg) tablet 250 mcg PO DAILY@0800 #0 tabs 07/06/23 Unknown Rx diltiazem HCl 120 mg 120 mg PO DAILY #0 caps 07/06/23 Unknown Rx capsule,extended release 24 hr furosemide 20 mg tablet 20 mg PO DAILY #0 tabs 07/06/23 Unknown Rx Allergy/AdvReac Type Severity Reaction Status Date / Time Sulfa (Sulfonamide Allergy Hives Verified 06/28/23 19:55 Antibiotics) Family History Sister Aortic valve replaced Status post aortic valve replacement and aortoplasty Brother Hx of CABG CHF (congestive heart failure) Sister Cancer Sister Heart failure Sister CVA (cerebral vascular accident) Father Hepatitis CHF (congestive heart failure) Mother CHF (congestive heart failure) Sudden Surgical History History of hysterectomy Social History Smoking Status: Current every day smoker tobacco type: cigarettes second hand exposure: No quit status: considering quitting alcohol intake: current alcohol intake frequency: a few times a month Alcohol type: beer substance use type: does not use jair/confucianism: Congregational ROS ROS ED Constitutional Constitutional ED: Denies chills or fever(s) Eyes Eyes: Denies change in vision or diplopia ENT ENT ED: Denies sore throat Cardiovascular Cardiovascular: Denies chest pain, palpitations or racing heartbeat Respiratory/Chest Respiratory/Chest: Reports dyspnea; Denies cough Gastrointestinal Gastrointestinal: Reports melena; Denies abdominal pain, diarrhea, nausea or vomiting Genitourinary Genitourinary ED: Denies dysuria or hematuria Musculoskeletal Musculoskeletal: Denies myalgias Integumentary Denies rash Neurologic Neurologic: Denies headache(s) or weakness Hematologic/Lymphatic Hematologic/Lymphatic: Reports easy bleeding and easy bruising EXAM Physical Exam Const Vital Signs: 07/08/23 22:04 07/08/23 22:05 07/09/23 00:04 Temperature 98 F Temperature Source Oral Pulse Rate 59 L 58 L 66 Respiratory Rate 16 30 H 16 Blood Pressure 90/32 L 85/33 L 87/41 L Blood Pressure Mean 51 50 56 Pulse Ox 97 98 98 Oxygen Delivery Method Room Air Room Air Room Air 07/09/23 00:04 Temperature Temperature Source Pulse Rate 66 Respiratory Rate 24 H Blood Pressure 87/41 L Blood Pressure Mean 56 Pulse Ox 99 Oxygen Delivery Method Room Air Positive well nourished and well developed General Appearance ED: well developed and pallor HEENT HEENT Narrative: No tongue or lip swelling no oral lesions no airway edema or compromise No signs of infection noted in the posterior pharynx Eyes PERRL and EOMs intact bilaterally General Eye ED: Yes pale conjunctiva; Negative for scleral icterus Neck supple Neck Narrative: No nuchal rigidity or meningeal signs noted Resp normal respiratory effort Resp Narrative: Breath sounds are diminished throughout with crackles noted in the bilateral lower lobes consistent with history of congestive heart failure However no nasal flaring retractions tachypnea or accessory muscle use Cardio regular rate and regular rhythm Rate: other Other Details: Heart is regular rate and rhythm There is a grade 4 out of 6 holosystolic murmur GI normal to inspection, nondistended, normoactive bowel sounds, non-tender, non-distended and no masses GI Narrative: No voluntary guarding or rigidity or pulsatile mass Auscultation: normoactive bowel sounds Palpation: soft Narrative: Rectal tone is normal stool is melanotic in color and Hemoccult positive Extremity Extremity Narrative: Patient has +3-4 pitting edema to the bilateral lower and upper extremities consistent with anasarca Neuro oriented x3, CN's II-XII intact bilaterally and no sensory deficits noted Sensorium / Orientation: alert Psych mental status grossly normal Skin Skin Narrative: Skin is pale in color and capillary refill is at 3 seconds General Skin Exam: pallor MDM MDM MDM Narrative Medical decision making narrative: Patient presented to the ER borderline hypotensive and history and exam is concerning for acute blood loss anemia secondary to GI bleed. Potential bleeding is from upper GI/stomach versus lower/diverticulosis. Secondary to this concern for acute blood loss anemia secondary to internal bleeding especially from her Xarelto basic labs were obtained and a CTA of the abdomen and pelvis was ordered. The patient was awake and alert and in no acute distress and blood pressure was soft but as she was awake and alert I felt no need for trauma blood at this time and patient was given mild fluid hydration and started on a Protonix bolus and drip secondary to the melanotic stool. Blood was ordered and was given once available. The CTA showed areas in the body of the stomach concerning for upper GI bleed. This correlates with the patient's melanotic stool and the fact her hemoglobin has dropped approximately 3 points in the last 16 hours. The case was discussed with gastroenterology/Dr. Tsai. He agrees that based on the patient's anticoagulation status and her borderline hypotension that she should be given Kcentra secondary to her GI bleed and history of blood thinner use. Therefore this was provided. I discussed with pharmacy potentially adding TXA but it is contraindicated if Kcentra was given as well so this medication was held. At this time the patient is a DNR Comfort Care arrest. Her exam and labs and CT scan all point upper GI bleed and she will potentially need an EGD secondary to this. She has been initiated in receiving blood she has been given Protonix and GI has been contacted now she will be admitted to the medical service for continued care. History & Record Review Discussion w/independent historian: Patient Lab Data Attestation: I reviewed the patient's lab results. Labs: Laboratory Results - last 24 hr 07/08/23 07/08/23 22:29 23:45 WBC 16.6 H RBC 2.84 L Hgb 8.3 L Hct 26.2 L MCV 92.3 MCH 29.2 MCHC 31.7 L RDW Std Deviation 50.0 H RDW Coeff of Lobo 14.7 H Plt Count 330 MPV 8.9 Immature Gran % (Auto) 1.000 H Neut % (Auto) 74.1 H Lymph % (Auto) 12.2 L Anson % (Auto) 12.2 H Eos % (Auto) 0.3 Baso % (Auto) 0.2 Absolute Neuts (auto) 12.3 H Absolute Lymphs (auto) 2.02 Nucleated RBC % 0 Diff Path Review May foll PT 28.9 H INR 2.8 APTT 37.0 H Sodium 135 L Potassium 5.0 Chloride 100 Carbon Dioxide 28.0 Anion Gap 7 BUN 31 H Creatinine 0.60 Estim Creat Clear Calc 44.45 Est GFR (MDRD) Af Amer 123 Est GFR (MDRD) Non-Af 102 BUN/Creatinine Ratio 51.5 H Glucose 116 H Calcium 8.2 L Total Bilirubin 0.30 Direct Bilirubin 0.16 AST 23 ALT 80 H Alkaline Phosphatase 105 Total Protein 4.9 L Albumin 2.2 L Globulin 2.7 Prealbumin 18.2 L Digoxin 1.05 Blood Type O POSITIVE Antibody Screen NEGATIVE Crossmatch See Detail Radiography Diagnostic Testing: Clinical Impression(s) from Imaging Studies Chest/Abdomen/Pelvis CTA 07/08/23 22:41 IMPRESSION: 1. No CT evidence of pulmonary embolism. 2. Suspect thrombus in the left atrial appendage. 3. Cardiomegaly. 4. Volume overload with large bilateral pleural effusions with bibasilar atelectasis and anasarca. 5. Prominent enhancing vessels within the posterior wall of the body the stomach may represent a site of the bleeding may be from gastritis or an ulcer. 6. Sigmoid diverticulosis without diverticulitis. 7. Small right renal hernia with incarceration of a loop of small bowel bowel obstruction. 8. Focal dilatation of the infrarenal abdominal aorta with maximal diameter of 2.0 cm with some mural thrombus. N.B. : The above Results were Read Back by Eben Maldonado MD to Jose Ricardo DO, and understanding confirmed on 07/09/2023 00:24:09 (ET). Electronically Signed: Eben Maldonado MD at 0:26 EDT , ADDENDUM: 07/09/23 0033 IMPRESSION: 1. No CT evidence of pulmonary embolism. 2. Suspect thrombus in the left atrial appendage. 3. Cardiomegaly. 4. Volume overload with large bilateral pleural effusions with bibasilar atelectasis and anasarca. 5. Prominent enhancing vessels within the posterior wall of the body the stomach may represent a site of the bleeding may be from gastritis or an ulcer. 6. Sigmoid diverticulosis without diverticulitis. 7. Small right renal hernia with incarceration of a loop of small bowel bowel obstruction. 8. Focal dilatation of the infrarenal abdominal aorta with maximal diameter of 2.0 cm with some mural thrombus. N.B. : The above Results were Read Back by Eben Maldonado MD to Jose Ricardo DO, and understanding confirmed on 07/09/2023 00:24:09 (ET). Electronically Signed: Eben Maldonado MD at 0:26 EDT , Management Discussion w/another healthcare provider: Hospitalist and Coverage Analyst Critical Care Time Critical Care Time: Yes Critical care time (excluding procedures): Discussing w/Patient &/or Family/Finishing Department Supervisor, Discussing w/Consultants and - (Please note critical care time of 33 minutes) Discharge Plan Dx/Rx/DC Orders Clinical Impression: Acute GI bleeding, Acute blood loss anemia, Current use of care home anticoagulation, Abnormal LFTs, CHF (congestive heart failure), History of atrial fibrillation Disposition Disposition: Acute Care Hospital [facility] Discharge Date/Time: 07/09/23 02:13
[2023-07-09 02:18] LABS: Prealbumin 18.2 mg/dL (20.0-40.0)
[2023-07-09] MEDS: Albumin Human 25% (50 mL) 12.5 GM/50 ML IV.SOLN IV (04:04)
[2023-07-09 05:34] LABS: Troponin-I HS 37 pg/mL (3.0-54.0)
[2023-07-09 06:34] LABS: AST(SGOT) 20 U/L (15-37); Alanine Aminotransfer ALT/SGPT 50 U/L (13-56); Alkaline Phosphatase 71 U/L (45-117); Anion Gap 8 (5-15); BUN 30 mg/dL (7-18); BUN/Creat Ratio 60.5 RATIO (10-20); Calcium,Total 7.2 mg/dL (8.5-10.1); Chloride 103 mmol/L (98-107); EST Glomerular Filtration Rate 128 mL/min (>60); Est Glom Filt Rate - Afr Amer 154 mL/min (>60); Estimated Creatinine Clearance 40.96 ml/min; Glucose 115 mg/dL (74-106); Magnesium 1.7 mg/dL (1.6-2.6); Phosphorus 3.3 mg/dL (2.5-4.9); Potassium 4.8 mmol/L (3.5-5.1); Sodium Level 135 mmol/L (136-145)
--- NOTE | 2023-07-09 07:16 | PCM.PN.HOSP ---
Reason for Visit Reason for Visit: Diagnoses Acute posthemorrhagic anemia (07/09/23) Other disorders of plasma-protein metabolism, not elsewhere classified (07/09/23) Heart failure, unspecified (07/09/23) Adverse effect of unspecified drugs, medicaments and biological substances, initial encounter (07/09/23) long term (current) use of anticoagulants (07/09/23) Personal history of other diseases of the circulatory system (07/09/23) Personal history of other diseases of the digestive system (07/09/23) Objective Data Objective Data Vital Signs: Vital Signs Temp Pulse Resp BP Pulse Ox O2 Del Method 98.7 F 74 18 102/49 L 97 Room Air 07/09/23 07:00 07/09/23 07:00 07/09/23 07:00 07/09/23 07:00 07/09/23 07:00 07/09/23 07:00 Oxygen Delivery Method Room Air Weight: 119 lb Body Mass Index (BMI) 24.0 Intake & Output: Intake and Output for Last 24 Hours 07/07/23 07/08/23 07/09/23 23:59 23:59 23:59 Intake Total 1186 / 1186 Balance 1186 / 1186 Lab / Micro Data 07/09/23 12:00 07/09/23 04:57 Labs: Laboratory Results - last 24 hr 07/08/23 22:29: WBC 16.6 H, RBC 2.84 L, Hgb 8.3 L, Hct 26.2 L, MCV 92.3, MCH 29.2, MCHC 31.7 L, RDW Std Deviation 50.0 H, RDW Coeff of Lobo 14.7 H, Plt Count 330, MPV 8.9, Immature Gran % (Auto) 1.000 H, Neut % (Auto) 74.1 H, Lymph % (Auto) 12.2 L, Johnston % (Auto) 12.2 H, Eos % (Auto) 0.3, Baso % (Auto) 0.2, Absolute Neuts (auto) 12.3 H, Absolute Lymphs (auto) 2.02, Nucleated RBC % 0, Diff Path Review June, PT 28.9 H, INR 2.8, APTT 37.0 H, Sodium 135 L, Potassium 5.0, Chloride 100, Carbon Dioxide 28.0, Anion Gap 7, BUN 31 H, Creatinine 0.60, Estim Creat Clear Calc 44.45, Est GFR (MDRD) Af Amer 123, Est GFR (MDRD) Non-Af 102, BUN/Creatinine Ratio 51.5 H, Glucose 116 H, Calcium 8.2 L, Total Bilirubin 0.30, Direct Bilirubin 0.16, AST 23, ALT 80 H, Alkaline Phosphatase 105, Total Protein 4.9 L, Albumin 2.2 L, Globulin 2.7, Prealbumin 18.2 L, Blood Type O POSITIVE, Antibody Screen NEGATIVE, Crossmatch See Detail 07/08/23 23:45: Digoxin 1.05 07/09/23 04:57: Sodium 135 L, Potassium 4.8, Chloride 103, Carbon Dioxide 24.0, Anion Gap 8, BUN 30 H, Creatinine 0.50 L, Estim Creat Clear Calc 40.96, Est GFR (MDRD) Af Amer 154, Est GFR (MDRD) Non-Af 128, BUN/Creatinine Ratio 60.5 H, Glucose 115 H, Calcium 7.2 L, Phosphorus 3.3, Magnesium 1.7, Total Bilirubin 0.40, AST 20, ALT 50, Alkaline Phosphatase 71, Troponin I High Sens 37, Total Protein 4.0 L, Albumin 2.0 L, Globulin 2.0 L, Albumin/Globulin Ratio 1.0 Micro: Microbiology 07/08/23 22:50 Stool Stool Occult Blood ([facility]) - Final Occult Blood Positive Radiography Diagnostic Testing: Radiology Impression Chest/Abdomen/Pelvis CTA 07/08/23 22:41 IMPRESSION: 1. No CT evidence of pulmonary embolism. 2. Suspect thrombus in the left atrial appendage. 3. Cardiomegaly. 4. Volume overload with large bilateral pleural effusions with bibasilar atelectasis and anasarca. 5. Prominent enhancing vessels within the posterior wall of the body the stomach may represent a site of the bleeding may be from gastritis or an ulcer. 6. Sigmoid diverticulosis without diverticulitis. 7. Small right renal hernia with incarceration of a loop of small bowel bowel obstruction. 8. Focal dilatation of the infrarenal abdominal aorta with maximal diameter of 2.0 cm with some mural thrombus. N.B. : The above Results were Read Back by Eben Maldonado MD to Jose Ricardo DO, and understanding confirmed on 07/09/2023 00:24:09 (ET). Electronically Signed: Eben Maldonado MD at 0:26 EDT , ADDENDUM: 07/09/23 0033 IMPRESSION: 1. No CT evidence of pulmonary embolism. 2. Suspect thrombus in the left atrial appendage. 3. Cardiomegaly. 4. Volume overload with large bilateral pleural effusions with bibasilar atelectasis and anasarca. 5. Prominent enhancing vessels within the posterior wall of the body the stomach may represent a site of the bleeding may be from gastritis or an ulcer. 6. Sigmoid diverticulosis without diverticulitis. 7. Small right renal hernia with incarceration of a loop of small bowel bowel obstruction. 8. Focal dilatation of the infrarenal abdominal aorta with maximal diameter of 2.0 cm with some mural thrombus. N.B. : The above Results were Read Back by Eben Maldonado MD to Jose Ricardo DO, and understanding confirmed on 07/09/2023 00:24:09 (ET). Electronically Signed: Eben Maldonado MD at 0:26 EDT , Physical Exam Narrative Physical exam General: awake, fatigue little lethargic, oriented x 3 HEENT: Icterus present atraumatic, PERRLA, EOMI, Normocephalic Oral: Oral mucosa dry. No Gingival or Mucosal Lesions/ Ulcerations Neck: Supple, No JVD, Negative Carotid Bruits Chest wall/Lungs: Air entry diminished in bilateral lung bases. No crepitation/rhonchi Cardiovascular: sinus rhythm. holosystolic murmur cardiac apex and LLSB. Abdomen: Bowel Sounds sluggish, soft, Non Tender, Non-Distended : No dysuria. No renal angle tenderness. No suprapubic tenderness. Extremities: bilateral below-knee 2+ edema and upper extremity edema, Capillary Refill Less than 3 Seconds Skin: No rashes, No breakdown Musculoskeletal: No Tenderness to Palpation of Joints or Extremities Neurological: Cranial nerves II-XII grossly intact, DTR 2+/4. No acute focal neurological deficit. 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 She was recently admitted for acute liver injury, acute kidney injury, A-fib with RVR with hypotension, acute exacerbation of chronic HFpEF EF 70%. Denies abdominal pain 1. Upper GI bleed with multiple numerous large-volume melanotic stools supported by laboratory evidence with elevated BUN of 31 mg/dL and normal serum creatinine of 0.6 mg/dL present on admission with a corresponding significant drop in her hemoglobin to 8.3 g/dL present on admission (which is down from 12.7 g/dL on July 06, 2023) and confirmed by hemorrhagic shock with blood pressure of 89/37 mmHg requiring emergent transfusion in ER in elderly patient with numerous complex medical conditions and DNR CC CODE STATUS; with no intubation - Admit to ICU. Continue IV Protonix and keep strict n.p.o. Patient was also treated with a dose of Kcentra. Recheck CBC two hours after this transfusion is completed. Finally, service unit operator on-call has already been contacted by the ER with plan for EGD in a.m. with help appreciated in advance. 07/08: Patient was taken to endoscopy suite but returned because his blood pressure was in low 90s to upper 80s. During previous hospitalization patient had low blood pressure in systolic 80s/low 90s without symptoms with A-fib with RVR and hypotension. I talked with Dr. Grimes that patient has hypotension and severe GI bleed with acute blood loss anemia and needs endoscopy to stabilize her but he did not agree and sent back to the ICU. He said if that being the case, patient can have bedside EGD with print line operator for propofol or anesthetic agents. Package Line Relief Operator further consulted and patient had bedside EGD. EGD findings on 07/09/2023 Impressions : - Normal esophagus. - Red blood in the entire stomach. - Spurting duodenal ulcer with a visible vessel. Injected. Treated with a heater probe. Clips were placed. 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 - No specimens collected. Recommendations : - Return patient to ICU for ongoing care. - Resume previous diet. - Continue present medications. - Await pathology results. - Repeat upper endoscopy. 2. Coagulopathy due to rivaroxaban, evidenced by elevated INR of 2.8 present on admission and evidence of significant bleeding. Stop rivaroxaban indefinitely as any potential benefits are likely outweighed by the risks of recurrent bleeding in this elderly patient with numerous and complex medical issues. 3. Large bilateral pleural effusions, bibasilar atelectasis and anasarca consistent with an acute exacerbation of chronic systolic CHF in the setting of known severe aortic stenosis, LVH and cardiomyopathy Echo on 06/28 shows EF 70% moderate asymmetric septal hypertrophy, small LV cavity. LA severely enlarged. 1-2+ MR, moderate to severe aortic stenosis. Moderately severe TR, PASP 50 mmHg Patient currently has low blood pressure therefore cannot tolerate diuretics. Continue digoxin. 4. CTA of the chest, abdomen and pelvis which was negative for PE but did show suspected thrombus in the Left atrial appendage adding to the pathology of #1 - #3 - Noted. Patient is felt to be a poor candidate for anticoagulation. 5. Hypoalbuminemia of 2.2 g/dL present on admission suspicious for protein calorie malnutrition - Check prealbumin to confirm suspicion. When patient is able to tolerate p.o. intake consider adding Ensure to meals. 6. Acute liver injury, last hospital stay, non- acetaminophen related. Right upper quadrant sonogram showing GB wall thickening with pericholecystic fluid but no abdominal pain or gallstones therefore possible acalculous cholecystitis. Patient was conservatively managed with NAC drip. Hyperbilirubinemia resolved and liver chemistry had not improved by the time of discharge. 7. Chronic atrial fibrillation; on rivaroxaban - Stable at this time with patient rate controlled with a therapeutic digoxin level of 1.05 ng/mL present on admission so we will continue Digoxin IV to prevent RVR. Rivaroxaban is discontinued 8. Essential hypertension - Hold scheduled antihypertensives with hemorrhagic shock and evidence of ongoing bleeding outlined #1. 9. Hyperlipidemia - Restart statin after EGD when okay with GI. 10. History of tobacco abuse - Noted. 11. History of amyloidosis - Noted. 12. PAD; status post iliac artery occlusion - Noted. 13. History of hysterectomy - Noted. 14. Osteoarthritis - Stable. 15. History of medical noncompliance - Noted. Patient encouraged not to take rivaroxaban in the future as the actual ongoing risks outweigh any potential benefit. 16. DVT prophylaxis - SCD's only with active GI hemorrhaging outlined in #1. Total time of the visit including total time spent in counseling or coordination of care, (more than 50% of the total time, spent in obtaining medical information from nurses and other ancillary care providers,explaining to the patient about labs, imaging, diagnosis and management of active complex medical conditions), discussion with print line operator, service unit operator and ICU staff nurse, review of labs and imaging and clinical update given to patient's daughter and granddaughter, POA is 60 minutes Living will/advanced directive/end of life care: Patient does have living will or advanced directive. Her granddaughter Ananya is power of music theory professor for health but Brooklynn other granddaughter is also involved in the care. After discussion of benefits/risks procedures involved with full code, DNR CC arrest and DNR CC, the patient's granddaughter stated that she does not want intubation chest compression but okay with the vasopressors Patient doesn't want artificial life support including intubation, ventilator and/chest compression but okay with central venous catheter, vasopressor and DC shock if needed. Subsequently CODE STATUS changed from DNR CCA to DNR CC arrest with no intubation Total time spent in [id number] encounter in discussion of advanced directive 17 minutes. Charges/Coding Visit Charges Inpatient E&M: 16974 Disch Hosp >30min Procedures Hospitalists Procedures: 40498 Advncd Care Plan 30 Min
[2023-07-09] MEDS: Digoxin 250 MCG/ML Ampul 125 MCG IV (08:38)
[2023-07-09] MEDS: Pantoprazole Sodium 80 MG in 0.9% Normal Saline (100mL Bag) 80 ML 10 MG CONT INF ×2 (08:39→19:04)
--- NOTE | 2023-07-09 08:52 | CASEMGMT ---
Discharge Planning Updates sent via [facility] to [facility]. Requested weekend phone/fax. Belen Medrano DC Planning Asst.
[2023-07-09 08:59] LABS: Absolute Lymphocyte Count 1.37 X10^3/uL (0.83-4.51); Absolute Neutrophil Count 12.4 X10^3/uL (2.0-7.7); Basophil# 0.05 X10^3/uL; Basophil% 0.3 % (0-1); Eosinophil# 0.01 X10^3/uL; Eosinophils% 0.1 % (0-5); Hematocrit 23.7 % (37-47); Hemoglobin 7.7 g/dL (12.0-15.0); Lymphocyte # 1.37 X10^3/ul (0.83-4.51); Lymphocyte % 8.8 % (19-41); Mean Corp Hgb Conc 32.5 g/dL (32-36); Mean Corpuscular Hgb 28.6 pg (27.0-32.0); Mean Corpuscular Volume 88.1 fL (81-99); Mean Platelet Vol. 8.7 fl (6.2-12.0); Monocyte% 10.9 % (0-10); NRBC Flagged by Analyzer 0 % (0-5); Neutrophil # 12.37 X10^3/uL (2.7-7.7); Neutrophil % 79.1 % (47-70); POSITIVE DIFFERENTIAL YES; Platelet Count 152 K/mm3 (150-450); RBC Distribution Width CV 14.1 % (11.6-14.6); RBC Distribution Width SD 44.7 fl (35.1-43.9); Red Blood Count 2.69 M/mm3 (4.2-5.4); White Blood Count 15.6 K/mm3 (4.4-11.0)
[2023-07-09 09:12] LABS: Differential Indicated SCAN CRITERIA MET
--- NOTE | 2023-07-09 09:24 | CASEMGMT ---
Readmission Note: Index: 06/29/23-07/06/23. Dx: Acute Liver Failure with Jaundice, AFIB RVR Readmission: 07/09/23. Dx: Melanotic Stools d/t Upper GI Bleed Pt with a history of hypertension, hyperlipidemia, tobacco abuse, chronic atrial fibrillation, aortic stenosis, ventricular hypertrophy, cardiomyopathy, amyloidosis, PAD, osteoarthritis, and medical noncompliance was admitted on the above-noted dates for the corresponding dx?s. On index admission, the pt was treated for jaundice with a total bilirubin of 2.7 mg/dL. There was also a concern for the pt to have acute hepatitis so the medical team opted to perform RUQ US showing gallbladder wall thickening and pericholecystic fluid with no gallstones or biliary dilation. This was complicated by the pt AFIB with RVR with a chest x-ray that revealed a Left pleural effusion with cardiomegaly and an elevated BNP. The pt was also being treated for GREGORY, possible obstruction or GI bleeding, and hyponatremia. Pt was then dx with jaundice d/t cholestatic hepatitis. Pt was ultimately needing skilled placement and was transferred to [facility] at the time of DC. Pt re-presents to [facility] with melanotic stools, generalized weakness, fatigue, and near syncope. The plan moving forward is for the pt to return to [facility] once medically ready. SW to follow.
[2023-07-09 09:37] LABS: Pathologist Review Reviewed
[2023-07-09 10:28] LABS: Differential Comment SCANNED
--- NOTE | 2023-07-09 11:20 | SUR.PREOP ---
In PACU Pre-Op, noted to be hypotensive in 80's systolic, telemetry shows SR w/ marked ST depression and BBB, runs of SVT and sinus arrhythmia. Dr Leonardo, anesthesia, evaluated, no 12-lead EKG to compare. MANAGER MANAGED CARE notified that Dr Leonardo is cancelling procedure as patient is too unstable for anesthesia at this time. MANAGER MANAGED CARE states she did send a message to Dr Tsai to notify of Hgb of 7 and low BP. Informed patient.
[2023-07-09 12:10] LABS: Hematocrit 19.8 % (37-47); Hemoglobin 6.8 g/dL (12.0-15.0)
--- NOTE | 2023-07-09 12:27 | CASEMGMT ---
Pt RN states to this RN CM that the pt advocate is needing consulted for this pt d/t Dr. Leonardo not wanting to anesthetize the pt d/t feeling as if the pt is too unstable for anesthesia. BILL Cassidy pt Advocate is off of work today so this RN CM contacted Lois, Care Educational Fundraising Director who then is to consult the pt advocate who is on.
[2023-07-09] MEDS: Norepinephrine 8 MG in 0.9% Normal Saline (250mL Bag) 242 ML 9.4 MG CONT INF (12:38)
--- NOTE | 2023-07-09 12:39 | CON.PCM.CC_ITS ---
Assessment & Plan Assessment/Plan (1) Acute blood loss anemia: PLAN: Plan RECOMMENDATIONS: 1. Continue current supportive measures including transfusion of blood products to maintain a hemoglobin at or above 7 g/dL. 2. Continue PPI therapy. 3. Initiate Levophed, if needed, to maintain hemodynamic stability. 4. Hold Lasix for now. IMPRESSIONS: 1. Acute blood loss anemia Clinical concern for upper GI bleed. Gastroenterology has been consulted with tentative plans for endoscopic evaluation. For now, recommend continuing transfusion of packed red blood cells to maintain a hemoglobin at or above 7 g/dL. The patient will also be continued on PPI therapy. If the patient continues to remain hypotensive, recommend initiation of Levophed to maintain hemodynamic stability. Agree with discontinuation of Xarelto. 2. History of valvular heart disease/heart failure with preserved ejection fraction/atrial fibrillation/hypertension/hyperlipidemia Complicates care, management, recovery and prognosis. Continue to hold antihypertensives. Continue supportive measures as noted above. This note was generated with [employer] dictation software. It may contain incorrect words, spelling, and punctuation that were not noted in checking the note before signing. HPI Consult Data Date of Consult: 07/09/23 HPI Narrative Reason for Consultation: Gastrointestinal bleed HPI Narrative: The patient is a 77-year-old female, with a history as outlined below, who presented to the emergency department via EMS on July 07 with melanotic stools. The patient has complex medical history including atrial fibrillation on systemic anticoagulation, valvular heart disease, history of cardiomyopathy, amyloidosis and peripheral arterial disease. On presentation to the emergency department, the patient was noted to be afebrile and hemodynamically stable. She was maintaining appropriate oxygen saturations on room air. Initial laboratory evaluation revealed a hemoglobin of 8.3 g/dL with a white blood cell count of 16,000 and normal platelet count. Coagulation profile was notable for a INR of 2.8. Chemistry profile was notable for a sodium of 135 with normal creatinine. CTA chest/abdomen/pelvis demonstrated cardiomegaly without evidence for pulmonary embolism. Bilateral pleural effusions were noted. There was a prominent enhancing vessel within the posterior wall of the body of the stomach which was thought to potentially represent a site of bleeding or potentially an area of gastritis or an ulcer. Stool for occult blood was positive. The patient was started on PPI therapy and was ordered to receive blood products. She was subsequently admitted to the medical intensive care unit with gastroenterology consultation. [facility] Medical History Hyperlipidemia Amyloidosis Edema Vitamin D deficiency Sinus tachycardia Heart murmur Smoking history Iliac artery occlusion Mitral annular calcification Cardiomyopathy Hypertension Atrial fibrillation Ventricular hypertrophy Aortic stenosis Home Medications ?Medication ?Instructions ?Recorded ?Last Taken ?Type rivaroxaban 15 mg tablet 15 mg PO DAILY 06/28/20 Unknown History polysaccharide iron complex 150 mg 150 mg PO BID #60 caps 07/12/20 Unknown Rx iron capsule (Ferrex) atenolol 25 mg tablet 25 mg PO DAILY #0 tabs 07/06/23 Unknown Rx digoxin 250 mcg (0.25 mg) tablet 250 mcg PO DAILY@0800 #0 tabs 07/06/23 Unknown Rx diltiazem HCl 120 mg 120 mg PO DAILY #0 caps 07/06/23 Unknown Rx capsule,extended release 24 hr furosemide 20 mg tablet 20 mg PO DAILY #0 tabs 07/06/23 Unknown Rx Allergy/AdvReac Type Severity Reaction Status Date / Time Sulfa (Sulfonamide Allergy Hives Verified 06/28/23 19:55 Antibiotics) Family History Sister Aortic valve replaced Status post aortic valve replacement and aortoplasty Brother Hx of CABG CHF (congestive heart failure) Sister Cancer Sister Heart failure Sister CVA (cerebral vascular accident) Father Hepatitis CHF (congestive heart failure) Mother CHF (congestive heart failure) Sudden Surgical History History of hysterectomy Social History Smoking Status: Current every day smoker tobacco type: cigarettes second hand exposure: No quit status: considering quitting alcohol intake: current alcohol intake frequency: a few times a month Alcohol type: beer substance use type: does not use jair/scientology: Sikh ROS ROS Narrative 10 systems were reviewed with pertinent positives as noted in the HPI above. Physical Exam Const alert and no apparent distress Constitutional Narrative: Resting comfortably in bed with daughter at the bedside. General Appearance: cooperative HEENT normocephalic and head/scalp atraumatic Eyes PERRL, EOMs intact bilaterally and conjunctivae normal Neck supple General: trachea midline Chest inspection of chest normal Resp normal respiratory effort Auscultation: Negative for rales, rhonchi or wheezes Cardio S1 normal heart sound and S2 normal heart sound Rhythm: abnormal rhythm Heart Sounds: murmur GI normal to inspection, nondistended, normoactive bowel sounds Extremity General Extremity: edema bilateral lower extremity Skin no rashes or lesions noted Neuro CN's II-XII intact bilaterally, moves all extremities and no focal motor deficits Psych Mood & Affect: flat affect Lab / Micro Data 07/09/23 12:00 07/09/23 04:57 Labs: Laboratory Results - last 24 hr 07/08/23 22:29: WBC 16.6 H, RBC 2.84 L, Hgb 8.3 L, Hct 26.2 L, MCV 92.3, MCH 29.2, MCHC 31.7 L, RDW Std Deviation 50.0 H, RDW Coeff of Lobo 14.7 H, Plt Count 330, MPV 8.9, Immature Gran % (Auto) 1.000 H, Neut % (Auto) 74.1 H, Lymph % (Auto) 12.2 L, [place] % (Auto) 12.2 H, Eos % (Auto) 0.3, Baso % (Auto) 0.2, A bsolute Neuts (auto) 12.3 H, Absolute Lymphs (auto) 2.02, Nucleated RBC % 0, Diff Path Review Reviewed, PT 28.9 H, INR 2.8, APTT 37.0 H, Sodium 135 L, Potassium 5.0, Chloride 100, Carbon Dioxide 28.0, Anion Gap 7, BUN 31 H, Creatinine 0.60, Estim Creat Clear Calc 44.45, Est GFR (MDRD) Af Amer 123, Est GFR (MDRD) Non-Af 102, BUN/Creatinine Ratio 51.5 H, Glucose 116 H, Calcium 8.2 L , Total Bilirubin 0.30, Direct Bilirubin 0.16, AST 23, ALT 80 H, Alkaline Phosphatase 105, Total Protein 4.9 L, Albumin 2.2 L, Globulin 2.7, Prealbumin 18.2 L, Blood Type O POSITIVE, Antibody Screen NEGATIVE, Crossmatch See Detail 07/08/23 23:45: Digoxin 1.05 07/09/23 04:57: Sodium 135 L, Potassium 4.8, Chloride 103, Carbon Dioxide 24.0, Anion Gap 8, BUN 30 H, Creatinine 0.50 L, Estim Creat Clear Calc 40.96, Est GFR (MDRD) Af Amer 154, Est GFR (MDRD) Non-Af 128, BUN/Creatinine Ratio 60.5 H, G lucose 115 H, Calcium 7.2 L, Phosphorus 3.3, Magnesium 1.7, Total Bilirubin 0.40, AST 20, ALT 50, Alkaline Phosphatase 71, Troponin I High Sens 37, Total Protein 4.0 L, Albumin 2.0 L, Globulin 2.0 L, Albumin/Globulin Ratio 1.0 07/09/23 08:50: WBC 15.6 H, RBC 2.69 L, Hgb 7.7 L, Hct 23.7 L, MCV 88.1, MCH 28.6, MCHC 32.5, RDW Std Deviation 44.7 H, RDW Coeff of Lobo 14.1, Plt Count 152, MPV 8.7, Immature Gran % (Auto) 0.800, Neut % (Auto) 79.1 H, Lymph % (Auto) 8.8 L, [place] % (Auto) 10.9 H, Eos % (Auto) 0.1, Baso % (Auto) 0.3, Absolute Neuts (auto) 12.4 H, Absolute Lymphs (auto) 1.37, Nucleated RBC % 0, Differential Comment SCANNED, Diff Path Review June07/09/23 12:00: Hgb 6.8 L, Hct 19.8 L Micro: Microbiology 07/08/23 22:50 Stool Stool Occult Blood ([facility]) - Final Occult Blood Positive Imaging Radiology Impression Chest/Abdomen/Pelvis CTA 07/08/23 22:[address]: 1[address] evidence of pulmonary embolism. 2. Suspect thrombus in the left atrial appendage. 3. Cardiomegaly. 4. Volume overload with large bilateral pleural effusions with bibasilar atelectasis and anasarca. 5. Prominent enhancing vessels within the posterior wall of the body the stomach may represent a site of the bleeding may be from gastritis or an ulcer. 6. Sigmoid diverticulosis without diverticulitis. 7. Small right renal hernia with incarceration of a loop of small bowel bowel obstruction. 8. Focal dilatation of the infrarenal abdominal aorta with maximal diameter of 2.0 cm with some mural thrombus. N.B. : The above Results were Read Back by Eben Maldonado MD to Jose Ricardo DO, and understanding confirmed on 07/09/2023 00:24:09 (ET). Electronically Signed: Eben Maldonado MD at 0:26 EDT , ADDENDUM: 07/09/23 0033 IMPRESSION: 1. No CT evidence of pulmonary embolism. 2. Suspect thrombus in the left atrial appendage. 3. Cardiomegaly. 4. Volume overload with large bilateral pleural effusions with bibasilar atelectasis and anasarca. 5. Prominent enhancing vessels within the posterior wall of the body the stomach may represent a site of the bleeding may be from gastritis or an ulcer. 6. Sigmoid diverticulosis without diverticulitis. 7. Small right renal hernia with incarceration of a loop of small bowel bowel obstruction. 8. Focal dilatation of the infrarenal abdominal aorta with maximal diameter of 2.0 cm with some mural thrombus. N.B. : The above Results were Read Back by Eben Maldonado MD to Jose Ricardo DO, and understanding confirmed on 07/09/2023 00:24:09 (ET). Electronically Signed: Eben Maldonado MD at 0:26 EDT , Charges/Coding Visit Charges Inpatient E&M: 19771 Init Hosp L3
[2023-07-09 13:36] LABS: BNP,B-Type NATRIURETIC PEPTIDE 1055.4 pg/mL (0-100)
--- NOTE | 2023-07-09 13:49 | CASEMGMT ---
SW went to talk with patient about her d/c plan. Patient was having a procedure. SW called patient's granddaughter Ananya, but she was not available. FLORIAN called patient's other granddaughter Brooklynn and asked about d/c plan. Brooklynn said she is not sure. Brooklynn and Ananya would like to see the results of patient's scope and what Dr Friend has to say. Brooklynn said they want to be sure that patient is appropriate to return to [place]. FLORIAN told Brooklynn DU will continue to follow and assist with d/c planning. Pam Killian PIPING DRAFTER TRAVON
[2023-07-09] MEDS: Epinephrine (1 mg/ml) 1 MG/ML VIAL ×2 (13:53→13:55)
[2023-07-09] MEDS: 0.9% Normal Saline (Pres. free 10 ML Vial ×2 (13:53→13:55)
[2023-07-09] MEDS: Midazolam 2 MG/2 ML Syringe IV ×2 (14:21→14:22)
--- NOTE | 2023-07-09 15:31 | PCM.OP.PRO ---
Procedure Report Date of Procedure: 07/09/23 Assessment & Plan Assessment/Plan (1) Acute GI bleeding: Procedures Radiology Radiology Access Procedures: PICC Procedure Time Out Time Out Informed consent given: Yes Consent signed: Yes Time out checklist: patient, procedure, site marked/identified, positioning of patient, supplies available and allergies confirmed Time out staff in room: Yes Time out verified: Yes Time out date: 07/09/23 Time out time: 14:40 PICC Line Consent Screening tool completed:: Yes Consent obtained:: Yes Consent given by (patient or responsible constitution party):: pt's daughter Line successful (if no, document why in comments):: Yes Insertion Reason for Insertion: vesicant Date of Insertion: 07/09/23 Ok to use: Yes Type of PICC inserted: Dual Power PICC PICC Lot #: [id number] PICC Reference #: [id number] Microintroducer Used: Yes (in kit) Ultrasound/Equipment Used: Probe Cover Kit Trimmed Length (cm): 41 Insertion Length (cm): 40 Exposed Length (cm): 1 Tip Placement: Caval Atrial Junction Placement Confirmation: 3CG Insertion Vein: Right Basilic Insertion Attempts: 1 Local Anesthesia Used: Lidocaine 1% (in kit) Dressing Applied: Statlock and Tegaderm CHG Arm Measurement above site (in cm): 25 Patient Tolerated Procedure: Well Threading Difficulties: No Comments Comment: Patient identity was verified with two patient identifiers. Informed consent was obtained and time-out was completed. Hands were sanitized. The patient was positioned supine with right arm at 90 degrees. The patient's upper arm vasculature was assessed using ultrasound. Patency of the right basilic vein was confirmed and the vein was externally marked. An external measurement was obtained of 41 cm. External leads were applied to the patient's right upper chest and laterally and inferior of the umbilicus on the mid axillary line. Cap, mask, and prep gloves were donned. The underdrape was placed under the patient's arm. The site was prepped with chlorhexidine, and tourniquet was loosely applied. Prep gloves were discarded, and hands were sanitized. The sterile kit was opened with additional supplies dropped in. Sterile gown and gloves were donned, and the patient was draped. The sterile kit was assembled with needle, introducer, needless connectors, and each catheter lumen flushed with sterile normal saline. The marked site of insertion was anesthetized with 1% lidocaine from the kit. Patient tolerated well. The right basilic vein was then accessed using ultrasound guidance and guidewire was inserted to safety carlo. The tourniquet was released. The access needle was removed while securing the guidewire in place. The site was again anesthetized with 1% lidocaine, prior to insertion of introducer sheath and dilator. Patient tolerated the insertion well. The catheter was trimmed to a length of 41 cm. Using 3C guidance, the catheter was then inserted through the introducer sheath, slowly. There was no resistance on insertion. The catheter followed the expected course of the vessel using 3CG tracking. The introducer sheath was retracted and peeled away, incrementally, while keeping the catheter secured. Maximal p-wave, without deflection, confirming placement in the cavoatrial junction, was obtained at an insertion length of 40 cm, leaving 1 cm external. The stylet was removed. A flushed needleless connector was attached to the lumen. Aspiration of the lumen was performed to remove any air and confirm blood return. Blood return was verified and each lumen was flushed with 10 ml of sterile normal saline in a pulsatile fashion. The each lumen was clamped with the last pulsed flush. Total sterile flushes used for the insertion was 5 10 ml syringes, 2 from the kit. Finally, the insertion site was cleaned with chlorhexidine, and the catheter was secured using a StatLock. The site was covered with a Tegaderm CHG Dressing and disinfecting caps were applied. Baseline arm circumference was obtained at the insertion site and measured 25 cm. The patient was provided with a patient education handout on PICC line care of infection prevention, heavy lifting restriction, maintaining mobility, and watching for any signs of infection. The primary nurse is aware that the PICC line is ready for use.
--- NOTE | 2023-07-09 16:50 | OP.EGD_ITS ---
Patient Name: Wilda Damon Procedure Date: 07/09/2023 1:23 PM Date of : 1945 Age: 77 Procedure: Upper GI endoscopy Indications: Melena Providers: El Tsai DO Medicines: Midazolam 2 mg IV, Meperidine 25 mg IV Patient Profile: This is a 77 year old female. Refer to note in patient chart for documentation of history and physical. Patient has symptoms. Complications: No immediate complications. Procedure: Pre-Anesthesia Assessment: - Prior to the procedure, a History and Physical was performed, and patient medications and allergies were reviewed. The patient is competent. The risks and benefits of the procedure and the sedation options and risks were discussed with the patient. All questions were answered and informed consent was obtained. Patient identification and proposed procedure were verified by the physician. Mental Status Examination: normal. Airway Examination: normal oropharyngeal airway and neck mobility. Respiratory Examination: clear to auscultation. Prophylactic Antibiotics: The patient does not require prophylactic antibiotics. Prior Anticoagulants: The patient has taken no anticoagulant or antiplatelet agents except for NSAID medication. ASA Grade Assessment: II - A patient with mild systemic disease. After reviewing the risks and benefits, the patient was deemed in satisfactory condition to undergo the procedure. The anesthesia plan was to use moderate sedation / analgesia (conscious sedation). Immediately prior to administration of medications, the patient was re-assessed for adequacy to receive sedatives. The heart rate, respiratory rate, oxygen saturations, blood pressure, adequacy of pulmonary ventilation, and response to care were monitored throughout the procedure. The physical status of the patient was re-assessed after the procedure. After obtaining informed consent, the endoscope was passed under direct vision. Throughout the procedure, the patient's blood pressure, pulse, and oxygen saturations were monitored continuously. The Endoscope was introduced through the mouth, and advanced to the second part of duodenum. The upper GI endoscopy was accomplished without difficulty. The patient tolerated the procedure well. Moderate Sedation: Moderate (conscious) sedation was personally administered by the endoscopist. The following parameters were monitored: oxygen saturation, heart rate, blood pressure, respiratory rate, EKG, adequacy of pulmonary ventilation, and response to care. Scope In: 1:32:33 PM Scope Out: 2:08:20 PM Total Procedure Duration Time 0 hours 35 minutes 47 seconds Findings: The examined esophagus was normal. Red blood was found in the entire examined stomach. One spurting cratered duodenal ulcer with a visible vessel was found in the second portion of the duodenum. The lesion was 10 mm in largest dimension. Area was successfully injected with 14 mL of a 0.1 mg/mL solution of epinephrine for drug delivery. Coagulation for hemostasis using heater probe was successful. Estimated blood loss was minimal. To prevent bleeding post-maneuver, three hemostatic clips were successfully placed. Clip assembly machine operator: RMI. There was no bleeding at the end of the procedure. Impression: - Normal esophagus. - Red blood in the entire stomach. - Spurting duodenal ulcer with a visible vessel. Injected. Treated with a heater probe. Clips were placed. Clip assembly machine operator: RMI. - No specimens collected. Recommendation: - Return patient to ICU for ongoing care. - Resume previous diet. - Continue present medications. - Await pathology results. - Repeat upper endoscopy. Procedure Code(s): --- Professional --- 82649, Esophagogastroduodenoscopy, flexible, transoral; with control of bleeding, any method 78663, 59,51, Esophagogastroduodenoscopy, flexible, transoral; with directed submucosal injection(s), any substance CPT copyright 2021 [employer]. All rights reserved. The codes documented in this report are preliminary and upon certified professional coder review may be revised to meet current compliance requirements. El Tsai DO 07/09/2023 4:49:51 PM This report has been signed electronically. Number of Addenda: 0 Note Initiated On: 07/09/2023 1:23 PM
--- NOTE | 2023-07-09 16:50 | OP.CCLET_ITS ---
07/09/2023 No Primary Care Physician Re : Upper GI endoscopy procedure for Wilda Damon Dear Care Physician This procedure was performed on Sunday, July 09, 2023. My impressions and recommendations are as follows: Impressions : - Normal esophagus. - Red blood in the entire stomach. - Spurting duodenal ulcer with a visible vessel. Injected. Treated with a heater probe. Clips were placed. Clip buyer intern: [employer]. - No specimens collected. Recommendations : - Return patient to ICU for ongoing care. - Resume previous diet. - Continue present medications. - Await pathology results. - Repeat upper endoscopy. My findings are described in the full procedure note, which is enclosed. If I can be of further assistance, please feel free to contact me at . Sincerely, El Tsai, 07/09/2023 4:49:51 PM This report has been signed electronically.
[2023-07-09 18:38] LABS: Hematocrit 27.1 % (37-47)
[2023-07-10] VITALS (32 sets, daily range): BP systolic 88–125; BP diastolic 36–63; PULSE 94–115; RESP 14–28; TEMP 36.1–36.6; O2SAT 92–100; BMI 23.3
[2023-07-10 02:49] LABS: Absolute Lymphocyte Count 1.68 X10^3/uL (0.83-4.51); Absolute Neutrophil Count 18.9 X10^3/uL (2.0-7.7); Basophil# 0.07 X10^3/uL; Basophil% 0.3 % (0-1); Eosinophil# 0.01 X10^3/uL; Hematocrit 23.6 % (37-47); Lymphocyte # 1.68 X10^3/ul (0.83-4.51); Lymphocyte % 7.5 % (19-41); Mean Corp Hgb Conc 33.9 g/dL (32-36); Mean Corpuscular Hgb 30.1 pg (27.0-32.0); Mean Corpuscular Volume 88.7 fL (81-99); Mean Platelet Vol. 9.4 fl (6.2-12.0); Monocyte# 1.59 X10^3/uL; Monocyte% 7.1 % (0-10); NRBC Flagged by Analyzer 0.1 % (0-5); Neutrophil % 84.1 % (47-70); POSITIVE DIFFERENTIAL YES; Platelet Count 119 K/mm3 (150-450); RBC Distribution Width CV 14.7 % (11.6-14.6); RBC Distribution Width SD 46.9 fl (35.1-43.9); Red Blood Count 2.66 M/mm3 (4.2-5.4); White Blood Count 22.5 K/mm3 (4.4-11.0)
[2023-07-10 03:16] LABS: Anion Gap 7 (5-15); BUN 30 mg/dL (7-18); BUN/Creat Ratio 65.4 RATIO (10-20); Calcium,Total 7.4 mg/dL (8.5-10.1); Chloride 105 mmol/L (98-107); Creatinine, Serum 0.46 mg/dL (0.55-1.02); EST Glomerular Filtration Rate 139 mL/min (>60); Est Glom Filt Rate - Afr Amer 169 mL/min (>60); Estimated Creatinine Clearance 40.96 ml/min; Glucose 108 mg/dL (74-106); Potassium 4.5 mmol/L (3.5-5.1); Sodium Level 138 mmol/L (136-145)
[2023-07-10 03:21] LABS: Differential Indicated SCAN CRITERIA MET
[2023-07-10 03:53] LABS: Differential Comment SCANNED
[2023-07-10] MEDS: Pantoprazole Sodium 80 MG in 0.9% Normal Saline (100mL Bag) 80 ML 10 MG CONT INF ×2 (05:07→15:24)
--- NOTE | 2023-07-10 07:27 | PN.HOSP_ITS ---
Reason for Visit Reason for Visit: Diagnoses Acute posthemorrhagic anemia (07/09/23) Other disorders of plasma-protein metabolism, not elsewhere classified (07/09/23) Heart failure, unspecified (07/09/23) Gastrointestinal hemorrhage, unspecified (07/09/23) Adverse effect of unspecified drugs, medicaments and biological substances, initial encounter (07/09/23) supervisor intermediates (current) use of anticoagulants (07/09/23) Personal history of other diseases of the circulatory system (07/09/23) Personal history of other diseases of the digestive system (07/09/23) Objective Data Objective Data Vital Signs: Vital Signs Temp Pulse Resp BP Pulse Ox O2 Del Method O2 Flow Rate 97.9 F 99 17 111/57 L 98 Room Air 2 07/10/23 04:00 07/10/23 07:00 07/10/23 07:00 07/10/23 07:00 07/10/23 07:00 07/10/23 07:00 07/09/23 21:00 Oxygen Flow Rate (L/min) 2 Oxygen Delivery Method Room Air Weight: 115 lb 15.41 oz Body Mass Index (BMI) 23.3 Intake & Output: Intake and Output for Last 24 Hours 07/08/23 07/09/23 07/10/23 23:59 23:59 23:59 Intake Total 1417.05 / 1420.85 130.4 / 130.4 Balance 1417.05 / 1420.85 130.4 / 130.4 Lab / Micro Data 07/10/23 02:35 07/10/23 02:35 Labs: Laboratory Results - last 24 hr 07/08/23 22:29: Diff Path Review Reviewed, Crossmatch See Detail 07/08/23 22:29: Crossmatch See Detail 07/09/23 04:57: B-Natriuretic Peptide 1055.4 H 07/09/23 08:50: WBC 15.6 H, RBC 2.69 L, Hgb 7.7 L, Hct 23.7 L, MCV 88.1, MCH 28.6, MCHC 32.5, RDW Std Deviation 44.7 H, RDW Coeff of Lobo 14.1, Plt Count 152, MPV 8.7, Immature Gran % (Auto) 0.800, Neut % (Auto) 79.1 H, Lymph % (Auto) 8.8 L, Faulkner % (Auto) 10.9 H, Eos % (Auto) 0.1, Baso % (Auto) 0.3, Absolute Neuts (auto) 12.4 H, Absolute Lymphs (auto) 1.37, Nucleated RBC % 0, Differential Comment SCANNED, Diff Path Review June brenna 07/09/23 12:00: Hgb 6.8 L, Hct 19.8 L 07/09/23 18:30: Hgb 9.0 L, Hct 27.1 L 07/10/23 02:35: WBC 22.5 H, RBC 2.66 L, Hgb 8.0 L, Hct 23.6 L, MCV 88.7, MCH 30.1, MCHC 33.9, RDW Std Deviation 46.9 H, RDW Coeff of Lobo 14.7 H, Plt Count 119 L, MPV 9.4, Immature Gran % (Auto) 1.000 H, Neut % (Auto) 84.1 H, Lymph % (Auto) 7.5 L, Faulkner % (Auto) 7.1, Eos % (Auto) 0.0, Baso % (Auto) 0.3, Absolute Neuts (auto) 18.9 H, Absolute Lymphs (auto) 1.68, Nucleated RBC % 0.1, Differential Comment SCANNED, Diff Path Review June, Sodium 138, Potassium 4.5, Chloride 105, Carbon Dioxide 26.0, Anion Gap 7, BUN 30 H, Creatinine 0.46 L , Estim Creat Clear Calc 40.96, Est GFR (MDRD) Af Amer 169, Est GFR (MDRD) Non- Af 139, BUN/Creatinine Ratio 65.4 H, Glucose 108 H, Calcium 7.4 L Micro: Microbiology 07/08/23 22:50 Stool Stool Occult Blood (CAMERON) - Final Occult Blood Positive Physical Exam Narrative Seen and examined. Patient on low-dose Levophed. Blood pressure 111/57 heart rate 99. Awake and alert. Physical exam General: awake, alert, oriented x 3 HEENT: Icterus present atraumatic, PERRLA, EOMI, Normocephalic Oral: Oral mucosa dry. No Gingival or Mucosal Lesions/ Ulcerations Neck: Supple, No JVD, Negative Carotid Bruits Chest wall/Lungs: Air entry diminished in bilateral lung bases. No crepitations. Cardiovascular: sinus rhythm. holosystolic murmur cardiac apex and LLSB. Abdomen: Bowel Sounds sluggish, soft, Non Tender, Non-Distended : No dysuria. Spontaneously voiding urine. No renal angle tenderness. No suprapubic tenderness. Extremities: bilateral below-knee 2+ edema and upper extremity edema, Capillary Refill Less than 3 Seconds Skin: No rashes, No breakdown Musculoskeletal: No Tenderness to Palpation of Joints or Extremities Neurological: Cranial nerves II-XII grossly intact, DTR 2+/4. No acute focal neurological deficit. Psych/Mental Status: Flat affect Assessment & Plan Assessment/Plan (1) Acute blood loss anemia: (2) Adverse drug reaction: QUALIFIERS: Encounter type: initial encounter Qualified Code(s): T50.905A - Adverse effect of unspecified drugs, medicaments and biological substances, initial encounter (3) Current use of terminal operations supervisor anticoagulation: (4) CHF (congestive heart failure): QUALIFIERS: Heart failure chronicity: unspecified Heart failure type: unspecified Qualified Code(s): I50.9 - Heart failure, unspecified (5) History of atrial fibrillation: (6) Hypoalbuminemia: (7) History of liver failure: PLAN: Plan 77-year-old female who was recently admitted for a week between 06/28 to 07/06/2023 is being admitted ICU for multiple numerous large-volume melanotic stool on the evening of day admission. She was recently admitted for acute liver injury, acute kidney injury, A-fib with RVR with hypotension, acute exacerbation of chronic HFpEF EF 70%. Denies abdominal pain 1. Upper GI bleed with multiple numerous large-volume melanotic stools s present on admission with a corresponding significant drop in her hemoglobin to 8.3 g/dL present on admission Admit to ICU. upported by laboratory evidence with elevated BUN of 31 mg/dL and normal serum creatinine of 0.6 mg/dLContinue IV Protonix and keep strict n.p.o. Patient was also treated with a dose of Kcentra. Recheck CBC two hours after this transfusion is completed. Finally, senior manager mergers & acquisitions on-call has already been contacted by the ER with plan for EGD in a.m. with help appreciated in advance. 07/08: Patient was taken to endoscopy suite but returned because his blood pressure was in low 90s to upper 80s. During previous hospitalization patient had low blood pressure in systolic 80s/low 90s without symptoms with A-fib with RVR and hypotension. I talked with Dr. Grimes that patient has hypotension and severe GI bleed with acute blood loss anemia and needs endoscopy to stabilize her but he did not agree and sent back to the ICU. He said if that being the case, patient can have bedside EGD with water treatment plant supervisor for propofol or anesthetic agents. Supervisor [employer] further consulted and patient had bedside EGD. EGD findings on 07/09/2023 Impressions : - Normal esophagus. - Red blood in the entire stomach. - Spurting duodenal ulcer with a visible vessel. Injected. Treated with a heater probe. Clips were placed. Clip dock or pier laborer: [facility]. - No specimens collected. Recommendations : - Return patient to ICU for ongoing care. - Resume previous diet. - Continue present medications. - Await pathology results. - Repeat upper endoscopy. 07/09: Discussed with the senior manager mergers & acquisitions. Started on soft diet. No plan for repeat EGD today. H&H 8/23.6%. She had 1 large melanotic stool yesterday, probably residual. BP 111/57 on low-dose of Levophed. 2. Coagulopathy due to rivaroxaban, evidenced by elevated INR of 2.8 present on admission and evidence of significant bleeding. Stop rivaroxaban indefinitely as any potential benefits are likely outweighed by the risks of recurrent bleeding in this elderly patient with numerous and complex medical issues. 3. Large bilateral pleural effusions, bibasilar atelectasis and anasarca consistent with an acute exacerbation of chronic systolic CHF in the setting of known severe aortic stenosis, LVH and cardiomyopathy Echo on 06/28 shows EF 70% moderate asymmetric septal hypertrophy, small LV cavity. LA severely enlarged. 1-2+ MR, moderate to severe aortic stenosis. Moderately severe TR, PASP 50 mmHg Patient currently has low blood pressure therefore cannot tolerate diuretics. Continue digoxin. 4. CTA of the chest, abdomen and pelvis which was negative for PE but did show suspected thrombus in the Left atrial appendage adding to the pathology of #1 - #3 - Noted. Patient is felt to be a poor candidate for anticoagulation. 5. Hypoalbuminemia of 2.2 g/dL present on admission suspicious for protein calorie malnutrition - Check prealbumin to confirm suspicion. When patient is able to tolerate p.o. intake consider adding Ensure to meals. 6. Acute liver injury, last hospital stay, non- acetaminophen related. Right upper quadrant sonogram showing GB wall thickening with pericholecystic fluid but no abdominal pain or gallstones therefore possible acalculous cholecystitis. Patient was conservatively managed with NAC drip. Hyperbilirubinemia resolved and liver chemistry had not improved by the time of discharge. 7. Chronic atrial fibrillation; on rivaroxaban - Stable at this time with patient rate controlled with a therapeutic digoxin level of 1.05 ng/mL present on admission so we will continue Digoxin IV to prevent RVR. Rivaroxaban is discontinued 07/09: banking center manager shows irregular rhythm but is still sinus. 8. Essential hypertension - Hold scheduled antihypertensives with hemorrhagic shock and evidence of ongoing bleeding outlined #1. 9. Hyperlipidemia - Restart statin after EGD when okay with GI. 10. History of tobacco abuse - Noted. 11. History of amyloidosis - Noted. 12. PAD; status post iliac artery occlusion - Noted. 13. History of hysterectomy - Noted. 14. Osteoarthritis - Stable. 15. History of medical noncompliance - Noted. Patient encouraged not to take rivaroxaban in the future as the actual ongoing risks outweigh any potential benefit. 16. DVT prophylaxis - SCD's only with active GI hemorrhaging outlined in #1. Total time of the visit including total time spent in counseling or coordination of care, (more than 50% of the total time, spent in obtaining medical information from nurses and other ancillary care providers,explaining to the patient about labs, imaging, diagnosis and management of active complex medical conditions), discussion with water treatment plant supervisor, senior manager mergers & acquisitions and ICU staff nurse, review of labs and imaging and clinical update given to patient's daughter and granddaughter, POA is 45 minutes Living will/advanced directive/end of life care: Patient does have living will or advanced directive. Her granddaughter Ananya is power of securities attorney for health but Brooklynn other granddaughter is also involved in the care. After discussion of benefits/risks procedures involved with full code, DNR CC arrest and DNR CC, the patient's granddaughter stated that she does not want intubation chest compression but okay with the vasopressors Patient doesn't want artificial life support including intubation, ventilator and/chest compression but okay with central venous catheter, vasopressor and DC shock if needed. Subsequently CODE STATUS changed from DNR CCA to DNR CC arrest with no intubation Charges/Coding Visit Charges Inpatient E&M: 05629 Subs Hosp L3
[2023-07-10 09:41] LABS: AST(SGOT) 25 U/L (15-37); Alanine Aminotransfer ALT/SGPT 47 U/L (13-56); Albumin, Serum 1.9 g/dL (3.2-5.0); Alkaline Phosphatase 58 U/L (45-117); Bilirubin, Direct 0.29 mg/dL (0.00-0.30); Protein, Total 3.9 g/dL (6.4-8.2)
[2023-07-10] MEDS: 0.9% Saline Lock 10 ML Syringe IV ×2 (09:46→13:46)
[2023-07-10] MEDS: Digoxin 250 MCG/ML Ampul 125 MCG IV (09:46)
[2023-07-10] MEDS: CHLORHEXIDINE GLUC 2% CLOTH 1 EACH TOWELETTE TOPICAL (11:02)
--- NOTE | 2023-07-10 12:44 | PN.CC_ITS ---
Objective Data Objective Data Vital Signs: Vital Signs Last response 3 Temperature 36.1 C L 07/10/23 12:00 Temperature Source Temporal 07/10/23 12:00 Pulse Rate 110 H 07/10/23 12:00 Pulse Strength Normal (2+) 07/09/23 19:39 Respiratory Rate 26 H 07/10/23 12:00 Respiratory Effort Normal, Non-Labored 07/10/23 12:00 Respiratory Depth Shallow 07/10/23 12:00 Respiratory Pattern Tachypnea 07/10/23 12:00 Blood Pressure 102/51 L 07/10/23 12:00 Blood Pressure Mean 68 07/10/23 12:00 Blood Pressure Source Monitor 07/10/23 12:00 Blood Pressure Position Semi-Fowlers 07/10/23 12:00 Blood Pressure Location Left Arm 07/10/23 12:00 Pulse Ox 99 07/10/23 12:00 Oxygen Delivery Method Room Air 07/10/23 12:00 Oxygen Flow Rate (L/min) 2 07/09/23 21:00 I&O: I&O Last 24 Hours 3 07/09/23 07/10/23 07/10/23 23:59 11:59 23:59 Intake Total 143.05 / 1420.85 625.6 / 629.4 3.8 / 629.4 Balance 143.05 / 1420.85 625.6 / 629.4 3.8 / 629.4 I&O: Total Stay 3 07/08/23 22:02 thru 07/10/23 12:00 Intake Total 2046.45 Balance 2046.45 Current Meds Ordered / Administered: Current meds ordered / Administered 3 Generic Name Dose Route Start Last Admin Trade Name Freq PRN Reason Stop Dose Admin Chlorhexidine Gluconate 1 each 07/10/23 10:00 07/10/23 11:02 Chlorhexidine Gluc 2% Cloth 1 Each Towelette TOPICAL 1 each DAILY UBALDO Administration Digoxin 125 mcg 07/09/23 10:00 07/10/23 09:46 Digoxin 250 Mcg/Ml Ampul IV 125 mcg DAILY UBALDO Administration Furosemide 40 mg 07/09/23 10:00 07/10/23 10:57 Furosemide 40 Mg/4 Ml Vial IV Not Given DAILY UBALDO Protocol Pantoprazole Sodium 80 mg/ 100 mls @ 10 mls/hr 07/08/23 22:50 07/10/23 05:07 Sodium Chloride CONT INF 10 mls/hr Q10H UBALDO Administration Sodium Chloride 250 mls @ 15 mls/hr 07/09/23 02:29 IV .[id number] PRN Additional IVPB Infusion Sodium Chloride 250 mls @ 15 mls/hr 07/09/23 02:29 IV .[id number] PRN Saline Flush Norepinephrine Bitartrate 8 mg 250 mls @ 9.375 mls/hr 07/09/23 12:10 07/10/23 12:00 / Sodium Chloride CONT INF 2 mcg/min .[id number] UBALDO 3.8 mls/hr Titration Protocol 5 MCG/MIN Ondansetron HCl 4 mg 07/09/23 02:23 Ondansetron 4 Mg/2 Ml Vial IV Q8H PRN PRN NAUSEA/VOMITING Sodium Chloride 10 - 40 ml 07/09/23 02:29 07/10/23 09:46 0.9% Saline Lock 10 Ml Syringe IV 20 ml UD PRN Administration SALINE FLUSH Medical Records Data Attestation: I reviewed the patient's medical records Lab / Micro Data Attestation: I reviewed the patient's lab results. 07/10/23 02:35 07/10/23 02:35 Labs: Laboratory Results - last 24 hr 07/08/23 22:29: Crossmatch See Detail 07/08/23 22:29: Crossmatch See Detail 07/09/23 04:57: B-Natriuretic Peptide 1055.4 H 07/09/23 18:30: Hgb 9.0 L, Hct 27.1 L 07/10/23 02:35: WBC 22.5 H, RBC 2.66 L, Hgb 8.0 L, Hct 23.6 L, MCV 88.7, MCH 30.1, MCHC 33.9, RDW Std Deviation 46.9 H, RDW Coeff of Lobo 14.7 H, Plt Count 119 L, MPV 9.4, Immature Gran % (Auto) 1.000 H, Neut % (Auto) 84.1 H, Lymph % (Auto) 7.5 L, Prentiss % (Auto) 7.1, Eos % (Auto) 0.0, Baso % (Auto) 0.3, Absolute Neuts (auto) 18.9 H, Absolute Lymphs (auto) 1.68, Nucleated RBC % 0.1, Differential Comment SCANNED, Diff Path Review May foll, Sodium 138, Potassium 4.5, Chloride 105, Carbon Dioxide 26.0, Anion Gap 7, BUN 30 H, Creatinine 0.46 L , Estim Creat Clear Calc 40.96, Est GFR (MDRD) Af Amer 169, Est GFR (MDRD) Non- Af 139, BUN/Creatinine Ratio 65.4 H, Glucose 108 H, Calcium 7.4 L 07/10/23 02:45: Total Bilirubin 0.90, Direct Bilirubin 0.29, AST 25, ALT 47, Alkaline Phosphatase 58, Total Protein 3.9 L, Albumin 1.9 L, Globulin 2.0 L Assessment and Plan . Assessment and plan: #acute blood loss anemia - attributed to bleeding DU, s/p endoscopic interventions -s/p PRBC x 3 - melenic stool but stable Hb, thus I suspect bleeding has largely stopped #hemorrhagic shock, improving albeit still on low-dose norepinephrine Would keep in ICU until weaned off NE while also monitoring her post interventions Critical Care Time: 50 minutes The entirety of this encounter was done via Telemedicine Physical Exam Const alert, oriented x3 and no apparent distress General Appearance: cooperative and well developed HEENT head/scalp atraumatic Eyes PERRL Neck full ROM and no JVD Resp normal respiratory effort Cardio regular rate Subjective Subjective Looks quite good but states he would like to be better. No specific complaints of abdominal pain or nausea.
[2023-07-10 13:19] LABS: Hematocrit 22.6 % (37-47); Hemoglobin 7.6 g/dL (12.0-15.0)
--- NOTE | 2023-07-10 14:30 | CASEMGMT ---
Social Work SW met with pt and eufemia Britt in pt room. SW introduced self and role to pt. Pt confirms that she was at [facility] and plans to return there upon discharge. Phone call to both Ananya and Brooklynn to confirm plan. No answer from either constitution party. Pt's eufemia Britt confirms plan to return to [facility] as well. Plan: Return to [facility], when medically ready CESAR [facility]ley
[2023-07-10 18:36] LABS: Hematocrit 28.3 % (37-47); Hemoglobin 9.6 g/dL (12.0-15.0)
--- NOTE | 2023-07-10 21:30 | PN.GI_ITS ---
Subjective Subjective I was alerted that patient developed some melanotic stools today. She did not have any abdominal pain. She has been on a liquid diet today and it was advanced. Objective Data Objective Data Vital Signs: Vital Signs Temp Pulse Resp BP Pulse Ox O2 Del Method O2 Flow Rate 97.5 F L 102 H 14 89/54 L 95 Room Air 2 07/10/23 16:00 07/10/23 21:00 07/10/23 21:00 07/10/23 21:00 07/10/23 21:00 07/10/23 21:00 07/09/23 21:00 Oxygen Flow Rate (L/min) 2 Oxygen Delivery Method Room Air Weight: 115 lb 15.41 oz Body Mass Index (BMI) 23.3 Intake & Output: Intake and Output for Last 24 Hours 07/08/23 07/09/23 07/10/23 23:59 23:59 23:59 Intake Total 1417.05 / 1420.85 1177.20 / 1177.20 Balance 1417.05 / 1420.85 1177.20 / 1177.20 Lab / Micro Data 07/10/23 18:30 07/10/23 02:35 Labs: Laboratory Results - last 24 hr 07/08/23 22:29: Crossmatch See Detail 07/08/23 22:29: Crossmatch See Detail 07/10/23 02:35: WBC 22.5 H, RBC 2.66 L, Hgb 8.0 L, Hct 23.6 L, MCV 88.7, MCH 30.1, MCHC 33.9, RDW Std Deviation 46.9 H, RDW Coeff of Lobo 14.7 H, Plt Count 119 L, MPV 9.4, Immature Gran % (Auto) 1.000 H, Neut % (Auto) 84.1 H, Lymph % (Auto) 7.5 L, Weakley % (Auto) 7.1, Eos % (Auto) 0.0, Baso % (Auto) 0.3, Absolute Neuts (auto) 18.9 H, Absolute Lymphs (auto) 1.68, Nucleated RBC % 0.1, Differential Comment SCANNED, Diff Path Review June, Sodium 138, Potassium 4.5, Chloride 105, Carbon Dioxide 26.0, Anion Gap 7, BUN 30 H, Creatinine 0.46 L , Estim Creat Clear Calc 40.96, Est GFR (MDRD) Af Amer 169, Est GFR (MDRD) Non- Af 139, BUN/Creatinine Ratio 65.4 H, Glucose 108 H, Calcium 7.4 L 07/10/23 02:45: Total Bilirubin 0.90, Direct Bilirubin 0.29, AST 25, ALT 47, Alkaline Phosphatase 58, Total Protein 3.9 L, Albumin 1.9 L, Globulin 2.0 L 07/10/23 13:05: Hgb 7.6 L, Hct 22.6 L 07/10/23 18:30: Hgb 9.6 L, Hct 28.3 L Micro: Microbiology 07/08/23 22:50 Stool Stool Occult Blood (CAMERON) - Final Occult Blood Positive Physical Exam Const alert, oriented x3 and no apparent distress General Appearance: cooperative and well developed HEENT head/scalp atraumatic Eyes PERRL Neck full ROM and no JVD Resp normal respiratory effort Cardio regular rate Assessment & Plan Assessment/Plan (1) Acute blood loss anemia: PLAN: Plan Acute blood loss anemia Secondary to an upper GI bleed. She was determined to have an active bleed in the duodenum that was treated endoscopically with epinephrine and clipping along with Cy. Her hemoglobin has been slowly trending down and she still remains on leave of fed therapy. Hospitalist recommended transfusion one unit pack blood cells. I will take her back for an upper endoscopy tomorrow.. For now, recommend continuing transfusion of packed red blood cells to maintain a hemoglobin at or above 7 g/dL. The patient will also be continued on PPI therapy. Agree with discontinuation of Xarelto. Charges/Coding Visit Charges Inpatient E&M: 79112 Subs Hosp L3
[2023-07-11] VITALS (44 sets, daily range): BP systolic 77–136; BP diastolic 38–109; PULSE 80–112; RESP 14–30; TEMP 36–37.2; O2SAT 87–95; BMI 23.3
[2023-07-11] MEDS: Pantoprazole Sodium 80 MG in 0.9% Normal Saline (100mL Bag) 80 ML 10 MG CONT INF ×2 (01:28→11:17)
[2023-07-11] MEDS: CHLORHEXIDINE GLUC 2% CLOTH 1 EACH TOWELETTE TOPICAL (01:28)
[2023-07-11 03:23] LABS: Absolute Lymphocyte Count 1.48 X10^3/uL (0.83-4.51); Absolute Neutrophil Count 13.8 X10^3/uL (2.0-7.7); Basophil# 0.05 X10^3/uL; Basophil% 0.3 % (0-1); Eosinophil# 0.06 X10^3/uL; Eosinophils% 0.4 % (0-5); Hematocrit 28.7 % (37-47); Hemoglobin 9.6 g/dL (12.0-15.0); Lymphocyte # 1.48 X10^3/ul (0.83-4.51); Lymphocyte % 8.7 % (19-41); Mean Corp Hgb Conc 33.4 g/dL (32-36); Mean Corpuscular Hgb 29.9 pg (27.0-32.0); Mean Corpuscular Volume 89.4 fL (81-99); Mean Platelet Vol. 8.8 fl (6.2-12.0); Monocyte# 1.47 X10^3/uL; Monocyte% 8.7 % (0-10); NRBC Flagged by Analyzer 0 % (0-5); Neutrophil # 13.81 X10^3/uL (2.7-7.7); Neutrophil % 81.3 % (47-70); Platelet Count 108 K/mm3 (150-450); RBC Distribution Width CV 14.8 % (11.6-14.6); RBC Distribution Width SD 47.1 fl (35.1-43.9); Red Blood Count 3.21 M/mm3 (4.2-5.4)
[2023-07-11 03:46] LABS: AST(SGOT) 34 U/L (15-37); Alanine Aminotransfer ALT/SGPT 45 U/L (13-56); Albumin, Serum 1.9 g/dL (3.2-5.0); Alkaline Phosphatase 62 U/L (45-117); Anion Gap 7 (5-15); BUN 16 mg/dL (7-18); BUN/Creat Ratio 41.1 RATIO (10-20); Bilirubin, Direct 0.37 mg/dL (0.00-0.30); Calcium,Total 7.6 mg/dL (8.5-10.1); Chloride 104 mmol/L (98-107); Creatinine, Serum 0.39 mg/dL (0.55-1.02); EST Glomerular Filtration Rate 169 mL/min (>60); Est Glom Filt Rate - Afr Amer 204 mL/min (>60); Estimated Creatinine Clearance 40.96 ml/min; Globulin 2.3 g/dL (2.2-4.2); Glucose 89 mg/dL (74-106); Potassium 3.6 mmol/L (3.5-5.1); Protein, Total 4.2 g/dL (6.4-8.2); Sodium Level 137 mmol/L (136-145)
--- NOTE | 2023-07-11 08:34 | PN.HOSP_ITS ---
Reason for Visit Reason for Visit: Diagnoses Acute posthemorrhagic anemia (07/09/23) Other disorders of plasma-protein metabolism, not elsewhere classified (07/09/23) Heart failure, unspecified (07/09/23) Gastrointestinal hemorrhage, unspecified (07/09/23) Adverse effect of unspecified drugs, medicaments and biological substances, initial encounter (07/09/23) terminal carman (current) use of anticoagulants (07/09/23) Personal history of other diseases of the circulatory system (07/09/23) Personal history of other diseases of the digestive system (07/09/23) Objective Data Objective Data Vital Signs: Vital Signs Temp Pulse Resp BP Pulse Ox O2 Del Method O2 Flow Rate 97.8 F 106 H 20 H 106/58 L 91 Room Air 2 07/11/23 04:00 07/11/23 07:00 07/11/23 07:00 07/11/23 07:00 07/11/23 07:00 07/11/23 07:00 07/09/23 21:00 Oxygen Flow Rate (L/min) 2 Oxygen Delivery Method Room Air Weight: 115 lb 8.356 oz Body Mass Index (BMI) 23.3 Intake & Output: Intake and Output for Last 24 Hours 07/09/23 07/10/23 07/11/23 23:59 23:59 23:59 Intake Total 1417.05 / 1420.85 1191.25 / 1192.20 109.53 / 109.53 Output Total 500 / 500 500 / 500 Balance 1417.05 / 1420.85 691.25 / 692.20 -390.47 / -390.47 Lab / Micro Data 07/11/23 03:10 07/11/23 03:10 Labs: Laboratory Results - last 24 hr 07/08/23 22:29: Crossmatch See Detail 07/08/23 22:29: Crossmatch See Detail 07/10/23 02:45: Total Bilirubin 0.90, Direct Bilirubin 0.29, AST 25, ALT 47, Alkaline Phosphatase 58, Total Protein 3.9 L, Albumin 1.9 L, Globulin 2.0 L 07/10/23 13:05: Hgb 7.6 L, Hct 22.6 L 07/10/23 18:30: Hgb 9.6 L, Hct 28.3 L 07/11/23 03:10: WBC 17.0 H, RBC 3.21 L, Hgb 9.6 L, Hct 28.7 L, MCV 89.4, MCH 29.9, MCHC 33.4, RDW Std Deviation 47.1 H, RDW Coeff of Lobo 14.8 H, Plt Count 108 L, MPV 8.8, Immature Gran % (Auto) 0.600, Neut % (Auto) 81.3 H, Lymph % (Auto) 8.7 L, Wilson % (Auto) 8.7, Eos % (Auto) 0.4, Baso % (Auto) 0.3, Absolute Neuts (auto) 13.8 H, Absolute Lymphs (auto) 1.48, Nucleated RBC % 0, Sodium 137, Potassium 3.6, Chloride 104, Carbon Dioxide 26.0, Anion Gap 7, BUN 16, C reatinine 0.39 L, Estim Creat Clear Calc 40.96, Est GFR (MDRD) Af Amer 204, Est GFR (MDRD) Non-Af 169, BUN/Creatinine Ratio 41.1 H, Glucose 89, Calcium 7.6 L, Total Bilirubin 0.90, Direct Bilirubin 0.37 H, AST 34, ALT 45, Alkaline Phosphatase 62, Total Protein 4.2 L, Albumin 1.9 L, Globulin 2.3 Micro: Microbiology 07/08/23 22:50 Stool Stool Occult Blood ([facility]) - Final Occult Blood Positive Physical Exam Narrative Seen and examined. Levophed is off since 3 AM. No fever. Blood pressure in 110s. heart rate 106/min, sinus. Plan for repeat EGD today Physical exam General: awake, alert, oriented x 3 HEENT: No icterus. Atraumatic, PERRLA, EOMI, Normocephalic Oral: Oral mucosa dry. No Gingival or Mucosal Lesions/ Ulcerations Neck: Supple, No JVD, Negative Carotid Bruits Chest wall/Lungs: Air entry diminished in bilateral lung bases. No crepitations. Cardiovascular: sinus rhythm. holosystolic murmur cardiac apex and LLSB. Abdomen: Bowel Sounds present. Soft, Non Tender, Non-Distended : No dysuria. Spontaneously voiding urine. No renal angle tenderness. No suprapubic tenderness. Extremities: bilateral below-knee 2+ edema and upper extremity edema, Capillary Refill Less than 3 Seconds Skin: No rashes, No breakdown Musculoskeletal: No Tenderness to Palpation of Joints or Extremities Neurological: Cranial nerves II-XII grossly intact, DTR 2+/4. No acute focal neurological deficit. Psych/Mental Status: Flat affect Assessment & Plan Assessment/Plan (1) Acute blood loss anemia: (2) Adverse drug reaction: QUALIFIERS: Encounter type: initial encounter Qualified Code(s): T50.905A - Adverse effect of unspecified drugs, medicaments and biological substances, initial encounter (3) Current use of halfway anticoagulation: (4) CHF (congestive heart failure): QUALIFIERS: Heart failure chronicity: unspecified Heart failure type: unspecified Qualified Code(s): I50.9 - Heart failure, unspecified (5) History of atrial fibrillation: (6) Hypoalbuminemia: (7) History of liver failure: PLAN: Plan 77-year-old female who was recently admitted for a week between 06/28 to 07/06/2023 is being admitted ICU for multiple numerous large-volume melanotic stool on the evening of day admission. She was recently admitted for acute liver injury, acute kidney injury, A-fib with RVR with hypotension, acute exacerbation of chronic HFpEF EF 70%. Denies abdominal pain 1. Upper GI bleed with multiple numerous large-volume melanotic stools s present on admission with a corresponding significant drop in her hemoglobin to 8.3 g/dL present on admission Admit to ICU. upported by laboratory evidence with elevated BUN of 31 mg/dL and normal serum creatinine of 0.6 mg/dLContinue IV Protonix and keep strict n.p.o. Patient was also treated with a dose of Kcentra. Recheck CBC two hours after this transfusion is completed. Finally, general internal medicine doctor on-call has already been contacted by the ER with plan for EGD in a.m. with help appreciated in advance. 07/08: Patient was taken to endoscopy suite but returned because his blood pressure was in low 90s to upper 80s. During previous hospitalization patient had low blood pressure in systolic 80s/low 90s without symptoms with A-fib with RVR and hypotension. I talked with Dr. Grimes that patient has hypotension and severe GI bleed with acute blood loss anemia and needs endoscopy to stabilize her but he did not agree and sent back to the ICU. He said if that being the case, patient can have bedside EGD with income tax auditor for propofol or anesthetic agents. Medical Massage Therapist further consulted and patient had bedside EGD. EGD findings on 07/09/2023 Impressions : - Normal esophagus. - Red blood in the entire stomach. - Spurting duodenal ulcer with a visible vessel. Injected. Treated with a heater probe. Clips were placed. Clip manager action: Critical Links. - No specimens collected. Recommendations : - Return patient to ICU for ongoing care. - Resume previous diet. - Continue present medications. - Await pathology results. - Repeat upper endoscopy. 07/09: Discussed with the general internal medicine doctor. Started on soft diet. No plan for repeat EGD today. H&H 8/23.6%. She had 1 large melanotic stool yesterday, probably residual. BP 111/57 on low-dose of Levophed. 07/10: There was plan for repeat EGD today but canceled by anesthesiologist because of elevated troponin. Power Plant Operator was consulted and Dr. Ray saw the patient. Patient had melanotic stool yesterday morning but since then no large bloody bowel movement. 2. Coagulopathy due to rivaroxaban, evidenced by elevated INR of 2.8 present on admission and evidence of significant bleeding. Stop rivaroxaban indefinitely as any potential benefits are likely outweighed by the risks of recurrent bleeding in this elderly patient with numerous and complex medical issues. 3. Large bilateral pleural effusions, bibasilar atelectasis and anasarca consistent with an acute exacerbation of chronic systolic CHF in the setting of known severe aortic stenosis, LVH and cardiomyopathy Echo on 06/28 shows EF 70% moderate asymmetric septal hypertrophy, small LV cavity. LA severely enlarged. 1-2+ MR, critical aortic stenosis and mild AI. Moderately severe TR, PASP 50 mmHg Patient currently has low blood pressure therefore cannot tolerate diuretics. Continue digoxin. 4. CTA of the chest, abdomen and pelvis which was negative for PE but did show suspected thrombus in the Left atrial appendage adding to the pathology of #1 - #3 - Noted. Patient is felt to be a poor candidate for anticoagulation. 5. Hypoalbuminemia of 2.2 g/dL present on admission suspicious for protein calorie malnutrition - Check prealbumin to confirm suspicion. When patient is able to tolerate p.o. intake consider adding Ensure to meals. 6. Recent admission for acute liver injury, last hospital stay, non- acetaminophen related. Right upper quadrant sonogram showing GB wall thickening with pericholecystic fluid but no abdominal pain or gallstones therefore possible acalculous cholecystitis. Patient was conservatively managed with NAC drip. Hyperbilirubinemia resolved and liver chemistry had not improved by the time of discharge. 07/10 liver chemistry normal range. 7. Chronic atrial fibrillation; on rivaroxaban, critical aortic stenosis- Stable at this time with patient rate controlled with a therapeutic digoxin level of 1.05 ng/mL present on admission so we will continue Digoxin IV to prevent RVR. Rivaroxaban is discontinued 07/09: compliance monitor shows irregular rhythm but is still sinus. 07/10: Currently sinus rhythm but irregular rhythm with PVCs. Although patient has generalized swelling of upper and lower extremities, BP is Low 100 and plan for going to EGD under anesthesia therefore hold Lasix today. Discussed with the nursing staff. 07/11: Patient currently in sinus rhythm with heart rate 106/min with frequent PACs. Digoxin was discontinued. Started on low-dose 18 loll 12.5 mg twice daily with holding parameters. Will try to resume Xarelto once cleared by GI after repeat endoscopy. Patient not candidate for TAVR or surgical intervention at this time. 8. Essential hypertension - Hold scheduled antihypertensives with hemorrhagic shock and evidence of ongoing bleeding outlined #1. 9. Hyperlipidemia - Restart statin after EGD when okay with GI. 10. History of tobacco abuse - Noted. 11. History of amyloidosis - Noted. 12. PAD; status post iliac artery occlusion - Noted. 13. History of hysterectomy - Noted. 14. Osteoarthritis - Stable. 15. History of medical noncompliance - Noted. Patient encouraged not to take rivaroxaban in the future as the actual ongoing risks outweigh any potential benefit. 16. DVT prophylaxis - SCD's only with active GI hemorrhaging outlined in #1. Total time of the visit including total time spent in counseling or coordination of care, (more than 50% of the total time, spent in obtaining medical information from nurses and other ancillary care providers,explaining to the patient about labs, imaging, diagnosis and management of active complex medical conditions), discussion with income tax auditor, general internal medicine doctor and ICU staff nurse, review of labs and imaging and clinical update given to patient's daughter and granddaughter, POA is 45 minutes Living will/advanced directive/end of life care: Patient does have living will or advanced directive. Her granddaughter Ananya is power of assistant prosecuting attorney for health but Brooklynn other granddaughter is also involved in the care. After discussion of benefits/risks procedures involved with full code, DNR CC arrest and DNR CC, the patient's granddaughter stated that she does not want intubation chest compression but okay with the vasopressors Patient doesn't want artificial life support including intubation, ventilator and/chest compression but okay with central venous catheter, vasopressor and DC shock if needed. Subsequently CODE STATUS changed from DNR CCA to DNR CC arrest with no intubation Charges/Coding Visit Charges Inpatient E&M: 65181 Subs Hosp L3
[2023-07-11 08:55] LABS: Magnesium 1.7 mg/dL (1.6-2.6); Phosphorus 2.4 mg/dL (2.5-4.9)
[2023-07-11] MEDS: Digoxin 250 MCG/ML Ampul 125 MCG IV (09:33)
[2023-07-11] MEDS: 0.9% Saline Lock 10 ML Syringe IV ×3 (09:34→14:29)
[2023-07-11] MEDS: Furosemide 20 MG/2 ML VIAL IV (10:18)
--- NOTE | 2023-07-11 10:57 | EKG12_ITS ---
Test Reason : Blood Pressure : / mmHG Vent. Rate : 102 BPM Atrial Rate : 102 BPM P-R Int : 134 ms QRS Dur : 090 ms QT Int : 316 ms P-R-T Axes : 031 -01 179 degrees QTc Int : 411 ms Sinus tachycardia with occasional Premature ventricular complexes Possible Left atrial enlargement Marked ST abnormality, possible lateral subendocardial injury Abnormal ECG When compared with ECG of 29-JUN-2023 16:14, Premature ventricular complexes are now Present Vent. rate has increased BY 54 BPM T wave inversion less evident in Anterior leads Confirmed by CLEMENT HARGROVE, LIANNE ([id number]), editor newspaper MARIELLE CROCKER ([id number]) on 07/15/2023 6:41:36 AM Referred By: Confirmed By:YOHANNES VAUGHAN MD
[2023-07-11 11:31] LABS: Troponin-I HS 1466 pg/mL (3.0-54.0)
--- NOTE | 2023-07-11 12:46 | SUR.PREOP ---
DR DUBON, ANESTHESIA HAS REFUSED TO PERFORM ANESTHESIA FOR THIS PATIENT'S EGD DUE TO HER CARDIAC ENZYME DRAWN THIS AM OF 1466. DR. DUBON SPOKE WITH DR FLORES. DR FLORES SPOKE WITH THE HOSPITALIST IN CHARGE OF THE PATIENT'S CARE IN THE INTENSIVE CARE.
--- NOTE | 2023-07-11 13:15 | PN.GI_ITS ---
Subjective Subjective Patient came down to have her endoscopy to evaluate her previous GI bleed in her duodenum. However her troponin was noted to be significantly elevated.Therefore anesthesia deemed her not a sedation candidate at this time. Objective Data Objective Data Vital Signs: Vital Signs Temp Pulse Resp BP Pulse Ox O2 Del Method O2 Flow Rate 98.9 F 104 H 16 112/46 L 94 Room Air 2 07/11/23 12:12 07/11/23 12:49 07/11/23 12:49 07/11/23 12:49 07/11/23 12:49 07/11/23 12:49 07/09/23 21:00 Oxygen Flow Rate (L/min) 2 Oxygen Delivery Method Room Air Weight: 115 lb 8.356 oz Body Mass Index (BMI) 23.3 Intake & Output: Intake and Output for Last 24 Hours 07/09/23 07/10/23 07/11/23 23:59 23:59 23:59 Intake Total 1417.05 / 1420.85 1191.25 / 1192.20 207.70 / 207.70 Output Total 500 / 500 1750 / 1750 Balance 1417.05 / 1420.85 691.25 / 692.20 -1542.30 / -1542.30 Lab / Micro Data 07/11/23 03:10 07/11/23 03:10 Labs: Laboratory Results - last 24 hr 07/08/23 22:29: Crossmatch See Detail 07/08/23 22:29: Crossmatch See Detail 07/10/23 13:05: Hgb 7.6 L, Hct 22.6 L 07/10/23 18:30: Hgb 9.6 L, Hct 28.3 L 07/11/23 03:10: WBC 17.0 H, RBC 3.21 L, Hgb 9.6 L, Hct 28.7 L, MCV 89.4, MCH 29.9, MCHC 33.4, RDW Std Deviation 47.1 H, RDW Coeff of Lobo 14.8 H, Plt Count 108 L, MPV 8.8, Immature Gran % (Auto) 0.600, Neut % (Auto) 81.3 H, Lymph % (Auto) 8.7 L, Wheeler % (Auto) 8.7, Eos % (Auto) 0.4, Baso % (Auto) 0.3, Absolute Neuts (auto) 13.8 H, Absolute Lymphs (auto) 1.48, Nucleated RBC % 0, Sodium 137, Potassium 3.6, Chloride 104, Carbon Dioxide 26.0, Anion Gap 7, BUN 16, C reatinine 0.39 L, Estim Creat Clear Calc 40.96, Est GFR (MDRD) Af Amer 204, Est GFR (MDRD) Non-Af 169, BUN/Creatinine Ratio 41.1 H, Glucose 89, Calcium 7.6 L, P hosphorus 2.4 L, Magnesium 1.7, Total Bilirubin 0.90, Direct Bilirubin 0.37 H, AST 34, ALT 45, Alkaline Phosphatase 62, Total Protein 4.2 L, Albumin 1.9 L, Globulin 2.3 07/11/23 11:00: Troponin I High Sens 1466 H* Micro: Microbiology 07/08/23 22:50 Stool Stool Occult Blood ([facility]) - Final Occult Blood Positive Physical Exam Narrative Seen and examined. Levophed is off since 3 AM. No fever. Blood pressure 106/58. Heart rate 106/min, sinus. Plan for repeat EGD today Physical exam General: awake, alert, oriented x 3 HEENT: No icterus. Atraumatic, PERRLA, EOMI, Normocephalic Oral: Oral mucosa dry. No Gingival or Mucosal Lesions/ Ulcerations Neck: Supple, No JVD, Negative Carotid Bruits Chest wall/Lungs: Air entry diminished in bilateral lung bases. No crepitations. Cardiovascular: sinus rhythm. holosystolic murmur cardiac apex and LLSB. Abdomen: Bowel Sounds present. Soft, Non Tender, Non-Distended : No dysuria. Spontaneously voiding urine. No renal angle tenderness. No suprapubic tenderness. Extremities: bilateral below-knee 2+ edema and upper extremity edema, Capillary Refill Less than 3 Seconds Skin: No rashes, No breakdown Musculoskeletal: No Tenderness to Palpation of Joints or Extremities Neurological: Cranial nerves II-XII grossly intact, DTR 2+/4. No acute focal neurological deficit. Psych/Mental Status: Flat affect Assessment & Plan Assessment/Plan (1) Acute blood loss anemia: PLAN: Plan Acute blood loss anemia Secondary to an upper GI bleed. She was determined to have an active bleed in the duodenum that was treated endoscopically with epinephrine and clipping along with Cy. Her hemoglobin has been slowly trending down and she still remains on leave of fed therapy. Hospitalist recommended transfusion one unit pack blood cells. I will take her back for an upper endoscopy tomorrow.. For now, recommend continuing transfusion of packed red blood cells to maintain a hemoglobin at or above 7 g/dL. The patient will also be continued on PPI therapy. Agree with discontinuation of Xarelto. -07/11/2023 patient should get cardiology input. Hemoglobin seems to be stable at 9.6. When she is medically stable then we will reevaluate her her GI bleed. Charges/Coding Visit Charges Inpatient E&M: 80519 Subs Hosp L3
--- NOTE | 2023-07-11 13:49 | CON.PCM.CA_ITS ---
Assessment & Plan Assessment/Plan (1) Atrial fibrillation with rapid ventricular response: PLAN: The patient has spontaneously converted to sinus rhythm. She is currently in sinus tachycardia with frequent PACs. She has a history of amyloidosis, liver failure, severe left ventricular hypertrophy and critical aortic stenosis. She is currently admitted with a GI bleed. Oral anticoagulation is on hold. I would recommend we DC the Lanoxin as this was in place to control the ventricular rate when she was in atrial fibs with hypotension. Her blood pressure is better now she is off inotropic agents and we will start low-dose atenolol 12.5 mg twice daily with hold parameters for systolic less than 100 and heart rate less than 60. When cleared by GI can consider reinstituting her Xarelto. She has a [id number]- VASc score of 4 which is a 4% yearly risk of CVA. She also has a Has bled score of 4 which is high risk for recurrent bleeding. Given her liver failure and bleeding in the face of critical aortic stenosis severe LVH and subsequent demand ischemia this is a difficult decision as to whether to reinstitute oral anticoagulation or not. (2) Amyloidosis: QUALIFIERS: Amyloidosis type: unspecified amyloidosis Qualified Code(s): E85.9 - Amyloidosis, unspecified PLAN: Patient carries a diagnosis of amyloid. Given her liver failure and other general medical situation I do not feel that further cardiovascular evaluation is indicated at this point in time. 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 Tsai and the GI service (4) Current use of continuous churn buttermaker anticoagulation: PLAN: Will defer reinstitution at this time as discussed in problem #1 above (5) Aortic stenosis: QUALIFIERS: Cardiac valve disease etiology: nonrheumatic Q ualified Code(s): I35.0 - Nonrheumatic aortic (valve) stenosis PLAN: Critical aortic stenosis documented on echocardiogram 06/29/2023. At this time the patient is not a candidate for TAVR or surgical intervention. Given her liver failure and overall general situation including her DNR CCA status and lack of current definitive heart failure angina or syncope I do not feel that further intervention is indicated at this time. Will continue to monitor clinically. PLAN: Plan 1. DC Lanoxin due to normal sinus rhythm and the increased oxygen demand created with her left ventricular hypertrophy with digoxin. 2. Reinstitute atenolol 12.5 mg daily will titrate to 25 to 50 mg as blood pressure and heart rate tolerate. Would continue diltiazem at her current dose of 120 mg daily. Would avoid metoprolol due to hepatic metabolism. 3. From a cardiovascular standpoint the patient should be able to proceed with anesthesia for reevaluation with the EGD. I went over the risk/benefit and alternatives with the patient and her family in detail they understand that there is a risk involved with anesthesia in this given cardiovascular situation. They agree to proceed. I also discussed the situation with Dr. Tsai. 4. Dr. Puga will be assuming the service tomorrow morning. HPI Consult Data Date of Consult: 07/11/23 HPI Narrative Reason for Consultation: Stat Consutlt to clear for urgent EGD HPI Narrative: ELYSE RUANO, is a 77 F who presents with a GI bleed and underwent emergent endoscopy 07/09/2023. That showed a visible bleeding vessel and was treated. The patient was now scheduled for reevaluation with a EGD. Her troponins were checked and came back 1400. She denies any chest pain her rhythm is sinus tach. She had been in atrial fibrillation with rapid ventricular spots that have been very difficult to control on her last admission last week. She spontaneously converted. The patient's EKG on 07/09/2023 showed sinus rhythm with nonspecific ST-T wave changes consistent with LVH. Repeat EKG 07/11/2023 showed very similar changes on her EKG. There were some subtle changes in the ST segment shapes but nothing was diagnostic of ischemia. The patient does have a history of severe aortic stenosis with a peak gradient in the 68 mmHg range and a mean gradient of 38 mmHg on an echocardiogram 06/29/2023 she has a very small LV cavity with left ventricular systolic function being hyperdynamic and ejection fraction of 70% and stage II diastolic dysfunction. The patient's hemoglobin was 11.6 on 07/08/2023. When she read presented it dropped to 6.8 on 07/09/2023. She was transfused in emergent EGD was performed as noted above. The patient was also hypotensive requiring inotropic support with Levophed. It is not unexpected given her profound sudden anemia, her hypotension, her critical aortic stenosis, and severe left ventricular hypertrophy that she would have a demand myocardial ischemic mismatch. The patient had been cathed at [facility] by her report several years ago and had no significant coronary disease. I do not have a copy of that cath report. The patient does have significant liver failure. She is a DNR CCA. [facility] Medical History (Updated 07/11/23 @ 14:[address] João Ray MD) Hyperlipidemia Amyloidosis Edema Vitamin D deficiency Sinus tachycardia Heart murmur Smoking history Iliac artery occlusion Mitral annular calcification Cardiomyopathy Hypertension Atrial fibrillation Ventricular hypertrophy Aortic stenosis Home Medications ?Medication ?Instructions ?Recorded ?Last Taken ?Type rivaroxaban 15 mg tablet 15 mg PO DAILY 06/28/20 Unknown History polysaccharide iron complex 150 mg 150 mg PO BID #60 caps 07/12/20 Unknown Rx iron capsule (Ferrex) atenolol 25 mg tablet 25 mg PO DAILY #0 tabs 07/06/23 Unknown Rx digoxin 250 mcg (0.25 mg) tablet 250 mcg PO DAILY@0800 #0 tabs 07/06/23 Unknown Rx diltiazem HCl 120 mg 120 mg PO DAILY #0 caps 07/06/23 Unknown Rx capsule,extended release 24 hr furosemide 20 mg tablet 20 mg PO DAILY #0 tabs 07/06/23 Unknown Rx Allergy/AdvReac Type Severity Reaction Status Date / Time Sulfa (Sulfonamide Allergy Hives Verified 06/28/23 19:55 Antibiotics) Family History Sister Aortic valve replaced Status post aortic valve replacement and aortoplasty Brother Hx of CABG CHF (congestive heart failure) Sister Cancer Sister Heart failure Sister CVA (cerebral vascular accident) Father Hepatitis CHF (congestive heart failure) Mother CHF (congestive heart failure) Sudden Surgical History History of hysterectomy Social History Smoking Status: Current every day smoker tobacco type: cigarettes second hand exposure: No quit status: considering quitting alcohol intake: current alcohol intake frequency: a few times a month Alcohol type: beer substance use type: does not use jair/congregational: [employer]ism ROS ROS Narrative Patient appears to be resting comfortably but she is diffusely edematous she is alert and oriented x 3. Constitutional Constitutional: Reports systems reviewed and no addt'l complaints, except as documented and as per HPI Eyes Eyes: Reports systems reviewed and no addt'l complaints, except as documented ENT HEENT: Reports systems reviewed and no addt'l complaints, except as documented Cardiovascular Cardiovascular: Reports as per HPI Respiratory/Chest Respiratory/Chest: Reports as per HPI Gastrointestinal Gastrointestinal: Reports as per HPI Genitourinary Genitourinary: Reports systems reviewed and no addt'l complaints, except as documented Musculoskeletal Musculoskeletal: Reports systems reviewed and no addt'l complaints, except as documented Integumentary Integumentary: Reports systems reviewed and no addt'l complaints, except as documented Neurologic Neurologic: Reports systems reviewed and no addt'l complaints, except as documented Psychiatric Psychiatric: Reports systems reviewed and no addt'l complaints, except as documented Endocrine Endocrinology: Reports systems reviewed and no addt'l complaints, except as documented Hematologic/Lymphatic Hematologic/Lymphatic: Reports systems reviewed and no addt'l complaints, except as documented Allergic/Immunologic Allergic/Immunologic: Reports systems reviewed and no addt'l complaints, except as documented Physical Exam Const alert and oriented x3 HEENT normocephalic Eyes EOMs intact bilaterally Neck no JVD Carotids: Negative for bruit Resp normal respiratory effort Auscultation: breath sounds absent bilateral (Bases) Cardio Rate: tachycardic Rhythm: other Other Details: Frequent PACs noted on telemetry. Heart Sounds: S1 normal and murmur systolic III/ harsh left sternal border and right sternal border to the neck; Negative for click or gallop GI soft to palpation Extremity General Extremity: edema bilateral upper extremity mild and lower extremity Details: moderate Skin Wound Narrative: With mild ecchymoses. Neuro Neuro Narrative: Patient is alert and seems oriented x 3. She reports that she is hungry. Psych mental status grossly normal Risk Stratification Risk Stratification Applicable: Yes Age >/= 65: Yes >/= 3 CAD Risk Factors (HTN, HLD, DM, family hx of CAD, or current smoker): No Aspirin Use in the Past 7 Days: No Severe Angina (>/= episodes in 24 hours): No EKG ST Changes >/= 0.5mm: Yes Positive Cardiac Marker: Yes ALY Risk Stratification Score: 3 ALY % Risk: 13% Risk Charges/Coding Visit Charges Inpatient E&M: 98638 Init Hosp L3 Objective Data Vital Signs: Vital Signs Temp Pulse Resp BP Pulse Ox O2 Del Method O2 Flow Rate 98.9 F 104 H 24 H 117/53 L 94 Room Air 2 07/11/23 12:12 07/11/23 13:15 07/11/23 13:15 07/11/23 13:15 07/11/23 13:15 07/11/23 13:15 07/09/23 21:00 Oxygen Flow Rate (L/min) 2 Oxygen Delivery Method Room Air Weight: 115 lb 8.356 oz Body Mass Index (BMI) 23.3 Intake & Output: Intake and Output for Last 24 Hours 07/09/23 07/10/23 07/11/23 23:59 23:59 23:59 Intake Total 1417.05 / 1420.85 1191.25 / 1192.20 207.70 / 207.70 Output Total 500 / 500 1750 / 1750 Balance 1417.05 / 1420.85 691.25 / 692.20 -1542.30 / -1542.30 Lab / Micro Data Attestation: I reviewed the patient's lab results. 07/11/23 03:10 07/11/23 03:10 Labs: Laboratory Results - last 24 hr 07/08/23 22:29: Crossmatch See Detail 07/10/23 18:30: Hgb 9.6 L, Hct 28.3 L 07/11/23 03:10: WBC 17.0 H, RBC 3.21 L, Hgb 9.6 L, Hct 28.7 L, MCV 89.4, MCH 29.9, MCHC 33.4, RDW Std Deviation 47.1 H, RDW Coeff of Lobo 14.8 H, Plt Count 108 L, MPV 8.8, Immature Gran % (Auto) 0.600, Neut % (Auto) 81.3 H, Lymph % (Auto) 8.7 L, Hood % (Auto) 8.7, Eos % (Auto) 0.4, Baso % (Auto) 0.3, Absolute Neuts (auto) 13.8 H, Absolute Lymphs (auto) 1.48, Nucleated RBC % 0, Sodium 137, Potassium 3.6, Chloride 104, Carbon Dioxide 26.0, Anion Gap 7, BUN 16, C reatinine 0.39 L, Estim Creat Clear Calc 40.96, Est GFR (MDRD) Af Amer 204, Est GFR (MDRD) Non-Af 169, BUN/Creatinine Ratio 41.1 H, Glucose 89, Calcium 7.6 L, P hosphorus 2.4 L, Magnesium 1.7, Total Bilirubin 0.90, Direct Bilirubin 0.37 H, AST 34, ALT 45, Alkaline Phosphatase 62, Total Protein 4.2 L, Albumin 1.9 L, Globulin 2.3 07/11/23 11:00: Troponin I High Sens 1466 H* Rhythm Strip Rhythm Strip: Sinus Rhythm Rate: 109 Ectopy: PAC(s) Cardiology Labs/Tests 07/10/23 18:30: Hgb 9.6 L, Hct 28.3 L 07/11/23 03:10: WBC 17.0 H, RBC 3.21 L, Hgb 9.6 L, Hct 28.7 L, MCV 89.4, MCH 29.9, MCHC 33.4, Plt Count 108 L, MPV 8.8, Immature Gran % (Auto) 0.600, Neut % (Auto) 81.3 H, Lymph % (Auto) 8.7 L, Hood % (Auto) 8.7, Eos % (Auto) 0.4, Baso % (Auto) 0.3, Absolute Neuts (auto) 13.8 H, Nucleated RBC % 0, Sodium 137, Potassium 3.6, Chloride 104, Carbon Dioxide 26.0, Anion Gap 7, BUN 16, C reatinine 0.39 L, Est GFR (MDRD) Af Amer 204, Est GFR (MDRD) Non-Af 169, B UN/Creatinine Ratio 41.1 H, Glucose 89, Calcium 7.6 L, Phosphorus 2.4 L, Magnesium 1.7, Total Bilirubin 0.90, Direct Bilirubin 0.37 H Rhythm: EKG: ECHO: Stress Test: Cardiac Cath: PCI: CT Surgery: Holter monitor: EPS: PPM: CXR: Chest CT Scan:
[2023-07-11] MEDS: Atenolol 25 MG Tablet 12.5 MG PO (14:28)
[2023-07-11] MEDS: Norepinephrine 8 MG in 0.9% Normal Saline (250mL Bag) 242 ML 9.4 MG CONT INF (21:05)
[2023-07-12] VITALS (54 sets, daily range): BP systolic 79–140; BP diastolic 32–63; PULSE 65–90; RESP 12–222; TEMP 36.1–36.4; O2SAT 87–100; BMI 25.7
[2023-07-12] MEDS: CHLORHEXIDINE GLUC 2% CLOTH 1 EACH TOWELETTE TOPICAL (05:57)
[2023-07-12] MEDS: 0.9% Saline Lock 10 ML Syringe IV ×3 (05:57→21:11)
--- NOTE | 2023-07-12 06:27 | PN.CC_ITS ---
Assessment & Plan Assessment/Plan (1) Acute blood loss anemia: PLAN: Plan RECOMMENDATIONS: 1. Continue current supportive measures including transfusion of blood products to maintain a hemoglobin at or above 7 g/dL. 2. Obtain repeat CBC this morning. 3. Continue Levophed as ordered. Start scheduled midodrine to facilitate weaning from vasopressor support. 4. Continue PPI therapy. IMPRESSIONS: 1. Acute blood loss anemia/hemorrhagic shock Secondary to upper GI bleeding status post endoscopic intervention by gastroenterology. The patient was noted to have an active bleed the duodenum. Her hemoglobin has been stable over the last 2 days. However, repeat CBC was never obtained this morning. Therefore, I would recommend that repeat blood counts be checked this morning. The patient Xarelto has been discontinued indefinitely. She will be continued on PPI therapy. Although gastroenterology was tentatively planning for repeat endoscopic evaluation, the patient reported that she is not interested in pursuing any further intervention. The patient remains on low-dose Levophed. Will plan to initiate her on scheduled midodrine to facilitate weaning from vasopressor support completely today. 2. History of valvular heart disease/heart failure with preserved ejection fraction/atrial fibrillation/hypertension/hyperlipidemia Complicates care, management, recovery and prognosis. Continue to hold antihypertensives. Continue supportive measures as noted above. This note was generated with [employer]ling[employer] dictation software. It may contain incorrect words, spelling, and punctuation that were not noted in checking the note before signing. Subjective Subjective The patient was seen and examined at the bedside this morning. Events from the last 24 hours have been reviewed. The patient is currently afebrile. She did have to be restarted on low-dose Levophed overnight due to hypotension. She is currently requiring Levophed support at 1 mcg/min. The patient denies any abdominal pain. There were no orders for any new morning labs. The patient reported that she is not interested in pursuing any additional endoscopic evaluation and is therefore refusing repeat upper endoscopy. Objective Data Objective Data The patient's most recent lab work, culture data and imaging studies have all been personally reviewed. Vital Signs: Vital Signs Temp Pulse Resp BP Pulse Ox O2 Del Method O2 Flow Rate 97.3 F L 80 20 H 119/52 L 99 Nasal Cannula 2 07/12/23 04:00 07/12/23 06:00 07/12/23 06:00 07/12/23 06:00 07/12/23 06:00 07/12/23 06:00 07/12/23 06:00 Oxygen Flow Rate (L/min) 2 Oxygen Delivery Method Nasal Cannula Weight: 127 lb 10.362 oz Body Mass Index (BMI) 25.7 Intake & Output: Intake and Output for Last 24 Hours 07/10/23 07/11/23 07/12/23 23:59 23:59 23:59 Intake Total 1191.25 / 1192.20 1160.94 / 1162.82 . Output Total 500 / 500 2250 / 2250 Balance 691.25 / 692.20 -1089.06 / -1087.18 Lab / Micro Data Attestation: I reviewed the patient's lab results. 07/11/23 03:10 07/11/23 03:10 Labs: Laboratory Results - last 24 hr 07/11/23 03:10: Phosphorus 2.4 L, Magnesium 1.7 07/11/23 11:00: Troponin I High Sens 1466 H* Micro: Microbiology 07/08/23 22:50 Stool Stool Occult Blood ([facility]) - Final Occult Blood Positive Rhythm Strip Rhythm Strip: Sinus Rhythm Rate: 109 Ectopy: PAC(s) Physical Exam Const alert, oriented x3 and no apparent distress General Appearance: cooperative HEENT normocephalic and head/scalp atraumatic Eyes PERRL, EOMs intact bilaterally and conjunctivae normal Neck supple General: trachea midline Chest inspection of chest normal Resp normal respiratory effort Auscultation: Negative for rales, rhonchi or wheezes Cardio S1 normal heart sound and S2 normal heart sound Rhythm: abnormal rhythm Heart Sounds: murmur GI normal to inspection, nondistended, normoactive bowel sounds Extremity General Extremity: edema bilateral lower extremity Skin no rashes or lesions noted Neuro CN's II-XII intact bilaterally, moves all extremities and no focal motor deficits Psych cooperative and affect normal Charges/Coding Visit Charges Inpatient E&M: 25136 Subs Hosp L3
[2023-07-12 06:41] LABS: Absolute Lymphocyte Count 1.18 X10^3/uL (0.83-4.51); Absolute Neutrophil Count 10.9 X10^3/uL (2.0-7.7); Basophil# 0.04 X10^3/uL; Basophil% 0.3 % (0-1); Eosinophil# 0.07 X10^3/uL; Eosinophils% 0.5 % (0-5); Hematocrit 28.4 % (37-47); Hemoglobin 9.3 g/dL (12.0-15.0); Lymphocyte # 1.18 X10^3/ul (0.83-4.51); Lymphocyte % 8.7 % (19-41); Mean Corp Hgb Conc 32.7 g/dL (32-36); Mean Corpuscular Hgb 29.9 pg (27.0-32.0); Mean Corpuscular Volume 91.3 fL (81-99); Mean Platelet Vol. 9.3 fl (6.2-12.0); Monocyte# 1.19 X10^3/uL; Monocyte% 8.8 % (0-10); NRBC Flagged by Analyzer 0 % (0-5); Neutrophil # 10.92 X10^3/uL (2.7-7.7); Platelet Count 120 K/mm3 (150-450); RBC Distribution Width CV 14.9 % (11.6-14.6); RBC Distribution Width SD 48.1 fl (35.1-43.9); Red Blood Count 3.11 M/mm3 (4.2-5.4); White Blood Count 13.5 K/mm3 (4.4-11.0)
[2023-07-12 06:53] LABS: Anion Gap 6 (5-15); BUN 12 mg/dL (7-18); Calcium,Total 7.6 mg/dL (8.5-10.1); Chloride 102 mmol/L (98-107); Creatinine, Serum 0.43 mg/dL (0.55-1.02); EST Glomerular Filtration Rate 151 mL/min (>60); Est Glom Filt Rate - Afr Amer 183 mL/min (>60); Estimated Creatinine Clearance 45.42 ml/min; Glucose 90 mg/dL (74-106); Potassium 3.2 mmol/L (3.5-5.1); Sodium Level 136 mmol/L (136-145)
--- NOTE | 2023-07-12 07:13 | CPS ---
RN placed Patient on 2L due to saturations 88-89% while awake
--- NOTE | 2023-07-12 07:47 | PCM.PN.HOSP ---
Reason for Visit Reason for Visit: Diagnoses Unspecified viral hepatitis without hepatic coma (07/09/23) Acute posthemorrhagic anemia (07/09/23) Amyloidosis, unspecified (07/09/23) Other disorders of plasma-protein metabolism, not elsewhere classified (07/09/23) Nonrheumatic aortic (valve) stenosis (07/09/23) Unspecified atrial fibrillation (07/09/23) Heart failure, unspecified (07/09/23) Acute and subacute hepatic failure without coma (07/09/23) Gastrointestinal hemorrhage, unspecified (07/09/23) Adverse effect of unspecified drugs, medicaments and biological substances, initial encounter (07/09/23) snf (current) use of anticoagulants (07/09/23) Personal history of other diseases of the circulatory system (07/09/23) Personal history of other diseases of the digestive system (07/09/23) Objective Data Objective Data Vital Signs: Vital Signs Temp Pulse Resp BP Pulse Ox O2 Del Method O2 Flow Rate 97.3 F L 81 21 H 128/53 H 100 Nasal Cannula 2 07/12/23 04:00 07/12/23 07:00 07/12/23 07:00 07/12/23 07:00 07/12/23 07:00 07/12/23 07:00 07/12/23 07:00 Oxygen Flow Rate (L/min) 2 Oxygen Delivery Method Nasal Cannula Weight: 127 lb 10.362 oz Body Mass Index (BMI) 25.7 Intake & Output: Intake and Output for Last 24 Hours 07/10/23 07/11/23 07/12/23 23:59 23:59 23:59 Intake Total 1191.25 / 1192.20 1160.94 / 1162.82 Output Total 500 / 500 2250 / 2250 Balance 691.25 / 692.20 -1089.06 / -1087.18 Lab / Micro Data 07/12/23 06:35 07/12/23 06:35 Labs: Laboratory Results - last 24 hr 07/11/23 03:10: Phosphorus 2.4 L, Magnesium 1.7 07/11/23 11:00: Troponin I High Sens 1466 H* 07/12/23 06:35: WBC 13.5 H, RBC 3.11 L, Hgb 9.3 L, Hct 28.4 L, MCV 91.3, MCH 29.9, MCHC 32.7, RDW Std Deviation 48.1 H, RDW Coeff of Lobo 14.9 H, Plt Count 120 L, MPV 9.3, Immature Gran % (Auto) 0.700, Neut % (Auto) 81.0 H, Lymph % (Auto) 8.7 L, [place] % (Auto) 8.8, Eos % (Auto) 0.5, Baso % (Auto) 0.3, Absolute Neuts (auto) 10.9 H, Absolute Lymphs (auto) 1.18, Nucleated RBC % 0, Sodium 136, Potassium 3.2 L, Chloride 102, Carbon Dioxide 28.0, Anion Gap 6, BUN 12, Creatinine 0.43 L, Estim Creat Clear Calc 45.42, Est GFR (MDRD) Af Amer 183, Est GFR (MDRD) Non-Af 151, BUN/Creatinine Ratio 28.0 H, Glucose 90, Calcium 7.6 L Micro: Microbiology 07/08/23 22:50 Stool Stool Occult Blood ([facility]ERON) - Final Occult Blood Positive Rhythm Strip Rhythm Strip: Sinus Rhythm Rate: 109 Ectopy: PAC(s) Physical Exam Narrative Seen and examined. Levophed is discontinued. No fever. BP is low today in the 90s. Heart rate controlled. On 2 L of oxygen. Patient refused for EGD. Physical exam General: awake, alert, oriented x 3 HEENT: No icterus. Atraumatic, PERRLA, EOMI, Normocephalic Oral: Oral mucosa dry. No Gingival or Mucosal Lesions/ Ulcerations Neck: Supple, No JVD, Negative Carotid Bruits Chest wall/Lungs: Air entry diminished in bilateral lung bases. No crepitations. Cardiovascular: sinus rhythm. holosystolic murmur cardiac apex and LLSB. Abdomen: Bowel Sounds present. Soft, Non Tender, Non-Distended : No dysuria. Spontaneously voiding urine. No renal angle tenderness. No suprapubic tenderness. Extremities: bilateral below-knee 2+ edema and upper extremity edema, Capillary Refill Less than 3 Seconds Skin: No rashes, No breakdown Musculoskeletal: No Tenderness to Palpation of Joints or Extremities Neurological: Cranial nerves II-XII grossly intact, DTR 2+/4. No acute focal neurological deficit. Psych/Mental Status: Flat affect Assessment & Plan Assessment/Plan (1) Acute blood loss anemia: (2) Adverse drug reaction: QUALIFIERS: Encounter type: initial encounter Qualified Code(s): T50.905A - Adverse effect of unspecified drugs, medicaments and biological substances, initial encounter (3) Current use of nursing home anticoagulation: (4) CHF (congestive heart failure): QUALIFIERS: Heart failure chronicity: unspecified Heart failure type: unspecified Qualified Code(s): I50.9 - Heart failure, unspecified (5) History of atrial fibrillation: (6) Hypoalbuminemia: (7) History of liver failure: PLAN: Plan 77-year-old female who was recently admitted for a week between 06/28 to 07/06/2023 is being admitted ICU for multiple numerous large-volume melanotic stool on the evening of day admission. She was recently admitted for acute liver injury, acute kidney injury, A-fib with RVR with hypotension, acute exacerbation of chronic HFpEF EF 70%. Denies abdominal pain 1. Upper GI bleed with multiple numerous large-volume melanotic stools s present on admission with a corresponding significant drop in her hemoglobin to 8.3 g/dL present on admission Admit to ICU. upported by laboratory evidence with elevated BUN of 31 mg/dL and normal serum creatinine of 0.6 mg/dLContinue IV Protonix and keep strict n.p.o. Patient was also treated with a dose of Kcentra. Recheck CBC two hours after this transfusion is completed. Finally, matrix plater on-call has already been contacted by the ER with plan for EGD in a.m. with help appreciated in advance. 07/08: Patient was taken to endoscopy suite but returned because his blood pressure was in low 90s to upper 80s. During previous hospitalization patient had low blood pressure in systolic 80s/low 90s without symptoms with A-fib with RVR and hypotension. I talked with Dr. Grimes that patient has hypotension and severe GI bleed with acute blood loss anemia and needs endoscopy to stabilize her but he did not agree and sent back to the ICU. He said if that being the case, patient can have bedside EGD with industrial commercial groundskeeper for propofol or anesthetic agents. Emergency Response Coordinator further consulted and patient had bedside EGD. EGD findings on 07/09/2023 Impressions : - Normal esophagus. - Red blood in the entire stomach. - Spurting duodenal ulcer with a visible vessel. Injected. Treated with a heater probe. Clips were placed. Clip alley tender: Monthlys. - No specimens collected. Recommendations : - Return patient to ICU for ongoing care. - Resume previous diet. - Continue present medications. - Await pathology results. - Repeat upper endoscopy. 07/09: Discussed with the matrix plater. Started on soft diet. No plan for repeat EGD today. H&H 8/23.6%. She had 1 large melanotic stool yesterday, probably residual. BP 111/57 on low-dose of Levophed. 07/10: There was plan for repeat EGD today but canceled by anesthesiologist because of elevated troponin. Emissions Testing Technician was consulted and Dr. Ray saw the patient. Patient had melanotic stool yesterday morning but since then no large bloody bowel movement. 07/11: H&H 9.3/28%.Patient has been similar in the last 3 days. Patient refused for EGD today. I informed patient's daughter. I further called patient's FERNIE Hare and her Cogen Brooklynn as patient does not want any procedure or intensive management. Her daughter agreed for palliative care but want to talk about hospice. Message left to call back. 2. Coagulopathy due to rivaroxaban, evidenced by elevated INR of 2.8 present on admission and evidence of significant bleeding. Stop rivaroxaban indefinitely as any potential benefits are likely outweighed by the risks of recurrent bleeding in this elderly patient with numerous and complex medical issues. 3. Large bilateral pleural effusions, bibasilar atelectasis and anasarca consistent with an acute exacerbation of chronic systolic CHF in the setting of known severe aortic stenosis, LVH and cardiomyopathy Echo on 06/28 shows EF 70% moderate asymmetric septal hypertrophy, small LV cavity. LA severely enlarged. 1-2+ MR, critical aortic stenosis and mild AI. Moderately severe TR, PASP 50 mmHg Patient currently has low blood pressure therefore cannot tolerate diuretics. Continue digoxin. 4. CTA of the chest, abdomen and pelvis which was negative for PE but did show suspected thrombus in the Left atrial appendage- Noted. Patient is felt to be a poor candidate for anticoagulation. 07/11: Plan was to repeat EGD to see the healing of the ulcer with visible arterial vessel spurting but patient refused it. Based on that finding, decision would have been made to resume anticoagulation. 5. Hypoalbuminemia of 2.2 g/dL present on admission suspicious for protein calorie malnutrition - Check prealbumin to confirm suspicion. When patient is able to tolerate p.o. intake consider adding Ensure to meals. 6. Recent admission for acute liver injury, last hospital stay, non- acetaminophen related. Right upper quadrant sonogram showing GB wall thickening with pericholecystic fluid but no abdominal pain or gallstones therefore possible acalculous cholecystitis. Patient was conservatively managed with NAC drip. Hyperbilirubinemia resolved and liver chemistry had not improved by the time of discharge. 07/10 liver chemistry normal range. 7. Chronic atrial fibrillation; on rivaroxaban, critical aortic stenosis- Stable at this time with patient rate controlled with a therapeutic digoxin level of 1.05 ng/mL present on admission so we will continue Digoxin IV to prevent RVR. Rivaroxaban is discontinued 07/09: export manager shows irregular rhythm but is still sinus. 07/10: Currently sinus rhythm but irregular rhythm with PVCs. Although patient has generalized swelling of upper and lower extremities, BP is Low 100 and plan for going to EGD under anesthesia therefore hold Lasix today. Discussed with the nursing staff. 07/11: Patient currently in sinus rhythm with heart rate 106/min with frequent PACs. Digoxin was discontinued. Started on low-dose 18 loll 12.5 mg twice daily with holding parameters. Will try to resume Xarelto once cleared by GI after repeat endoscopy. Patient not candidate for TAVR or surgical intervention at this time. 07/11:Patient in sinus rhythm. Heart rate controlled. Blood pressure low. Not able to give diuretic. 8. Essential hypertension - Hold scheduled antihypertensives with hemorrhagic shock and evidence of ongoing bleeding outlined #1. 9. Hyperlipidemia - Restart statin after EGD when okay with GI. 10. History of tobacco abuse - Noted. 11. History of amyloidosis - Noted. 12. PAD; status post iliac artery occlusion - Noted. 13. History of hysterectomy - Noted. 14. Osteoarthritis - Stable. 15. History of medical noncompliance - Noted. Patient encouraged not to take rivaroxaban in the future as the actual ongoing risks outweigh any potential benefit. 16. DVT prophylaxis - SCD's only with active GI hemorrhaging outlined in #1. Total time of the visit including total time spent in counseling or coordination of care, (more than 50% of the total time, spent in obtaining medical information from nurses and other ancillary care providers,explaining to the patient about labs, imaging, diagnosis and management of active complex medical conditions), discussion with industrial commercial groundskeeper, matrix plater and ICU staff nurse, review of labs and imaging and clinical update given to patient's daughter and granddaughter, POA is 45 minutes Living will/advanced directive/end of life care: Patient does have living will or advanced directive. Her granddaughter Ananya is power of staff attorney for health but Brooklynn other granddaughter is also involved in the care. After discussion of benefits/risks procedures involved with full code, DNR CC arrest and DNR CC, the patient's granddaughter stated that she does not want intubation chest compression but okay with the vasopressors Patient doesn't want artificial life support including intubation, ventilator and/chest compression but okay with central venous catheter, vasopressor and DC shock if needed. Subsequently CODE STATUS changed from DNR CCA to DNR CC arrest with no intubation Charges/Coding Visit Charges Inpatient E&M: 50633 Subs Hosp L3
[2023-07-12] MEDS: Midodrine HCl 5 MG Tablet 10 MG PO ×3 (08:04→15:59)
[2023-07-12] MEDS: Furosemide 40 MG/4 ML Vial IV (08:05)
[2023-07-12] MEDS: Atenolol 25 MG Tablet 12.5 MG PO (08:24)
[2023-07-12] MEDS: TITRATION PARAMETER CHANGE 1 EACH IV (12:16)
[2023-07-12] MEDS: Potassium Chloride Oral Tablet 20 MEQ 40 MEQ PO ×2 (12:30→15:59)
[2023-07-12] MEDS: Ensure Plus High Protein 120 ML LIQUID PO (16:39)
--- NOTE | 2023-07-12 21:07 | PN.GI_ITS ---
Subjective Subjective Patient has beenpatient has been doing well, but continues to be hypotensive. She declined wanting repeat endoscopy today to evaluate her bleeding duodenal lesion. Objective Data Objective Data Vital Signs: Vital Signs Temp Pulse Resp BP Pulse Ox O2 Del Method O2 Flow Rate 97.3 F L 73 24 H 94/37 L 96 Room Air 1 07/12/23 20:00 07/12/23 20:00 07/12/23 20:00 07/12/23 20:00 07/12/23 20:00 07/12/23 20:00 07/12/23 15:00 Oxygen Flow Rate (L/min) 1 Oxygen Delivery Method Room Air Weight: 127 lb 10.362 oz Body Mass Index (BMI) 25.7 Intake & Output: Intake and Output for Last 24 Hours 07/10/23 07/11/23 07/12/23 23:59 23:59 23:59 Intake Total 1191.25 / 1192.20 1160.94 / 1162.82 628.93 / 628.93 Output Total 500 / 500 2250 / 2250 1350 / 1350 Balance 691.25 / 692.20 -1089.06 / -1087.18 -721.07 / -721.07 Lab / Micro Data 07/12/23 06:35 07/12/23 06:35 Labs: Laboratory Results - last 24 hr 07/12/23 06:35: WBC 13.5 H, RBC 3.11 L, Hgb 9.3 L, Hct 28.4 L, MCV 91.3, MCH 29.9, MCHC 32.7, RDW Std Deviation 48.1 H, RDW Coeff of Lobo 14.9 H, Plt Count 120 L, MPV 9.3, Immature Gran % (Auto) 0.700, Neut % (Auto) 81.0 H, Lymph % (Auto) 8.7 L, [place] % (Auto) 8.8, Eos % (Auto) 0.5, Baso % (Auto) 0.3, Absolute Neuts (auto) 10.9 H, Absolute Lymphs (auto) 1.18, Nucleated RBC % 0, Sodium 136, Potassium 3.2 L, Chloride 102, Carbon Dioxide 28.0, Anion Gap 6, BUN 12, C reatinine 0.43 L, Estim Creat Clear Calc 45.42, Est GFR (MDRD) Af Amer 183, Est GFR (MDRD) Non-Af 151, BUN/Creatinine Ratio 28.0 H, Glucose 90, Calcium 7.6 L Micro: Microbiology 07/08/23 22:50 Stool Stool Occult Blood ([facility]) - Final Occult Blood Positive Rhythm Strip Rhythm Strip: Sinus Rhythm Rate: 109 Ectopy: PAC(s) Physical Exam Narrative Seen and examined. Levophed is discontinued. No fever. BP is low today in the 90s. Heart rate controlled. On 2 L of oxygen. Patient refused for EGD. Physical exam General: awake, alert, oriented x 3 HEENT: No icterus. Atraumatic, PERRLA, EOMI, Normocephalic Oral: Oral mucosa dry. No Gingival or Mucosal Lesions/ Ulcerations Neck: Supple, No JVD, Negative Carotid Bruits Chest wall/Lungs: Air entry diminished in bilateral lung bases. No crepitations. Cardiovascular: sinus rhythm. holosystolic murmur cardiac apex and LLSB. Abdomen: Bowel Sounds present. Soft, Non Tender, Non-Distended : No dysuria. Spontaneously voiding urine. No renal angle tenderness. No suprapubic tenderness. Extremities: bilateral below-knee 2+ edema and upper extremity edema, Capillary Refill Less than 3 Seconds Skin: No rashes, No breakdown Musculoskeletal: No Tenderness to Palpation of Joints or Extremities Neurological: Cranial nerves II-XII grossly intact, DTR 2+/4. No acute focal neurological deficit. Psych/Mental Status: Flat affect Assessment & Plan Assessment/Plan (1) Acute blood loss anemia: PLAN: Plan Acute blood loss anemia Secondary to an upper GI bleed. She was determined to have an active bleed in the duodenum that was treated endoscopically with epinephrine and clipping along with Cy. Her hemoglobin has been slowly trending down and she still remains on leave of fed therapy. Hospitalist recommended transfusion one unit pack blood cells. I will take her back for an upper endoscopy tomorrow.. For now, recommend continuing transfusion of packed red blood cells to maintain a hemoglobin at or above 7 g/dL. The patient will also be continued on PPI therapy. Agree with discontinuation of Xarelto. -07/11/2023 patient should get cardiology input. Hemoglobin seems to be stable at 9.6. When she is medically stable then we will reevaluate her her GI bleed. -07/12/2023 Patients emoglobin today is 9.3. Yesterday was 9.6. Her BUN to creatinine ratio is improved, which is a good sign. She is stillshe is still a very high risk for re-bleeding. She is on medical therapy for bleeding and upper G.I. tract. Unfortunately PPI therapy does not work very well and the small bowel. Continue medical therapy. Charges/Coding Visit Charges Inpatient E&M: 96128 Subs Hosp L3
[2023-07-12] MEDS: Pantoprazole Sodium 40 MG in 0.9% Normal Saline (100mL MB+) 100 ML 330 MG IV (21:10)
[2023-07-12] MEDS: 0.9% Normal Saline (250mL Bag) 250 ML 15 ML IV (21:11)
[2023-07-13] VITALS (29 sets, daily range): BP systolic 91–127; BP diastolic 38–81; PULSE 63–116; RESP 13–27; TEMP 36–36.6; O2SAT 93–100
[2023-07-13 03:33] LABS: Absolute Lymphocyte Count 1.28 X10^3/uL (0.83-4.51); Absolute Neutrophil Count 10.4 X10^3/uL (2.0-7.7); Basophil# 0.06 X10^3/uL; Basophil% 0.4 % (0-1); Eosinophil# 0.12 X10^3/uL; Eosinophils% 0.9 % (0-5); Hematocrit 26.9 % (37-47); Hemoglobin 8.8 g/dL (12.0-15.0); Lymphocyte # 1.28 X10^3/ul (0.83-4.51); Lymphocyte % 9.6 % (19-41); Mean Corp Hgb Conc 32.7 g/dL (32-36); Mean Corpuscular Hgb 30.6 pg (27.0-32.0); Mean Corpuscular Volume 93.4 fL (81-99); Mean Platelet Vol. 9.4 fl (6.2-12.0); Monocyte# 1.37 X10^3/uL; Monocyte% 10.3 % (0-10); NRBC Flagged by Analyzer 0 % (0-5); Neutrophil # 10.43 X10^3/uL (2.7-7.7); Neutrophil % 78.1 % (47-70); Platelet Count 118 K/mm3 (150-450); RBC Distribution Width CV 15.7 % (11.6-14.6); RBC Distribution Width SD 50.4 fl (35.1-43.9); Red Blood Count 2.88 M/mm3 (4.2-5.4); White Blood Count 13.4 K/mm3 (4.4-11.0)
[2023-07-13 03:46] LABS: Anion Gap 7 (5-15); BUN 12 mg/dL (7-18); BUN/Creat Ratio 22.6 RATIO (10-20); Calcium,Total 7.6 mg/dL (8.5-10.1); Chloride 100 mmol/L (98-107); Creatinine, Serum 0.53 mg/dL (0.55-1.02); EST Glomerular Filtration Rate 118 mL/min (>60); Est Glom Filt Rate - Afr Amer 143 mL/min (>60); Estimated Creatinine Clearance 45.42 ml/min; Glucose 96 mg/dL (74-106); Potassium 4.3 mmol/L (3.5-5.1); Sodium Level 134 mmol/L (136-145)
--- NOTE | 2023-07-13 08:16 | PN.HOSP_ITS ---
Reason for Visit Reason for Visit: Diagnoses Unspecified viral hepatitis without hepatic coma (07/09/23) Acute posthemorrhagic anemia (07/09/23) Amyloidosis, unspecified (07/09/23) Other disorders of plasma-protein metabolism, not elsewhere classified (07/09/23) Nonrheumatic aortic (valve) stenosis (07/09/23) Unspecified atrial fibrillation (07/09/23) Heart failure, unspecified (07/09/23) Acute and subacute hepatic failure without coma (07/09/23) Gastrointestinal hemorrhage, unspecified (07/09/23) Adverse effect of unspecified drugs, medicaments and biological substances, initial encounter (07/09/23) MCC (current) use of anticoagulants (07/09/23) Personal history of other diseases of the circulatory system (07/09/23) Personal history of other diseases of the digestive system (07/09/23) Objective Data Objective Data Vital Signs: Vital Signs Temp Pulse Resp BP Pulse Ox O2 Del Method O2 Flow Rate 96.8 F L 83 20 H 127/53 H 96 Room Air 1 07/13/23 08:00 07/13/23 08:00 07/13/23 08:00 07/13/23 08:00 07/13/23 08:00 07/13/23 08:00 07/12/23 15:00 Oxygen Flow Rate (L/min) 1 Oxygen Delivery Method Room Air Weight: 127 lb 10.362 oz Body Mass Index (BMI) 25.7 Intake & Output: Intake and Output for Last 24 Hours 07/11/23 07/12/23 07/13/23 23:59 23:59 23:59 Intake Total 1160.94 / 1162.82 746.54 / 747.97 7.13 / 7.13 Output Total 2250 / 2250 1350 / 1550 500 / 500 Balance -1089.06 / -1087.18 -603.46 / -802.03 -492.87 / -492.87 Lab / Micro Data 07/13/23 03:20 07/13/23 03:20 Labs: Laboratory Results - last 24 hr 07/13/23 03:20: WBC 13.4 H, RBC 2.88 L, Hgb 8.8 L, Hct 26.9 L, MCV 93.4, MCH 30.6, MCHC 32.7, RDW Std Deviation 50.4 H, RDW Coeff of Lobo 15.7 H, Plt Count 118 L, MPV 9.4, Immature Gran % (Auto) 0.700, Neut % (Auto) 78.1 H, Lymph % (Auto) 9.6 L, [place] % (Auto) 10.3 H, Eos % (Auto) 0.9, Baso % (Auto) 0.4, A bsolute Neuts (auto) 10.4 H, Absolute Lymphs (auto) 1.28, Nucleated RBC % 0, S odium 134 L, Potassium 4.3, Chloride 100, Carbon Dioxide 27.0, Anion Gap 7, BUN 12, Creatinine 0.53 L, Estim Creat Clear Calc 45.42, Est GFR (MDRD) Af Amer 143, Est GFR (MDRD) Non-Af 118, BUN/Creatinine Ratio 22.6 H, Glucose 96, Calcium 7.6 L Micro: Microbiology 07/08/23 22:50 Stool Stool Occult Blood (CAMERON) - Final Occult Blood Positive Rhythm Strip Rhythm Strip: Sinus Rhythm Rate: 109 Ectopy: PAC(s) Physical Exam Narrative Seen and examined. Levophed was resumed last night. Patient on midodrine still requires intermittently Levophed. No fever. Yesterday, she refused for EGD. Complain of burning micturition/dysuria Physical exam General: awake, alert, oriented x 3 HEENT: No icterus. Atraumatic, PERRLA, EOMI, Normocephalic Oral: Oral mucosa dry. No Gingival or Mucosal Lesions/ Ulcerations Neck: Supple, No JVD, Negative Carotid Bruits Chest wall/Lungs: Air entry diminished in bilateral lung bases. No crepitations. Cardiovascular: sinus rhythm. holosystolic murmur cardiac apex and LLSB. Abdomen: Bowel Sounds present. Soft, Non Tender, Non-Distended : Present dysuria. Spontaneously voiding urine. No renal angle tenderness. No suprapubic tenderness. Extremities: bilateral below-knee 2+ edema and upper extremity edema, Capillary Refill Less than 3 Seconds Skin: No rashes, No breakdown Musculoskeletal: No Tenderness to Palpation of Joints or Extremities Neurological: Cranial nerves II-XII grossly intact, DTR 2+/4. No acute focal neurological deficit. Psych/Mental Status: Flat affect Assessment & Plan Assessment/Plan (1) Acute blood loss anemia: (2) Adverse drug reaction: QUALIFIERS: Encounter type: initial encounter Qualified Code(s): T50.905A - Adverse effect of unspecified drugs, medicaments and biological substances, initial encounter (3) Current use of medical terminologist anticoagulation: (4) CHF (congestive heart failure): QUALIFIERS: Heart failure type: unspecified Heart failure chronicity: unspecified Qualified Code(s): I50.9 - Heart failure, unspecified (5) History of atrial fibrillation: (6) Hypoalbuminemia: (7) History of liver failure: PLAN: Plan 77-year-old female who was recently admitted for a week between 06/28 to 07/06/2023 is being admitted ICU for multiple numerous large-volume melanotic stool on the evening of day admission. She was recently admitted for acute liver injury, acute kidney injury, A-fib with RVR with hypotension, acute exacerbation of chronic HFpEF EF 70%. Denies abdominal pain 1. Upper GI bleed with multiple numerous large-volume melanotic stools s present on admission with a corresponding significant drop in her hemoglobin to 8.3 g/dL present on admission Admit to ICU. upported by laboratory evidence with elevated BUN of 31 mg/dL and normal serum creatinine of 0.6 mg/dLContinue IV Protonix and keep strict n.p.o. Patient was also treated with a dose of Kcentra. Recheck CBC two hours after this transfusion is completed. Finally, whiting machine operator on-call has already been contacted by the ER with plan for EGD in a.m. with help appreciated in advance. 07/08: Patient was taken to endoscopy suite but returned because his blood pressure was in low 90s to upper 80s. During previous hospitalization patient had low blood pressure in systolic 80s/low 90s without symptoms with A-fib with RVR and hypotension. I talked with Dr. Grimes that patient has hypotension and severe GI bleed with acute blood loss anemia and needs endoscopy to stabilize her but he did not agree and sent back to the ICU. He said if that being the case, patient can have bedside EGD with linux unix engineer for propofol or anesthetic agents. Data Analysis Intern further consulted and patient had bedside EGD. EGD findings on 07/09/2023 Impressions : - Normal esophagus. - Red blood in the entire stomach. - Spurting duodenal ulcer with a visible vessel. Injected. Treated with a heater probe. Clips were placed. 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 - No specimens collected. Recommendations : - Return patient to ICU for ongoing care. - Resume previous diet. - Continue present medications. - Await pathology results. - Repeat upper endoscopy. 07/09: Discussed with the whiting machine operator. Started on soft diet. No plan for repeat EGD today. H&H 8/23.6%. She had 1 large melanotic stool yesterday, probably residual. BP 111/57 on low-dose of Levophed. 07/10: There was plan for repeat EGD today but canceled by anesthesiologist because of elevated troponin. Undercutter Operator was consulted and Dr. Ray saw the patient. Patient had melanotic stool yesterday morning but since then no large bloody bowel movement. 07/11: H&H 9.3/28%.Patient has been similar in the last 3 days. Patient refused for EGD today. I informed patient's daughter. I further called patient's KAYDENYulissa Hare and her Mariiaen Brooklynn as patient does not want any procedure or intensive management. Her daughter agreed for palliative care but want to talk about hospice. Message left to call back. 07/12: H&H 8.8/27% with slight drop in hemoglobin. Platelet count 118,000. As mentioned above, she refused for repeat EGD. 2. Coagulopathy due to rivaroxaban, evidenced by elevated INR of 2.8 present on admission and evidence of significant bleeding. Stop rivaroxaban indefinitely as any potential benefits are likely outweighed by the risks of recurrent bleeding in this elderly patient with numerous and complex medical issues. 3. Large bilateral pleural effusions, bibasilar atelectasis and anasarca consistent with an acute exacerbation of chronic systolic CHF in the setting of known severe aortic stenosis, LVH and cardiomyopathy Echo on 06/28 shows EF 70% moderate asymmetric septal hypertrophy, small LV cavity. LA severely enlarged. 1-2+ MR, critical aortic stenosis and mild AI. Moderately severe TR, PASP 50 mmHg Patient currently has low blood pressure therefore cannot tolerate diuretics. Continue digoxin. 4. CTA of the chest, abdomen and pelvis which was negative for PE but did show suspected thrombus in the Left atrial appendage- Noted. Patient is felt to be a poor candidate for anticoagulation. 07/11: Plan was to repeat EGD to see the healing of the ulcer with visible arterial vessel spurting but patient refused it. Based on that finding, decision would have been made to resume anticoagulation. 5. Hypoalbuminemia of 2.2 g/dL present on admission suspicious for protein calorie malnutrition - Check prealbumin to confirm suspicion. When patient is able to tolerate p.o. intake consider adding Ensure to meals. 6. Recent admission for acute liver injury, last hospital stay, non- acetaminophen related. Right upper quadrant sonogram showing GB wall thickening with pericholecystic fluid but no abdominal pain or gallstones therefore possible acalculous cholecystitis. Patient was conservatively managed with NAC drip. Hyperbilirubinemia resolved and liver chemistry had not improved by the time of discharge. 07/10 liver chemistry normal range. 7. Chronic atrial fibrillation; on rivaroxaban, critical aortic stenosis- Stable at this time with patient rate controlled with a therapeutic digoxin level of 1.05 ng/mL present on admission so we will continue Digoxin IV to prevent RVR. Rivaroxaban is discontinued 07/09: phototypesetting equipment monitor shows irregular rhythm but is still sinus. 07/10: Currently sinus rhythm but irregular rhythm with PVCs. Although patient has generalized swelling of upper and lower extremities, BP is Low 100 and plan for going to EGD under anesthesia therefore hold Lasix today. Discussed with the nursing staff. 07/11: Patient currently in sinus rhythm with heart rate 106/min with frequent PACs. Digoxin was discontinued. Started on low-dose 18 loll 12.5 mg twice daily with holding parameters. Will try to resume Xarelto once cleared by GI after repeat endoscopy. Patient not candidate for TAVR or surgical intervention at this time. 07/11:Patient in sinus rhythm. Heart rate controlled. Blood pressure low. Not able to give diuretic. 07/12: Undercutter Operator discontinued digoxin. On Atenolol 12.5 mg daily. 8. Essential hypertension - Hold scheduled antihypertensives with hemorrhagic shock and evidence of ongoing bleeding outlined #1. 9. Hyperlipidemia - Restart statin after EGD when okay with GI. 10. History of tobacco abuse - Noted. 11. History of amyloidosis - Noted. 12. PAD; status post iliac artery occlusion - Noted. 13. History of hysterectomy - Noted. 14. Osteoarthritis - Stable. 15. History of medical noncompliance - Noted. Patient encouraged not to take rivaroxaban in the future as the actual ongoing risks outweigh any potential benefit. 16. DVT prophylaxis - SCD's only with active GI hemorrhaging outlined in #1. Total time of the visit including total time spent in counseling or coordination of care, (more than 50% of the total time, spent in obtaining medical information from nurses and other ancillary care providers,explaining to the patient about labs, imaging, diagnosis and management of active complex medical conditions), , review of labs and imaging is 40 minutes. Living will/advanced directive/end of life care: Patient does have living will or advanced directive. Her granddaughter Ananya is power of litigation attorney for health but Brooklynn other granddaughter is also involved in the care. After discussion of benefits/risks procedures involved with full code, DNR CC arrest and DNR CC, the patient's granddaughter stated that she does not want intubation chest compression but okay with the vasopressors Patient doesn't want artificial life support including intubation, ventilator and/chest compression but okay with central venous catheter, vasopressor and DC shock if needed. Subsequently CODE STATUS changed from DNR CCA to DNR CC arrest with no intubation Charges/Coding Visit Charges Inpatient E&M: 73632 [facility] Hosp L3
[2023-07-13] MEDS: Furosemide 40 MG/4 ML Vial IV (08:38)
[2023-07-13] MEDS: Ensure Plus High Protein 120 ML LIQUID PO ×3 (08:38→16:14)
[2023-07-13] MEDS: Midodrine HCl 5 MG Tablet 10 MG PO ×3 (08:38→16:13)
--- NOTE | 2023-07-13 08:48 | CASEMGMT ---
Social Work Updates sent to [place] via [email or web address]. It is not anticipated pt will be ready for discharge today. GIOVANNY Lange
[2023-07-13 09:07] LABS: Bacteria 0 SEEN /hpf (None Seen); Mucous, Urine 0 SEEN /hpf (<or=2+)
[2023-07-13] MEDS: Pantoprazole Sodium 40 MG in 0.9% Normal Saline (100mL MB+) 100 ML 330 MG IV ×2 (09:08→20:18)
[2023-07-13 09:51] LABS: Color, Urine Yellow (Yellow); Glucose, Dipstick Normal (Normal); Ketone-Dipstick Negative (Negative); Leukocyte Esterase-Dipstick 25 /ul (Negative); Nitrite-Dipstick Negative (Negative); Occult Blood-Urine 10 /ul (Negative); Protein-Dipstick Negative (Negative); Urine Bilirubin Dipstick Negative (Negative); Urine Clarity Sl. Cloudy (Clear); Urine Urobilinogen Normal (Normal)
[2023-07-13 10:04] LABS: Red Blood Cells-Urine 0-5 SEEN /hpf (0-5); Squamous Epithelial Cells - UA 0-5 SEEN /hpf (5-10); White Blood Cells 0-5 SEEN /hpf (0-5)
[2023-07-13] MEDS: Ceftriaxone 1 GM/50 ML BAG IV (10:10)
[2023-07-13] MEDS: 0.9% Normal Saline (250mL Bag) 250 ML 15 ML IV (14:27)
[2023-07-13 14:37] LABS: Pathologist Review Reviewed
[2023-07-13 14:39] LABS: Pathologist Review Reviewed
--- NOTE | 2023-07-13 14:51 | PCM.PN.TICU ---
Objective Data Objective Data Vital Signs: Vital Signs Last response Temperature 36.5 C L 07/13/23 14:00 Temperature Source Temporal 07/13/23 14:00 Pulse Rate 100 07/13/23 14:00 Pulse Strength Normal (2+) 07/13/23 09:15 Respiratory Rate 23 H 07/13/23 14:00 Respiratory Effort Normal, Non-Labored 07/13/23 11:10 Respiratory Depth Normal 07/13/23 11:10 Respiratory Pattern Tachypnea 07/13/23 11:10 Blood Pressure 100/42 L 07/13/23 14:00 Blood Pressure Mean 61 07/13/23 14:00 Blood Pressure Source Monitor 07/13/23 13:00 Blood Pressure Position Sitting 07/13/23 13:00 Blood Pressure Location Left Arm 07/13/23 13:00 Pulse Ox 98 07/13/23 14:00 Oxygen Delivery Method Room Air 07/13/23 14:00 Oxygen Flow Rate (L/min) 1 07/12/23 15:00 I&O: I&O Last 24 Hours 07/12/23 07/13/23 07/13/23 23:59 11:59 23:59 Intake Total 629.05 / 747.97 487.13 / 737.13 250 / 737.13 Output Total 700 / 1550 1200 / 1550 350 / 1550 Balance -70.95 / -802.03 -712.87 / -812.87 -100 / -812.87 I&O: Total Stay 07/08/23 22:02 thru 07/13/23 13:52 Intake Total 5252.91 Output Total 5650 Balance -397.09 Current Meds Ordered / Administered: Current meds ordered / Administered Generic Name Dose Route Start Last Admin Trade Name Freq PRN Reason Stop Dose Admin Atenolol 12.5 mg 07/11/23 14:25 07/13/23 10:16 Atenolol 25 Mg Tablet PO Not Given DAILY UBALDO Protocol Chlorhexidine Gluconate 1 each 07/10/23 10:00 07/13/23 08:39 Chlorhexidine Gluc 2% Cloth 1 Each [place] TOPICAL Not Given DAILY UBALDO Furosemide 40 mg 07/09/23 10:00 07/13/23 08:38 Furosemide 40 Mg/4 Ml Vial IV 40 mg DAILY UBALDO Administration Protocol Sodium Chloride 250 mls @ 15 mls/hr 07/09/23 02:29 07/13/23 14:27 IV 15 mls/hr .[id number] PRN Administration Additional IVPB Infusion Sodium Chloride 250 mls @ 15 mls/hr 07/09/23 02:29 IV .[id number] PRN Saline Flush Norepinephrine Bitartrate 8 mg 250 mls @ 9.375 mls/hr 07/09/23 12:10 07/13/23 05:00 / Sodium Chloride CONT INF 0 mcg/min .[id number] UBALDO 0 mls/hr Titration Protocol 5 MCG/MIN Lactated Ringer's 1,000 mls @ 15 mls/hr 07/11/23 12:15 07/13/23 10:16 IV Not Given .Q48H UBALDO Pantoprazole Sodium 40 mg/ 110 mls @ 330 mls/hr 07/12/23 22:00 07/13/23 09:30 Sodium Chloride IV Infused Q12 UBALDO Infusion Ceftriaxone Sodium 1 gm in 50 mls @ 100 mls/hr 07/13/23 10:00 07/13/23 10:54 Rocephin IV Infused Q24 UBALDO Infusion Midodrine 10 mg 07/12/23 08:00 07/13/23 11:07 Midodrine Hcl 5 Mg Tablet PO 10 mg TIDCM UBALDO Administration Nutritional Formula (Lactose Free) 120 ml 07/12/23 14:00 07/13/23 12:50 Ensure Plus High Protein 120 Ml Liquid PO 120 ml 4X/DAY UBALDO Administration Ondansetron HCl 4 mg 07/09/23 02:23 Ondansetron 4 Mg/2 Ml Vial IV Q8H PRN PRN NAUSEA/VOMITING Sodium Chloride 10 - 40 ml 07/09/23 02:29 07/12/23 21:11 0.9% Saline Lock 10 Ml Syringe IV 40 ml UD PRN Administration SALINE FLUSH Lab / Micro Data 07/13/23 03:20 07/13/23 03:20 Labs: Laboratory Results - last 24 hr 07/08/23 22:29: Crossmatch See Detail 07/09/23 08:50: Diff Path Review Reviewed 07/10/23 02:35: Diff Path Review Reviewed 07/13/23 03:20: WBC 13.4 H, RBC 2.88 L, Hgb 8.8 L, Hct 26.9 L, MCV 93.4, MCH 30.6, MCHC 32.7, RDW Std Deviation 50.4 H, RDW Coeff of Lobo 15.7 H, Plt Count 118 L, MPV 9.4, Immature Gran % (Auto) 0.700, Neut % (Auto) 78.1 H, Lymph % (Auto) 9.6 L, [place] % (Auto) 10.3 H, Eos % (Auto) 0.9, Baso % (Auto) 0.4, Absolute Neuts (auto) 10.4 H, Absolute Lymphs (auto) 1.28, Nucleated RBC % 0, Sodium 134 L, Potassium 4.3, Chloride 100, Carbon Dioxide 27.0, Anion Gap 7, BUN 12, Creatinine 0.53 L, Estim Creat Clear Calc 45.42, Est GFR (MDRD) Af Amer 143, Est GFR (MDRD) Non-Af 118, BUN/Creatinine Ratio 22.6 H, Glucose 96, Calcium 7.6 L 07/13/23 09:00: Urine Color Yellow, Urine Clarity Sl. Cloudy, Urine pH 7.0, Ur Specific [place] 1.010, Urine Protein Negative, Urine Glucose (UA) Normal, Urine Ketones Negative, Urine Occult Blood 10 H, Urine Nitrite Negative, Urine Bilirubin Negative, Urine Urobilinogen Normal, Ur Leukocyte Esterase 25 H, Urine RBC 0-5 SEEN, Urine WBC 0-5 SEEN, Ur Squamous Epith Cells 0-5 SEEN, Urine Bacteria 0 SEEN, Urine Mucus 0 SEEN Rhythm Strip Rhythm Strip: Sinus Rhythm Rate: 109 Ectopy: PAC(s) Assessment and Plan . Assessment and plan: Critical Care Time: The entirety of this encounter was done via Telemedicine Subjective Subjective Chart and data reviewed Care planning noted No further aggressive intervention planned Some NE infusing for BP, but she is receiving diuretics and a beta vandana Nothing else to add at this time Available as needed
[2023-07-13] MEDS: CHLORHEXIDINE GLUC 2% CLOTH 1 EACH TOWELETTE TOPICAL (21:33)
[2023-07-14] VITALS (21 sets, daily range): BP systolic 93–107; BP diastolic 31–60; PULSE 83–115; RESP 16–26; TEMP 36.2–37; O2SAT 94–100
[2023-07-14 04:21] LABS: Absolute Lymphocyte Count 0.98 X10^3/uL (0.83-4.51); Absolute Neutrophil Count 8.7 X10^3/uL (2.0-7.7); Basophil# 0.06 X10^3/uL; Basophil% 0.5 % (0-1); Eosinophil# 0.08 X10^3/uL; Eosinophils% 0.7 % (0-5); Hematocrit 25.9 % (37-47); Hemoglobin 8.4 g/dL (12.0-15.0); Lymphocyte # 0.98 X10^3/ul (0.83-4.51); Lymphocyte % 8.8 % (19-41); Mean Corp Hgb Conc 32.4 g/dL (32-36); Mean Corpuscular Hgb 30.5 pg (27.0-32.0); Mean Corpuscular Volume 94.2 fL (81-99); Mean Platelet Vol. 9.7 fl (6.2-12.0); Monocyte# 1.32 X10^3/uL; Monocyte% 11.8 % (0-10); NRBC Flagged by Analyzer 0 % (0-5); Neutrophil # 8.65 X10^3/uL (2.7-7.7); Neutrophil % 77.6 % (47-70); Platelet Count 126 K/mm3 (150-450); RBC Distribution Width CV 16.1 % (11.6-14.6); RBC Distribution Width SD 52.3 fl (35.1-43.9); Red Blood Count 2.75 M/mm3 (4.2-5.4); White Blood Count 11.2 K/mm3 (4.4-11.0)
[2023-07-14 04:59] LABS: Anion Gap 8 (5-15); BUN 13 mg/dL (7-18); BUN/Creat Ratio 26.7 RATIO (10-20); Calcium,Total 7.7 mg/dL (8.5-10.1); Chloride 99 mmol/L (98-107); Creatinine, Serum 0.49 mg/dL (0.55-1.02); EST Glomerular Filtration Rate 131 mL/min (>60); Est Glom Filt Rate - Afr Amer 158 mL/min (>60); Estimated Creatinine Clearance 45.42 ml/min; Glucose 95 mg/dL (74-106); Sodium Level 136 mmol/L (136-145)
--- NOTE | 2023-07-14 06:46 | PCM.PN.INT ---
Assessment & Plan Assessment/Plan (1) Acute blood loss anemia: PLAN: Plan RECOMMENDATIONS: 1. Continue current supportive measures including transfusion of blood products to maintain a hemoglobin at or above 7 g/dL. 2. Continue scheduled midodrine. 3. Continue PPI therapy. 4. Encourage incentive spirometer use and mobilize patient as tolerated. IMPRESSIONS: 1. Acute blood loss anemia/hemorrhagic shock Secondary to upper GI bleeding status post endoscopic intervention by gastroenterology. The patient was noted to have an active bleed the duodenum. Her hemoglobin has remained relatively stable. The patient's Xarelto has been discontinued indefinitely. She will be continued on PPI therapy. Although gastroenterology was tentatively planning for repeat endoscopic evaluation, the patient reported that she is not interested in pursuing any further intervention. The patient has been weaned from vasopressor support with borderline hemodynamics. Continue scheduled midodrine as ordered. Remainder of supportive care per gastroenterology and hospitalist. 2. History of valvular heart disease/heart failure with preserved ejection fraction/atrial fibrillation/hypertension/hyperlipidemia Complicates care, management, recovery and prognosis. Continue to hold antihypertensives. Continue supportive measures as noted above. This note was generated with [employer] dictation software. It may contain incorrect words, spelling, and punctuation that were not noted in checking the note before signing. Subjective Subjective The patient was seen and examined at the bedside this morning. Events from the last 24 hours have been reviewed. The patient is currently afebrile, hemodynamically stable and maintaining appropriate oxygen saturations on 2 L/min via nasal cannula. The patient remains off of vasopressor support. Hemoglobin this morning was noted to be 8.4 g/dL with a platelet count of 126,000. The patient has no specific complaints this morning. She denies any abdominal pain, nausea or vomiting. Objective Data Objective Data The patient's most recent lab work, culture data and imaging studies have all been personally reviewed. Vital Signs: Vital Signs Temp Pulse Resp BP Pulse Ox O2 Del Method O2 Flow Rate 98.6 F 87 18 96/54 L 100 Nasal Cannula 2 07/14/23 04:00 07/14/23 06:00 07/14/23 06:00 07/14/23 06:00 07/14/23 06:00 07/14/23 06:00 07/14/23 06:00 Oxygen Flow Rate (L/min) 2 Oxygen Delivery Method Nasal Cannula Weight: 127 lb 10.362 oz Body Mass Index (BMI) 25.7 Intake & Output: Intake and Output for Last 24 Hours 07/12/23 07/13/23 07/14/23 23:59 23:59 23:59 Intake Total 746.54 / 747.97 1127.13 / 1127.13 200 / 200 Output Total 1350 / 1550 2250 / 2250 200 / 200 Balance -603.46 / -802.03 -1122.87 / -1122.87 0 / 0 Lab / Micro Data Attestation: I reviewed the patient's lab results. 07/14/23 04:10 07/14/23 04:10 Labs: Laboratory Results - last 24 hr 07/08/23 22:29: Crossmatch See Detail 07/09/23 08:50: Diff Path Review Reviewed 07/10/23 02:35: Diff Path Review Reviewed 07/13/23 09:00: Urine Color Yellow, Urine Clarity Sl. Cloudy, Urine pH 7.0, Ur Specific [place] 1.010, Urine Protein Negative, Urine Glucose (UA) Normal, Urine Ketones Negative, Urine Occult Blood 10 H, Urine Nitrite Negative, Urine Bilirubin Negative, Urine Urobilinogen Normal, Ur Leukocyte Esterase 25 H, Urine RBC 0-5 SEEN, Urine WBC 0-5 SEEN, Ur Squamous Epith Cells 0-5 SEEN, Urine Bacteria 0 SEEN, Urine Mucus 0 SEEN 07/14/23 04:10: WBC 11.2 H, RBC 2.75 L, Hgb 8.4 L, Hct 25.9 L, MCV 94.2, MCH 30.5, MCHC 32.4, RDW Std Deviation 52.3 H, RDW Coeff of Lobo 16.1 H, Plt Count 126 L, MPV 9.7, Immature Gran % (Auto) 0.600, Neut % (Auto) 77.6 H, Lymph % (Auto) 8.8 L, [place] % (Auto) 11.8 H, Eos % (Auto) 0.7, Baso % (Auto) 0.5, Absolute Neuts (auto) 8.7 H, Absolute Lymphs (auto) 0.98, Nucleated RBC % 0, Sodium 136, Potassium 4.0, Chloride 99, Carbon Dioxide 29.0, Anion Gap 8, BUN 13, Creatinine 0.49 L, Estim Creat Clear Calc 45.42, Est GFR (MDRD) Af Amer 158, Est GFR (MDRD) Non-Af 131, BUN/Creatinine Ratio 26.7 H, Glucose 95, Calcium 7.7 L Micro: Microbiology 07/08/23 22:50 Stool Stool Occult Blood (CAMERON) - Final Occult Blood Positive Rhythm Strip Rhythm Strip: Sinus Rhythm Rate: 109 Ectopy: PAC(s) Physical Exam Const alert, oriented x3 and no apparent distress Constitutional Narrative: Sitting in bedside recliner. General Appearance: cooperative HEENT normocephalic and head/scalp atraumatic Eyes PERRL, EOMs intact bilaterally and conjunctivae normal Neck supple General: trachea midline Chest inspection of chest normal Resp normal respiratory effort Auscultation: Negative for rales, rhonchi or wheezes Cardio S1 normal heart sound and S2 normal heart sound Rhythm: abnormal rhythm Heart Sounds: murmur GI normal to inspection, nondistended, normoactive bowel sounds Extremity General Extremity: edema bilateral lower extremity Skin no rashes or lesions noted Neuro CN's II-XII intact bilaterally, moves all extremities and no focal motor deficits Psych cooperative and affect normal Charges/Coding Visit Charges Inpatient E&M: 44018 Subs Hosp L2
[2023-07-14] MEDS: Midodrine HCl 5 MG Tablet 10 MG PO ×3 (07:41→16:59)
[2023-07-14] MEDS: Pantoprazole Sodium 40 MG in 0.9% Normal Saline (100mL MB+) 100 ML 330 MG IV (09:14)
[2023-07-14] MEDS: Atenolol 25 MG Tablet 12.5 MG PO (09:16)
[2023-07-14] MEDS: Ceftriaxone 1 GM/50 ML BAG IV (09:18)
[2023-07-14] MEDS: 0.9% Saline Lock 10 ML Syringe IV (10:20)
--- NOTE | 2023-07-14 12:54 | PN.HOSP_ITS ---
Reason for Visit Reason for Visit: Diagnoses Unspecified viral hepatitis without hepatic coma (07/09/23) Acute posthemorrhagic anemia (07/09/23) Amyloidosis, unspecified (07/09/23) Other disorders of plasma-protein metabolism, not elsewhere classified (07/09/23) Nonrheumatic aortic (valve) stenosis (07/09/23) Unspecified atrial fibrillation (07/09/23) Heart failure, unspecified (07/09/23) Acute and subacute hepatic failure without coma (07/09/23) Gastrointestinal hemorrhage, unspecified (07/09/23) Adverse effect of unspecified drugs, medicaments and biological substances, initial encounter (07/09/23) 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 Saw patient this morning. Patient was sitting up comfortably in bedside chair, conversing normally, in no acute distress. She was breathing comfortably on room air at rest. She had no conversational dyspnea. Patient stated she felt better today than previous days. She felt like she had more energy today and was hoping to get out of the ICU soon. She denied any lightheadedness or dizziness at rest. She denied any fevers or chills. Denied any urinary symptoms. Denied any dark or bloody bowel movements. No other acute concerns. Objective Data Objective Data Vital Signs: Vital Signs Temp Pulse Resp BP Pulse Ox O2 Del Method O2 Flow Rate 97.6 F L 92 23 H 103/46 L 97 Room Air 2 07/14/23 12:00 07/14/23 12:00 07/14/23 12:00 07/14/23 12:00 07/14/23 12:00 07/14/23 12:00 07/14/23 06:00 Oxygen Flow Rate (L/min) 2 Oxygen Delivery Method Room Air Weight: 57.9 kg Body Mass Index (BMI) 25.7 Intake & Output: Intake and Output for Last 24 Hours 07/12/23 07/13/23 07/14/23 23:59 23:59 23:59 Intake Total 746.54 / 747.97 1127.13 / 1127.13 610 / 610 Output Total 1350 / 1550 2250 / 2250 500 / 500 Balance -603.46 / -802.03 -1122.87 / -1122.87 110 / 110 Lab / Micro Data 07/14/23 04:10 07/14/23 04:10 Labs: Laboratory Results - last 24 hr 07/08/23 22:29: Crossmatch See Detail 07/09/23 08:50: Diff Path Review Reviewed 07/10/23 02:35: Diff Path Review Reviewed 07/14/23 04:10: WBC 11.2 H, RBC 2.75 L, Hgb 8.4 L, Hct 25.9 L, MCV 94.2, MCH 30.5, MCHC 32.4, RDW Std Deviation 52.3 H, RDW Coeff of Lobo 16.1 H, Plt Count 126 L, MPV 9.7, Immature Gran % (Auto) 0.600, Neut % (Auto) 77.6 H, Lymph % (Auto) 8.8 L, [place] % (Auto) 11.8 H, Eos % (Auto) 0.7, Baso % (Auto) 0.5, A bsolute Neuts (auto) 8.7 H, Absolute Lymphs (auto) 0.98, Nucleated RBC % 0, Sodium 136, Potassium 4.0, Chloride 99, Carbon Dioxide 29.0, Anion Gap 8, BUN 13, Creatinine 0.49 L, Estim Creat Clear Calc 45.42, Est GFR (MDRD) Af Amer 158, Est GFR (MDRD) Non-Af 131, BUN/Creatinine Ratio 26.7 H, Glucose 95, Calcium 7.7 L Micro: Microbiology 07/13/23 09:00 Urine, Clean Catch Urine Culture - 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 General Appearance: cooperative and comfortable HEENT normocephalic, head/scalp atraumatic and nasal mucous membranes and turbinates normal Eyes PERRL, EOMs intact bilaterally and conjunctivae normal Neck full ROM Chest inspection of chest normal Resp normal respiratory effort and no use of accessory muscles Resp Narrative: Mildly decreased breath sounds at bilateral lung bases. Cardio peripheral pulses 2+ throughout Cardio Narrative: A-fib, rate controlled. Systolic murmur noted at apex. GI normal to inspection, nondistended, normoactive bowel sounds, soft to palpation, non-tender and non-distended Back/Spine normal ROM Extremity normal to inspection and full ROM Extremity Narrative: +1-2 nonpitting lower extremity edema. Skin no rashes or lesions noted Neuro moves all extremities and no focal motor deficits Speech: speech normal Psych mental status grossly normal Assessment & Plan Assessment/Plan (1) Aortic stenosis: QUALIFIERS: Cardiac valve disease etiology: nonrheumatic Q ualified Code(s): I35.0 - Nonrheumatic aortic (valve) stenosis (2) History of atrial fibrillation: (3) Acute blood loss anemia: (4) Acute GI bleeding: (5) CHF (congestive heart failure): QUALIFIERS: Heart failure type: unspecified Heart failure chronicity: unspecified Qualified Code(s): I50.9 - Heart failure, unspecified PLAN: Plan Patient is a 77-year-old female who presented to [facility] ED on 07/09/2023 with a large-volume melanotic stool. 1. Acute blood loss anemia secondary to upper GI bleed, stable ? GI following. EGD on 07/08 showed bleeding duodenal ulcer with visible vessel that was injected, treated with heater probe and clipped. Baseline hemoglobin 10-12 during recent previous admission, milo of 6.8 on 07/08 s/p 2 units packed red blood cells with improvement to around 9. Plan was for repeat EGD on 07/10, however was not done due to concerns from anesthesia. Patient has not refused repeat EGD since 07/11. Hemoglobin roughly stable around 7.5-8. Continue to monitor CBC daily. Transitioned to p.o. PPI twice daily on 07/13. Continue to hold Xarelto. 2. Persistent borderline hypotension, history of essential hypertension ? History of hypertension on home diltiazem, atenolol and Lasix. Hypotension seems multifactorial due to anemia and HFpEF with severe aortic stenosis as noted below. Cardiology following, restarted atenolol at decreased dose and home Lasix as noted below. Continue midodrine 10 mg 3 times daily. Has been off Levophed since evening of 07/12. If remains stable off Levophed, will plan to transfer to PCU on afternoon of 07/13. 3. HFpEF exacerbation in setting of known cardiac amyloidosis and severe aortic stenosis ? Cardiology following. CTA chest abdomen pelvis on admit showed cardiomegaly and volume overload with large bilateral pleural effusions along with anasarca. Was on digoxin per cardiology but this was discontinued on 07/10 with improving blood pressures. Started atenolol 12.5 mg twice daily with hold parameters of systolic less than 100 and heart rate less than 60. Continue home Lasix 20 mg daily. Continue to monitor closely. Notably not a candidate for TAVR or surgical intervention given her poor functional status. 4. Chronic A-fib on Xarelto, concern for thrombus in left atrial appendage ? Cardiology following as above. Holding Xarelto for now and likely indefinitely. Restarted atenolol as noted above, holding home diltiazem and digoxin. Continue cardiac monitoring. 5. Hypoalbuminemia with inadequate oral intake; malnutrition ruled out ? Albumin 2.2 on admit presumed secondary to inadequate oral intake and poor liver function. Nutrition following. Continue protein supplements with meals. 6. Recent admission for acute liver injury ? Hospitalized from 06/28 through 07/05. GI followed during that hospitalization. Most likely etiology for GI is secondary to congestion in setting of HFpEF with severe aortic stenosis as noted above. Liver function improved during that hospitalization, has remained stable during this hospitalization. Continue treatment as above. 7. Concern for UTI ? Started on ceftriaxone empirically on 07/12 due to concern for UTI. UA fairly benign, urine culture only growing 11-25K of gram negative rods. WBC count stable, afebrile. Ceftriaxone discontinued on 07/13. Chronic medical conditions: ? Peripheral artery disease, hyperlipidemia: Statin discontinued during previous hospitalization due to liver injury. Can restart as needed. ? History of tobacco abuse: Encouraged continued cessation. ? History of hysterectomy DVT prophylaxis: SCDs CODE STATUS: DNR CCA, DNI Expected disposition: Back to SNF, 2 to 3 days Total clinical time spent by myself addressing the patient's medical issues, reviewing all the data, and collaborating with patient's care team: 50 minutes. Charges/Coding Visit Charges Inpatient E&M: 39677 Subs Hosp L3
[2023-07-14] MEDS: Ensure Plus High Protein 120 ML LIQUID PO (16:59)
--- NOTE | 2023-07-14 17:42 | EX.PCM.PN.GI ---
Subjective Subjective Patient says that she is doing little bit better today. She said her breathing is okay. She denies any chest pain. She denies any abdominal pain. She is tolerating a diet. Objective Data Objective Data Vital Signs: Vital Signs Temp Pulse Resp BP Pulse Ox O2 Del Method O2 Flow Rate 97.2 F L 97 22 H 100/41 L 95 Room Air 2 07/14/23 16:00 07/14/23 16:00 07/14/23 16:00 07/14/23 16:00 07/14/23 16:00 07/14/23 16:00 07/14/23 06:00 Oxygen Flow Rate (L/min) 2 Oxygen Delivery Method Room Air Weight: 127 lb 10.362 oz Body Mass Index (BMI) 25.7 Intake & Output: Intake and Output for Last 24 Hours 07/12/23 07/13/23 07/14/23 23:59 23:59 23:59 Intake Total 746.54 / 747.97 1127.13 / 1127.13 610 / 610 Output Total 1350 / 1550 2250 / 2250 750 / 750 Balance -603.46 / -802.03 -1122.87 / -1122.87 -140 / -140 Lab / Micro Data 07/14/23 04:10 07/14/23 04:10 Labs: Laboratory Results - last 24 hr 07/14/23 04:10: WBC 11.2 H, RBC 2.75 L, Hgb 8.4 L, Hct 25.9 L, MCV 94.2, MCH 30.5, MCHC 32.4, RDW Std Deviation 52.3 H, RDW Coeff of Lobo 16.1 H, Plt Count 126 L, MPV 9.7, Immature Gran % (Auto) 0.600, Neut % (Auto) 77.6 H, Lymph % (Auto) 8.8 L, 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 Levophed was resumed last night. Patient on midodrine still requires intermittently Levophed. No fever. Yesterday, she refused for EGD. Complain of burning micturition/dysuria Physical exam General: awake, alert, oriented x 3 HEENT: No icterus. Atraumatic, PERRLA, EOMI, Normocephalic Oral: Oral mucosa dry. No Gingival or Mucosal Lesions/ Ulcerations Neck: Supple, No JVD, Negative Carotid Bruits Chest wall/Lungs: Air entry diminished in bilateral lung bases. No crepitations. Cardiovascular: sinus rhythm. holosystolic murmur cardiac apex and LLSB. Abdomen: Bowel Sounds present. Soft, Non Tender, Non-Distended : Present dysuria. Spontaneously voiding urine. No renal angle tenderness. No suprapubic tenderness. Extremities: bilateral below-knee 2+ edema and upper extremity edema, Capillary Refill Less than 3 Seconds Skin: No rashes, No breakdown Musculoskeletal: No Tenderness to Palpation of Joints or Extremities Neurological: Cranial nerves II-XII grossly intact, DTR 2+/4. No acute focal neurological deficit. 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 Upper GI bleed with multiple numerous large-volume melanotic stools s present on admission with a corresponding significant drop in her hemoglobin to 8.3 g/dL present on admission Admit to ICU. 07/08: Patient was taken to endoscopy suite but returned because his blood pressure was in low 90s to upper 80s. During previous hospitalization patient had low blood pressure in systolic 80s/low 90s without symptoms with A-fib with RVR and hypotension. EGD findings on 07/09/2023 Impressions : - Normal esophagus. - Red blood in the entire stomach. - Spurting duodenal ulcer with a visible vessel. Injected. Treated with a heater probe. Clips were placed. 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 - No specimens collected. Recommendations : - Return patient to ICU for ongoing care. - Resume previous diet. - Continue present medications. - Await pathology results. - Repeat upper endoscopy. 07/14/23-patient did have some melanotic stools today. Her hemoglobin continues to slowly drop. I told the patient I am still recommending upper endoscopy because she is not hospice yet. I told her that I do not think medicine could help the area that she is bleeding at. I told her if she change her mind I be willing to help her. Rivaroxaban was stopped by primary team indefinitely as any potential benefits are likely outweighed by the risks of recurrent bleeding in this elderly patient with numerous and complex medical issues. Continue PPI therapy and Carafate therapy. Charges/Coding Visit Charges Inpatient E&M: 66805 [facility] L3
[2023-07-14] MEDS: Pantoprazole Sodium 40 MG Tablet PO (20:37)
[2023-07-15] VITALS (9 sets, daily range): BP systolic 91–125; BP diastolic 40–54; PULSE 90–101; RESP 18–25; TEMP 36.1–36.8; O2SAT 94–97; BMI 23.3
[2023-07-15 05:36] LABS: Hematocrit 27.3 % (37-47); Hemoglobin 8.7 g/dL (12.0-15.0); Mean Corp Hgb Conc 31.9 g/dL (32-36); Mean Corpuscular Hgb 30.4 pg (27.0-32.0); Mean Corpuscular Volume 95.5 fL (81-99); Mean Platelet Vol. 9.4 fl (6.2-12.0); Platelet Count 163 K/mm3 (150-450); RBC Distribution Width CV 16.1 % (11.6-14.6); RBC Distribution Width SD 54.3 fl (35.1-43.9); Red Blood Count 2.86 M/mm3 (4.2-5.4); White Blood Count 10.8 K/mm3 (4.4-11.0)
[2023-07-15] MEDS: Midodrine HCl 5 MG Tablet 10 MG PO ×3 (08:13→16:58)
[2023-07-15] MEDS: Ensure Plus High Protein 120 ML LIQUID PO ×4 (08:15→20:50)
[2023-07-15] MEDS: Atenolol 25 MG Tablet 12.5 MG PO (09:21)
[2023-07-15] MEDS: Ceftriaxone 1 GM/50 ML BAG IV (09:21)
[2023-07-15] MEDS: Furosemide 20 MG Tablet PO (09:21)
[2023-07-15] MEDS: Pantoprazole Sodium 40 MG Tablet PO ×2 (09:21→20:50)
[2023-07-15] MEDS: 0.9% Saline Lock 10 ML Syringe IV (09:23)
--- NOTE | 2023-07-15 13:07 | PN.HOSP_ITS ---
Reason for Visit Reason for Visit: Diagnoses Unspecified viral hepatitis without hepatic coma (07/09/23) Acute posthemorrhagic anemia (07/09/23) Amyloidosis, unspecified (07/09/23) Other disorders of plasma-protein metabolism, not elsewhere classified (07/09/23) Nonrheumatic aortic (valve) stenosis (07/09/23) Unspecified atrial fibrillation (07/09/23) Heart failure, unspecified (07/09/23) Acute and subacute hepatic failure without coma (07/09/23) Gastrointestinal hemorrhage, unspecified (07/09/23) Adverse effect of unspecified drugs, medicaments and biological substances, initial encounter (07/09/23) 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 Patient seen at bedside this morning. Sitting up comfortably in bed, conversing normally, no acute distress. Transfer orders to PCU were initially placed with patient yesterday afternoon but her blood pressures remained borderline so transfer was held. Her pressures remained fairly steady around MAP of 65-70. Patient denies any orthostatic symptoms. Her heart rate does remain slightly elevated with A-fib around 100-110. Patient denies any fevers or chills. Denies any dysuria. No other acute concerns. Objective Data Objective Data Vital Signs: Vital Signs Temp Pulse Resp BP Pulse Ox O2 Del Method O2 Flow Rate 97.2 F L 94 24 H 109/46 L 96 Room Air 2 07/15/23 12:00 07/15/23 12:00 07/15/23 12:00 07/15/23 12:00 07/15/23 12:07/15/23 12:00 07/14/23 06:00 Oxygen Flow Rate (L/min) 2 Oxygen Delivery Method Room Air Weight: 52.4 kg Body Mass Index (BMI) 23.3 Intake & Output: Intake and Output for Last 24 Hours 07/13/23 07/14/23 07/15/23 23:59 23:59 23:59 Intake Total 1127.13 / 1127.13 1090 / 1090 530 / 530 Output Total 2250 / 2250 1100 / 1100 700 / 700 Balance -1122.87 / -1122.87 -10 / -10 -170 / -170 Lab / Micro Data 07/15/23 05:25 07/14/23 04:10 Labs: Laboratory Results - last 24 hr 07/15/23 05:25: WBC 10.8, RBC 2.86 L, Hgb 8.7 L, Hct 27.3 L, MCV 95.5, MCH 30.4, MCHC 31.9 L, RDW Std Deviation 54.3 H, RDW Coeff of Lobo 16.1 H, Plt Count 163, MPV 9.4 Micro: Microbiology 07/13/23 09:00 Urine, Clean Catch Urine Culture - Final Klebsiella pneumoniae sp pneum 07/08/23 22:50 Stool Stool Occult Blood (CAMERON) - Final Occult Blood Positive Rhythm Strip Rhythm Strip: Sinus Rhythm Rate: 109 Ectopy: PAC(s) Physical Exam Const alert, oriented x3, no apparent distress and average body habitus Constitutional Narrative: Elderly female, hard of hearing, otherwise sitting up comfortably in bed, conversing normally, in no acute distress. General Appearance: cooperative and comfortable HEENT normocephalic, head/scalp atraumatic and nasal mucous membranes and turbinates normal Eyes PERRL, EOMs intact bilaterally and conjunctivae normal Neck full ROM Chest inspection of chest normal Resp normal respiratory effort and no use of accessory muscles Resp Narrative: Mildly decreased breath sounds at bilateral lung bases, stable. Cardio peripheral pulses 2+ throughout Cardio Narrative: A-fib, rate controlled. Systolic murmur noted at apex. GI normal to inspection, nondistended, normoactive bowel sounds, soft to palpation, non-tender and non-distended Back/Spine normal ROM Extremity normal to inspection and full ROM Extremity Narrative: +1-2 nonpitting lower extremity edema, stable. Skin no rashes or lesions noted Neuro moves all extremities and no focal motor deficits Speech: speech normal Psych mental status grossly normal Assessment & Plan Assessment/Plan (1) Aortic stenosis: QUALIFIERS: Cardiac valve disease etiology: nonrheumatic Q ualified Code(s): I35.0 - Nonrheumatic aortic (valve) stenosis (2) History of atrial fibrillation: (3) Acute blood loss anemia: (4) Acute GI bleeding: (5) CHF (congestive heart failure): QUALIFIERS: Heart failure type: unspecified Heart failure chronicity: unspecified Qualified Code(s): I50.9 - Heart failure, unspecified PLAN: Plan Patient is a 77-year-old female who presented to [facility] ED on 07/09/2023 with a large-volume melanotic stool. 1. Acute blood loss anemia secondary to upper GI bleed, stable ? GI following. EGD on 07/08 showed bleeding duodenal ulcer with visible vessel that was injected, treated with heater probe and clipped. Baseline hemoglobin 10-12 during recent previous admission, milo of 6.8 on 07/08 s/p 2 units packed red blood cells with improvement to around 9. Plan was for repeat EGD on 07/10, however was not done due to concerns from anesthesia. Patient has not refused repeat EGD since 07/11. Hemoglobin roughly stable around 8-9. Continue to monitor CBC daily. Transitioned to p.o. PPI twice daily on 07/13. Will hold Xarelto indefinitely. 2. Persistent borderline hypotension, history of essential hypertension ? History of hypertension on home diltiazem, atenolol and Lasix. Hypotension seems multifactorial due to anemia and HFpEF with severe aortic stenosis as noted below. Cardiology following, restarted atenolol at decreased dose and home Lasix as noted below. Continue midodrine 10 mg 3 times daily. Has been off Levophed since evening of 07/12. Patient's blood pressures remain borderline with MAP around 65. Treating possible UTI as noted below. Suspect we may be approaching a new baseline blood pressure for the patient given she is asymptomatic. Hemoglobin is stable and she does not appear hypovolemic, no indication for blood transfusion or additional IV fluids. Will plan to hold diltiazem on discharge. Continue atenolol and Lasix at decreased doses. Okay for transfer to PCU on 07/14. 3. HFpEF exacerbation in setting of known cardiac amyloidosis and severe aortic stenosis ? Cardiology following. CTA chest abdomen pelvis on admit showed cardiomegaly and volume overload with large bilateral pleural effusions along with anasarca. Was on digoxin per cardiology but this was discontinued on 07/10 with improving blood pressures. Started atenolol 12.5 mg twice daily with hold parameters of systolic less than 100 and heart rate less than 60. Continue home Lasix 20 mg daily. Continue to monitor closely. Notably not a candidate for TAVR or surgical intervention given her poor functional status. 4. Chronic A-fib on Xarelto, concern for thrombus in left atrial appendage ? Cardiology following as above. Holding Xarelto indefinitely. Restarted atenolol as noted above, holding home diltiazem and digoxin. Continue cardiac monitoring. 5. Hypoalbuminemia with inadequate oral intake; malnutrition ruled out ? Albumin 2.2 on admit presumed secondary to inadequate oral intake and poor liver function. Nutrition following. Continue protein supplements with meals. 6. Recent admission for acute liver injury ? Hospitalized from 06/28 through 07/05. GI followed during that hospitalization. Most likely etiology for GI is secondary to congestion in setting of HFpEF with severe aortic stenosis as noted above. Liver function improved during that hospitalization, has remained stable during this hospitalization. Continue treatment as above. 7. Concern for UTI ? Started on ceftriaxone empirically on 07/12 due to concern for UTI. UA fairly benign, urine culture growing 11-25K Klebsiella susceptible to ceftriaxone. However, with persistent hypotension as noted above we will plan to complete 5- day course of antibiotics total. Okay to continue ceftriaxone for now, plan to de-escalate to Keflex on discharge. Chronic medical conditions: ? Peripheral artery disease, hyperlipidemia: Statin discontinued during previous hospitalization due to liver injury. Can restart as needed. ? History of tobacco abuse: Encouraged continued cessation. ? History of hysterectomy DVT prophylaxis: SCDs CODE STATUS: DNR CCA, DNI Expected disposition: Back to SNF, 1 to 2 days Total clinical time spent by myself addressing the patient's medical issues, reviewing all the data, and collaborating with patient's care team: 35 minutes. Charges/Coding Visit Charges Inpatient E&M: 86978 Subs Hosp L2
[2023-07-16 03:10] VITALS: BP 118/53; PULSE 92; RESP 18; TEMP 36.1; O2SAT 96
[2023-07-16 03:53] VITALS: BMI 23.4
[2023-07-16 06:16] LABS: Hematocrit 28.1 % (37-47); Hemoglobin 8.8 g/dL (12.0-15.0); Mean Corp Hgb Conc 31.3 g/dL (32-36); Mean Corpuscular Volume 95.9 fL (81-99); Mean Platelet Vol. 9.6 fl (6.2-12.0); Platelet Count 204 K/mm3 (150-450); RBC Distribution Width CV 15.9 % (11.6-14.6); RBC Distribution Width SD 54.7 fl (35.1-43.9); Red Blood Count 2.93 M/mm3 (4.2-5.4); White Blood Count 10.4 K/mm3 (4.4-11.0)
[2023-07-16 09:10] VITALS: BP 112/48; PULSE 107; RESP 18; TEMP 36.2; O2SAT 100
[2023-07-16] MEDS: Ceftriaxone 1 GM/50 ML BAG IV (09:18)
[2023-07-16] MEDS: Furosemide 20 MG Tablet PO (09:19)
[2023-07-16] MEDS: Midodrine HCl 5 MG Tablet 10 MG PO ×2 (09:19→11:40)
[2023-07-16] MEDS: Atenolol 25 MG Tablet 12.5 MG PO (09:19)
[2023-07-16] MEDS: Pantoprazole Sodium 40 MG Tablet PO (09:20)
[2023-07-16] MEDS: Ensure Plus High Protein 120 ML LIQUID PO (09:24)
--- NOTE | 2023-07-16 10:53 | DS.PCM_ITS ---
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 EMERGENT Consult: No Notified: Yes Date Notified: 07/09/23 Time Notified: 01:44 Method of Notification: ED Physician Initiated 07/09/23 11:54 Consult: [employer] / Pulmonary Medicine Routine Consulting Provider: Intensivists/Pulmonary Med Reason for Consult: Hypotension, upper gi bleed EMERGENT Consult: No Notified: Yes Date Notified: 07/09/23 Time Notified: 11:55 Method of Notification: Text 07/11/23 12:43 Consult: Cardiology Routine Consulting Provider: João Ray Reason for Consult: high troponin EMERGENT Consult: No Notified: Yes Date Notified: 07/11/23 Time Notified: 12:43 Method of Notification: Verbal Reason For Visit: MELANOTIC STOOLS DUE TO UPPER GI BLEED WITH Diagnosis Discharge Diagnosis (1) Aortic stenosis: Status: Acute Code(s): I35.0 - Nonrheumatic aortic (valve) stenosis Qualifiers: Cardiac valve disease etiology: nonrheumatic Qualified Code(s): I35.0 - Nonrheumatic aortic (valve) stenosis (2) History of atrial fibrillation: Status: Acute Code(s): Z86.79 - Personal history of other diseases of the circulatory system (3) Acute blood loss anemia: Status: Acute Code(s): D62 - Acute posthemorrhagic anemia (4) Acute GI bleeding: Status: Acute Code(s): K92.2 - Gastrointestinal hemorrhage, unspecified (5) CHF (congestive heart failure): Status: Acute Code(s): I50.9 - Heart failure, unspecified Qualifiers: Heart failure chronicity: unspecified Heart failure type: unspecified Qualified Code(s): I50.9 - Heart failure, unspecified Medications at Discharge Home Medications polysaccharide iron complex 150 mg iron capsule (Ferrex) 150 mg PO BID #60 caps 07/12/20 furosemide 20 mg tablet 20 mg PO DAILY #0 tabs 07/06/23 atenolol 25 mg tablet 12.5 mg (1/2 x 25 mg) PO DAILY #0 tabs 07/16/23 cephalexin 500 mg capsule 500 mg PO Q8H 2 days #6 caps 07/16/23 food supplemt, lactose-reduced 0.08 gram-1.5 kcal/mL oral liquid (Ensure Plus High Protein) 120 ml PO 4X/DAY #0 mL 07/16/23 midodrine 5 mg tablet 10 mg (2 x 5 mg) PO TIDCM #0 tabs 07/16/23 pantoprazole 40 mg tablet,delayed release 40 mg PO BID #0 tabs 07/16/23 Hospital Course Operations None Procedures EGD, EKG and - (CTA chest abdomen pelvis with contrast) Summary of Care Provided Minutes Spent on Discharge: 35 Hospital Course: Patient is a 77-year-old female who presented to [facility] ED on 07/09/2023 with a large-volume melanotic stool. Hospital course as noted below. Patient discharged back to [facility] in stable condition on 07/15. 1. Acute blood loss anemia secondary to upper GI bleed, stable ? GI followed. EGD on 07/08 showed bleeding duodenal ulcer with visible vessel that was injected, treated with heater probe and clipped. Baseline hemoglobin 10-12 during recent previous admission, milo of 6.8 on 07/08 s/p 2 units packed red blood cells with improvement to around 9. Plan was for repeat EGD on 07/10, however was not done due to concerns from anesthesia. Patient then refused repeat EGD since 07/11. Hemoglobin remained stable ~8-9 for remainder of hospitalization. Transitioned to p.o. PPI twice daily on 07/13. Will hold Xarelto indefinitely. Repeat CBC 1 week postdischarge to ensure hemoglobin remains stable. 2. Persistent borderline hypotension, stable; history of essential hypertension ? History of hypertension on home diltiazem, atenolol and Lasix. Hypotension seemed multifactorial due to anemia and HFpEF with severe aortic stenosis as noted below. Cardiology followed, restarted atenolol at decreased dose and home Lasix on 07/11 as noted below. Also started on midodrine 10 mg three times daily. Off Levophed since evening of 07/12. BP remained borderline w/ MAP ~65- 70 for remainder of hospitalization. Suspected she may be approaching a new baseline blood pressure given she was asymptomatic with these pressures. Hemoglobin stabilized and she was euvolemic and eating/drinking well. Transferred to PCU on 07/14. Stable for discharge back to SNF on 07/15. Continue atenolol 12.5 mg daily and Lasix 20 mg daily on discharge. Hold diltiazem and digoxin on discharge. 3. HFpEF exacerbation in setting of known cardiac amyloidosis and severe aortic stenosis ? Cardiology followed. CTA chest abdomen pelvis on admit showed cardiomegaly and volume overload with large bilateral pleural effusions along with anasarca. Was on digoxin per cardiology but this was discontinued on 07/10 with improving blood pressures. Started atenolol 12.5 mg twice daily on 07/11 with hold parameters of systolic less than 100 and heart rate less than 60. Continue home Lasix 20 mg daily. Notably not a candidate for TAVR or surgical intervention given her poor functional status. Stable for discharge on atenolol and Lasix as noted above. 4. Chronic A-fib on Xarelto, concern for thrombus in left atrial appendage ? Cardiology followed as above. Holding Xarelto indefinitely. Restarted atenolol as noted above, held home diltiazem and digoxin. 5. Hypoalbuminemia with inadequate oral intake; malnutrition ruled out ? Albumin 2.2 on admit presumed secondary to inadequate oral intake and poor liver function. Nutrition followed. Continue protein supplements with meals. 6. Recent admission for acute liver injury ? Hospitalized from 06/28 through 07/05. GI followed during that hospitalization. Most likely etiology for GI is secondary to congestion in setting of HFpEF with severe aortic stenosis as noted above. Liver function improved during that hospitalization, remained stable during this hospitalization. Treated as above. 7. Concern for UTI ? Started on ceftriaxone empirically on 07/12 due to concern for UTI. UA fairly benign, urine culture growing 11-25K Klebsiella susceptible to ceftriaxone. However, with persistent hypotension as noted above we will plan to complete 5- day course of antibiotics total. Discharged on p.o. Keflex with stop date 07/16. Chronic medical conditions: ? Peripheral artery disease, hyperlipidemia: Statin discontinued during previous hospitalization due to liver injury. No need to restart at this time. ? History of tobacco abuse: Encouraged continued cessation. ? History of hysterectomy Total clinical time spent by myself addressing the patient's medical issues, reviewing all the data, and collaborating with patient's care team: 35 minutes. Physical Exam Const alert, oriented x3, no apparent distress and average body habitus Constitutional Narrative: Elderly female, hard of hearing, otherwise sitting up comfortably in bed, conversing normally, in no acute distress. General Appearance: cooperative and comfortable HEENT normocephalic, head/scalp atraumatic and nasal mucous membranes and turbinates normal Eyes PERRL, EOMs intact bilaterally and conjunctivae normal Neck full ROM Chest inspection of chest normal Resp normal respiratory effort and no use of accessory muscles Resp Narrative: Mildly decreased breath sounds at bilateral lung bases, stable. Cardio peripheral pulses 2+ throughout Cardio Narrative: A-fib, rate controlled. Systolic murmur noted at apex. GI normal to inspection, nondistended, normoactive bowel sounds, soft to palpation, non-tender and non-distended Back/Spine normal ROM Extremity normal to inspection and full ROM Extremity Narrative: +1-2 nonpitting lower extremity edema, stable. Skin no rashes or lesions noted Neuro moves all extremities and no focal motor deficits Speech: speech normal Psych mental status grossly normal Weight / BMI Weight Weight: 52.6 kg Body Mass Index (BMI) 23.4 ABG / Lab / Microbiology Data 07/16/23 05:46 07/14/23 04:10 Laboratory: Laboratory Results - last 24 hr 07/16/23 05:46: WBC 10.4, RBC 2.93 L, Hgb 8.8 L, Hct 28.1 L, MCV 95.9, MCH 30.0, MCHC 31.3 L, RDW Std Deviation 54.7 H, RDW Coeff of Lobo 15.9 H, Plt Count 204, MPV 9.6 Microbiology: Microbiology 07/13/23 09:00 Urine, Clean Catch Urine Culture - Final Klebsiella pneumoniae sp pneum 07/08/23 22:50 Stool Stool Occult Blood ([facility]) - Final Occult Blood Positive Meaningful Use Info Meaningful Use Meaningful Use Diagnoses (Choose all that apply): None applicable Ischemic Stroke Statin Dosing Therapy Reference: STATIN DOSE THERAPY REFERENCE: * Patients > 75 years receive moderate or high dose statin therapy. * Patients 75 years or YOUNGER should receive HIGH intensity statin dose unless contraindicated. You will be required to document reason for non-treatment if statin daily dose does not meet guidelines. HIGH DOSE STATIN THERAPY DAILY Atorvastatin > than or = to 40 mg Rosuvastatin > than or = to 20 mg Amlodipine + Atorvastatin > than or = to 2.5/40 mg Ezetimibe + Simvastatin 10/80 mg Simvastatin 80mg Discharge Plan Admission Admit Date/Time: 07/09/23 01:38 Primary Reason for Your Visit: Dark and bloody stools Attending Provider: Lan Jha Primary Care Provider: Care Physician,No Primary Consulting Providers: Ludwin James; Robb No; João Ray Discharge Orders/Prescriptions Prescriptions: New midodrine 5 mg Tablet 10 mg PO TIDCM Qty: 0 0RF atenolol 25 mg Tablet 12.5 mg PO DAILY Qty: 0 0RF pantoprazole 40 mg Tablet,Delayed Release (Dr/Ec) 40 mg PO BID Qty: 0 0RF Ensure Plus High Protein 0.08 gram-1.5 kcal/mL Liquid 120 ml PO 4X/DAY Qty: 0 0RF cephalexin 500 mg capsule 500 mg PO Q8H 2 Days Qty: 6 0RF Continued furosemide 20 mg Tablet 20 mg PO DAILY Qty: 0 0RF polysaccharide iron complex [Ferrex 150] 150 mg iron capsule 150 mg PO BID Qty: 60 3RF Discontinued rivaroxaban 15 mg tablet 15 mg PO DAILY Rx Instructions: must administer with evening meal atenolol 25 mg Tablet 25 mg PO DAILY Qty: 0 0RF digoxin 250 mcg (0.25 mg) Tablet 250 mcg PO DAILY@0800 Qty: 0 0RF diltiazem HCl 120 mg Capsule,Extended Release 24hr 120 mg PO DAILY Qty: 0 0RF Referrals / Follow Up: Care Physician,No Primary [Primary Care Provider] - Disposition Disposition (needs filled in before D/C Order can be placed): Residential Facility Charges/Coding Visit Charges Inpatient E&M: 14027 Disch Hosp >30min
--- NOTE | 2023-07-16 11:08 | CASEMGMT ---
Social Work Power of criminal defense attorney for healthcare is scanned into [employer], living will provision is initialed. Pt listed Ananya Anderson as healthcare POA. GIOVANNY Lange
--- NOTE | 2023-07-16 11:39 | CASEMGMT ---
Patient is ready for discharge back to [facility]. Plan: d/c back to [facility] under skilled level of care. Physicians will transport patient. Pam COOL
--- NOTE | 2023-07-16 11:43 | PHA.DC.MR.R ---
Pharmacy [place] Med Reconciliation Pharmacy Service has performed discharge medication reconciliation for this patient. The patient's discharge medication list was reviewed for discrepancies and discrepancies were resolved. Medications at Discharge Home Medications polysaccharide iron complex 150 mg iron capsule (Ferrex) 150 mg PO BID #60 caps 07/12/20 furosemide 20 mg tablet 20 mg PO DAILY #0 tabs 07/06/23 atenolol 25 mg tablet 12.5 mg (1/2 x 25 mg) PO DAILY #0 tabs 07/16/23 cephalexin 500 mg capsule 500 mg PO Q8H 2 days #6 caps 07/16/23 food supplemt, lactose-reduced 0.08 gram-1.5 kcal/mL oral liquid (Ensure Plus High Protein) 120 ml PO 4X/DAY #0 mL 07/16/23 midodrine 5 mg tablet 10 mg (2 x 5 mg) PO TIDCM #0 tabs 07/16/23 pantoprazole 40 mg tablet,delayed release 40 mg PO BID #0 tabs 07/16/23
[2023-07-16 12:09] VITALS: BP 112/48; PULSE 107; RESP 18; TEMP 36.2; O2SAT 100
--- NOTE | 2023-07-16 12:34 | CASEMGMT ---
Discharge Planning Discharge orders, signed med list, covid results, and transport time sent to [facility] via [facility]. Physicians will transport patient by wheelchair at 1p. Nursing, SW, patient, and daughter (Brooklynn) updated. Belen Medrano DC Planning Asst.
--- NOTE | 2023-07-16 12:51 | NURSING ---
Attempted to call report to [facility] for pt to be d/c. This nurse was transferred and then received a voicemail. Message left for nursing to call for report if so desired.
--- NOTE | 2023-07-16 15:23 | NURSING ---
This nurse received call from nurse Colon from [facility]. Report given.
== END 2023-07-16 13:37 | disposition skilled nursing facility (03) | DRG 377 ==
LOC: ED 07-09 01:29 → ICU 07-09 01:50 → PCU 07-15 15:16
PROVIDERS: Anesthesiology; Internal Medicine; Internal Medicine Critical Care Medicine; Internal Medicine Gastroenterology; Admitting Provider Internal Medicine; Emergency Provider Emergency Medicine; Visit Provider Hospitalist
PROC: 0DJ08ZZ Inspection of Upper Intestinal Tract, Via Natural or Artificial Opening Endoscopic (ICD-10-PCS; CPT 43235; principal; 2023-07-09 14:25)
DX: K26.4 Chronic or unspecified duodenal ulcer with hemorrhage (principal); I50.33 Acute on chronic diastolic (congestive) heart failure; R57.8 Other shock; E85.4 Organ-limited amyloidosis; I24.89 Other forms of acute ischemic heart disease; D68.32 Hemorrhagic disorder due to extrinsic circulating anticoagulants; I48.20 Chronic atrial fibrillation, unspecified; I42.9 Cardiomyopathy, unspecified; D62 Acute posthemorrhagic anemia; N39.0 Urinary tract infection, site not specified; I11.0 Hypertensive heart disease with heart failure; I35.0 Nonrheumatic aortic (valve) stenosis; I73.9 Peripheral vascular disease, unspecified; E88.09 Other disorders of plasma-protein metabolism, not elsewhere classified; I95.89 Other hypotension; E78.5 Hyperlipidemia, unspecified; F17.210 Nicotine dependence, cigarettes, uncomplicated; T45.515A Adverse effect of anticoagulants, initial encounter; I51.3 Intracardiac thrombosis, not elsewhere classified; B96.1 Klebsiella pneumoniae [K. pneumoniae] as the cause of diseases classified elsewhere; Z53.29 Procedure and treatment not carried out because of patient's decision for other reasons; Z66 Do not resuscitate; Z79.01 Long term (current) use of anticoagulants; Z79.899 Other long term (current) drug therapy
CPT/HCPCS: 36415; 36569; 71275; 74174; 80048; 80053; 80076; 80162; 81001; 82274; 83735; 83880; 84100; 84134; 84484; 85014; 85018; 85025; 85027; 85610; 85730; 86850; 86900; 86901; 86920; 87077; 87086; 87088; 87186; 87811; 93005; 94668; 94762; 97110; 97162; 97166; 97530; 97535; 97802; 99152; 99153; 99283; J7030; J7040; J7050; P9016; P9047; Q9967; A4216; C9159; J1940; J3490